=== PATIENT | male | born 1945 | race Caucasian/White ===

== ENCOUNTER 2023-07-04 22:32 | Emergency (ER) | payer MEDICARE, OTHER, SELFPAY ==
[2023-07-04 22:36] VITALS: BP 134/67
--- NOTE | 2023-07-04 23:44 | ED.GENMED ---
History of Present Illness
General
Chief Complaint: Dental Problem
Source: patient
Exam Limitations: none
Time Seen by Provider: 07/04/23 23:15
Nursing documentation reviewed up to this point in time: agreed with
Travel History
Have you had any contact with someone who has COVID-19?: No
Do you have any symptoms of coronavirus? Fever > 100 degrees, chills, cough, shortness of breath, sore throat, loss of taste or smell, muscle aches, or headache?: No
History of Present Illness
History of Present Illness:
Pleasant 78-year-old male presents with bleeding from his left upper rear molar (14). Patient states he had that tooth extracted today. The bleeding persisted so he went back to the dentist who put in more sutures and attempt to stop the bleeding.
Patient went home and bleeding started again. They applied tranexamic acid with minimal relief. They came into the emergency department. Upon arrival, bleeding has seemed to have stopped. Patient is on Eliquis and aspirin. Patient has no other
complaints at this time.
Past History
Past History
ED Past Medical History: CAD, HTN, NIDDM and Hypothyroidism
Social History
Tobacco: Non-smoker
Alcohol: None
Drug: None
Personal:
Living: with family
Review of Systems
Review of Systems
Allergies reviewed?: Yes
Other source history: family
All Other Systems: ROS reviewed and negative except as documented in HPI and ROS
Psychiatric: Reports anxiety
Phy Exam
General Physical Exam
General Presentation: well appearing and mild distress
General age: appears stated age
General Skin: warm and dry
General Habitus: normal and elderly
General Mental: alert
General Hydration: appears well hydrated
Cardiovascular Exam
Cardiovascular Exam: regular rate/rhythm
Pulmonary Exam
Pulmonary Exam: lungs clear and no respiratory distress
Neurological Exam
Neurological Exam: alert and oriented x3
Musculoskeletal Exam
Musculoskeletal Exam: full ROM, no edema and neuro vasc intact
Skin Exam
Skin Exam: normal color and warm/dry
Psychiatric Exam
Psychiatric Exam: normal mood/affect
Course
Vital Signs
Initial and Last Documented VS:
Initial Vital Signs
Temp Pulse Resp BP Pulse Ox
97.7 F 91 20 134/67 93
07/04/23 22:36 07/04/23 22:36 07/04/23 22:36 07/04/23 22:36 07/04/23 22:36
Last Documented Vital Signs
Temp Pulse Resp BP Pulse Ox
97.7 F 91 20 134/67 93
07/04/23 22:36 07/04/23 22:36 07/04/23 22:36 07/04/23 22:36 07/04/23 22:36
*Critical Care Note
Total Time (30-74mins, 75-104mins- exclusive of procedures): Not Applicable
Update Note
Update Note:
Bleeding has stopped. Patient has extra gauze and Hemaconn as well as prescribed tranexamic acid. Discussed return to ER instructions
ED Attending Note
-
Portions of this chart may have been created with voice recognition software.� Occasional wrong word or��sound alike� substitutions may have occurred due to the inherent limitations of voice recognition software.
Discharge Plan
Departure
Patient Disposition: Home (Routine Discharge)
Date of Disposition: 07/05/23
Time of Disposition: 00:35
Patient with high blood pressure during this ER visit?: Yes
Discharge Problem:
Surgical wound hemorrhage after dental procedure
Instructions: Bleeding After Surgery, BLOOD PRESSURE
Prescriptions:
No Action
nateglinide 120 MG tablet
120 mg PO TID
potassium chloride 10 MEQ capsule, extended release
10 meq PO DAILY
carvedilol 12.5 MG tablet
12.5 mg PO BID
bumetanide 2 MG tablet
2 mg PO BID
atorvastatin 10 MG tablet
10 mg PO DAILY
levetiracetam 500 MG tablet
500 mg PO Q12H
aspirin 81 MG tablet,delayed release (DR/EC)
81 mg PO DAILY
levothyroxine 100 MCG tablet
100 mcg PO DAILY AT 0700
azelastine 1 SPRAY aerosol,spray
1 spray intranasal BID
albuterol sulfate 1 PUFF HFA aerosol inhaler
1 puff inhalation R Q4HPRN PRN (Reason: SOB)
cholecalciferol (vitamin D3) 1,000 UNITS tablet
1,000 units PO DAILY
sitagliptin phosphate [Januvia] 100 MG tablet
100 mg PO DAILY
bimatoprost [Lumigan] 1 DROP drops
1 drp BOTH EYES QPM
brinzolamide-brimonidine [Simbrinza] 1 DROP drops,suspension
1 drp BOTH EYES TID
fluticasone furoate-vilanterol [Breo Ellipta] 1 EACH blister with device
1 puff inhalation R DAILY
sacubitril-valsartan [Entresto] 1 EACH tablet
1 ea PO BID
vancomycin [Vancocin] 250 MG capsule
125 mg PO DIRECTED 60 Days Qty: 134 0RF
Rx Instructions:
125 mg 4x/14 days then 125 mg 2x daily/14 then 250 mg daily x 14 then 250 mg other day for 28 days
Referrals:
Diana Tamez MD [Family Provider] -
Activity Restrictions/Additional Instructions:
It was a pleasure meeting you and taking part in your care. We hope for your continued healing and wellness.
Please read discharge instructions in their entirety. However, they are for general education and may not describe your exact diagnosis at discharge. Information on your ER visit and medical conditions were discussed with you along with appropriate
follow up information...
If indicated, please take your medications as instructed and indicated on discharge paperwork.
Please schedule a follow up appointment as directed. Call to schedule an appointment
Please return to the emergency department with ANY change in, persisting, or worsening of symptoms. If any of your symptoms do not improve, or persist, or become more severe within 6-12 hours, please return to the emergency department for further
care.
Please return to the emergency department if you develop a headache, neck pain/stiffness, fever greater than 100.4F, chest pain, shortness of breath, persistent nausea, vomiting, slurred speech, difficulty walking, numbness/tingling, weakness, signs
of infection or any other symptoms that are worrisome to you.
If you have any questions or concerns please do not hesitate to call the Hospital at or E-mail me directly at [email or web address]
Interventions
Interventions:
*Risk Screen - Suicide Last Done: 07/04/23 22:36
*General Assessment Last Done: 07/04/23 22:36
*Neglect/Abuse Screening Last Done: 07/04/23 22:36
*Nursing Disposition Last Done: 07/05/23 00:50
Discharge Date and Time
Discharge Date/Time: 07/05/23 00:53
Print Language: LAO
== END 2023-07-05 00:53 | disposition home or self-care (01) ==
LOC: EMR 22:32
PROVIDERS: EMERGENCY PHYSICIAN Student in an Organized Health Care Education/Training Program; FAMILY PHYSICIAN Internal Medicine Geriatric Medicine
DX: K91.840 Postprocedural hemorrhage of a digestive system organ or structure following a digestive system procedure (principal); I25.10 Atherosclerotic heart disease of native coronary artery without angina pectoris; I10 Essential (primary) hypertension; E11.9 Type 2 diabetes mellitus without complications; E03.9 Hypothyroidism, unspecified; Z79.01 Long term (current) use of anticoagulants
CPT/HCPCS: 99282

== ENCOUNTER 2024-09-03 20:29 | Inpatient (IN) | payer MEDICARE, OTHER, SELFPAY ==
[2024-09-03] VITALS (8 sets, daily range): BP systolic 100–121; BP diastolic 46–63; BMI 29.2
[2024-09-03 17:29] LABS: % Eosinophils 0.1 % (0-6); % Immature Granulocytes 3.3 % (0-0.5); % Lymphocytes 1.2 % (20.5-51.1); % Monocytes 5.3 % (1.7-9.3); % Neutrophils 90.1 % (42.2-75.2); Absolute Immature Granulocytes 1.9 10^3/uL (0-0.05); Absolute Lymphocytes 0.7 10^3/uL (1.2-3.4); Absolute Monocytes 2.9 10^3/uL (0.1-0.6); Absolute Neutrophils 49.9 10^3/uL (1.4-6.5); Hematocrit 40.8 % (39.0-52.0); Hemoglobin 14.4 g/dL (13.0-18.0); Mean Corp Hgb Conc. 35.3 g/dL (33.0-37.0); Mean Corpuscular Volume 87.9 fL (80.0-94.0); Mean Platelet Volume 10.5 fL (7.4-10.4); Nucleated Red Blood Cells % 0 % (-); Platelet Count 427 10^3/uL (130-400); Red Blood Cell Count 4.64 10^6/uL (4.70-6.10); Red Cell Dist. Width 13.9 % (11.5-14.5); White Blood Cell Count 55.4 10^3/uL (4.8-10.8)
[2024-09-03 17:56] LABS: ALT (SGPT) 16 U/L (0-50); AST (SGOT) 22 U/L (17-59); Albumin 3.6 g/dl (3.5-5.0); Alkaline Phosphatase 90 U/L (38-126); Blood Urea Nitrogen 19 mg/dl (9-20); Carbon Dioxide 34 mmol/L (22-30); Chloride 84 mmol/L (98-107); Estimated Creatinine Clearance 59 ml/min; Glucose 191 mg/dl (70-99); Potassium 4.6 mmol/L (3.5-5.1); Sodium 123 mmol/L (135-145); Total Protein 6.6 g/dl (6.3-8.2); eGFR > 60.00
--- NOTE | 2024-09-03 18:04 | ED.GENMED ---
History of Present Illness
General
Chief Complaint: Weakness
Source: patient and spouse
Exam Limitations: none
Time Seen by Provider: 09/03/24 17:05
Nursing documentation reviewed up to this point in time: agreed with
History of Present Illness
History of Present Illness:
79 yo male w h/o colitis, A-fib on Eliquis, MGUS, cardiomyopathy, pacemaker, splenectomy, sleep apnea using CPAP, hypothyroid, HLD, NIDDM, hx infection w brain and liver abscess, skin CA left side face and neck, here for generalized weakness, his
legs gave out this morning and he fell in his bedroom at 10 AM, no injury he states. EMT was called from [facility] to help him up. He states for the past 2 weeks he has been extremely weak and also has developed a cough and shortness of
breath. Denies fever, denies N/V/D/C. He was independently ambulating 1 month ago. states he has been gradually declining.
Past History
Past History
ED Past Medical History: CAD, HTN, NIDDM and Hypothyroidism
Social History
Tobacco: Non-smoker
Alcohol: None
Drug: None
Personal:
Living: with family
Review of Systems
Review of Systems
Allergies reviewed?: Yes
All Other Systems: ROS reviewed and negative except as documented in HPI and ROS
Constitutional: Reports fatigue; Denies fever
Respiratory: Reports cough and trouble breathing
Cardiac: Denies chest pain
ABD/GI: Denies abdominal pain, nausea, vomiting or diarrhea
: Denies dysuria or difficulty voiding
Musculoskeletal: Reports edema
Skin: Reports no symptoms
Neurological: Reports no symptoms
Phy Exam
Physical Exam
Physical Exam:
GENERAL: No acute distress. A&Ox3.
CONSTITUTIONAL: Afebrile.
EYES: clear, conjunctivae normal
ENMT: moist mucus membranes
RESPIRATORY: Regular respirations, mildly labored, coarse junky cough, lungs with diminished breath sounds throughout
CARDIOVASCULAR: Regular rate and rhythm, no murmurs, no rubs.
GI: Soft, nontender, normal BS
MUSCULOSKELETAL: Moves with ease. Well perfused. 2+ pitting edema lower extremities
SKIN: Warm, dry, pink
PSYCH: Normal mood and affect. Well kept, interactive and appropriate
NEUROLOGIC: Awake, alert and oriented. No focal neurological deficits
Scores
Heart Failure Risk
Heart Failure Risk Score: Yes
History of Stroke or TIA: Yes
History of intubation for respiratory distress: No
Heart rate on ED arrival >/= 110: No
SaO2 <90% on arrival on room air: No
HR >/=110 during 3min walk test (or too ill to perform test): Yes
ECG has acute ischemic changes: No
Urea >/=12mmol/L (BUN 33.6mg/dL): No
Serum CO2>/=35mmol/L: No
Troponin I or T elevated to ME Level (0.4mg/dL): No
NT-proBNP >/=5,000ng/L (5,000pg/ml): No
HF Risk Score: 3
Admission Status: HIGH RISK 15.9% Consider SNF treatment or admission to hospital
Course
Orders/Labs/Results
Orders:
Orders
09/03/24 16:46
Electrocardiogram (*1) Urgent
Reason for Study: Fatigue / Weakness
EKG- Treatment ONCE
Portable Chest Xray [CR Chest Portable - 1 View] Urgent
Comment:
Reason For Exam: sob cough
Reason Study Needs to be Portable: Patient Unstable
09/03/24 16:52
Complete Blood Count/With Diff Urgent
09/03/24 17:31
Comprehensive Metabolic Panel Urgent
NT-proBNP Urgent
Serum Osmolality Urgent
Comment: ADD ON
TSH Urgent
Comment: ADD ON
09/03/24 18:04
Furosemide [Lasix] 60 mg IV NOW STA
09/03/24 18:06
Add On- LAB Urgent
Tests Added?: TSH
Add On- LAB Urgent
Tests Added?: serum osmolality
09/03/24 19:15
Admit/Transfer Patient As Directed
Co-Sign Provider:
Level of Care: Inpatient admission
Assign to:: Telemetry
Physician / Group: Mary
Diagnosis: CHF
Reason for Telemetry: Acute Heart Failure
Date to Stop Telemetry: 09/06/24
Time to Stop Telemetry: 11:00
Reason for Hospitalization: IV diuretics
Expected length of stay greater than two midnights?: Yes
ELOS- Estimated Length of Stay in days: 3
I certify the patient meets the requirements for IP care: Yes
09/03/24 19:16
PRN Pain Medication Management As Directed
May give lesser potent ordered pain med per pt: Yes
preference::
Protocol:: Medication orders for pain may be administered in a
manner that supports deferring to patient preference
when the pt is:
- Requesting an ordered lesser potent pain medication.
Least to most potent pain medications are defined
as: acetaminophen < NSAID < tramadol < opioids
(morphine, oxycodone, hydromorphone).
- Requesting a lesser dose of the same medication IF
ORDERED.
- Requesting a less intrusive route of administration
if both routes are prescribed by the provider (PO <
IV).
09/03/24 19:19
Osmolality, Random Urine Urgent
Date Specimen was Collected: 09/03/24
Time Specimen was Collected: 19:13
Urinalysis Reflex To Culture Urgent
Date Specimen was Collected: 09/03/24
Time Specimen was Collected: 19:13
Urine Microscopic Reflex Cult Urgent
Urine Sodium Urgent
Date Specimen was Collected: 09/03/24
Time Specimen was Collected: 19:13
Respiratory Culture/Gram Stain Urgent
RAVI Source: Sputum
Specimen Description:
Date Specimen was Collected: 09/03/24
Time Specimen was Collected: 21:40
Urine Culture Urgent
RAVI Source: U
Specimen Description:
Date Specimen was Collected: 09/03/24
Time Specimen was Collected: 19:13
09/03/24 19:21
Code Status As Directed
Resuscitation Status: Do not resuscitate
Reached after discussion with pt or family/Healthcare POA: Yes
DNR Bracelet Application ONCE
09/03/24 21:44
COVID-19 Antigen Urgent
Source: Nasal Swab
Procalcitonin Urgent
09/03/24 22:06
Apixaban [Eliquis] 5 mg PO BID
09/04/24 18:00
Aspirin Low Dose EC [Aspir Low (Enteric Coated)] 81 mg PO QPM
09/06/24 11:00
DC Protocol for Telemetry ONCE
Abnormal Lab Results
09/03/24 09/03/24 09/03/24
16:52 17:31 19:19
WBC 55.4 H* 10^3/uL
(4.8-10.8)
RBC 4.64 L 10^6/uL
(4.70-6.10)
Plt Count 427 H 10^3/uL
(130-400)
MPV 10.5 H fL
(7.4-10.4)
Abs Immat Gran (auto) 1.9 H 10^3/uL
(0-0.05)
Absolute Neuts (auto) 49.9 H 10^3/uL
(1.4-6.5)
Absolute Lymphs (auto) 0.7 L 10^3/uL
(1.2-3.4)
Absolute Monos (auto) 2.9 H 10^3/uL
(0.1-0.6)
Immature Gran % 3.3 H %
(0-0.5)
Neutrophils % 90.1 H %
(42.2-75.2)
Lymphocytes % 1.2 L %
(20.5-51.1)
Sodium 123 L mmol/L
(135-145)
Chloride 84 L mmol/L
(98-107)
Carbon Dioxide 34 H mmol/L
(22-30)
Glucose 191 H mg/dl
(70-99)
Serum Osmolality 269 L mOsm/kg
(275-300)
Ur Occult Blood Reflex 4+ A
(Negative)
Leukocyte Esterase Rfl 1+ A
(Negative)
Urine RBC 40-50 A /HPF
(0-2)
Urine WBC (Reflex) 30-40 A /HPF
(0-5)
Urine Bacteria (Reflex) Moderate A
(Negative)
Urine Glucose 1+ A
(Negative)
Urine Albumin (Reflex) 1+ A
(Neg - Trace)
09/03/24 16:52
09/03/24 17:31
Vital Signs
Initial and Last Documented VS:
Initial Vital Signs
Pulse Resp BP
76 24 114/54
09/03/24 16:46 09/03/24 16:46 09/03/24 16:46
Last Documented Vital Signs
Temp Pulse Resp BP Pulse Ox
98.9 F 79 24 100/46 94
09/03/24 23:12 09/03/24 23:12 09/03/24 23:12 09/03/24 23:12 09/03/24 23:12
MDM/Problems Addressed
MDM/Problems Addressed:
79 yo male w h/o colitis, A-fib on Eliquis, MGUS, cardiomyopathy, pacemaker, splenectomy, sleep apnea using CPAP, hypothyroid, HLD, NIDDM, hx infection w brain and liver abscess, skin CA left side face and neck, here for generalized weakness, his
legs gave out this morning and he fell in his bedroom at 10 AM, no injury he states. EMT was called from [facility] to help him up. He states for the past 2 weeks he has been extremely weak and also has developed a cough and shortness of
breath. Denies fever, denies N/V/D/C. He was independently ambulating 1 month ago. states he has been gradually declining.
Afebrile,
5:30 p.m.
CBC: WBC 55.0 MGUS most likely cause
CMP: Na 123
BNP: 3990
CXR: IMPRESSION:
Interstitial pulmonary edema with small bilateral pleural effusions. Bibasilar opacities may represent alveolar edema versus pneumonia
Plan: Admit: CHF, Hyponatremia
*Critical Care Note
Total Time (30-74mins, 75-104mins- exclusive of procedures): Not Applicable
ED Attending Note
-
Portions of this chart may have been created with voice recognition software.� Occasional wrong word or��sound alike� substitutions may have occurred due to the inherent limitations of voice recognition software.
Discharge Plan
Departure
Patient Disposition: Admit
Date of Disposition: 09/03/24
Time of Disposition: 17:34
Presentation/result/management discussed w/ accepting MD/DO: Hospitalist
Condition: Serious
Discharge Problem:
CHF (congestive heart failure), MGUS (monoclonal gammopathy of unknown significance), Acute hyponatremia
Interventions
Interventions:
*Risk Screen - Suicide Last Done: 09/03/24 16:48
*General Assessment Last Done: 09/03/24 16:48
*Neglect/Abuse Screening Last Done: 09/03/24 16:48
*ED- Fall Risk Assessment Last Done: 09/03/24 16:48
*ED COVID-19 Vaccine History Last Done: 09/03/24 16:48
ED- Cardiac Assessment Last Done: 09/03/24 19:07
ED- Neurological Assessment Last Done: 09/03/24 19:07
ED- Pulmonary Assessment Last Done: 09/03/24 19:07
[2024-09-03 18:07] LABS: NT-proBNP 3990 pg/ml
[2024-09-03] MEDS: LASIX 60 MG IV (18:14)
[2024-09-03 18:21] LABS: Osmolality Serum 269 mOsm/kg (275-300)
[2024-09-03 18:57] LABS: TSH 1.03 uIU/ml (0.47-4.68)
--- NOTE | 2024-09-03 19:20 | W.PN.UPDATE ---
Update Note
Progress Note Update
This is an addendum to H&P written by Sandra Munoz on 09/03/2024. Patient seen and examined independently with PA.
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
radiation, C. difficile colitis, presenting with generalized weakness and legs giving out today. Also with cough and shortness of breath. Progressive decline over the past month.
Labs show leukocytosis of 55. Sodium of 123. Cardiac BNP of 4000. Chest x-ray shows interstitial pulmonary edema with small bilateral pleural effusions.
Patient with evidence of acute CHF exacerbation with associated hyponatremia/poor solute intake. Check urine sodium, osmolality. Bumex 3 mg twice daily, check echocardiogram, cardiology consulted. Possible pneumonia so check procalcitonin and
start antibiotics if elevated.
Patient with leukocytosis with elevated immature granulocytes concerning for hematologic myeloid process. Hematology consulted.
--- NOTE | 2024-09-03 19:26 | HPS.HSE ---
Addendum entered and electronically signed by Sandra Lao PA-C 09/03/24 23:39:
Procalcitonin Elevated 0.36
-Start empiric ceftriaxone and doxycycline
-Check blood cultures
Original Note:
Family Physician
-
Family Physician: NOT KNOW UNKNOWN - PT DOES
Chief Complaint
-
Weakness
History of Present Illness
Patient is an 79 y/o male past medical history of CAD, CHF, A-Fib, DM, MGUS, and COPD who presents with weakness. Additional history if obtained from patient's at the bedside. Patient has been dealing with worsening cough for the past few
weeks. Initially he was treated with a Medrol dose pack without much improve. He then completed a Z-sandra again without much improvement. notes his physician tried changing him from Breo to Trelegy but again not much improvement so he changed
back to Breo. Patient reports cough is productive, and is associated with some shortness of breath. Patient has gotten progressively weaker prompting his presentation to the emergency department today. Upon arrival to the emergency department
patient was profoundly hypoxic with O2 73% on room air.
Medical History
Past Medical History
Past Medical History: Reports Other
Additional Past Medical History:
Coronary Artery Disease
Chronic Heart Failure, unknown EF
Paroxysmal Atrial Fibrillation
Complete Heart Block s/p Pacemaker
Diabetes Mellitus, Type II
Hypothyroidism
MGUS
Asthma/COPD
Squamous Cell Carcinoma of Left Face s/p Resection and XRT
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
C Diff Colitis
Glaucoma
Past Surgical History: Reports Other
Additional Past Surgical History:
Pacemaker
Splenectomy
Left Facial Surgery
Social History
Tobacco: Non-smoker
Living: Other (Lives with in independent apartment at [facility])
Family History
Family History: Not pertinent
Allergies / Home Medications
Allergies reflects when Allergies were last updated in [employer] computer.
Home Medications with original date entered in [employer] computer
Allergy/Medication List:
Allergies
Allergy/AdvReac Type Severity Reaction Status Date / Time
metformin Allergy Unknown Verified 09/03/24 16:46
Home Medications
albuterol sulfate 90 mcg/actuation aerosol inhaler 1 puff inhalation R Q4HPRN PRN SOB 03/17/21
aspirin 81 mg tablet,delayed release 81 mg PO QPM Blood clot prevention/tx 03/17/21
azelastine 137 mcg (0.1 %) nasal spray 1 spray intranasal BID Congestion 03/17/21
brinzolamide 1 %-brimonidine 0.2 % eye drops,suspension (Simbrinza) 1 drp BOTH EYES TID Fever/pain 03/17/21
bumetanide 2 mg tablet 2 mg PO BID Fluid retention/Swelling 03/17/21
carvedilol 12.5 mg tablet 12.5 mg PO BID Blood pressure 03/17/21
cholecalciferol (vitamin D3) 25 mcg (1,000 unit) tablet 1,000 units PO DAILY Supplement 03/17/21
levothyroxine 100 mcg tablet 100 mcg PO DAILY AT 0700 Thyroid 03/17/21
nateglinide 120 mg tablet 120 mg PO TID Diabetes 03/17/21
sitagliptin phosphate 100 mg tablet (Januvia) 100 mg PO QPM Diabetes 03/17/21
apixaban 5 mg tablet (Eliquis) 5 mg PO BID 09/03/24
azithromycin 250 mg tablet 0 mg PO .COMPLEX 09/03/24
bimatoprost 0.01 % eye drops (Lumigan) 1 drp BOTH EYES HS 09/03/24
docusate sodium 100 mg capsule (Colace) 100 mg PO BID 09/03/24
fluticasone furoate 200 mcg-vilanterol 25 mcg/dose inhalation powder (Breo Ellipta) 1 inh inhalation DAILY 09/03/24
netarsudil 0.02 % eye drops (Rhopressa) 1 drp BOTH EYES HS 09/03/24
sacubitril 24 mg-valsartan 26 mg tablet (Entresto) 1 tab PO BID 09/03/24
Review of Systems
-
A 12 point ROS was completed and negative except as noted: Yes
Constitutional: Denies Fever or Chills
Respiratory: Reports See HPI
Cardiac: Denies Chest Pain or Palpitations
Abdomen/GI: Denies Abdominal Pain, Nausea, Vomiting or Diarrhea
Physical Exam
Vital Signs
Vital Signs
Temp Pulse Resp BP Pulse Ox
98.1 F 70 24 114/55 92
09/03/24 19:07 09/03/24 19:07 09/03/24 19:07 09/03/24 19:07 09/03/24 19:07
Physical Exam
General: Well Developed, Well Nourished, Conversant and Obese
HEENT: NormoCephalic, Moist mucous membranes, Atraumatic and Oxygen (Nasal Cannula)
Respiratory: Wheezes (Posteriorly), Rales (Few at bilateral bases) and Rhonchi (Anteriorly)
Cardiac: S1/S2 and Regular Rhythm; No Tachycardia
GI: Soft, Non Tender and Other (Protuberant)
Rectal: Deferred by Provider
Genito-urinary: Other (Dark ulisses urine in urinal at bedside)
Musculoskeletal: No Clubbing, No Cyanosis and Other (+2 pitting edema bilateral lower extremities)
Skin: Warm and Dry
Neuro: Awake, Alert, Oriented and Nonfocal/grossly intact
Psych: Calm
Laboratory Results
-
09/03/24 16:52
09/03/24 17:31
Laboratory Results
Total Bilirubin 1.0 mg/dl (0.2-1.3) 09/03/24 17:31
AST 22 U/L (17-59) 09/03/24 17:31
ALT 16 U/L (0-50) 09/03/24 17:31
Alkaline Phosphatase 90 U/L (38-126) 09/03/24 17:31
Chest X-Ray:
Interstitial pulmonary edema with small bilateral pleural effusions. Bibasilar opacities may represent alveolar edema versus pneumonia.
Data Reviewed
-
Diagnostic Radiology: Report Reviewed by me
Old Records: Requested and Reviewed
Impression/Plan
-
Acute Hypoxic Respiratory Insufficiency secondary to Heart Failure
-Continue supplemental oxygen
-Attempt to wean prior to discharge
Chronic Heart Failure, unknown EF
-Consult Cardiology
-Check Echocardiogram
-Continue Bumex 3mg IV BID
-Continue Entresto
-Monitor Is&Os and Daily Weights
Hyponatremia, suspect hypervolemic in nature in setting of heart failure
-Check urine electrolytes
-Continue fluid restriction
-Monitor serial sodium levels
Significant Leukocytosis
- reports patient's WBC chronically runs high but she does not know his baseline
-Attempt to obtain prior blood work results from PCP
-Check Procalcitonin - If elevated start empiric antibiotics for pneumonia
-Check COVID and Influenza swab
-Check blood cultures
-Consult Hematology
Asthma / COPD
-Transition to Pulmicort and DuoNeb QID / PRN
Coronary Artery Disease
-Continue aspirin
Paroxysmal Atrial Fibrillation
-Continue Eliquis
-Continue carvedilol for rate control
Diabetes Mellitus, Type II
-Continue Januvia
-Hold Nateglinide
-Monitor sugars and continue coverage insulin
Essential Hypertension
-Continue carvedilol with hold parameters
Hypothyroidism
-Continue levothyroxine
MGUS
-Attempt to obtain records from patients outpatient bulk pigment reducer
Hx Complete Heart Block s/p Pacemaker
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
Hx C Diff Colitis
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
DVT proph: Eliquis
Code Status: DNR
[2024-09-03 19:35] LABS: Urine Albumin 1+ (Neg - Trace); Urine Bilirubin Negative (Negative); Urine Character Clear (Clear); Urine Color Yellow; Urine Glucose 1+ (Negative); Urine Ketone Negative (Negative); Urine Leukocyte 1+ (Negative); Urine Nitrite Negative (Negative); Urine Occult Blood 4+ (Negative); Urine Specific Gravity 1.015 (<1.030); Urine Urobilinogen Negative (Neg - 1+)
[2024-09-03 19:39] LABS: Osmolality Urine 389 mOsm/kg (300-900)
[2024-09-03 19:48] LABS: Urine Bacteria Moderate (Negative); Urine Red Blood Cell 40-50 /HPF (0-2); Urine White Cell 30-40 /HPF (0-5)
[2024-09-03 19:52] LABS: Urine Sodium 33 mmol/L (30-90)
[2024-09-03] MEDS: ASPIR LOW (ENTERIC COATED) 81 MG PO (22:11)
[2024-09-03] MEDS: ELIQUIS 5 MG PO (22:11)
[2024-09-03 22:23] LABS: COVID-19 Antigen Negative (Negative)
[2024-09-03 23:12] LABS: Procalcitonin 0.36 ng/ml (0.0-0.25)
[2024-09-04] VITALS (7 sets, daily range): BP systolic 108–132; BP diastolic 55–80; PULSE 91; O2SAT 91; BMI 28.4
[2024-09-04 00:08] LABS: Glucose - Point of Care 164 mg/dl (70-99)
--- NOTE | 2024-09-04 00:10 | PTCARENOTE ---
Pt arrived to unit from ED, x4 assist to parts puller from stretcher to bed. AAOx3, garbled speech, hx of stroke. Oriented to room, call shannon in reach, VSS on 4L O2. Bed alarm in place, POC reviewed with pt.
[2024-09-04] MEDS: DUONEB 3 ML INH ×5 (00:39→20:13)
[2024-09-04] MEDS: PULMICORT 0.5 MG INH ×3 (00:39→20:13)
[2024-09-04] MEDS: COREG PO ×2 (00:48→08:22)
[2024-09-04] MEDS: MUCINEX 600 MG PO ×3 (01:08→19:48)
[2024-09-04] MEDS: STERILE WATER FOR INJECTION 10 ML IV (01:10)
[2024-09-04] MEDS: COLACE 100 MG PO ×3 (01:10→19:50)
[2024-09-04] MEDS: ENTRESTO 24 MG/26 MG 1 TAB PO ×3 (01:10→19:48)
[2024-09-04] MEDS: ROCEPHIN 1000 MG IV (01:11)
[2024-09-04] MEDS: SYNTHROID 100 MCG PO (06:16)
[2024-09-04 07:11] LABS: Hematocrit 41.1 % (39.0-52.0); Hemoglobin 14.3 g/dL (13.0-18.0); Mean Corp Hgb Conc. 34.8 g/dL (33.0-37.0); Mean Corpuscular Volume 89.2 fL (80.0-94.0); Mean Platelet Volume 10.5 fL (7.4-10.4); Platelet Count 360 10^3/uL (130-400); Red Blood Cell Count 4.61 10^6/uL (4.70-6.10); Red Cell Dist. Width 13.4 % (11.5-14.5); White Blood Cell Count 48.4 10^3/uL (4.8-10.8)
[2024-09-04 07:55] LABS: Glucose - Point of Care 150 mg/dl (70-99)
[2024-09-04] MEDS: BUMEX 3 MG IV ×2 (08:19→15:44)
[2024-09-04] MEDS: VIBRAMYCIN 100 MG PO (08:21)
[2024-09-04] MEDS: ELIQUIS 5 MG PO ×2 (08:22→19:48)
[2024-09-04 08:25] LABS: Blood Urea Nitrogen 20 mg/dl (9-20); Carbon Dioxide 31 mmol/L (22-30); Chloride 85 mmol/L (98-107); Estimated Creatinine Clearance 63 ml/min; Glucose 114 mg/dl (70-99); HDL Cholesterol 27 mg/dl; LDL Cholesterol, Calculated 65 mg/dl; Magnesium 2.1 mg/dl (1.6-2.3); Potassium 4.5 mmol/L (3.5-5.1); Sodium 126 mmol/L (135-145); Total Cholesterol 110 mg/dl (50-199); Triglyceride 94 mg/dl (10-149); Very Low Density Lipoprotein 18 mg/dl (0-30); eGFR > 60.00
--- NOTE | 2024-09-04 08:26 | CON.CAR ---
Addendum entered and electronically signed by Sommer Sykes MD 09/04/24 13:15:
I saw and examined the patient.
The [employer] CONSULTANT's note was reviewed and I agree with the note.
Comment: 79 yo male (known to his medical office receptionist Dr. Oliverio Pierre [place]) with HTN, Afib on Eliquis, CVA on ASA added Eliquis, CHB s/p MDT PPM, CHF unknown EF, COPD and DM, who presents to the ER with c/o cough. He is admitted to the
hospitalist service and we are consulted for acute CHF.He is a poor historian. He tells me he is feeling better since admission.
On exam he has diffuse wheezes posteriorly, rrr no m/r/g, his legs are withoout edema.
CXR shows pleural effusions with pulm edema (on my review). ECG av paced with PVCs.
Impression acute hf unknown ef, paf on eliquis/asa, htn and CHB s/p PPM. Leukocytosis. Plan IV diuresis in intensive monitoring, Eval for SGLT 2 i, cm c/s, Check echo, optimize medications for chornic problems. Consider is COPD is playing a role.
Further eval for leukocytosis.
Will follow
Original Note:
Consultation
Consultation Request
Date/Time Consultation Requested: 09/03/24 11:50p
Date/Time Consultation Performed: 09/04/24 8a
Requesting Provider: Sandra Lao PA-C
Performing Provider: RONAL Pollack for Dr. Sykes
Reason for Consultation: CHF
Medical History
-
Chief Complaint: cough
History of Present Illness:
Mr. Glover is an 79 yo male (known to his medical office receptionist Dr. Oliverio Pierre [place]) with HTN, Afib on Eliquis, CVA on ASA, CHB s/p MDT PPM, CHF unknown EF, COPD and DM, who presents to the ER with c/o cough. He is admitted to the hospitalist
service and we are consulted for acute CHF. He is a poor historian and history was obtained from speaking with his Maria D on the phone. She states he has post nasal drip that causes him to cough that has occurred for 5 years now. Recently
he was placed on Zpack, medrol dose pack and inhalers by PCP without improvement. Currently he states feeling mildly SOB.
Past Medical History
Past Medical History: Other (as above)
Social History
Tobacco: Non-Smoker
Personal:
Living: Assisted Living ([facility])
Employment: Retired
Family History
Family History: Reviewed & Not Pertinent
Allergies / Home Medications
Allergy/AdvReac Type Severity Reaction Status Date / Time
adhesive tape Allergy Mild Itching Verified 09/04/24 01:02
metformin Allergy Unknown Verified 09/03/24 16:46
�Medication �Instructions �Recorded �Confirmed �Type
albuterol sulfate 90 mcg/actuation 1 puff inhalation R Q4HPRN PRN SOB 03/17/21 09/03/24 History
aerosol inhaler
aspirin 81 mg tablet,delayed 81 mg PO QPM Blood clot 03/17/21 09/03/24 History
release prevention/tx
azelastine 137 mcg (0.1 %) nasal 1 spray intranasal BID Congestion 03/17/21 09/03/24 History
spray
brinzolamide 1 %-brimonidine 0.2 % 1 drp BOTH EYES TID Fever/pain 03/17/21 09/03/24 History
eye drops,suspension (Simbrinza)
bumetanide 2 mg tablet 2 mg PO BID Fluid 03/17/21 09/03/24 History
retention/Swelling
carvedilol 12.5 mg tablet 12.5 mg PO BID Blood pressure 03/17/21 09/03/24 History
cholecalciferol (vitamin D3) 25 1,000 units PO DAILY Supplement 03/17/21 09/03/24 History
mcg (1,000 unit) tablet
levothyroxine 100 mcg tablet 100 mcg PO DAILY AT 0700 Thyroid 03/17/21 09/03/24 History
nateglinide 120 mg tablet 120 mg PO TID Diabetes 03/17/21 09/03/24 History
sitagliptin phosphate 100 mg 100 mg PO QPM Diabetes 03/17/21 09/03/24 History
tablet (Januvia)
apixaban 5 mg tablet (Eliquis) 5 mg PO BID 09/03/24 09/03/24 History
azithromycin 250 mg tablet 0 mg PO .COMPLEX 09/03/24 09/03/24 History
bimatoprost 0.01 % eye drops 1 drp BOTH EYES HS 09/03/24 09/03/24 History
(Lumigan)
docusate sodium 100 mg capsule 100 mg PO BID 09/03/24 09/03/24 History
(Colace)
fluticasone furoate 200 1 inh inhalation DAILY 09/03/24 09/03/24 History
mcg-vilanterol 25 mcg/dose
inhalation powder (Breo Ellipta)
netarsudil 0.02 % eye drops 1 drp BOTH EYES HS 09/03/24 09/03/24 History
(Rhopressa)
sacubitril 24 mg-valsartan 26 mg 1 tab PO BID 09/03/24 09/03/24 History
tablet (Entresto)
Review of Systems
-
History Source: Patient and Family ( Maria D)
All other systems: Negative unless noted
Physical Exam
Vital Signs
Temp Pulse Resp BP Pulse Ox
98.2 F 76 20 118/57 95
09/04/24 07:55 09/04/24 07:55 09/04/24 07:55 09/04/24 07:55 09/04/24 07:55
Lab Results
09/04/24 05:56
09/04/24 05:56
Ggi-U-Olrvuacowdm Pept 3990 pg/ml 09/03/24 17:31
Physical Exam
General: Well Developed, No Apparent Distress and Other (sleepy and arouses to name)
HEENT: Normocephalic and Moist Mucous Membranes
Respiratory: Crackles (mild bibasilar) and Non Labored Respirations
Cardiac: S1/S2, Regular Rhythm and Peripheral Edema (mild b/l LE)
Breast: Deferred by me
GI: Soft, Non Tender and Normal Bowel Sounds
Rectal: Deferred by Provider
Genito-urinary: No Costovertebral Tender
Musculoskeletal: No Clubbing and No Cyanosis
Skin: Warm and Dry
Neuro: Awake, Alert and Oriented
Psych: Calm
Impression / Plan
-
CHF - acute on chronic.
- unknown EF, obtain records.
- agree with IV diuresis Bumex 3mg BID.
- monitor daily weights, I&Os.
- check echo.
- continue GDMT Entresto, Coreg, Bumex.
- fitzgerald SGLT2i.
Afib - paroxysmal.
- AV and V paced on tele.
- denies palpitations.
- continue Eliquis.
HTN - stable on meds, continue.
CAD - stable w/o angina.
- continue medical therapy.
- obtain records from cardiology.
CVA - stable.
- no sx.
- on ASA, continue.
CHB s/p PPM - MDT device managed by Dr. Immanuel Mcmahon as outpatient.
Data Reviewed
-
EKG: Tracing Personally Visualized and interpreted (V paced with PVCs 75 bpm)
Radiology: Report Reviewed by me (CXR: Interstitial pulmonary edema with small bilateral pleural effusions. Bibasilar opacities may represent alveolar edema versus pneumonia.)
Labs: Labs Reviewed by me
Old Records: Requested
[2024-09-04 08:44] LABS: Hepatitis C Antibody Negative (Negative)
--- NOTE | 2024-09-04 08:47 | W.PN.HOSP.TC ---
Today's Communication/Plan
-
broaden abx to vanc and zosyn
follow cultures
wean O2 supplementation as tolerated
cont IV diuresis
follow flow cytometry
PT/OT
Assessment / Plan
Assessment / Plan
Physical Exam
General: no acute distress, appears comfortable, obese
HEENT: NormoCephalic, Moist mucous membranes, Atraumatic on nasal cannula oxygen supplementation
Respiratory: basilar crackles b/l
Cardiac: S1/S2 and Regular Rhythm; No Tachycardia
GI: Soft, Non Tender, bowel sounds present
Musculoskeletal: No Clubbing, No Cyanosis, +2 pitting edema bilateral lower extremities
Skin: Warm and Dry
Neuro: Lethargic but arousable, oriented x3, conversant
Psych: Calm
79M CAD CHF afib DM MGUS COPD here for CHF exacerbation, high white count, suspected pneumonia, bacteremia.
Acute Hypoxic Respiratory Insufficiency secondary to Heart Failure
-Continue supplemental oxygen
-Attempt to wean prior to discharge
Acute on Chronic HFrEF
-Consult Cardiology appreciated
-ECHO appreciated 30%
-Continue Bumex 3mg IV BID
-Continue Entresto
-Monitor Is&Os and Daily Weights
Hyponatremia, suspect hypervolemic in nature in setting of heart failure
-Continue fluid restriction
-Monitor serial sodium levels
Significant Leukocytosis
Bacteremia
- reports patient's WBC chronically runs high but she does not know his baseline
-Attempt to obtain prior blood work results from PCP
-Procal elevated
-Check COVID and Influenza swab
-Blood cx prelim positive
-Consult Hematology appreciated
-Empiric abx broaden to vanc and zosyn
Asthma / COPD
-Transition to Pulmicort and DuoNeb QID / PRN
Coronary Artery Disease
-Continue aspirin
Paroxysmal Atrial Fibrillation
-Continue Eliquis
-Continue carvedilol for rate control
Diabetes Mellitus, Type II
-Continue Januvia
-Hold Nateglinide
-Monitor sugars and continue coverage insulin
Essential Hypertension
-Continue carvedilol with hold parameters
Hypothyroidism
-Continue levothyroxine
MGUS
-Attempt to obtain records from patients outpatient load mixer
Hx Complete Heart Block s/p Pacemaker
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
Hx C Diff Colitis
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
DVT proph: Eliquis
Code Status: DNR
discussed with patient and patient's Maria D
I spent a total of 50 minutes with the patient or on the floor. More than 50% of this time involved counseling and coordination of care.
Anticipated Discharge: > 48 hours
Subjective/Interval History
-
Date of Service: September 04, 2024
No acute distress sitting up comfortably in chair. Lethargic but arousable, oriented x3. Maria D present during evaluation.
Objective Data
-
Labs:
Laboratory Results
09/04/24
05:56
WBC 48.4 H*
Hgb 14.3
Hct 41.1
Plt Count 360
Sodium 126 L
Potassium 4.5
Chloride 85 L
Carbon Dioxide 31 H
BUN 20
Creatinine 0.9
Glucose 114 H
Calcium 9.0
Vital Signs:
Vital Signs
Temp Pulse Resp BP Pulse Ox
98.2 F 76 20 118/57 95
09/04/24 07:55 09/04/24 07:55 09/04/24 07:55 09/04/24 07:55 09/04/24 07:55
I&O
09/03/24 09/04/24 09/05/24
06:59 06:59 06:59
Intake Total 240 / 240
Output Total 450 / 450
Balance -210 / -210
[2024-09-04] MEDS: NOVOLOG FLEXPEN-LOW RESISTANCE 1 UNITS SC ×2 (08:57→13:05)
--- NOTE | 2024-09-04 09:52 | CON.ONC ---
Documented by User: Darvin Valdes DO, Resident 09/04/24 11:43
Consultation
-
Date Consultation Performed: 09/04/24
Impression
Impression
79-year-old male past medical history of CAD, CHF, A-fib, DM, MGUS, COPD who presented to [facility] with weakness, being managed for hypoxia and leukocytosis.
Plan
Plan
- flow cytometry pending
- continue abx
- continue O2 support for hyoxia
- continue to monitor CBC
- continue all other medical care per primary team
Patient History
History of Present Illness
79-year-old male past medical history of CAD, CHF, A-fib, DM, MGUS, COPD who presented to [facility] with weakness, which has been progressive over the last month per EMR records. He has history of productive cough and was found to be
hypoxic in ED. Lab work shows significant leukocytosis with white blood cell count of 55.4 at time of admission, now downtrending to 48.4 this morning. He also has elevated immature granulocytes. he was placed on ceftriaxone and doxycycline with
blood cultures pending. Chest x-ray showed interstitial pulmonary edema with small bilateral pleural effusions. He is not a known patient to [place].
In conversation with patient today, he was sleeping, difficult to arouse. He answered questions semi-incoherently but mumbled that he did not not have any issues overnight. He was unsure if he had any nausea or vomiting or abdominal pain. He is
currently on nasal cannula for oxygen support.
Patient Medication
�Medication �Instructions �Recorded �Confirmed �Last Taken �Type
albuterol sulfate 90 mcg/actuation 1 puff inhalation R Q4HPRN PRN SOB 03/17/21 09/03/24 Unknown History
aerosol inhaler
aspirin 81 mg tablet,delayed 81 mg PO QPM Blood clot 03/17/21 09/03/24 09/02/24 History
release prevention/tx
azelastine 137 mcg (0.1 %) nasal 1 spray intranasal BID Congestion 03/17/21 09/03/24 03/17/21 History
spray
brinzolamide 1 %-brimonidine 0.2 % 1 drp BOTH EYES TID Fever/pain 03/17/21 09/03/24 09/03/24 History
eye drops,suspension (Simbrinza)
bumetanide 2 mg tablet 2 mg PO BID Fluid 03/17/21 09/03/24 09/03/24 History
retention/Swelling
carvedilol 12.5 mg tablet 12.5 mg PO BID Blood pressure 03/17/21 09/03/24 09/03/24 History
cholecalciferol (vitamin D3) 25 1,000 units PO DAILY Supplement 03/17/21 09/03/24 09/03/24 History
mcg (1,000 unit) tablet
levothyroxine 100 mcg tablet 100 mcg PO DAILY AT 0700 Thyroid 03/17/21 09/03/24 09/03/24 History
nateglinide 120 mg tablet 120 mg PO TID Diabetes 03/17/21 09/03/24 09/03/24 History
sitagliptin phosphate 100 mg 100 mg PO QPM Diabetes 03/17/21 09/03/24 03/17/21 History
tablet (Januvia)
apixaban 5 mg tablet (Eliquis) 5 mg PO BID 09/03/24 09/03/24 09/03/24 History
azithromycin 250 mg tablet 0 mg PO .COMPLEX 09/03/24 09/03/24 Unknown History
bimatoprost 0.01 % eye drops 1 drp BOTH EYES HS 09/03/24 09/03/24 Unknown History
(Lumigan)
docusate sodium 100 mg capsule 100 mg PO BID 09/03/24 09/03/24 09/03/24 History
(Colace)
fluticasone furoate 200 1 inh inhalation DAILY 09/03/24 09/03/24 Unknown History
mcg-vilanterol 25 mcg/dose
inhalation powder (Breo Ellipta)
netarsudil 0.02 % eye drops 1 drp BOTH EYES HS 09/03/24 09/03/24 Unknown History
(Rhopressa)
sacubitril 24 mg-valsartan 26 mg 1 tab PO BID 09/03/24 09/03/24 09/03/24 History
tablet (Entresto)
Active Medications
Generic Name Dose Route Start Last Admin
Trade Name Freq PRN Reason Stop Dose Admin
Albuterol/Ipratropium 3 ml 09/03/24 23:53
Ipratropium 0.5/Albuterol 3 Mg (3 Ml Ampul) INH
R Q4HPRN PRN
shortness of breath/wheeze
Protocol
Albuterol/Ipratropium 3 ml 09/03/24 23:53 09/04/24 07:33
Ipratropium 0.5/Albuterol 3 Mg (3 Ml Ampul) INH 3 ml
R QID XANDER Administration
Protocol
Apixaban 5 mg 09/03/24 22:06 09/04/24 08:22
Apixaban (Eliquis) 5 Mg Tablet PO 10/01/24 22:05 5 mg
BID XANDER Administration
Aspirin 81 mg 09/04/24 18:00 09/03/24 22:11
Aspirin 81 Mg (Enteric Coated) Tablet PO 10/02/24 17:59 81 mg
QPM XANDER Administration
Budesonide 0.5 mg 09/03/24 23:53 09/04/24 07:33
Budesonide (Pulmicort Respules) 0.5 Mg/2 Ml INH 0.5 mg
R BID XANDER Administration
Protocol
Bumetanide 3 mg 09/04/24 08:00 09/04/24 08:19
Bumetanide (0.25 Mg/1 Ml) 4 Ml Vial IV 10/02/24 07:59 3 mg
BID@0800,1600 XANDER Administration
Carvedilol 12.5 mg 09/03/24 23:53 09/04/24 08:22
Carvedilol 12.5 Mg Tablet PO 10/01/24 23:52 Not Given
BID XANDER
Ceftriaxone Sodium 1,000 mg 09/04/24 00:00 09/04/24 01:11
Ceftriaxone 1000 Mg / 10 Ml Vial IV 1,000 mg
Q24H XANDER Administration
Dextrose 12.5 grams 09/03/24 23:53
Dextrose 50% (0.5 Grams/Ml) 50 Ml Syringe IV 10/01/24 23:52
[id number] PRN
hypoglycemia
Protocol
Docusate Sodium 100 mg 09/03/24 23:53 09/04/24 08:22
Docusate Sodium 100 Mg Capsule PO 10/01/24 23:52 100 mg
BID XANDER Administration
Doxycycline Hyclate 100 mg 09/04/24 08:00 09/04/24 08:21
Doxycycline 100 Mg Capsule PO 100 mg
Q12 XANDER Administration
Glucagon 1 mg 09/03/24 23:53
Glucagon 1 Mg Vial IM 10/01/24 23:52
PRN PRN
hypoglycemia
Protocol
Guaifenesin 600 mg 09/03/24 23:53 09/04/24 08:21
Guaifenesin 600 Mg Extended Release Tablet PO 10/01/24 23:52 600 mg
Q12 XANDER Administration
Insulin Aspart 0 units 09/04/24 07:30 09/04/24 08:57
Insulin Aspart Low Resistance 300 Units/3 Ml Pen.Injctr SC 10/02/24 07:29 1 units
AC XANDER Administration
Protocol
Levothyroxine Sodium 100 mcg 09/04/24 06:00 09/04/24 06:16
Levothyroxine 100 Mcg Tablet PO 10/02/24 05:59 100 mcg
DAILY @ 0600 XANDER Administration
Sacubitril/Valsartan 1 tab 09/03/24 23:53 09/04/24 08:22
Sacubitril 24 Mg/Valsartan 26 Mg (Entresto) Tab PO 10/01/24 23:52 1 tab
BID XANDER Administration
Sitagliptin Phosphate 100 mg 09/04/24 18:00
Sitagliptin (Januvia) 100 Mg Tablet PO 10/02/24 17:59
QPM XANDER
Sodium Chloride 0 flush 09/03/24 22:00
Sodium Chloride 0.9% (Flush) Syringe IV 10/01/24 21:59
PER PROTOCOL XANDER
Sterile Water 10 ml 09/04/24 00:00 09/04/24 01:10
Sterile Water For Injection 10 Ml Vial IV 10/02/24 00:00 10 ml
Q24H XANDER Administration
Review of Systems
-
Unable to obtain full review of systems at this time due to: Other (Significantly somnolent and incoherent)
History Source: Patient
Physical Exam
-
General: Well Developed, Well Nourished and Other
GI: Soft
Musculoskeletal: No Clubbing, No Cyanosis, Edema, Right Lower Extrem and Edema, Left Lower Extrem
Extremities: Pulses Present
Skin: Warm and Dry
Psych: Calm and Other (Somnolent)
Labs
Lab Results
WBC 48.4 10^3/uL (4.8-10.8) H* 09/04/24 05:56
RBC 4.61 10^6/uL (4.70-6.10) L 09/04/24 05:56
Hgb 14.3 g/dL (13.0-18.0) 09/04/24 05:56
Hct 41.1 % (39.0-52.0) 09/04/24 05:56
MCV 89.2 fL (80.0-94.0) 09/04/24 05:56
MCH 31.0 pg (27.0-31.0) 09/04/24 05:56
MCHC 34.8 g/dL (33.0-37.0) 09/04/24 05:56
RDW 13.4 % (11.5-14.5) 09/04/24 05:56
Plt Count 360 10^3/uL (130-400) 09/04/24 05:56
MPV 10.5 fL (7.4-10.4) H 09/04/24 05:56
Abs Immat Gran (auto) 1.9 10^3/uL (0-0.05) H 09/03/24 16:52
Absolute Neuts (auto) 49.9 10^3/uL (1.4-6.5) H 09/03/24 16:52
Absolute Lymphs (auto) 0.7 10^3/uL (1.2-3.4) L 09/03/24 16:52
Absolute Monos (auto) 2.9 10^3/uL (0.1-0.6) H 09/03/24 16:52
Absolute Eos (auto) 0.0 10^3/uL (0-0.7) 09/03/24 16:52
Absolute Basos (auto) 0.0 10^3/uL (0-0.2) 09/03/24 16:52
Immature Gran % 3.3 % (0-0.5) H 09/03/24 16:52
Neutrophils % 90.1 % (42.2-75.2) H 09/03/24 16:52
Lymphocytes % 1.2 % (20.5-51.1) L 09/03/24 16:52
Monocytes % 5.3 % (1.7-9.3) 09/03/24 16:52
Eosinophils % 0.1 % (0-6) 09/03/24 16:52
Basophils % 0.0 % (0-2) 09/03/24 16:52
Creatinine 0.9 mg/dL (0.7-1.3) 09/04/24 05:56
Vital Signs
Vital Signs
Temp Pulse Resp BP Pulse Ox
98.2 F 76 20 118/57 95
09/04/24 07:55 09/04/24 07:55 09/04/24 07:55 09/04/24 07:55 09/04/24 07:55

Documented by User: Alec Marques MD 09/04/24 14:20
Plan
Plan
- flow cytometry pending
- continue abx
- continue O2 support for hyoxia
- continue to monitor CBC
- continue all other medical care per primary team
Hemnatology Addendum:
Patient seen and evaluated and agree w/ medical assistant float note and plan as outlined
-leukocytosis - unclear etiology -a reactive component may be impacting WBC - given predominate neutrophilia
-hemoglobin and platelet count are adequate
-will check peripheral blood flow cytometry to evaluate for clonal WBC process
-antibiotics - tx respiratory illness
-if leukocytosis persists following resolution of acute infectious/ inflammatory issues - could conisder MPN w/u as outpt w/ testing for BCR-ABL/ LENKA-2
-follow CBC
will continue to follow with you
[2024-09-04 10:06] LABS: Glycohemoglobin (HgbA1c) 6.9 % (4.0-5.6)
--- NOTE | 2024-09-04 11:15 | CARDSERVLU ---
Echocardiogram with [facility] completed after protocol screening completed. Allergies verified.
Patent IV site: __L hand___
IV site flushed with 0.9% NaCl pre and post administration.
Diluted bolus method utilized to enhance visualization of ventricular ojeda.
Total volume given: __3.5__ mL
Patient tolerated all procedures well without complications.
[2024-09-04 11:58] LABS: Glucose - Point of Care 167 mg/dl (70-99)
--- NOTE | 2024-09-04 15:19 | CM ---
Addendum entered by Kay Yap 09/04/24 16:00:
Referral sent to [facility] at 's request
Original Note:
CM reviewed chart and met with pt's at bedside, pt sleeping. IMM reviewed and signed, copy given to pt's . They reside in [place] apartment at [facility]. Pt has had [facility] VN in the past and has been to [facility]. PT recommends
SNF, per they do not want him to return to [facility]. Pt has cane and walker, uses walker for ambulation. CM will continue to follow for discharge planning needs.
Plan: Pending ongoing medical evaluation
PCP: Diana Tamez
Pharmacy: [facility]
[2024-09-04] MEDS: ROBITUSSIN 200 MG PO ×2 (15:54→23:18)
[2024-09-04] MEDS: SIMBRINZA 1%-0.2% OPHTH SUSP 1 DROP BOTH EYES ×2 (16:12→22:24)
[2024-09-04 16:41] LABS: Glucose - Point of Care 207 mg/dl (70-99)
[2024-09-04] MEDS: ZOSYN 50 IV ×2 (17:43→23:15)
[2024-09-04] MEDS: JANUVIA 100 MG PO (17:44)
[2024-09-04] MEDS: NOVOLOG FLEXPEN-LOW RESISTANCE 2 UNITS SC (17:45)
--- NOTE | 2024-09-04 18:20 | PHA.VAN.IN ---
Assessment
- Assessment
Renal Function: Appears similar to baseline
Concomitant Antimicrobials: ZOSYN
- Previous Dosing Experience
Previous Regimen: NONE
AUC Dosing Plan
- Dosing Variables
Dosing Weight (kg): 84.6
Dosing CrCl (ml/min): 63
Vd coefficient (L/kg): 0.7
- Empiric Dosing
Initial / Loading Dose: 2GM
Maintenance Regimen: 1750MG IV Q24H
Estimated AUC (mcg*h/mL): 543
Estimated Peak (mcg*h/mL): 39.7
Estimated Trough (mcg/ml): 11.1
Estimated Half Life (H): 12.2
Pharmacokinetics Vancomycin I
- -
Patient Age: 79
Patient Sex: Male
Vancomycin Day #: 1
Indication: Bacteremia
Requesting Provider: RITCHIE
Height / Weight:
Height 5 ft 8 in
Actual Weight 84.64 kg
Pertinent Past Medical History: MGUS; SQUAMOUS CELL CARCINOMA
- Vital Signs / Lab Results
Temp Pulse Resp BP Pulse Ox
98.2 F 79 20 127/55 96
09/04/24 15:50 09/04/24 15:50 09/04/24 15:50 09/04/24 15:50 09/04/24 15:59
Lab Results - Hematology
09/03/24 09/04/24
16:52 05:56
WBC 55.4 H* 48.4 H*
Lab Results - Chemistry
09/03/24 09/03/24 09/04/24
16:52 17:31 05:56
BUN Cancelled 19 20
Creatinine Cancelled 1.0 0.9
Estimated Creat Clear Cancelled 59 63
Albumin Cancelled 3.6
Lab Results - Urine
09/03/24
19:19
Urine Nitrite (Reflex) Negative
Leukocyte Esterase Rfl 1+ A
Urine WBC (Reflex) 30-40 A
Ur Squamous Epith Cells 6-10
Urine Bacteria (Reflex) Moderate A
Microbiology Results
09/04/24 00:59 Blood Culture - Preliminary
Blood/Venous Enterococcus faecalis
Gram Stain - Preliminary
09/04/24 00:59 Blood Culture - Preliminary
Blood/Venous Positive culture in progress
Gram Stain - Preliminary
09/03/24 21:47 Influenza Types A & B (MARINA) - Final
Nasal Swab Negative for Influenza A & B, NAAT
Negative results must be combined with clinical observations
and patient history.
Nucleic Acid Amplification test (NAAT)performed on the
[employer] NOW platform.
[2024-09-04] MEDS: VANCOCIN 540 MG IV (19:47)
[2024-09-04] MEDS: COREG 12.5 MG PO (20:03)
[2024-09-04 21:23] LABS: Glucose - Point of Care 164 mg/dl (70-99)
[2024-09-04] MEDS: XALATAN OPHTHALMIC SOLUTION 1 DROP BOTH EYES (22:24)
[2024-09-04] MEDS: TYLENOL 650 MG PO (23:15)
[2024-09-04] MEDS: OCEAN, SALINE MIST 1 SPRAYS NASAL (23:56)
[2024-09-05] MEDS: DUONEB 3 ML INH ×5 (01:15→20:41)
[2024-09-05 03:36] VITALS: BP 115/47
[2024-09-05] MEDS: ZOSYN 50 IV ×2 (05:13→13:00)
[2024-09-05] MEDS: SYNTHROID 100 MCG PO (05:13)
[2024-09-05 06:00] VITALS: BMI 28.5
[2024-09-05] MEDS: VANCOCIN 535 MG IV (06:23)
--- NOTE | 2024-09-05 07:15 | W.PN.HOSP.TC ---
Today's Communication/Plan
-
wean O2 as tolerated
diuresis as per Cardio
cont abx narrowed to ampicillin and ceftriaxone
ID Pulm eval requested
ST/PT/OT
cont inhaled steroids bronchodilators
Assessment / Plan
Assessment / Plan
Physical Exam
General: no acute distress, appears comfortable, obese
HEENT: NormoCephalic, Moist mucous membranes, Atraumatic on nasal cannula oxygen supplementation
Respiratory: basilar crackles b/l
Cardiac: S1/S2 and Regular Rhythm; No Tachycardia
GI: Soft, Non Tender, bowel sounds present
Musculoskeletal: No Clubbing, No Cyanosis, +2 pitting edema bilateral lower extremities
Skin: Warm and Dry
Neuro: Alert oriented x3, conversant
Psych: Calm
79M CAD CHF afib DM MGUS COPD here for CHF exacerbation, high white count, suspected pneumonia, bacteremia.
Acute Hypoxic Respiratory Insufficiency secondary to Heart Failure
-Continue supplemental oxygen
-Attempt to wean prior to discharge (room air baseline)
Acute on Chronic HFrEF
-Consult Cardiology appreciated
-ECHO appreciated 30%
-Continue Bumex 3mg IV BID
-Continue Entresto
-Monitor Is&Os and Daily Weights
Hyponatremia, suspect hypervolemic in nature in setting of heart failure
-Continue fluid restriction
-Monitor serial sodium levels
Significant Leukocytosis
Bacteremia
- reports patient's WBC chronically runs high but she does not know his baseline
-Attempt to obtain prior blood work results from PCP
-Procal elevated
-Check COVID and Influenza swab
-Blood cx prelim positive
-Consult Hematology appreciated
-Empiric abx broaden to vanc and zosyn later narrowed to ampicillin and ceftriaxone
-ID eval requested
Possible Asthma / COPD exacerbation contributing
-Transitioned to Pulmicort and DuoNeb QID / PRN
- hold off on systemic steroids for now
-Pulm eval requested
Coronary Artery Disease
-Continue aspirin
Paroxysmal Atrial Fibrillation
-Continue Eliquis
-Continue carvedilol for rate control
Diabetes Mellitus, Type II
-Continue Januvia
-Hold Nateglinide
-Monitor sugars and continue coverage insulin
Essential Hypertension
-Continue carvedilol with hold parameters
Hypothyroidism
-Continue levothyroxine
MGUS
Hx Complete Heart Block s/p Pacemaker
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
Hx C Diff Colitis
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
DVT proph: Eliquis
Code Status: DNR
discussed with patient and patient's Maria D
I spent a total of 45 minutes with the patient or on the floor. More than 50% of this time involved counseling and coordination of care.
Anticipated Discharge: > 48 hours
Subjective/Interval History
-
Date of Service: September 05, 2024
No acute distress sitting up comfortably in bed. Maria D at patient's bedside notes significant improvement in appetit.
Objective Data
-
Labs:
Laboratory Results
09/05/24
06:00
WBC Pending
Hgb Pending
Hct Pending
Plt Count Pending
Sodium Pending
Potassium Pending
Chloride Pending
Carbon Dioxide Pending
BUN Pending
Creatinine Pending
Glucose Pending
Calcium Pending
Vital Signs:
Vital Signs
Temp Pulse Resp BP Pulse Ox
98.3 F 68 18 115/47 95
09/05/24 03:36 09/05/24 03:36 09/05/24 03:36 09/05/24 03:36 09/05/24 03:36
I&O
09/04/24 09/05/2425
06:59 06:59 06:59
Intake Total 240 / 240 660 / 660
Output Total 450 / 450 1500 / 1500
Balance -210 / -210 -840 / -840
[2024-09-05 07:42] VITALS: BP 122/56
[2024-09-05] MEDS: PULMICORT 0.5 MG INH ×2 (07:48→20:41)
[2024-09-05 08:08] LABS: Glucose - Point of Care 162 mg/dl (70-99)
[2024-09-05 09:00] LABS: Hemoglobin 13.6 g/dL (13.0-18.0); Mean Corp Hgb Conc. 32.4 g/dL (33.0-37.0); Mean Corpuscular Hgb 30.3 pg (27.0-31.0); Mean Corpuscular Volume 93.5 fL (80.0-94.0); Mean Platelet Volume 10.2 fL (7.4-10.4); Platelet Count 378 10^3/uL (130-400); Red Blood Cell Count 4.49 10^6/uL (4.70-6.10); Red Cell Dist. Width 13.6 % (11.5-14.5); White Blood Cell Count 35.9 10^3/uL (4.8-10.8)
[2024-09-05] MEDS: NOVOLOG FLEXPEN-LOW RESISTANCE 1 UNITS SC ×2 (09:00→17:17)
[2024-09-05] MEDS: SIMBRINZA 1%-0.2% OPHTH SUSP 1 DROP BOTH EYES ×3 (09:32→21:16)
[2024-09-05] MEDS: BUMEX 3 MG IV ×2 (09:34→17:14)
[2024-09-05] MEDS: COLACE 100 MG PO ×2 (09:36→20:15)
[2024-09-05] MEDS: ELIQUIS 5 MG PO ×2 (09:36→20:15)
[2024-09-05] MEDS: ENTRESTO 24 MG/26 MG 1 TAB PO ×2 (09:36→20:15)
[2024-09-05] MEDS: MUCINEX 600 MG PO ×2 (09:36→20:15)
[2024-09-05] MEDS: COREG 12.5 MG PO ×2 (09:36→20:15)
[2024-09-05 10:49] LABS: Blood Urea Nitrogen 24 mg/dl (9-20); Calcium 8.7 mg/dl (8.4-10.2); Carbon Dioxide 38 mmol/L (22-30); Chloride 85 mmol/L (98-107); Estimated Creatinine Clearance 63 ml/min; Glucose 204 mg/dl (70-99); Magnesium 2.2 mg/dl (1.6-2.3); Phosphorus 3.6 mg/dl (2.5-4.5); Potassium 4.6 mmol/L (3.5-5.1); Sodium 127 mmol/L (135-145); eGFR > 60.00
[2024-09-05 11:00] VITALS: BP 112/57
[2024-09-05 12:22] LABS: Glucose - Point of Care 245 mg/dl (70-99)
--- NOTE | 2024-09-05 12:33 | W.PN.CD ---
Today's Communication / Plan
-
continue diuresis
consider if COPD playing into sob
Impression / Plan
-
CHF with reduced EF - acute on chronic.
-ICD lead in place
-EF 30%( thinks this is chronic)
-Continue with IV diuresis Bumex 3mg BID.
-bedscale and I/o inaccuate, will try to assess if he is responding
- monitor daily weights, I&Os.
- continue GDMT Entresto, Coreg, Bumex.
- fitzgerald SGLT2i.
COPD:
-h/o
-very bronchospastic
-?COPD exacerbation
Afib - paroxysmal.
- AV and V paced on tele.
- denies palpitations.
- continue Eliquis.
HTN - stable on meds, continue.
CAD - stable w/o angina.
- continue medical therapy.
- obtain records from cardiology.
CVA - stable.
- no sx.
- on ASA, continue.
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 Immanuel Mcmahon as outpatient.
Subjective:
still feeling sob
TTE 09/05/24 CONCLUSIONS
TDS Definity used.
Dilated LV with moderate to severely reduced systolic function.
LVEF is approximately 30% by visual estimation. Global diffuse hypokinesis.
Normal right ventricular size and function.
Mild tricuspid regurgitation.
Estimated pulmonary artery pressure of 45 mmHg, right heart pressures were
mildly elevated.
No prior study available for comparison.
Physical Exam
Vital Signs/Labs
Vital Signs
Temp Pulse Resp BP Pulse Ox
97.7 F 67 20 112/57 94
09/05/24 11:00 09/05/24 11:00 09/05/24 11:00 09/05/24 11:00 09/05/24 07:53
09/04/24 09/05/24 09/06/24
06:59 06:59 06:59
Actual Weight 186 lb 9.6 oz 187 lb 6 oz
09/05/24 08:12
09/05/24 10:16
Magnesium 2.2 mg/dl (1.6-2.3) 09/05/24 10:16
Triglycerides 94 mg/dl (10-149) 09/04/24 05:56
LDL Cholesterol, Calc 65 mg/dl 09/04/24 05:56
VLDL Cholesterol, Calc 18 mg/dl (0-30) 09/04/24 05:56
HDL Cholesterol 27 mg/dl 09/04/24 05:56
TSH 1.03 uIU/ml (0.47-4.68) 09/03/24 17:31
09/03/24 09/03/24
16:52 17:31
Fdi-E-Biedhfhproo Pept Cancelled 3990
Physical Exam
Constitutional: No acute distress and Comfortable
Cardiovascular: Rhythm & rate is regular and Pedal edema present (1 b.l)
Respiratory: Respiratory effort normal, Crackles Absent and Wheeze Present (diffuse )
Neuro/Psych: AO x 3
Data Reviewed
-
Date of Service: September 05, 2024
Medical Decision Making: Review of Case with other Provider (D/W Dr Hernandez consider COPD playing a role)
Echo: Tracing Personally Visualized and interpreted and Report Reviewed by me (see note)
[2024-09-05] MEDS: NOVOLOG FLEXPEN-LOW RESISTANCE 2 UNITS SC (13:00)
[2024-09-05] MEDS: NON-FORMULARY ITEM BOTH EYES (13:16)
[2024-09-05 15:00] VITALS: BP 124/59
--- NOTE | 2024-09-05 16:02 | CON.ID ---
Consultation
-
Date/Time Consultation Requested: September 05, 2024 1443
Date/Time Consultation Performed: September 05, 2024 1600
Requesting Provider: Dr. Colton Hernandez
Performing Provider: Dr. Lucía Lanier
Reason for Consultation: Enterococcus bacteremia
Chief Complaint / Past History
Chief Complaint
Shortness of breath and weakness
History of Present Illness
History obtained from his at bedside. Patient is a poor historian. He is a 79-year-old male with diabetes mellitus, COPD, history of recurrent C. difficile, heart failure with reduced EF, pacemaker/AICD placement, history of PPM lead
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 Per patient has chronic sinusitis with
drainage resulting in cough. 2 weeks ago cough was worse and his PCP put him on a course of steroid with mild improvement. He then received Z-Ez. However he then developed worsening shortness of breath and progressive weakness to the point he
could not ambulate. He therefore presented to the ER September 03. O2 sats 73%. White count 55.4. Chest x-ray showed interstitial pulmonary edema with small bilateral pleural effusions. TTE EF 30% admission blood cultures positive for Enterococcus
faecalis. Urine analysis 1+ with esterase 30-40 white blood cells, urine culture Enterococcus species. He was on vancomycin and Zosyn changed to ampicillin and ceftriaxone. Per no history of UTIs. No fevers or chills. Patient reports about
1 week history of intermittent dysuria. No flank pain. No nausea or vomiting. No abdominal pain. Per his abdomen is more distended than usual. No diarrhea.
Past History
Additional Past Medical History:
Diabetes mellitus
COPD
Hypertension
Hypothyroidism
Recurrent C. difficile
MGUS
CAD
HFrEF
PPM/AICD
Atrial fibrillation
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 Per bcx's neg.
Splenectomy (2020)
Brain abscess drainage (2020)
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
Allergy History:
adhesive tape Allergy (Mild, Verified 09/04/24 01:02)
Itching
metformin Allergy (Verified 09/03/24 16:46)
Unknown
Medications Reviewed: Yes
Current Antibiotics:
Ampicillin 2 g IV every 4 hours
Ceftriaxone 2 g IV every 12 hours
Status post vancomycin, doxycycline and Zosyn
Social History
Tobacco: Non-Smoker
Alcohol: None
Drug: None
Personal:
Family History
Family History: Not Pertinent
Review of Systems
Review of Systems
General: Change in Appetite; Negative Fever or Chills
HEENT: Sinus Problems; Negative Headache
Cardiovascular: Dyspnea; Negative Chest Pain
Respiratory: Cough; Negative Sputum Production
Gasteroenterology: Negative Nausea, Vomiting or Diarrhea
Genital / Urological: Dysuria; Negative Flank Pain
Endocrine: Weakness
Musculoskeletal: Negative Arthralgias
Skin / Hair / Nails: Negative Rash
Neurological: Negative Dizziness
All systems: All other systems were reviewed and were negative
Vital Signs
Temp Pulse Resp BP Pulse Ox
97.7 F 67 20 112/57 94
09/05/24 11:00 09/05/24 11:00 09/05/24 11:00 09/05/24 11:00 09/05/24 07:53
Physical Exam
Physical Exam
Constitutional: Acutely Ill
Head: Other (No frontal or Batcha sinus tenderness)
Eyes: No Conjunctival Hemorrhage and Sclera Anicteric
Cardiovascular: Regular Rate, S1/S2 and Other (Right chest wall AICD/pacemaker pocket site no without induration or erythema)
Pulmonary: Rales (Basis)
Gastrointestinal: Soft, Non Tender, Distended (Mild) and Normal Bowel Sounds
Genito-Urinary: Negative Suprapubic Tenderness or CVA Tenderness
Extremities: Edema
Musculoskeletal: Negative Spinal Tenderness
Skin: Negative Jaundice
Neurological: Awake
Lab / Diagnostic Study Results
09/05/24 08:12
09/05/24 10:16
Abs Immat Gran (auto) 1.9 10^3/uL (0-0.05) H 09/03/24 16:52
Absolute Neuts (auto) 49.9 10^3/uL (1.4-6.5) H 09/03/24 16:52
Absolute Lymphs (auto) 0.7 10^3/uL (1.2-3.4) L 09/03/24 16:52
Absolute Monos (auto) 2.9 10^3/uL (0.1-0.6) H 09/03/24 16:52
Absolute Basos (auto) 0.0 10^3/uL (0-0.2) 09/03/24 16:52
Immature Gran % 3.3 % (0-0.5) H 09/03/24 16:52
Neutrophils % 90.1 % (42.2-75.2) H 09/03/24 16:52
Lymphocytes % 1.2 % (20.5-51.1) L 09/03/24 16:52
Monocytes % 5.3 % (1.7-9.3) 09/03/24 16:52
Eosinophils % 0.1 % (0-6) 09/03/24 16:52
Basophils % 0.0 % (0-2) 09/03/24 16:52
Procalcitonin 0.36 ng/ml (0.0-0.25) H 09/03/24 21:44
Ur Squamous Epith Cells 6-10 /LPF (Few) 09/03/24 19:19
Microbiology Results
Micro:
09/05/24 15:15 Blood Culture - Pending
Blood/Venous
09/03/24 19:19 Urine Culture - Preliminary
Urine Enterococcus species
09/04/24 00:59 Blood Culture - Preliminary
Blood/Venous Positive culture in progress
Gram Stain - Preliminary
09/04/24 00:59 Blood Culture - Preliminary
Blood/Venous Enterococcus faecalis
Gram Stain - Preliminary
09/03/24 21:47 Influenza Types A & B (MARINA) - Final
Nasal Swab Negative for Influenza A & B, NAAT
Negative results must be combined with clinical observations
and patient history.
Nucleic Acid Amplification test (NAAT)performed on the
[employer] platform.
09/03/24 CXR: Interstitial pulmonary edema with small bilateral pleural effusions. Bibasilar opacities may represent alveolar edema versus pneumonia.
Assessment / Plan
Assessment:
# Enterococcus faecalis bacteremia x 2 sets drawn at the same time
# Suspect UTI source of bacteremia
. Pt with urinary sxs.
. Ucx + Enterococcus.
. hx of E. faecalis bacteruria 02/2024.
# Acute on chronic leukocytosis, trending down
# Acute on chronic CHF
# History of recurrent C. difficile
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
Plan:
-TTE no gross vege
- Follow repeat blood cx's to determine if bacteremia is sustained. If persistently +, pursue PHILLY.
- Consider CT a/p.
-Continue IV ampicillin/ceftriaxone
- Add po Vanco 125mg bid for C. diff prophylaxis.
- Trend wbc.
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
Diabetes mellitus
COPD
Hypertension
Hypothyroidism
Recurrent C. difficile
MGUS
CAD
HFrEF
PPM/AICD
Atrial fibrillation
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 Per bcx's neg.
Splenectomy (2020)
Brain abscess drainage (2020)
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
--- NOTE | 2024-09-05 16:02 | W.PN.ONC ---
Today's Communication / Plan
-
WBC improved
flow cytometry pending
Impression
Impression
CHF
COPD
weakness
enterococcus bacteremia
leukocytosia
Plan
Plan
1. Leukocytosis -
-given predominate neutrophilia - a reactive component may be impacting WBC - ongoing bacteremia / CHF exacerbation/ COPD
-hemoglobin and platelet count are adequate
-peripherall blood flow cytometry pending - to evaluate for clonal WBC process
-antibiotics - tx respiratory illness/bacteremia
-if leukocytosis persists following resolution of acute infectious/ inflammatory issues - could conisder MPN w/u as outpt w/ testing for BCR-ABL/ LENKA-2
-follow CBC
will continue to follow with you
Subjective/Objective
Subjective/Objective
feels slightly better - less SOB at rest
Vital Signs:
Vital Signs
Temp Pulse Resp BP Pulse Ox
97.7 F 67 20 112/57 94
09/05/24 11:00 09/05/24 11:00 09/05/24 11:00 09/05/24 11:00 09/05/24 07:53
Lab Results:
Laboratory Data
WBC 35.9 10^3/uL (4.8-10.8) H 09/05/24 08:12
Hgb 13.6 g/dL (13.0-18.0) 09/05/24 08:12
Plt Count 378 10^3/uL (130-400) 09/05/24 08:12
eGFR > 60.00 09/05/24 10:16
Exam: unchanged
--- NOTE | 2024-09-05 16:40 | CON.PUL ---
Consultation
Consultation Request
Date/Time Consultation Requested: 09/05/2024 - 135
Date/Time Consultation Performed: 09/05/2024 - 163
Requesting Provider: Dr. Hernandez
Performing Provider: Dr. Ramirez
Reason for Consultation: Hypoxia
Medical History
-
Chief Complaint: Increased weakness + cough
History of Present Illness:
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
and XRT, history of pacemaker lead infection with associated BUSINESS SOLUTION ANALYST abscess with liver abscess and splenic infection, and C. diff who presents with weakness. Patient's had a cough for few weeks. Medrol Dosepak given to him without much improvement.
Patient is on inhalers as an outpatient for his asthma/COPD and was changed from Breo to Trelegy without improvement so now he is back to Breo. His cough is productive and he endorsed shortness of breath. Initially in the ER he was afebrile with
pulse rate 76, respiratory rate 24, BP 114/54 and saturating 73% on room air which improved to 91% with 6 L/min. Initial labs showed significant leukocytosis to 55.4, sodium 123, glucose 191, proBNP 3990, TSH 1.03, procalcitonin 0.36, and COVID-19
antigen negative. Urine culture collected and flu swab was negative. CXR showed interstitial pulmonary edema with small bilateral pleural effusions however unable to rule out pneumonia. He was given 60 mg IV Lasix in the ER and admitted to the
hospitalist service. Patient's hypoxia has persisted and he has required between 4-6 L/min since admission. Pulmonary service now consulted for additional management/recommendations.
When asked with the patient he was in bed, being into the urinal, in no acute distress. He is currently on 4 L/min nasal cannula breathing comfortably. He agrees that he is still on Breo. 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 He
is a non-smoker. He currently denies chest pain, CLARK, nausea, fevers or chills.
PMHx: CAD, chronic heart failure, paroxysmal A-fib on Eliquis, history of CHB s/p pacemaker, DM type II, hypothyroidism, MGUS, history of asthma/COPD, squamous of carcinoma of left side of face s/p resection and XRT, history of pacemaker lead
infection with associated BUSINESS SOLUTION ANALYST abscess with liver abscess and splenic infection, history of C. difficile, glaucoma
PSHx: Pacemaker, splenectomy, left facial surgery
Past Medical History
Past Medical History: Other (Above as per HPI)
Past Surgical History: Other (Above as per HPI)
Social History
Tobacco: Non-smoker
Alcohol: None
Drug: None
Living: Shelter
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
Family History
Family History: Reviewed & Not Pertinent
Allergies / Home Medications
Allergies
Allergy/AdvReac Type Severity Reaction Status Date / Time
adhesive tape Allergy Mild Itching Verified 09/04/24 01:02
metformin Allergy Unknown Verified 09/03/24 16:46
Home Medications
�Medication �Instructions �Recorded �Confirmed �Last Taken �Type
albuterol sulfate 90 mcg/actuation 1 puff inhalation R Q4HPRN PRN SOB 03/17/21 09/03/24 Unknown History
aerosol inhaler
aspirin 81 mg tablet,delayed 81 mg PO QPM Blood clot 03/17/21 09/03/24 09/02/24 History
release prevention/tx
azelastine 137 mcg (0.1 %) nasal 1 spray intranasal BID Congestion 03/17/21 09/03/24 03/17/21 History
spray
brinzolamide 1 %-brimonidine 0.2 % 1 drp BOTH EYES TID Fever/pain 03/17/21 09/03/24 09/03/24 History
eye drops,suspension (Simbrinza)
bumetanide 2 mg tablet 2 mg PO BID Fluid 03/17/21 09/03/24 09/03/24 History
retention/Swelling
carvedilol 12.5 mg tablet 12.5 mg PO BID Blood pressure 03/17/21 09/03/24 09/03/24 History
cholecalciferol (vitamin D3) 25 1,000 units PO DAILY Supplement 03/17/21 09/03/24 09/03/24 History
mcg (1,000 unit) tablet
levothyroxine 100 mcg tablet 100 mcg PO DAILY AT 0700 Thyroid 03/17/21 09/03/24 09/03/24 History
nateglinide 120 mg tablet 120 mg PO TID Diabetes 03/17/21 09/03/24 09/03/24 History
sitagliptin phosphate 100 mg 100 mg PO QPM Diabetes 03/17/21 09/03/24 03/17/21 History
tablet (Januvia)
apixaban 5 mg tablet (Eliquis) 5 mg PO BID Blood Clot 09/03/24 09/03/24 09/03/24 History
Prevention/Tx
azithromycin 250 mg tablet 0 mg PO .COMPLEX Infection 09/03/24 09/03/24 Unknown History
bimatoprost 0.01 % eye drops 1 drp BOTH EYES HS Eye Condition 09/03/24 09/03/24 Unknown History
(Lumigan)
docusate sodium 100 mg capsule 100 mg PO BID Constipation 09/03/24 09/03/24 09/03/24 History
(Colace)
fluticasone furoate 200 1 inh inhalation DAILY 09/03/24 09/03/24 Unknown History
mcg-vilanterol 25 mcg/dose Lung/Breathing Issues
inhalation powder (Breo Ellipta)
netarsudil 0.02 % eye drops 1 drp BOTH EYES HS Eye Condition 09/03/24 09/03/24 Unknown History
(Rhopressa)
sacubitril 24 mg-valsartan 26 mg 1 tab PO BID Diabetes 09/03/24 09/03/24 09/03/24 History
tablet (Entresto)
Review of Systems
-
History Source: Patient
All other systems: Negative unless noted
Vitals / Labs / Diagnostic Testing
Vital Signs
Temp Pulse Resp BP Pulse Ox
98.7 F 61 18 113/53 94
09/05/24 22:46 09/05/24 22:46 09/05/24 22:46 09/05/24 22:46 09/05/24 22:46
Microbiology
09/03/24 19:19 Urine Urine Culture - Preliminary
Enterococcus species
09/04/24 00:59 Blood/Venous Blood Culture - Preliminary
Positive culture in progress
09/04/24 00:59 Blood/Venous Gram Stain - Preliminary
09/04/24 00:59 Blood/Venous Blood Culture - Preliminary
Enterococcus faecalis
09/04/24 00:59 Blood/Venous Gram Stain - Preliminary
09/03/24 21:47 Nasal Swab Influenza Types A & B (MARINA) - Final
Negative for Influenza A & B, NAAT
Negative results must be combined with clinical observations
and patient history.
Nucleic Acid Amplification test (NAAT)performed on the
[employer] platform.
Diagnostic Testing:
Physical Exam
-
HEENT: Normocephalic and Anicteric
Cardiovascular: S1/S2 and Peripheral Edema (negative)
Respiratory: Wheeze (negative), Rhonchi (negative), Non-Labored Respirations, Other (Coarse breath sounds heard bilaterally) and Other (Poor inspiratory effort)
GI: Soft, Non Distended, Non Tender and Normal Bowel Sounds
Neurology: Awake, Alert, Tremors (negative) and Other (Flat affect)
Skin: Warm and Dry
General: Respiratory Distress (negative), Comfortable, Fever (negative) and Chills (negative)
Assessment
-
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
s/p resection and XRT, history of pacemaker lead infection with associated BUSINESS SOLUTION ANALYST abscess with liver abscess and splenic infection, and C. diff who presents with weakness. Patient's had a cough for few weeks. Medrol Dosepak given to him without much
improvement. Patient is on inhalers as an outpatient for his asthma/COPD and [facility] improvement so now he is back to [facility]. His cough is productive and he endorsed shortness of breath. Initially in the ER he was
afebrile with pulse rate 76, respiratory rate 24, BP 114/54 and saturating 73% on room air which improved to 91% with 6 L/min. Initial labs showed significant leukocytosis to 55.4, sodium 123, glucose 191, proBNP 3990, TSH 1.03, procalcitonin 0.36,
and COVID-19 antigen negative. Urine culture collected and flu swab was negative. CXR showed interstitial pulmonary edema with small bilateral pleural effusions however unable to rule out pneumonia. He was given 60 mg IV Lasix in the ER and
admitted to the hospitalist service. Patient's hypoxia has persisted and he has required between 4-6 L/min since admission. Pulmonary service now consulted for additional management/recommendations.
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
pacemaker lead infection with associated BUSINESS SOLUTION ANALYST abscess with liver abscess and splenic infection, history of C. difficile, glaucoma
Impression:
#Acute respiratory failure with hypoxia likely due to sepsis with acute organ dysfunction and acute decompensated heart failure in setting of asthma/COPD; unable to r/o component of pneumonia
#Sepsis due to UTI +/- pneumonia
#Enterococcus bacteremia
#Acute HFrEF (LVEF: 30% with global diffuse hypokinesis on TTE from 09/04/2024) with pulmonary vascular congestion and bilateral pleural effusions seen on admission CXR
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
#History of asthma on Breo and prn albuterol
# Paroxysmal A-fib on Eliquis
#Complete heart block s/p pacemaker with history of pacemaker lead infection complicated by BUSINESS SOLUTION ANALYST + liver abscess and splenic infection s/p splenectomy
#History of C. difficile infection
Plan:
- Given the patient's initial presentation with significant leukocytosis with tachypnea and hypoxia, this is likely due to SIRS criteria causing his respiratory insufficiency
- His initial CXR did show evidence of heart failure with pulmonary vascular congestion and bilateral posterior phrenic angle blunting, although there are also bibasilar opacities with a very plump hilum bilaterally - -> unable to fully rule out
component of pneumonia especially given the patient's complaint of a cough for several weeks prior to admission
- Patient is growing Enterococcus species in his blood cultures as well as urine culture; ID is consulted, defer antibiotics to them (currently on Unasyn, ceftriaxone and PO vanc)
- Surveillance blood cultures on 09/05 show NGTD; check sputum culture if patient can produce a decent sample
- He received 60mg IV lasix on 09/03/2024 --> in the setting of sepsis, would be careful diuresing in this period of time as his SVR is likely reduced already, so reducing venous return and MSFP could cause circulatory collapse - cautiously continue
IV bumex (3mg IV BID) while keeping strict I/O and taking daily weights
- I would expect that as his infection becomes better controlled that his oxygen requirements will also improve
- Since admission he has needed between 4-6 L/min nasal cannula
- If oxygen requirements do not improve, it would be helpful to get a CT chest to evaluate the lung parenchyma in greater detail
- Continue to wean down O2 flow rate as tolerated to maintain SaO2 88-94%
- Takes Breo as an outpatient - -> continue budesonide and Duonebs for now with prn DuoNebs for any breakthrough symptoms (not currently bronchospastic)
- Incentive spirometer encouraged q1hr while awake
- Mucolytics
- Patient is not currently wheezing and he appears to be breathing comfortably on exam today, hence do not feel that steroids are indicated currently
- Replete electrolytes with K>4, Mg>2
- Trend H/H and transfuse if needed to keep Hb>7g/dL; keep plt>20k, unless there is concern for bleeding then keep plt>50k
- Maintain euglycemia with goal BG >100 and <180
- DVT ppx: Eliquis
Code status: DNR/DNI
Pulmonary service will continue to follow along.
Data:
TTE 09/04/2024: TDS Definity used.
Dilated LV with moderate to severely reduced systolic function.
LVEF is approximately 30% by visual estimation. Global diffuse hypokinesis.
Normal right ventricular size and function.
Mild tricuspid regurgitation.
Estimated pulmonary artery pressure of 45 mmHg, right heart pressures were
mildly elevated.
No prior study available for comparison.
CXR 09/03/2024: Interstitial pulmonary edema with small bilateral pleural effusions. Bibasilar opacities may represent alveolar edema versus pneumonia.
Total time spent today was 59 minutes for this encounter. Time includes reviewing laboratory test/imaging results, reviewing pertinent medical records, obtaining and reviewing medical history, performing an appropriate exam, ordering medications,
tests and procedures. Time also includes documentation of this encounter, coordinating patient care and communicating with other healthcare professionals. Total time does not include separately billed tests performed on this date of service.
Patient was seen and evaluated on 09/05/2024
[2024-09-05 16:51] LABS: Glucose - Point of Care 188 mg/dl (70-99)
[2024-09-05] MEDS: AMPICILLIN 108 MG IV ×2 (17:13→20:15)
[2024-09-05] MEDS: ASPIR LOW (ENTERIC COATED) 81 MG PO (18:00)
[2024-09-05] MEDS: STERILE WATER FOR INJECTION 20 ML IV (18:00)
[2024-09-05] MEDS: JANUVIA 100 MG PO (18:00)
[2024-09-05] MEDS: ROCEPHIN 2000 MG IV (18:00)
[2024-09-05 19:42] VITALS: BP 124/58
[2024-09-05] MEDS: FIRVANQ 125 MG PO (20:15)
[2024-09-05] MEDS: XALATAN OPHTHALMIC SOLUTION 1 DROP BOTH EYES (21:15)
[2024-09-05] MEDS: NON-FORMULARY ITEM 1 DROP BOTH EYES (21:23)
[2024-09-05 21:26] LABS: Glucose - Point of Care 162 mg/dl (70-99)
[2024-09-05 22:46] VITALS: BP 113/53
[2024-09-06] MEDS: AMPICILLIN 108 MG IV ×6 (00:08→20:24)
[2024-09-06 03:36] VITALS: BP 118/51
[2024-09-06] MEDS: ROCEPHIN 2000 MG IV ×2 (05:24→18:02)
[2024-09-06] MEDS: STERILE WATER FOR INJECTION 20 ML IV ×2 (05:24→18:02)
[2024-09-06] MEDS: SYNTHROID 100 MCG PO (05:28)
[2024-09-06 06:53] LABS: Hematocrit 43.7 % (39.0-52.0); Hemoglobin 14.2 g/dL (13.0-18.0); Mean Corp Hgb Conc. 32.5 g/dL (33.0-37.0); Mean Corpuscular Hgb 30.3 pg (27.0-31.0); Mean Corpuscular Volume 93.2 fL (80.0-94.0); Platelet Count 321 10^3/uL (130-400); Red Blood Cell Count 4.69 10^6/uL (4.70-6.10); Red Cell Dist. Width 13.6 % (11.5-14.5); White Blood Cell Count 26.9 10^3/uL (4.8-10.8)
[2024-09-06 07:00] VITALS: BP 115/53
--- NOTE | 2024-09-06 07:00 | W.PN.HOSP.TC ---
Today's Communication/Plan
-
wean O2 supplementation as tolerated
cont diuresis as per cardio
abx as per ID
CT chest tomorrow as per Pulm
cont bronchodilators ICS
claritin, mucinex, ocean nasal spray
soft bite sized diet, VSE tomorrow
PT/OT
Assessment / Plan
Assessment / Plan
Physical Exam
General: no acute distress, appears comfortable, obese
HEENT: NormoCephalic, Moist mucous membranes, Atraumatic on nasal cannula oxygen supplementation
Respiratory: basilar crackles b/l
Cardiac: S1/S2 and Regular Rhythm; No Tachycardia
GI: Soft, Non Tender, bowel sounds present
Musculoskeletal: No Clubbing, No Cyanosis, +2 pitting edema bilateral lower extremities
Skin: Warm and Dry
Neuro: Alert oriented x3, conversant
Psych: Calm
79M CAD CHF afib DM MGUS COPD here for CHF exacerbation, high white count, suspected pneumonia, bacteremia.
Acute Hypoxic Respiratory Insufficiency multifactorial 2/2 to Heart Failure PNA and possibly COPD
-Continue supplemental oxygen
-wean as tolerated (baseline room air)
Acute on Chronic HFrEF
-Consult Cardiology appreciated
-ECHO appreciated 30%
-Continue Bumex 3mg IV BID
-Continue Entresto
-Monitor Is&Os and Daily Weights
Nasal Congestion
Coughing
Possible Dysphagia
-soft bite-sized diet as per speech, pending VSE Mon
-mucinex, prn robitussin, incentive spirometer, acapella
-claritin, normal saline nasal spray QID
Hyponatremia, suspect hypervolemic in nature in setting of heart failure
-Continue fluid restriction
-Monitor serial sodium levels, improving
Significant Leukocytosis
Bacteremia
- reports patient's WBC chronically runs high but she does not know his baseline
-Attempt to obtain prior blood work results from PCP
-Procal elevated
-COVID and Influenza neg
-Blood cx positive Enterococcus faecalis sensitivities appreciated
-Consult Hematology appreciated
-Empiric abx broaden to vanc and zosyn later narrowed to ampicillin and ceftriaxone
-ID eval appreciated cont abx, po vanc for cdiff ppx, consider PHILLY if bacteremia persists on repeat blood cx's
Possible Asthma / COPD exacerbation contributing
-Transitioned to Pulmicort and DuoNeb QID / PRN
- hold off on systemic steroids for now
-Pulm eval appreciated follow up CT chest Mon
Coronary Artery Disease
-Continue aspirin
Paroxysmal Atrial Fibrillation
-Continue Eliquis
-Continue carvedilol for rate control
Diabetes Mellitus, Type II
-Continue Januvia
-Hold Nateglinide
-Monitor sugars and continue coverage insulin
Essential Hypertension
-Continue carvedilol with hold parameters
-Bumex as above
Hypothyroidism
-Continue levothyroxine
MGUS
Hx Complete Heart Block s/p Pacemaker
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
Hx C Diff Colitis
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
PT/OT appreciated SNF rehab vs Home Services (patient prefers home)
DVT proph: Eliquis
Code Status: DNR
discussed with patient and patient's Maria D
I spent a total of 45 minutes with the patient or on the floor. More than 50% of this time involved counseling and coordination of care.
Anticipated Discharge: > 48 hours
Subjective/Interval History
-
Date of Service: September 06, 2024
No acute distress, sitting up comfortably in chair. Remains oxygen dependent. patient also reports nasal congestion and coughing.
Objective Data
-
Labs:
Laboratory Results
09/06/24
06:20
WBC 26.9 H
Hgb 14.2
Hct 43.7
Plt Count 321
Sodium Pending
Potassium Pending
Chloride Pending
Carbon Dioxide Pending
BUN Pending
Creatinine Pending
Glucose Pending
Calcium Pending
Vital Signs:
Vital Signs
Temp Pulse Resp BP Pulse Ox
98.3 F 61 18 118/51 94
09/06/24 03:36 09/06/24 03:36 09/06/24 03:36 09/06/24 03:36 09/06/24 03:36
I&O
09/05/24 09/06/24 09/07/24
06:59 06:59 06:59
Intake Total 660 / 660 550 / 550
Output Total 1500 / 1500 800 / 800
Balance -840 / -840 -250 / -250
[2024-09-06] MEDS: DUONEB 3 ML INH ×3 (07:53→15:33)
[2024-09-06] MEDS: PULMICORT 0.5 MG INH (07:53)
[2024-09-06 08:06] LABS: Glucose - Point of Care 169 mg/dl (70-99)
[2024-09-06] MEDS: NOVOLOG FLEXPEN-LOW RESISTANCE 1 UNITS SC ×2 (09:04→17:30)
[2024-09-06] MEDS: BUMEX 3 MG IV ×2 (09:05→17:02)
[2024-09-06] MEDS: COREG 12.5 MG PO ×2 (09:06→20:23)
[2024-09-06] MEDS: COLACE 100 MG PO ×2 (09:07→20:23)
[2024-09-06] MEDS: MUCINEX 600 MG PO ×2 (09:07→20:24)
[2024-09-06] MEDS: ELIQUIS 5 MG PO ×2 (09:07→20:23)
[2024-09-06] MEDS: ENTRESTO 24 MG/26 MG 1 TAB PO ×2 (09:07→20:23)
[2024-09-06] MEDS: SIMBRINZA 1%-0.2% OPHTH SUSP 1 DROP BOTH EYES ×3 (09:08→20:54)
[2024-09-06] MEDS: OCEAN, SALINE MIST 2 SPRAYS NASAL ×4 (09:17→20:53)
[2024-09-06 09:26] LABS: Blood Urea Nitrogen 27 mg/dl (9-20); Calcium 8.6 mg/dl (8.4-10.2); Carbon Dioxide 39 mmol/L (22-30); Chloride 88 mmol/L (98-107); Estimated Creatinine Clearance 57 ml/min; Glucose 172 mg/dl (70-99); Magnesium 2.2 mg/dl (1.6-2.3); Phosphorus 2.9 mg/dl (2.5-4.5); Potassium 4.7 mmol/L (3.5-5.1); Sodium 131 mmol/L (135-145); eGFR > 60.00
[2024-09-06] MEDS: FIRVANQ 125 MG PO ×2 (09:32→20:24)
[2024-09-06 11:00] VITALS: BP 135/58
[2024-09-06 11:02] LABS: Number Of Markers 26 markers; Source Blood
[2024-09-06 11:09] LABS: Glucose - Point of Care 276 mg/dl (70-99)
--- NOTE | 2024-09-06 11:41 | W.PN.ID1 ---
Date of Service
Date of Service: September 06, 2024
Today's Communication
Continue abx's.
Assessment / Plan
Assessment:
# Enterococcus faecalis bacteremia x 2 sets drawn at the same time
# Suspect UTI source of bacteremia
. Pt with urinary sxs.
. Ucx + Enterococcus.
. hx of E. faecalis bacteruria 02/2024.
# Acute on chronic leukocytosis, trending down
# Acute on chronic CHF
# History of recurrent C. difficile
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
Plan:
-TTE no gross vege
- Follow repeat blood cx's to determine if bacteremia is sustained. If persistently +, pursue PHILLY.
- Consider CT a/p.
-Continue IV ampicillin/ceftriaxone for now
- Continue po Vanco 125mg bid for C. diff prophylaxis.
- Trend wbc.
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
Diabetes mellitus
COPD
Hypertension
Hypothyroidism
Recurrent C. difficile
MGUS
CAD
HFrEF
PPM/AICD
Atrial fibrillation
History of patient lead infection, emboli to liver, spleen, kidneys, NUTRITION PROFESSOR abscess status post PPM explant then reimplantation (2020). Per bcx's neg.
Splenectomy (2020)
Brain abscess drainage (2020)
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
Chief Complaint
-: Bacteremia
Subjective / Review of Systems
Reports no dysuria.
Vital Signs / Physical Exam
Vital Signs
Vital Signs
Temp Pulse Resp BP Pulse Ox
98.2 F 84 16 115/53 92
09/06/24 07:00 09/06/24 11:27 09/06/24 11:27 09/06/24 07:00 09/06/24 07:58
Physical Exam
Constitutional: No Acute Distress and Chronically Ill
Cardiovascular: Regular Rate and S1/S2
Pulmonary: Rales
Gastrointestinal: Soft, Non Tender, Non Distended and Normal Bowel Sounds
Genito-Urinary: Clear Urine (condom cath)
Extremities: Edema
Neurological: AO x 3
Objective Data
Lab Data
Lab Results
09/06/24 06:20
09/06/24 09:00
Estimated Creat Clear 57 ml/min 09/06/24 09:00
Total Bilirubin 1.0 mg/dl (0.2-1.3) 09/03/24 17:31
AST 22 U/L (17-59) 09/03/24 17:31
ALT 16 U/L (0-50) 09/03/24 17:31
Alkaline Phosphatase 90 U/L (38-126) 09/03/24 17:31
Most recent labs reviewed.
Micro Results:
09/04/24 00:59 Blood Culture - Preliminary
Blood/Venous Positive culture in progress
Gram Stain - Preliminary
09/04/24 00:59 Blood Culture - Preliminary
Blood/Venous Enterococcus faecalis
Gram Stain - Preliminary
09/05/24 16:22 Blood Culture - Pending
Blood/Venous
09/05/24 15:15 Blood Culture - Pending
Blood/Venous
09/03/24 19:19 Urine Culture - Preliminary
Urine Enterococcus species
09/03/24 21:47 Influenza Types A & B (MARINA) - Final
Nasal Swab Negative for Influenza A & B, NAAT
Negative results must be combined with clinical observations
and patient history.
Nucleic Acid Amplification test (NAAT)performed on the
[employer] platform.
09/03/24 CXR: Interstitial pulmonary edema with small bilateral pleural effusions. Bibasilar opacities may represent alveolar edema versus pneumonia.
--- NOTE | 2024-09-06 11:42 | PTOTSP ---
SPEECH THERAPY SWALLOW EVALUATION:
Patient exhibits clinical signs of oropharyngeal dysphagia, likely chronic 2/2 COPD/asthma and history of head/neck cancer with XRT. Patient remains at risk for aspiration and related complications given tenuous respiratory status. Recommend
Videofluoroscopic Swallowing Study to further assess swallow physiology at this time. Recommend IDDSI Level 6 Soft and Bite Size diet, thin liquids until VSE. Meds whole with thin liquid as tolerated. Aspiration precautions: Upright positioning;
Small single sips/bites; slow rate of intake; Alternate textures; Do not eat when short of breath or coughing; monitor for signs of aspiration; D/c oral diet if any decline in mental or respiratory status. Oral care 3x/day and increased mobility as
able/tolerated. ST to follow with additional recommendations following VSE results.
RECOMMEND:
1) Videofluoroscopic Swallowing Study
2) IDDSI Level 6 Soft and Bite Size diet, thin liquids until VSE
3) Meds whole with thin liquid as tolerated
4) Aspiration precautions: Upright positioning; Small single sips/bites; slow rate of intake; Alternate textures; Do not eat when short of breath or coughing; monitor for signs of aspiration; D/c oral diet if any decline in mental or respiratory
status
5) Oral care 3x/day and increased mobility as able/tolerated
6) ST to follow with additional recommendations following VSE results
--- NOTE | 2024-09-06 11:54 | W.PN.PUL3 ---
Today's Communication / Plan
-
Antibiotics per ID
Cautiously diurese given his Enterococcus faecalis bacteremia, with Enterococcus also seen in UCx
CT chest tomorrow
Budesonide + DuoNebs
Cardiology recs appreciated
Encourage incentive spirometer
Mucolytics
DNR/DNI
Pulmonary service will continue to follow along
Assessment
-
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
s/p resection and XRT, history of pacemaker lead infection with associated POST ACUTE CARE NURSE PRACTITIONER abscess with liver abscess and splenic infection, and C. diff who presents with weakness. Patient's had a cough for few weeks. Medrol Dosepak given to him without much
improvement. Patient is on inhalers as an outpatient for his asthma/COPD and was changed from Breo to Trelegy without improvement so now he is back to Bre. His cough is productive and he endorsed shortness of breath. Initially in the ER he was
afebrile with pulse rate 76, respiratory rate 24, BP 114/54 and saturating 73% on room air which improved to 91% with 6 L/min. Initial labs showed significant leukocytosis to 55.4, sodium 123, glucose 191, proBNP 3990, TSH 1.03, procalcitonin 0.36,
and COVID-19 antigen negative. Urine culture collected and flu swab was negative. CXR showed interstitial pulmonary edema with small bilateral pleural effusions however unable to rule out pneumonia. He was given 60 mg IV Lasix in the ER and
admitted to the hospitalist service. Patient's hypoxia has persisted and he has required between 4-6 L/min since admission. Pulmonary service now consulted for additional management/recommendations.
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
pacemaker lead infection with associated POST ACUTE CARE NURSE PRACTITIONER abscess with liver abscess and splenic infection, history of C. difficile, glaucoma
Impression:
#Acute respiratory failure with hypoxia likely due to sepsis with acute organ dysfunction and acute decompensated heart failure in setting of asthma/COPD; unable to r/o component of pneumonia
#Sepsis due to UTI +/- pneumonia
#Enterococcus bacteremia
#Acute HFrEF (LVEF: 30% with global diffuse hypokinesis on TTE from 09/04/2024) with pulmonary vascular congestion and bilateral pleural effusions seen on admission CXR
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
#History of asthma on Breo and prn albuterol
# Paroxysmal A-fib on Eliquis
#Complete heart block s/p pacemaker with history of pacemaker lead infection complicated by POST ACUTE CARE NURSE PRACTITIONER + liver abscess and splenic infection s/p splenectomy
#History of C. difficile infection
Plan:
- Given the patient's initial presentation with significant leukocytosis with tachypnea and hypoxia, this is likely due to SIRS criteria causing his respiratory insufficiency
- His initial CXR did show evidence of heart failure with pulmonary vascular congestion and bilateral posterior phrenic angle blunting, although there are also bibasilar opacities with a very plump hilum bilaterally - -> unable to fully rule out
component of pneumonia especially given the patient's complaint of a cough for several weeks prior to admission
- Patient is growing Enterococcus faecalis in his blood and urine cultures; ID is consulted, defer antibiotics to them (currently on Unasyn, ceftriaxone and PO vanc)
- Surveillance blood cultures on 09/05 show NGTD; check sputum culture if patient can produce a decent sample
- He received 60mg IV lasix on 09/03/2024 --> in the setting of sepsis, would be careful diuresing in this period of time as his SVR is likely reduced already, so reducing venous return and MSFP could cause circulatory collapse - cautiously diurese
with IV bumex (3mg IV BID) while keeping strict I/O and taking daily weights
- I would expect that as his infection becomes better controlled that his oxygen requirements will also improve
- Since admission he has needed between 4-6 L/min nasal cannula
- If oxygen requirements do not improve, it would be helpful to get a CT chest to evaluate the lung parenchyma in greater detail --> CT Chest ordered for tomorrow
- Continue to wean down O2 flow rate as tolerated to maintain SaO2 88-94%
- Takes Jose as an outpatient - -> continue budesonide and Duonebs for now with prn DuoNebs for any breakthrough symptoms (not currently bronchospastic)
- Incentive spirometer encouraged q1hr while awake
- Mucolytics
- Patient is not currently wheezing and he appears to be breathing comfortably on exam today, hence do not feel that steroids are indicated currently
- Replete electrolytes with K>4, Mg>2
- Trend H/H and transfuse if needed to keep Hb>7g/dL; keep plt>20k, unless there is concern for bleeding then keep plt>50k
- Maintain euglycemia with goal BG >100 and <180
- DVT ppx: Eliquis
Code status: DNR/DNI
Pulmonary service will continue to follow along.
Data:
TTE 09/04/2024: TDS Definity used.
Dilated LV with moderate to severely reduced systolic function.
LVEF is approximately 30% by visual estimation. Global diffuse hypokinesis.
Normal right ventricular size and function.
Mild tricuspid regurgitation.
Estimated pulmonary artery pressure of 45 mmHg, right heart pressures were
mildly elevated.
No prior study available for comparison.
CXR 09/03/2024: Interstitial pulmonary edema with small bilateral pleural effusions. Bibasilar opacities may represent alveolar edema versus pneumonia.
Total time spent today was 38 minutes for this encounter. Time includes reviewing laboratory test/imaging results, reviewing pertinent medical records, obtaining and reviewing medical history, performing an appropriate exam, ordering medications,
tests and procedures. Time also includes documentation of this encounter, coordinating patient care and communicating with other healthcare professionals. Total time does not include separately billed tests performed on this date of service.
Subjective Data
-
Date of Service:
Date of Service: September 06, 2024
Chief Complaint: Pulmonary Follow Up
Subjective:
Patient seen today at bedside. He is in no acute distress. Breathing comfortably on 4 L/min saturating 95%. Afebrile overnight.
Review of Systems
General: Other (Negative unless mentioned above)
Objective Data
Data Reviewed
Vital Signs / I&O / Oxygen:
Vital Signs
Temp Pulse Resp BP Pulse Ox
98.2 F 80 16 115/53 92
09/06/24 07:00 09/06/24 07:58 09/06/24 07:58 09/06/24 07:00 09/06/24 07:58
Intake and Output
09/05/24 09/06/24 09/07/24
06:59 06:59 06:59
Intake Total 660 / 660 550 / 550
Output Total 1500 / 1500 800 / 800
Balance -840 / -840 -250 / -250
SaO2 92
Nasal Cannula flow liters per 4
minute
Physical Exam
General: Respiratory Distress (negative), Comfortable, Chills (negative) and Sweats (negative)
HEENT: Normocephalic and Anicteric
Cardiovascular: S1-S2 and Peripheral Edema (negative)
Respiratory: Crackles (Bilateral), Accessory Resp Muscle Use (negative), Stridor (negative) and Other (Poor inspiratory effort)
GI: Soft, Non Distended, Non Tender and Normal Bowel Sounds
Neurology: Tremors (negative), Other (Flat affect, monotone voice) and Other (Drowsy)
Skin: Warm, Dry and Jaundice (negative)
Labs/Micro/Reports
Lab Data
09/06/24 06:20
09/06/24 09:00
Microbiology
09/04/24 00:59 Blood/Venous Blood Culture - Preliminary
Positive culture in progress
09/04/24 00:59 Blood/Venous Gram Stain - Preliminary
09/04/24 00:59 Blood/Venous Blood Culture - Preliminary
Enterococcus faecalis
09/04/24 00:59 Blood/Venous Gram Stain - Preliminary
09/03/24 19:19 Urine Urine Culture - Preliminary
Enterococcus species
09/03/24 21:47 Nasal Swab Influenza Types A & B (MARINA) - Final
Negative for Influenza A & B, NAAT
Negative results must be combined with clinical observations
and patient history.
Nucleic Acid Amplification test (NAAT)performed on the
[employer] platform.
[2024-09-06 12:11] VITALS: BMI 29.4
[2024-09-06] MEDS: NOVOLOG FLEXPEN-LOW RESISTANCE 3 UNITS SC (12:30)
[2024-09-06] MEDS: CLARITIN 10 MG PO (13:04)
[2024-09-06] MEDS: ROBITUSSIN 200 MG PO ×2 (13:07→18:01)
--- NOTE | 2024-09-06 14:15 | W.PN.CD ---
Today's Communication / Plan
-
continue IV diuresis with intensive monitoring of tele and labs
Impression / Plan
-
CHF with reduced EF - acute on chronic.
-ICD lead in place
-EF 30%( thinks this is chronic)
-bedscale and I/o inaccuate, but with condom cath put out 800cc to am dose of bumex
-Continue with IV diuresis Bumex 3mg BID.
-volume exam improving
- monitor daily weights, I&Os.
- continue GDMT Entresto, Coreg, Bumex.
- fitzgerald SGLT2i.
Acute hypoxic respiratory failure:
-Pulm thinks likely PNA present in addition to CHF
-care per puml
Afib - paroxysmal.
- AV and V paced on tele.
- denies palpitations.
- continue Eliquis.
HTN - stable on meds, continue.
CAD - stable w/o angina.
- continue medical therapy.
- obtain records from cardiology.
CVA - stable.
- no sx.
- on ASA in addition to DOAC, continue.
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 Immanuel Mcmahon as outpatient.
COPD: chronic
Subjective:
still feeling lousy and congested
TTE 09/05/24 CONCLUSIONS
TDS Definity used.
Dilated LV with moderate to severely reduced systolic function.
LVEF is approximately 30% by visual estimation. Global diffuse hypokinesis.
Normal right ventricular size and function.
Mild tricuspid regurgitation.
Estimated pulmonary artery pressure of 45 mmHg, right heart pressures were
mildly elevated.
No prior study available for comparison.
Physical Exam
Vital Signs/Labs
Vital Signs
Temp Pulse Resp BP Pulse Ox
97.8 F 84 16 135/58 92
09/06/24 11:00 09/06/24 11:27 09/06/24 11:27 09/06/24 11:00 09/06/24 11:00
09/05/24 09/06/24 09/07/24
06:59 06:59 06:59
Actual Weight 187 lb 6 oz 193 lb 9.6 oz
09/06/24 06:20
09/06/24 09:00
Magnesium 2.2 mg/dl (1.6-2.3) 09/06/24 09:00
Triglycerides 94 mg/dl (10-149) 09/04/24 05:56
LDL Cholesterol, Calc 65 mg/dl 09/04/24 05:56
VLDL Cholesterol, Calc 18 mg/dl (0-30) 09/04/24 05:56
HDL Cholesterol 27 mg/dl 09/04/24 05:56
TSH 1.03 uIU/ml (0.47-4.68) 09/03/24 17:31
09/03/24 09/03/24
16:52 17:31
Vzy-V-Swgrujxdqmp Pept Cancelled 3990
Physical Exam
Constitutional: No acute distress
Cardiovascular: Rhythm & rate is regular and Pedal edema is absent
Respiratory: Respiratory effort normal and Wheeze Present (bilaterally)
Neuro/Psych: Alert
Data Reviewed
-
Date of Service: September 06, 2024
Medical Decision Making: Review of Case with other Provider (nursing finally think can tell he responded to bumex Dr Hernandez continue diuresis)
EKG: Other (telepacing and fib)
[2024-09-06 15:00] VITALS: BP 144/59
[2024-09-06 16:49] LABS: Glucose - Point of Care 172 mg/dl (70-99)
[2024-09-06] MEDS: ASPIR LOW (ENTERIC COATED) 81 MG PO (18:01)
[2024-09-06] MEDS: JANUVIA 100 MG PO (18:01)
[2024-09-06 19:50] VITALS: BP 130/65
[2024-09-06] MEDS: PULMICORT INH ×2 (20:08→20:14)
[2024-09-06] MEDS: DUONEB INH ×2 (20:09→20:15)
[2024-09-06] MEDS: XALATAN OPHTHALMIC SOLUTION 1 DROP BOTH EYES (20:54)
[2024-09-06] MEDS: NON-FORMULARY ITEM 1 DROP BOTH EYES (20:55)
[2024-09-06 21:40] LABS: Glucose - Point of Care 195 mg/dl (70-99)
[2024-09-06 23:57] VITALS: BP 135/65
[2024-09-07] VITALS (7 sets, daily range): BP systolic 107–145; BP diastolic 62–74; PULSE 61; O2SAT 91; BMI 30.6
[2024-09-07] MEDS: AMPICILLIN 108 MG IV ×6 (00:08→23:37)
[2024-09-07] MEDS: ROCEPHIN 2000 MG IV (05:00)
[2024-09-07] MEDS: STERILE WATER FOR INJECTION 20 ML IV (05:00)
[2024-09-07] MEDS: SYNTHROID 100 MCG PO (05:02)
[2024-09-07] MEDS: PULMICORT 0.5 MG INH ×2 (07:17→19:17)
[2024-09-07] MEDS: DUONEB 3 ML INH ×4 (07:17→19:17)
[2024-09-07 07:40] LABS: Hematocrit 46.1 % (39.0-52.0); Mean Corp Hgb Conc. 32.5 g/dL (33.0-37.0); Mean Corpuscular Hgb 30.5 pg (27.0-31.0); Mean Corpuscular Volume 93.7 fL (80.0-94.0); Mean Platelet Volume 9.9 fL (7.4-10.4); Platelet Count 338 10^3/uL (130-400); Red Blood Cell Count 4.92 10^6/uL (4.70-6.10); Red Cell Dist. Width 13.5 % (11.5-14.5); White Blood Cell Count 26.1 10^3/uL (4.8-10.8)
--- NOTE | 2024-09-07 07:50 | W.PN.CD ---
Today's Communication / Plan
-
- Patient now appears to be developing contraction alkalosis with aggressive IV diuresis; will transition back to home dose of Bumex 2 mg IV BID.
- Cardiology will remain available on an as-needed basis; can follow-up with primary Tube Buffer as an outpatient.
Impression / Plan
-
CHF with reduced EF (LVEF 30%) - acute on chronic.
-ICD lead in place
-Patient now appears to be developing contraction alkalosis with aggressive IV diuresis; will transition back to home dose of Bumex 2 mg IV BID.
-Patient is compensated on examination.
-Continue Entresto, Coreg, Bumex.
-Can consider adding SGLT2 inhibitor as outpatient, given current UTI.
Acute hypoxic respiratory failure/PNA:
- Continue antibiotics and management as per Pulmonary.
Enterococcus UTI:
- Antibiotics as per ID.
PAF:
- AV and V paced on tele.
- Continue carvedilol and Eliquis.
HTN - controlled.
CAD - stable w/o angina.
- Continue aspirin and carvedilol.
- Uncertain a why patient is not on a statin (possible intolerance); will defer to primary Tube Buffer as outpatient.
CVA - stable.
- Continue Eliquis.
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 Immanuel Mcmahon as outpatient.
COPD - chronic
- Management as per Pulmonary.
Subjective:
No major events overnight.
TTE 09/05/24 CONCLUSIONS
TDS Definity used.
Dilated LV with moderate to severely reduced systolic function.
LVEF is approximately 30% by visual estimation. Global diffuse hypokinesis.
Normal right ventricular size and function.
Mild tricuspid regurgitation.
Estimated pulmonary artery pressure of 45 mmHg, right heart pressures were
mildly elevated.
No prior study available for comparison.
Physical Exam
Vital Signs/Labs
Vital Signs
Temp Pulse Resp BP Pulse Ox
97.9 F 58 20 141/74 97
09/07/24 07:39 09/07/24 07:39 09/07/24 07:39 09/07/24 07:39 09/07/24 07:39
09/06/24 09/07/24 09/08/24
06:59 06:59 06:59
Actual Weight 91.314 kg
09/07/24 07:15
Magnesium 2.2 mg/dl (1.6-2.3) 09/06/24 09:00
Triglycerides 94 mg/dl (10-149) 09/04/24 05:56
LDL Cholesterol, Calc 65 mg/dl 09/04/24 05:56
VLDL Cholesterol, Calc 18 mg/dl (0-30) 09/04/24 05:56
HDL Cholesterol 27 mg/dl 09/04/24 05:56
TSH 1.03 uIU/ml (0.47-4.68) 09/03/24 17:31
09/03/24 09/03/24
16:52 17:31
Ghv-[id number]-Ysxzwtqjqzp Pept Cancelled 3990
Physical Exam
Constitutional: No acute distress and Comfortable
EENT: Anicteric
Cardiovascular: Rhythm & rate is regular, Pedal edema is absent, Systolic murmur absent and S1S2 is normal
Respiratory: Respiratory effort normal, Crackles Absent and Wheeze Present
GI: Soft
Neuro/Psych: Alert
Other: Skin (warm, dry)
Data Reviewed
-
Date of Service: September 07, 2024
EKG: Tracing Personally Visualized and interpreted (Telemetry: Atrial fibrillation, paced)
Echo: Report Reviewed by me (EF 30%)
Labs: Labs Reviewed by me
[2024-09-07 08:26] LABS: Glucose - Point of Care 179 mg/dl (70-99)
[2024-09-07 08:37] LABS: Blood Urea Nitrogen 27 mg/dl (9-20); Calcium 8.5 mg/dl (8.4-10.2); Carbon Dioxide 35 mmol/L (22-30); Chloride 89 mmol/L (98-107); Estimated Creatinine Clearance 72 ml/min; Glucose 164 mg/dl (70-99); Magnesium 2.1 mg/dl (1.6-2.3); Phosphorus 2.8 mg/dl (2.5-4.5); Potassium 4.6 mmol/L (3.5-5.1); Sodium 131 mmol/L (135-145); eGFR > 60.00
[2024-09-07] MEDS: ENTRESTO 24 MG/26 MG 1 TAB PO ×2 (08:52→20:50)
[2024-09-07] MEDS: MUCINEX 600 MG PO ×2 (08:53→20:54)
[2024-09-07] MEDS: COREG 12.5 MG PO ×2 (08:53→20:50)
[2024-09-07] MEDS: CLARITIN 10 MG PO (08:53)
[2024-09-07] MEDS: FIRVANQ 125 MG PO ×2 (08:54→20:50)
[2024-09-07] MEDS: ELIQUIS 5 MG PO ×2 (08:54→20:50)
[2024-09-07] MEDS: COLACE 100 MG PO ×2 (08:54→20:50)
[2024-09-07] MEDS: NOVOLOG FLEXPEN-LOW RESISTANCE 1 UNITS SC ×2 (08:55→16:58)
[2024-09-07] MEDS: SIMBRINZA 1%-0.2% OPHTH SUSP 1 DROP BOTH EYES ×3 (08:56→20:52)
[2024-09-07] MEDS: OCEAN, SALINE MIST 2 SPRAYS NASAL ×3 (08:56→17:00)
[2024-09-07] MEDS: BUMEX 2 MG PO ×2 (09:03→17:04)
[2024-09-07 12:37] LABS: Glucose - Point of Care 210 mg/dl (70-99)
--- NOTE | 2024-09-07 12:44 | PTOTSP ---
Video Swallow Examination
Patient presents with a grossly functional oral/pharyngeal swallow without instance of aspiration across trials/consistencies. Trace upper laryngeal penetration noted when drinking thin liquid by consecutive straw sips. No more than trace to minimal
pharyngeal stasis that cleared with dry swallow. Lateral sweep of esophagus with small amount of contrast.
Recommend
1. Advance to Regular solids/Easy to Chew Solids and thin liquids. Single sips of liquid by cup or straw.
2. Meds as best tolerated.
3. Aspiration precautions (upright with all oral intake)
4. Alternate sip of liquid after every 2-3 bites of solids.
5. Remain upright for 30 minutes after meals.
[2024-09-07] MEDS: NOVOLOG FLEXPEN-LOW RESISTANCE 2 UNITS SC (12:48)
[2024-09-07] MEDS: FLUSH (NSS) 1 FLUSH IV ×2 (12:51→16:59)
--- NOTE | 2024-09-07 13:38 | W.PN.ID1 ---
Date of Service
Date of Service: September 07, 2024
Today's Communication
DC ceftriaxone.
Continue IV ampicillin.
Assessment / Plan
Assessment:
# Enterococcus faecalis bacteremia x 2 sets drawn at the same time
# Symptomatic UTI source of bacteremia
. Ucx + Enterococcus.
. hx of E. faecalis bacteruria 02/2024.
# Acute on chronic leukocytosis, trending down
# Acute on chronic CHF
# History of recurrent C. difficile
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
Plan:
-TTE no gross vege
- 09/05 blood cx's neg to date. Bacteremia is not sustained.
-Continue IV ampicillin at lower dose 2g IV q6h (d
- DC ceftriaxone
- Continue po Vanco 125mg bid for C. diff prophylaxis.
- Trend wbc.
# Conditions MID WIFE
Diabetes mellitus
COPD
Hypertension
Hypothyroidism
Recurrent C. difficile
MGUS
CAD
HFrEF
PPM/AICD
Atrial fibrillation
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 Per bcx's neg.
Splenectomy (2020)
Brain abscess drainage (2020)
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
Chief Complaint
-: Bacteremia
Subjective / Review of Systems
at bedside. Still SOB.
Vital Signs / Physical Exam
Vital Signs
Vital Signs
Temp Pulse Resp BP Pulse Ox
97.9 F 60 20 141/74 87
09/07/24 07:39 09/07/24 08:53 09/07/24 11:21 09/07/24 07:39 09/07/24 11:21
Physical Exam
Constitutional: Chronically Ill
Eyes: Sclera Anicteric
Cardiovascular: Regular Rate and S1/S2
Pulmonary: Rales and Other (Decreased BS bilaterally)
Gastrointestinal: Soft, Non Tender and Non Distended
Extremities: Edema
Neurological: Awake and Alert
Objective Data
Lab Data
Lab Results
09/07/24 07:15
09/07/24 07:15
Estimated Creat Clear 72 ml/min 09/07/24 07:15
Total Bilirubin 1.0 mg/dl (0.2-1.3) 09/03/24 17:31
AST 22 U/L (17-59) 09/03/24 17:31
ALT 16 U/L (0-50) 09/03/24 17:31
Alkaline Phosphatase 90 U/L (38-126) 09/03/24 17:31
Most recent labs reviewed.
Micro Results:
09/05/24 16:22 Blood Culture - Preliminary
Blood/Venous No Growth in 24 hours- Final report to follow
09/05/24 15:15 Blood Culture - Preliminary
Blood/Venous No Growth in 24 hours- Final report to follow
09/03/24 19:19 Urine Culture - Final
Urine Enterococcus faecalis
09/04/24 00:59 Blood Culture - Final
Blood/Venous Enterococcus faecalis
Gram Stain - Final
09/04/24 00:59 Blood Culture - Preliminary
Blood/Venous Enterococcus faecalis
Gram Stain - Preliminary
09/03/24 21:47 Influenza Types A & B (MARINA) - Final
Nasal Swab Negative for Influenza A & B, NAAT
Negative results must be combined with clinical observations
and patient history.
Nucleic Acid Amplification test (NAAT)performed on the
[employer] platform.
09/07/[address]: Moderate-sized RIGHT pleural effusion with adjacent right lower lobe atelectasis. Small left-sided pleural effusion with complete atelectasis of the left lower lobe. Proximal occlusion of the bronchus supplying the superior segment
of the left lower lobe.
09/03/24 CXR: Interstitial pulmonary edema with small bilateral pleural effusions. Bibasilar opacities may represent alveolar edema versus pneumonia.
--- NOTE | 2024-09-07 14:18 | W.PN.ONC2 ---
Today's Communication / Plan
-
Flow cytometry negative, no further workup needed as inpt due to chronicity of problem and likelihood of post-splenectomy state as cause of leukocytosis.
CT sinuses ordered.
Quantitative immunoglobulins, SPEP and free light chains now.
Impression
Impression
MGUS
s/p splenectomy
Leukocytosis, chronic, likely due in part to post-splenectomy state
CHF
COPD
weakness
enterococcus bacteremia
Plan
Plan
With history of MGUS and frequent infections, suspect possible component of hypogammaglobulinemia contributing to frequent illness.
Check QIG's now with consideration of outpt IVIg.
Leukocytosis is chronic and is likely due to post-splenectomy state.
Pt is followed for both conditions at [facility] but may interested in transitioning care if IVIg indicated. Pt and used to live in [place] but now live at [facility].
Would in general consider lower threshold for antibiotics given post-splenectomy state. He has followed previously with Dr. Newell.
Consider ENT consult for sinuses.
Subjective/Objective
Chief Complaint
Heme/Onc follow up of leukocytosis
Subjective
No new complaint. present today and able to provide additional history: pt has by followed for years by [facility] at [facility], previously Dr. Espinosa, now establishing care with Dr. Estevan Robles.
He is followed there for MGUS and leukocytosis. He gives a history of splenectomy, also frequent infections. He has a near-constant sinus infection, has seen ENT previously but did not feel they were helpful.
Four years ago he had a very severe infection which somehow precipitated need for splenectomy.
Vital Signs:
Vital Signs
Temp Pulse Resp BP Pulse Ox
97.9 F 60 20 141/74 87
09/07/24 07:39 09/07/24 08:53 09/07/24 11:21 09/07/24 07:39 09/07/24 11:21
Lab Results:
Laboratory Data
WBC 26.1 10^3/uL (4.8-10.8) H 09/07/24 07:15
Hgb 15.0 g/dL (13.0-18.0) 09/07/24 07:15
Plt Count 338 10^3/uL (130-400) 09/07/24 07:15
eGFR > 60.00 09/07/24 07:15
Physical Exam
HEENT: Moist Mucous Membranes; No Jaundice
Cardiology: Normal Sinus Rhythm, S1 and S2
Pulmonary: Other (decreased)
GI: Soft and Normal Bowel Sounds
Extremities: No C/C/E
Neuro: Non Focal
Review of Systems
Review of Systems
Constitutional: Reports Fatigue; Denies Fever
Head: Denies Sore Throat or Hearing Loss
Respiratory: Reports Cough; Denies Dyspnea
Cardiovascular: Denies Chest Pain or Palpitations
Gastrointestinal: Denies Nausea/Vomiting or Diarrhea
Skin: Denies Rash or Pruritis
Neurological: Denies Headache or Numbness
Psychiatric: Denies Depression or Insomnia
Hem/Lymphatic: Reports Easy Bruising; Denies Night Sweats
--- NOTE | 2024-09-07 15:15 | W.PN.HOSP.TC ---
Today's Communication/Plan
-
Assessment / Plan
Assessment / Plan
Physical Exam
General: no acute distress, appears comfortable, obese
HEENT: NormoCephalic, Moist mucous membranes, Atraumatic on nasal cannula oxygen supplementation
Respiratory: Coarse breath sounds b/l
Cardiac: S1/S2 and Regular Rhythm; No Tachycardia
GI: Soft, Non Tender, bowel sounds present
Musculoskeletal: No Clubbing, No Cyanosis, +2 pitting edema bilateral lower extremities
Skin: Warm and Dry
Neuro: Alert oriented x3, conversant
Psych: Calm and cooperative
79M CAD CHF afib DM MGUS COPD here for CHF exacerbation, high white count, suspected pneumonia, bacteremia.
Acute Hypoxic Respiratory Insufficiency multifactorial 2/2 to Heart Failure PNA and possibly COPD
-Continue supplemental oxygen, currently saturating appropriately on 4 L via nasal cannula
-wean as tolerated (baseline room air)
- CT chest shows moderate right sized pleural effusion with adjacent right lower lobe atelectasis, small left-sided pleural effusion with complete atelectasis of left lower lobe, proximal occlusion of bronchus supplying the superior segment of the
left lower lobe
- Pulmonology following, recommendations appreciated
Acute on Chronic HFrEF
-Consult Cardiology appreciated
-ECHO appreciated 30%
- Has now been transitioned to home dose of Bumex 2 mg p.o. twice daily
-Continue Entresto
-Monitor Is&Os and Daily Weights
Nasal Congestion
-Continues to have intermittent coughing
-CUFF MATCHER with video swallow today /, recommend regular solids and thin liquids
-mucinex, prn robitussin, incentive spirometer, acapella
-claritin, normal saline nasal spray QID
Hyponatremia, suspect hypervolemic in nature in setting of heart failure
-Continue fluid restriction
-Monitor serial sodium levels, improving
Significant Leukocytosis
-Acute on chronic in the setting of bacteremia secondary to urinary tract infection, repeat cultures negative
- reports patient's WBC chronically runs high but she does not know his baseline
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
- Heme-onc following, flow cytometry negative, SPEP and free light chains pending
- Continue antibiotics with ampicillin
-COVID and Influenza neg
-ID eval appreciated cont abx, po vanc for cdiff ppx, consider PHILLY if bacteremia persists on repeat blood cx's
Possible Asthma / COPD exacerbation contributing
-Transitioned to Pulmicort and DuoNeb QID / PRN
- hold off on systemic steroids for now
-Pulm eval appreciated
Coronary Artery Disease
-Continue aspirin
Paroxysmal Atrial Fibrillation
-Continue Eliquis
-Continue carvedilol for rate control
Diabetes Mellitus, Type II
-Continue Januvia
-Hold Nateglinide
-Monitor sugars and continue coverage insulin
Essential Hypertension
-Continue carvedilol with hold parameters
-Bumex as above
Hypothyroidism
-Continue levothyroxine
MGUS
Hx Complete Heart Block s/p Pacemaker
Hx Pacer Lead Infection with Associated ORCHARD MANAGER Abscess / Liver Abscess and Spleen Infection
Hx C Diff Colitis
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
PT/OT appreciated SNF rehab vs Home Services (patient prefers home)
DVT proph: Eliquis
Code Status: DNR
discussed with patient and patient's Maria D
I spent a total of 45 minutes with the patient or on the floor. More than 50% of this time involved counseling and coordination of care.
Anticipated Discharge: > 48 hours
Subjective/Interval History
-
Date of Service: September 07, 2024
Patient was seen and examined at bedside this morning. No abdominal pain but continues to have cough. Has been transitioned back to home dose of oral Bumex.
Objective Data
-
Labs:
Laboratory Results
09/07/24
07:15
WBC 26.1 H
Hgb 15.0
Hct 46.1
Plt Count 338
Sodium 131 L
Potassium 4.6
Chloride 89 L
Carbon Dioxide 35 H
BUN 27 H
Creatinine 0.9
Glucose 164 H
Calcium 8.5
Vital Signs:
Vital Signs
Temp Pulse Resp BP Pulse Ox
97.9 F 60 20 141/74 87
09/07/24 07:39 09/07/24 08:53 09/07/24 11:21 09/07/24 07:39 09/07/24 11:21
I&O
09/06/24 09/07/24 09/08/24
06:59 06:59 06:59
Intake Total 550 / 550 1240 / 1240 108 / 108
Output Total 800 / 800 2400 / 2400
Balance -250 / -250 -1160 / -1160 108 / 108
Review of Systems
-
History Source: Patient
All other systems: Reviewed and negative
Respiratory: Reports Cough
Physical Exam
-
General: No Apparent Distress
--- NOTE | 2024-09-07 16:21 | W.PN.PUL3 ---
Today's Communication / Plan
-
Continue secretion clearance interventions
Nebulizers
Acapella device
Incentive spirometry
Continue current antibiotics
Diuretics have been discontinued. Now on oral diuretics
May need to consider right thoracentesis if there is no ongoing improvement.
Continue to wean down FiO2 currenlty 3 L NC, improved
Assessment
-
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
s/p resection and XRT, history of pacemaker lead infection with associated HYDROBLASTER abscess with liver abscess and splenic infection, and C. diff who presents with weakness. Patient's had a cough for few weeks. Medrol Dosepak given to him without much
improvement. Patient is on inhalers as an outpatient for his asthma/COPD and was changed from Breo to Trelegy without improvement so now he is back to [facility]. His cough is productive and he endorsed shortness of breath. Initially in the ER he was
afebrile with pulse rate 76, respiratory rate 24, BP 114/54 and saturating 73% on room air which improved to 91% with 6 L/min. Initial labs showed significant leukocytosis to 55.4, sodium 123, glucose 191, proBNP 3990, TSH 1.03, procalcitonin 0.36,
and COVID-19 antigen negative. Urine culture collected and flu swab was negative. CXR showed interstitial pulmonary edema with small bilateral pleural effusions however unable to rule out pneumonia. He was given 60 mg IV Lasix in the ER and
admitted to the hospitalist service. Patient's hypoxia has persisted and he has required between 4-6 L/min since admission. Pulmonary service now consulted for additional management/recommendations.
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
pacemaker lead infection with associated HYDROBLASTER abscess with liver abscess and splenic infection, history of C. difficile, glaucoma
Impression:
#Acute respiratory failure with hypoxia likely due to sepsis with acute organ dysfunction and acute decompensated heart failure in setting of asthma/COPD; unable to r/o component of pneumonia
#Sepsis due to UTI +/- pneumonia
#Enterococcus bacteremia
#Acute HFrEF (LVEF: 30% with global diffuse hypokinesis on TTE from 09/04/2024) with pulmonary vascular congestion and bilateral pleural effusions seen on admission CXR
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
#History of asthma on Breo and prn albuterol
# Paroxysmal A-fib on Eliquis
#Complete heart block s/p pacemaker with history of pacemaker lead infection complicated by HYDROBLASTER + liver abscess and splenic infection s/p splenectomy
#History of C. difficile infection
Plan:
- Given the patient's initial presentation with significant leukocytosis with tachypnea and hypoxia, this is likely due to SIRS criteria causing his respiratory insufficiency
.
- His initial CXR did show evidence of heart failure with pulmonary vascular congestion and bilateral posterior phrenic angle blunting, although there are also bibasilar opacities with a very plump hilum bilaterally - -> unable to fully rule out
component of pneumonia especially given the patient's complaint of a cough for several weeks prior to admission.
Persistent leukocytosis may be postsplenectomy. Leukocytosis steadily have been improving.
- Patient is growing Enterococcus faecalis in his blood and urine cultures; ID is consulted, currently on ampicillin.
- Based on CAT scan patient also has likely pneumonia as well .
- Surveillance blood cultures on 09/05 show NGTD;
- check sputum culture if patient can produce a decent sample-has not been able to produce
- Status post diuresis. LVEF is 30%. Cardiology has signed off. Back in usual diuretic dose.
- I would expect that as his infection becomes better controlled that his oxygen requirements will also improve-currently on 4 L.
- Since admission he has needed between 4-6 L/min nasal cannula- currently on 4L.
- CT chest 09/07/2024: Reviewed moderate right-sided pleural effusion with adjacent right lower lobe atelectasis. Small left pleural effusion with complete atelectasis of the left lower lobe. Proximal occlusion of the bronchus supplying the
superior segment of the left lower lobe. Right apex scarring. Multiple calcified mediastinal and hilar lymph nodes suggestive of pyogranulomatous disease.
- Continue to wean down O2 flow rate as tolerated to maintain SaO2 88-94%
May need to consider right-sided thoracentesis if there is no ongoing improvement post diuresis and antibiotics.
Will continue to follow closely.
Patient currently afebrile does not appear toxic.
Continue aspiration precautions
Barium swallow without overt aspiration. Reviewed.
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
Continue nebulizers,
- Acapella device to aid with secretion clearance-
- Takes Breo as an outpatient - -> continue budesonide and Duonebs for now with prn DuoNebs for any breakthrough symptoms (not currently bronchospastic)
- Incentive spirometer encouraged q1hr while awake
- Mucolytics
- No indication for systemic corticosteroids.
- Replete electrolytes with K>4, Mg>2
- Trend H/H and transfuse if needed to keep Hb>7g/dL; keep plt>20k, unless there is concern for bleeding then keep plt>50k
- Maintain euglycemia with goal BG >100 and <180
- DVT ppx: Eliquis
Code status: DNR/DNI
Pulmonary service will continue to follow along.

Data:
TTE 09/04/2024: TDS Definity used.
Dilated LV with moderate to severely reduced systolic function.
LVEF is approximately 30% by visual estimation. Global diffuse hypokinesis.
Normal right ventricular size and function.
Mild tricuspid regurgitation.
Estimated pulmonary artery pressure of 45 mmHg, right heart pressures were
mildly elevated.
No prior study available for comparison.
CXR 09/03/2024: Interstitial pulmonary edema with small bilateral pleural effusions. Bibasilar opacities may represent alveolar edema versus pneumonia.
Total time spent today was 37 minutes for this encounter. Time includes reviewing laboratory test/imaging results, reviewing pertinent medical records, obtaining and reviewing medical history, performing an appropriate exam, ordering medications,
tests and procedures. Time also includes documentation of this encounter, coordinating patient care and communicating with other healthcare professionals. Total time does not include separately billed tests performed on this date of service.
Subjective Data
-
Date of Service:
Date of Service: September 07, 2024
Chief Complaint: Pulmonary Follow Up
Objective Data
Data Reviewed
Vital Signs / I&O / Oxygen:
Vital Signs
Temp Pulse Resp BP Pulse Ox
97.6 F 66 24 127/62 91
09/07/24 16:06 09/07/24 16:06 09/07/24 16:06 09/07/24 16:06 09/07/24 16:06
Intake and Output
09/06/24 09/07/24 09/08/24
06:59 06:59 06:59
Intake Total 550 / 550 1240 / 1240 108 / 108
Output Total 800 / 800 2400 / 2400
Balance -250 / -250 -1160 / -1160 108 / 108
SaO2 91
Nasal Cannula flow liters per 4
minute
Physical Exam
General: Respiratory Distress (negative), Comfortable, Chills (negative) and Sweats (negative)
HEENT: Normocephalic and Anicteric
Cardiovascular: S1-S2 and Peripheral Edema (negative)
Respiratory: Crackles (Bilateral), Accessory Resp Muscle Use (negative), Stridor (negative) and Other (Poor inspiratory effort)
GI: Soft, Non Distended, Non Tender and Normal Bowel Sounds
Neurology: Tremors (negative), Other (Flat affect, monotone voice) and Other (Drowsy)
Skin: Warm, Dry and Jaundice (negative)
Labs/Micro/Reports
Lab Data
09/07/24 07:15
09/07/24 07:15
Microbiology
09/05/24 15:15 Blood/Venous Blood Culture - Preliminary
No Growth in 48 hours- Final report to follow
09/05/24 16:22 Blood/Venous Blood Culture - Preliminary
No Growth in 24 hours- Final report to follow
09/03/24 19:19 Urine Urine Culture - Final
Enterococcus faecalis
09/04/24 00:59 Blood/Venous Blood Culture - Final
Enterococcus faecalis
09/04/24 00:59 Blood/Venous Gram Stain - Final
09/04/24 00:59 Blood/Venous Blood Culture - Preliminary
Enterococcus faecalis
09/04/24 00:59 Blood/Venous Gram Stain - Preliminary
[2024-09-07 16:57] LABS: Glucose - Point of Care 181 mg/dl (70-99)
--- NOTE | 2024-09-07 16:59 | CM ---
Chart reviewed and plan for patient is skilled placement at [facility] when stable.
Plan Will follow up with admissions at [facility] when stable.
[2024-09-07] MEDS: ASPIR LOW (ENTERIC COATED) 81 MG PO (17:04)
[2024-09-07] MEDS: JANUVIA 100 MG PO (17:04)
[2024-09-07] MEDS: NON-FORMULARY ITEM 1 DROP BOTH EYES (20:51)
[2024-09-07] MEDS: XALATAN OPHTHALMIC SOLUTION 1 DROP BOTH EYES (20:52)
[2024-09-07] MEDS: OCEAN, SALINE MIST 1 SPRAYS NASAL (20:52)
[2024-09-07 21:37] LABS: Glucose - Point of Care 211 mg/dl (70-99)
[2024-09-08 03:36] VITALS: BP 154/69
[2024-09-08 05:28] LABS: Hematocrit 41.8 % (39.0-52.0); Hemoglobin 13.7 g/dL (13.0-18.0); Mean Corp Hgb Conc. 32.8 g/dL (33.0-37.0); Mean Corpuscular Hgb 31.1 pg (27.0-31.0); Mean Platelet Volume 10.3 fL (7.4-10.4); Platelet Count 374 10^3/uL (130-400); Red Cell Dist. Width 13.5 % (11.5-14.5); White Blood Cell Count 20.3 10^3/uL (4.8-10.8)
[2024-09-08 05:51] VITALS: BMI 30.7
[2024-09-08 06:01] LABS: Blood Urea Nitrogen 33 mg/dl (9-20); Chloride 86 mmol/L (98-107); Estimated Creatinine Clearance 50 ml/min; Glucose 160 mg/dl (70-99); Magnesium 2.2 mg/dl (1.6-2.3); Phosphorus 3.2 mg/dl (2.5-4.5); Potassium 4.4 mmol/L (3.5-5.1); Sodium 131 mmol/L (135-145); eGFR 55.53
[2024-09-08] MEDS: AMPICILLIN IV (06:07)
[2024-09-08] MEDS: SYNTHROID 100 MCG PO (06:07)
[2024-09-08 07:00] VITALS: BP 147/74
[2024-09-08 07:07] LABS: Carbon Dioxide 40 mmol/L (22-30)
[2024-09-08] MEDS: AMPICILLIN 108 MG IV ×3 (07:34→17:20)
[2024-09-08] MEDS: FLUSH (NSS) 1 FLUSH IV ×3 (07:37→17:21)
[2024-09-08 08:00] LABS: Glucose - Point of Care 173 mg/dl (70-99)
[2024-09-08] MEDS: DUONEB 3 ML INH ×4 (08:39→19:16)
[2024-09-08] MEDS: PULMICORT 0.5 MG INH ×2 (08:39→19:16)
[2024-09-08] MEDS: NOVOLOG FLEXPEN-LOW RESISTANCE 1 UNITS SC (08:52)
[2024-09-08] MEDS: MUCINEX 600 MG PO ×2 (08:53→20:13)
[2024-09-08] MEDS: BUMEX 2 MG PO ×2 (08:53→17:19)
[2024-09-08] MEDS: CLARITIN 10 MG PO (08:54)
[2024-09-08] MEDS: COLACE 100 MG PO ×2 (08:54→20:13)
[2024-09-08] MEDS: ENTRESTO 24 MG/26 MG 1 TAB PO ×2 (08:54→20:14)
[2024-09-08] MEDS: FIRVANQ 125 MG PO ×2 (08:54→20:16)
[2024-09-08] MEDS: OCEAN, SALINE MIST 2 SPRAYS NASAL ×3 (08:55→17:23)
[2024-09-08] MEDS: SIMBRINZA 1%-0.2% OPHTH SUSP 1 DROP BOTH EYES ×3 (08:55→21:41)
[2024-09-08] MEDS: ELIQUIS 5 MG PO (08:58)
[2024-09-08] MEDS: COREG 12.5 MG PO ×2 (08:58→20:14)
--- NOTE | 2024-09-08 10:23 | W.PN.ID1 ---
Date of Service
Date of Service: September 08, 2024
Today's Communication
Continue IV ampicillin.
Assessment / Plan
# Enterococcus faecalis bacteremia x 2 sets drawn at the same time
# Symptomatic UTI source of bacteremia
. Ucx + Enterococcus.
. hx of E. faecalis bacteruria 02/2024.
# Acute on chronic leukocytosis, trending down
# Acute on chronic CHF
# History of recurrent C. difficile
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
Plan:
-TTE no gross vege
- 09/05 blood cx's neg to date. Bacteremia is not sustained.
-Continue IV ampicillin at lower dose 2g IV q6h (d4)
- Continue po Vanco 125mg bid for C. diff prophylaxis while on systemic abx.
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
Diabetes mellitus
COPD
Hypertension
Hypothyroidism
Recurrent C. difficile
MGUS
CAD
HFrEF
PPM/AICD
Atrial fibrillation
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 Per bcx's neg.
Splenectomy (2020)
Brain abscess drainage (2020)
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
Chief Complaint
-: Bacteremia
Subjective / Review of Systems
c/o midline site bleeding. VAT team aware.
Vital Signs / Physical Exam
Vital Signs
Vital Signs
Temp Pulse Resp BP Pulse Ox
97.4 F 64 16 147/74 95
09/08/24 07:00 09/08/24 07:00 09/08/24 08:47 09/08/24 07:00 09/08/24 08:47
Physical Exam
Constitutional: Chronically Ill
Eyes: Sclera Anicteric
Cardiovascular: Regular Rate and S1/S2
Pulmonary: Rales and Other (Decreased BS bilaterally)
Gastrointestinal: Soft, Non Tender and Non Distended
Extremities: Edema
Neurological: Awake and Alert
Lines: Other (RUE midline bloody)
Objective Data
Lab Data
Lab Results
09/08/24 04:52
09/08/24 04:52
Estimated Creat Clear 50 ml/min 09/08/24 04:52
Total Bilirubin 1.0 mg/dl (0.2-1.3) 09/03/24 17:31
AST 22 U/L (17-59) 09/03/24 17:31
ALT 16 U/L (0-50) 09/03/24 17:31
Alkaline Phosphatase 90 U/L (38-126) 09/03/24 17:31
Most recent labs reviewed.
Micro Results:
09/05/24 16:22 Blood Culture - Preliminary
Blood/Venous No Growth in 48 hours- Final report to follow
09/05/24 15:15 Blood Culture - Preliminary
Blood/Venous No Growth in 48 hours- Final report to follow
09/03/24 19:19 Urine Culture - Final
Urine Enterococcus faecalis
09/04/24 00:59 Blood Culture - Final
Blood/Venous Enterococcus faecalis
Gram Stain - Final
09/04/24 00:59 Blood Culture - Preliminary
Blood/Venous Enterococcus faecalis
Gram Stain - Preliminary
09/03/24 21:47 Influenza Types A & B (MARINA) - Final
Nasal Swab Negative for Influenza A & B, NAAT
Negative results must be combined with clinical observations
and patient history.
Nucleic Acid Amplification test (NAAT)performed on the
[employer] platform.
09/07/[address]: Moderate-sized RIGHT pleural effusion with adjacent right lower lobe atelectasis. Small left-sided pleural effusion with complete atelectasis of the left lower lobe. Proximal occlusion of the bronchus supplying the superior segment
of the left lower lobe.
09/03/24 CXR: Interstitial pulmonary edema with small bilateral pleural effusions. Bibasilar opacities may represent alveolar edema versus pneumonia.
--- NOTE | 2024-09-08 10:36 | VATNOTE ---
6/3 RT midline slowly continuously bleeding. It was redressed 3 times with shift superintendent. two quick clot applied with gauze packing dressing and a ly wrap applied as compression. will re-assess in two hours.
--- NOTE | 2024-09-08 10:51 | W.PN.ONC2 ---
Today's Communication / Plan
-
trend cbc
follow SPEP, FLC, QIG
Impression
Impression
MGUS
s/p splenectomy
Leukocytosis, chronic, likely due in part to post-splenectomy state
CHF
COPD
weakness
enterococcus bacteremia
Plan
Plan
With history of MGUS and frequent infections, suspect possible component of hypogammaglobulinemia contributing to frequent illness.
f/u QIG's now with consideration of outpt IVIg.
Leukocytosis is chronic and is likely due to post-splenectomy state.
Pt is followed for both conditions at [facility] but may interested in transitioning care if IVIg indicated. Pt and used to live in [place] but now live at [facility].
Would in general consider lower threshold for antibiotics given post-splenectomy state. He has followed previously with Dr. Newell.
Subjective/Objective
Subjective
improving wbc
sitting in chair
Vital Signs:
Vital Signs
Temp Pulse Resp BP Pulse Ox
97.4 F 64 16 147/74 95
09/08/24 07:00 09/08/24 07:00 09/08/24 08:47 09/08/24 07:00 09/08/24 08:47
Lab Results:
Laboratory Data
WBC 20.3 10^3/uL (4.8-10.8) H 09/08/24 04:52
Hgb 13.7 g/dL (13.0-18.0) 09/08/24 04:52
Plt Count 374 10^3/uL (130-400) 09/08/24 04:52
eGFR 55.53 09/08/24 04:52
Physical Exam
HEENT: Moist Mucous Membranes; No Jaundice
Pulmonary: unlabored
Extremities: No C/C/E
Neuro: Non Focal
[2024-09-08 11:48] LABS: Glucose - Point of Care 277 mg/dl (70-99)
[2024-09-08] MEDS: NOVOLOG FLEXPEN-LOW RESISTANCE 3 UNITS SC ×2 (11:55→17:17)
[2024-09-08 12:35] LABS: Hematocrit 40.9 % (39.0-52.0); Hemoglobin 13.2 g/dL (13.0-18.0)
--- NOTE | 2024-09-08 14:42 | W.PN.HOSP.TC ---
Today's Communication/Plan
-
Assessment / Plan
Assessment / Plan
Physical Exam
General: no acute distress, appears comfortable, obese
HEENT: NormoCephalic, Moist mucous membranes, Atraumatic on nasal cannula oxygen supplementation
Respiratory: Coarse breath sounds b/l
Cardiac: S1/S2 and Regular Rhythm; No Tachycardia
GI: Soft, Non Tender, bowel sounds present
Musculoskeletal: No Clubbing, No Cyanosis, +2 pitting edema bilateral lower extremities
Skin: Warm and Dry, sanguinous oozing from right AC midline site
Neuro: Alert oriented x3, conversant
Psych: Calm and cooperative
79M CAD CHF afib DM MGUS COPD here for CHF exacerbation, high white count, suspected pneumonia, bacteremia.
Acute Hypoxic Respiratory Insufficiency multifactorial 2/2 to Heart Failure PNA and possibly COPD
-Continue supplemental oxygen, currently saturating appropriately on 3 L via nasal cannula
-wean as tolerated (baseline room air)
- CT chest shows moderate right sized pleural effusion with adjacent right lower lobe atelectasis, small left-sided pleural effusion with complete atelectasis of left lower lobe, proximal occlusion of bronchus supplying the superior segment of the
left lower lobe
- Pulmonology following, recommendations appreciated
Acute on Chronic HFrEF
-Consult Cardiology appreciated
-ECHO appreciated 30%
- Has now been transitioned to home dose of Bumex 2 mg p.o. twice daily
-Continue Entresto
-Monitor Is&Os and Daily Weights
Nasal Congestion
-Continues to have intermittent coughing
-RESIDENTIAL FRAMING CARPENTER with video swallow /, recommend regular solids and thin liquids
-mucinex, prn robitussin, incentive spirometer, acapella
-claritin, normal saline nasal spray QID
Hyponatremia, suspect hypervolemic in nature in setting of heart failure
-Continue fluid restriction
-Monitor serial sodium levels, stable around 130
Significant Leukocytosis
- Improving
- Acute on chronic in the setting of Enterococcus faecalis bacteremia secondary to urinary tract infection, repeat cultures negative
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
- Heme-onc following, flow cytometry negative, SPEP and free light chains pending
- Continue antibiotics with ampicillin
- ID eval appreciated cont abx, po vanc for cdiff ppx, consider PHILLY if bacteremia persists on repeat blood cx's
Possible Asthma / COPD exacerbation contributing
-Transitioned to Pulmicort and DuoNeb QID / PRN
- hold off on systemic steroids for now
-Pulm eval appreciated
Coronary Artery Disease
-Continue aspirin
Paroxysmal Atrial Fibrillation
-Continue Eliquis
-Continue carvedilol for rate control
Diabetes Mellitus, Type II
-Continue Januvia
-Hold Nateglinide
-Monitor sugars and continue coverage insulin
Essential Hypertension
-Continue carvedilol with hold parameters
-Bumex as above
Hypothyroidism
-Continue levothyroxine
MGUS
Hx Complete Heart Block s/p Pacemaker
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
Hx C Diff Colitis
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
PT/OT appreciated SNF rehab vs Home Services (patient prefers home)
DVT proph: Eliquis
Code Status: DNR
discussed with patient and patient's Maria D
I spent a total of 40 minutes with the patient or on the floor. More than 50% of this time involved counseling and coordination of care.
Anticipated Discharge: 24 - 48 hours
Subjective/Interval History
-
Date of Service: September 08, 2024
Patient was seen and examined at bedside this morning. Reports breathing better today. Ongoing sanguinous oozing from his midline site in right AC.
Objective Data
-
Labs:
Laboratory Results
09/08/24 09/08/24
04:52 12:27
WBC 20.3 H
Hgb 13.7 13.2
Hct 41.8 40.9
Plt Count 374
Sodium 131 L
Potassium 4.4
Chloride 86 L
Carbon Dioxide 40 H
BUN 33 H
Creatinine 1.3
Glucose 160 H
Calcium 9.0
Vital Signs:
Vital Signs
Temp Pulse Resp BP Pulse Ox
97.4 F 64 16 147/74 91
09/08/24 07:00 09/08/24 11:42 09/08/24 11:42 09/08/24 07:00 09/08/24 11:42
I&O
09/07/24 09/08/24 09/09/24
06:59 06:59 06:59
Intake Total 1240 / 1240 1308 / 1308
Output Total 2400 / 2400 650 / 650
Balance -1160 / -1160 658 / 658
Review of Systems
-
History Source: Patient
All other systems: Reviewed and negative
Respiratory: Reports Cough
Hematologic / Lymphatic: Reports Bleeding (Bleeding from right AC midline site)
Physical Exam
-
General: No Apparent Distress
--- NOTE | 2024-09-08 15:13 | W.PN.PUL3 ---
Today's Communication / Plan
-
Repeat chest x-ray tomorrow
Continue antibiotics
Continue nebulizer therapy
Mucolytics
Secretion clearance interventions incentive spirometry/Acapella device
Assessment
-
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 diff who presents with weakness. Patient's had a cough for few weeks. Medrol Dosepak given to him without much
improvement. Patient is on inhalers as an outpatient for his asthma/COPD and was changed from [facility] to [facility] without improvement so now he is back to [facility]. His cough is productive and he endorsed shortness of breath. Initially in the ER he was
afebrile with pulse rate 76, respiratory rate 24, BP 114/54 and saturating 73% on room air which improved to 91% with 6 L/min. Initial labs showed significant leukocytosis to 55.4, sodium 123, glucose 191, proBNP 3990, TSH 1.03, procalcitonin 0.36,
and COVID-19 antigen negative. Urine culture collected and flu swab was negative. CXR showed interstitial pulmonary edema with small bilateral pleural effusions however unable to rule out pneumonia. He was given 60 mg IV Lasix in the ER and
admitted to the hospitalist service. Patient's hypoxia has persisted and he has required between 4-6 L/min since admission. Pulmonary service now consulted for additional management/recommendations.
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 difficile, glaucoma
Impression:
#Acute respiratory failure with hypoxia likely due to sepsis with acute organ dysfunction and acute decompensated heart failure in setting of asthma/COPD; unable to r/o component of pneumonia
#Sepsis due to UTI +/- pneumonia
#Enterococcus bacteremia
#Acute HFrEF (LVEF: 30% with global diffuse hypokinesis on TTE from 09/04/2024) with pulmonary vascular congestion and bilateral pleural effusions seen on admission CXR
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
#History of asthma on Breo and prn albuterol
# Paroxysmal A-fib on Eliquis
#Complete heart block s/p pacemaker with history of pacemaker lead infection complicated by JOURNALISM PROFESSOR + liver abscess and splenic infection s/p splenectomy
#History of C. difficile infection
Plan:
-
Overall clinically improved since admission.
On low rate supplemental oxygen
Afebrile
Leukocytosis improving
.
His initial CXR did show evidence of heart failure with pulmonary vascular congestion and bilateral posterior phrenic angle blunting, although there are also bibasilar opacities with a very plump hilum bilaterally - -> unable to fully rule out
component of pneumonia especially given the patient's complaint of a cough for several weeks prior to admission.
Persistent leukocytosis may be postsplenectomy. Leukocytosis steadily have been improving.
- Patient is growing Enterococcus faecalis in his blood and urine cultures; ID is consulted, currently on ampicillin.
- Based on CAT scan patient also has likely pneumonia as well .
- Surveillance blood cultures on 09/05 show NGTD;
- check sputum culture if patient can produce a decent sample-has not been able to produce
- Status post diuresis. LVEF is 30%. Cardiology has signed off. Back in usual diuretic dose.
- I would expect that as his infection becomes better controlled that his oxygen requirements will also improve-currently on 3 L.
- CT chest 09/07/2024: moderate right-sided pleural effusion with adjacent right lower lobe atelectasis. Small left pleural effusion with complete atelectasis of the left lower lobe. Proximal occlusion of the bronchus supplying the superior
segment of the left lower lobe. Right apex scarring. Multiple calcified mediastinal and hilar lymph nodes suggestive of pyogranulomatous disease.
- Continue to wean down O2 flow rate as tolerated to maintain SaO2 88-94%
May need to consider right-sided thoracentesis if there is no ongoing improvement post diuresis and antibiotics.
Clinically appears to be improving-improving leukocytosis, hypoxemia not worsening.
Repeat chest x-ray tomorrow 09/09/2024-depending on size of right pleural effusion and clinical situation may consider thoracentesis.
Continue aspiration precautions
Barium swallow without overt aspiration.
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
Continue nebulizers,
- Acapella device to aid with secretion clearance-
- Takes Breo as an outpatient - -> continue budesonide and Duonebs for now with prn DuoNebs for any breakthrough symptoms (not currently bronchospastic)
- Incentive spirometer encouraged q1hr while awake
- Mucolytics
- No indication for systemic corticosteroids.
- DVT ppx: Eliquis
Code status: DNR/DNI
Pulmonary service will continue to follow along.

Data:
TTE 09/04/2024: TDS Definity used.
Dilated LV with moderate to severely reduced systolic function.
LVEF is approximately 30% by visual estimation. Global diffuse hypokinesis.
Normal right ventricular size and function.
Mild tricuspid regurgitation.
Estimated pulmonary artery pressure of 45 mmHg, right heart pressures were
mildly elevated.
No prior study available for comparison.
CXR 09/03/2024: Interstitial pulmonary edema with small bilateral pleural effusions. Bibasilar opacities may represent alveolar edema versus pneumonia.
Total time spent today was 38 minutes for this encounter. Time includes reviewing laboratory test/imaging results, reviewing pertinent medical records, obtaining and reviewing medical history, performing an appropriate exam, ordering medications,
tests and procedures. Time also includes documentation of this encounter, coordinating patient care and communicating with other healthcare professionals. Total time does not include separately billed tests performed on this date of service.
Subjective Data
-
Date of Service:
Date of Service: September 08, 2024
Chief Complaint: Pulmonary Follow Up
Subjective:
No new pulmonary complaints
Remains on low rate supplemental oxygen
Afebrile
Denies increased phlegm production or hemoptysis
Review of Systems
Cardiopulmonary: Dyspnea and Dyspnea on Exertion (Improved)
GI: Abdominal Pain (n) and Nausea (n)
Objective Data
Data Reviewed
Vital Signs / I&O / Oxygen:
Vital Signs
Temp Pulse Resp BP Pulse Ox
97.4 F 64 16 147/74 91
09/08/24 07:00 09/08/24 11:42 09/08/24 11:42 09/08/24 07:00 09/08/24 11:42
Intake and Output
09/07/24 09/08/24 09/09/24
06:59 06:59 06:59
Intake Total 1240 / 1240 1308 / 1308
Output Total 2400 / 2400 650 / 650
Balance -1160 / -1160 658 / 658
SaO2 91
Nasal Cannula flow liters per 3
minute
Physical Exam
General: Respiratory Distress (negative), Comfortable, Chills (negative) and Sweats (negative)
HEENT: Normocephalic and Anicteric
Cardiovascular: S1-S2 and Peripheral Edema (negative)
Respiratory: Crackles (Bilateral), Accessory Resp Muscle Use (negative), Stridor (negative) and Other (Poor inspiratory effort)
GI: Soft, Non Distended, Non Tender and Normal Bowel Sounds
Neurology: Tremors (negative), Other (Flat affect, monotone voice) and Other (Drowsy)
Skin: Warm, Dry and Jaundice (negative)
Labs/Micro/Reports
Lab Data
09/08/24 12:27
09/08/24 04:52
Microbiology
09/05/24 16:22 Blood/Venous Blood Culture - Preliminary
No Growth in 48 hours- Final report to follow
09/05/24 15:15 Blood/Venous Blood Culture - Preliminary
No Growth in 48 hours- Final report to follow
09/03/24 19:19 Urine Urine Culture - Final
Enterococcus faecalis
09/04/24 00:59 Blood/Venous Blood Culture - Final
Enterococcus faecalis
09/04/24 00:59 Blood/Venous Gram Stain - Final
09/04/24 00:59 Blood/Venous Blood Culture - Preliminary
Enterococcus faecalis
09/04/24 00:59 Blood/Venous Gram Stain - Preliminary
[2024-09-08 15:29] VITALS: BP 148/70
[2024-09-08 15:31] LABS: PT 14.5 Sec (11.4-14.6)
[2024-09-08 15:32] LABS: APTT 32.4 Sec (23.4-35.0)
--- NOTE | 2024-09-08 16:36 | CM ---
Physical therapy are still recommending skilled placement, referral sent to [facility] and they have accepted patient will need to confirm a bed when patient is cleared for discharge, patient will need COVID testing at discharge.
Plan; Skilled placement when stable, hopefully at [facility].
--- NOTE | 2024-09-08 16:54 | VATNOTE ---
/ After reassessing right arm midline with ly wrap x2, was notified of the excessive bleeding at insertion site. H&H and coagulation labs were drawn- within normal limits. Right midline was removed and steristrip was applied to the incision
site with quickclot hemostat and pressure dressing. A new midline was placed in the left arm- brachial vein under maximum bedside sterility. Minimal incision made to insert introducer. Patient tolerated procedure. TCL 15cm ECL0 UAC 30. Gauze
pressure dressing was applied at the new left arm site of insertion, and a prophylactic ly wrap was applied with slight pressure to prevent future bleeding. Primary RN and patient made aware to assess site for visible bleeding on the old site and
new site. Left arm midline to be redress tomorrow.
[2024-09-08 17:06] LABS: Glucose - Point of Care 252 mg/dl (70-99)
[2024-09-08] MEDS: JANUVIA 100 MG PO (17:19)
[2024-09-08 20:14] VITALS: BP 122/53
[2024-09-08] MEDS: NON-FORMULARY ITEM 1 DROP BOTH EYES (21:40)
[2024-09-08] MEDS: XALATAN OPHTHALMIC SOLUTION 1 DROP BOTH EYES (21:41)
[2024-09-08] MEDS: OCEAN, SALINE MIST 1 SPRAYS NASAL (21:42)
[2024-09-08 22:31] LABS: Glucose - Point of Care 191 mg/dl (70-99)
--- NOTE | 2024-09-08 22:58 | VATNOTE ---
MARY GRACE WRAP COMPLETELY REMOVED FROM LUE TO ASSESS DRESSING ON L MIDLINE. A SMALL AMT OF DRIED BLOOD NOTED ON GAUZE, UNCHANGED FROM WHAT WAS REPORTED TO ME AT 1845. MARY GRACE WRAP RE-APPLIED BUT LESS TIGHTLY. PCN AWARE OF MY FINDINGS AND INTERVENTION. VAT TO
CONTINUE TO MONITOR.
[2024-09-08 23:44] VITALS: BP 138/81
[2024-09-09] VITALS (7 sets, daily range): BP systolic 117–149; BP diastolic 49–84; PULSE 64; O2SAT 93; BMI 31.1
[2024-09-09] MEDS: AMPICILLIN 108 MG IV ×4 (00:15→17:38)
[2024-09-09 04:33] LABS: Hematocrit 39.9 % (39.0-52.0); Hemoglobin 13.2 g/dL (13.0-18.0); Mean Corp Hgb Conc. 33.1 g/dL (33.0-37.0); Mean Corpuscular Hgb 30.8 pg (27.0-31.0); Mean Corpuscular Volume 93.2 fL (80.0-94.0); Mean Platelet Volume 9.9 fL (7.4-10.4); Platelet Count 331 10^3/uL (130-400); Red Blood Cell Count 4.28 10^6/uL (4.70-6.10); Red Cell Dist. Width 13.3 % (11.5-14.5); White Blood Cell Count 20.2 10^3/uL (4.8-10.8)
--- NOTE | 2024-09-09 04:38 | VATNOTE ---
LUE MIDLINE DRSG AGAIN ASSESSED FOR BLEEDING. DRSG REMAINS DOCUMENTED EARLIER. NO FURTHER BLEEDING NOTED. PCN AWARE. VAT TO MONITOR
[2024-09-09] MEDS: SYNTHROID 100 MCG PO (04:50)
[2024-09-09 05:03] LABS: Blood Urea Nitrogen 38 mg/dl (9-20); Chloride 86 mmol/L (98-107); Estimated Creatinine Clearance 40 ml/min; Glucose 172 mg/dl (70-99); Magnesium 2.3 mg/dl (1.6-2.3); Sodium 131 mmol/L (135-145); eGFR 43.29
[2024-09-09] MEDS: TUMS CHEWABLE TABLET 200 MG PO (05:22)
[2024-09-09 06:40] LABS: Carbon Dioxide 38 mmol/L (22-30)
[2024-09-09 07:44] LABS: Glucose - Point of Care 179 mg/dl (70-99)
[2024-09-09] MEDS: DUONEB 3 ML INH ×4 (07:47→20:08)
[2024-09-09] MEDS: PULMICORT 0.5 MG INH ×2 (07:48→20:08)
[2024-09-09] MEDS: BUMEX 2 MG PO (09:01)
[2024-09-09] MEDS: NOVOLOG FLEXPEN-LOW RESISTANCE 1 UNITS SC ×2 (09:01→17:40)
[2024-09-09] MEDS: SIMBRINZA 1%-0.2% OPHTH SUSP 1 DROP BOTH EYES ×3 (09:02→21:32)
[2024-09-09] MEDS: OCEAN, SALINE MIST 2 SPRAYS NASAL ×3 (09:02→17:39)
[2024-09-09] MEDS: ENTRESTO 24 MG/26 MG 1 TAB PO ×2 (09:04→20:05)
[2024-09-09] MEDS: ELIQUIS 5 MG PO (09:04)
[2024-09-09] MEDS: FIRVANQ 125 MG PO ×2 (09:04→20:05)
[2024-09-09] MEDS: CLARITIN 10 MG PO (09:05)
[2024-09-09] MEDS: COLACE PO ×3 (09:05→20:04)
[2024-09-09] MEDS: MUCINEX 600 MG PO ×2 (09:09→20:05)
[2024-09-09] MEDS: COREG 12.5 MG PO ×2 (09:09→20:04)
[2024-09-09 11:41] LABS: Glucose - Point of Care 249 mg/dl (70-99)
--- NOTE | 2024-09-09 11:54 | W.PN.ID1 ---
Date of Service
Date of Service: September 09, 2024
Today's Communication
-Continue IV ampicillin 2g IV q6h (d5)
- At time of discharge, transition to amoxicillin 1000mg po q8h through 09/18
- Continue po Vanco 125mg bid for C. diff prophylaxis while on systemic abx through 09/23
Assessment / Plan
# Enterococcus faecalis bacteremia x 2 sets drawn at the same time
# Symptomatic UTI source of bacteremia
. Ucx + Enterococcus.
. hx of E. faecalis bacteruria 02/2024.
# Acute on chronic leukocytosis, trending down
# Acute on chronic CHF
# History of recurrent C. difficile
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
Plan:
-TTE no gross vege
- 09/05 blood cx's neg to date. Bacteremia is not sustained.
-Continue IV ampicillin 2g IV q6h (d5)
- At time of discharge, transition to amoxicillin 1000mg po q8h through 09/18
- Continue po Vanco 125mg bid for C. diff prophylaxis while on systemic abx through 09/23
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
Diabetes mellitus
COPD
Hypertension
Hypothyroidism
Recurrent C. difficile
MGUS
CAD
HFrEF
PPM/AICD
Atrial fibrillation
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 Per bcx's neg.
Splenectomy (2020)
Brain abscess drainage (2020)
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
Chief Complaint
-: Bacteremia
Vital Signs / Physical Exam
Vital Signs
Vital Signs
Temp Pulse Resp BP Pulse Ox
97.6 F 64 22 122/49 95
09/09/24 07:55 09/09/24 07:55 09/09/24 07:55 09/09/24 07:55 09/09/24 07:55
Physical Exam
Constitutional: Chronically Ill
Eyes: Sclera Anicteric
Cardiovascular: Regular Rate and S1/S2
Pulmonary: Rales and Other (Decreased BS bilaterally)
Gastrointestinal: Soft, Non Tender and Non Distended
Extremities: Edema
Neurological: Awake and Alert
Objective Data
Lab Data
Lab Results
09/09/24 04:26
09/09/24 04:26
PT 14.5 Sec (11.4-14.6) 09/08/24 15:08
INR 1.10 09/08/24 15:08
APTT 32.4 Sec (23.4-35.0) 09/08/24 15:08
Estimated Creat Clear 40 ml/min 09/09/24 04:26
Total Bilirubin 1.0 mg/dl (0.2-1.3) 09/03/24 17:31
AST 22 U/L (17-59) 09/03/24 17:31
ALT 16 U/L (0-50) 09/03/24 17:31
Alkaline Phosphatase 90 U/L (38-126) 09/03/24 17:31
Most recent labs reviewed.
Micro Results:
09/05/24 16:22 Blood Culture - Preliminary
Blood/Venous No Growth in 72 hours- Final report to follow
09/05/24 15:15 Blood Culture - Preliminary
Blood/Venous No Growth in 72 hours- Final report to follow
09/03/24 19:19 Urine Culture - Final
Urine Enterococcus faecalis
09/04/24 00:59 Blood Culture - Final
Blood/Venous Enterococcus faecalis
Gram Stain - Final
09/04/24 00:59 Blood Culture - Preliminary
Blood/Venous Enterococcus faecalis
Gram Stain - Preliminary
09/03/24 21:47 Influenza Types A & B (MARINA) - Final
Nasal Swab Negative for Influenza A & B, NAAT
Negative results must be combined with clinical observations
and patient history.
Nucleic Acid Amplification test (NAAT)performed on the
[employer] platform.
09/07/[address]: Moderate-sized RIGHT pleural effusion with adjacent right lower lobe atelectasis. Small left-sided pleural effusion with complete atelectasis of the left lower lobe. Proximal occlusion of the bronchus supplying the superior segment
of the left lower lobe.
09/03/24 CXR: Interstitial pulmonary edema with small bilateral pleural effusions. Bibasilar opacities may represent alveolar edema versus pneumonia.
[2024-09-09] MEDS: BUMEX 2 MG IV ×2 (12:11→20:06)
[2024-09-09] MEDS: NOVOLOG FLEXPEN-LOW RESISTANCE 2 UNITS SC (12:13)
--- NOTE | 2024-09-09 13:13 | W.PN.PUL3 ---
Today's Communication / Plan
-
Continue antibiotics
Wean down FiO2 as able
Incentive spirometry
Continue inhalers
Increase activity as able
Hold on thoracentesis for now. Clinically improving.
Assessment
-
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 diff who presents with weakness. Patient's had a cough for few weeks. Medrol Dosepak given to him without much
improvement. Patient is on inhalers as an outpatient for his asthma/COPD and was changed from [facility] to [facility] without improvement so now he is back to [facility]. His cough is productive and he endorsed shortness of breath. Initially in the ER he was
afebrile with pulse rate 76, respiratory rate 24, BP 114/54 and saturating 73% on room air which improved to 91% with 6 L/min. Initial labs showed significant leukocytosis to 55.4, sodium 123, glucose 191, proBNP 3990, TSH 1.03, procalcitonin 0.36,
and COVID-19 antigen negative. Urine culture collected and flu swab was negative. CXR showed interstitial pulmonary edema with small bilateral pleural effusions however unable to rule out pneumonia. He was given 60 mg IV Lasix in the ER and
admitted to the hospitalist service. Patient's hypoxia has persisted and he has required between 4-6 L/min since admission. Pulmonary service now consulted for additional management/recommendations.
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 difficile, glaucoma
Impression:
#Acute respiratory failure with hypoxia likely due to sepsis with acute organ dysfunction and acute decompensated heart failure in setting of asthma/COPD; unable to r/o component of pneumonia
#Sepsis due to UTI +/- pneumonia
#Enterococcus bacteremia
#Acute HFrEF (LVEF: 30% with global diffuse hypokinesis on TTE from 09/04/2024) with pulmonary vascular congestion and bilateral pleural effusions seen on admission CXR
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
#History of asthma on Breo and prn albuterol
# Paroxysmal A-fib on Eliquis
#Complete heart block s/p pacemaker with history of pacemaker lead infection complicated by PLATFORM MAN + liver abscess and splenic infection s/p splenectomy
#History of C. difficile infection
Plan:
-
Overall clinically improved since admission.
On low rate supplemental oxygen
Remains afebrile.
Leukocytosis improving-persistent leukocytosis may be postsplenectomy.
.
His initial CXR did show evidence of heart failure with pulmonary vascular congestion and bilateral posterior phrenic angle blunting, although there are also bibasilar opacities with a very plump hilum bilaterally - -> unable to fully rule out
component of pneumonia especially given the patient's complaint of a cough for several weeks prior to admission.
-
- Patie bacteremia: Enterococcus faecalis in his blood and urine cultures; ID is consulted, currently on ampicillin.
- Based on CAT scan patient also has likely pneumonia as well .
- Surveillance blood cultures on 09/05 show NGTD;
- check sputum culture if patient can produce a decent sample-has not been able to produce
- Status post diuresis. LVEF is 30%. Cardiology has signed off. Back in usual diuretic dose.
- I would expect that as his infection becomes better controlled that his oxygen requirements will also improve-currently on 3 L.
- CT chest 09/07/2024: moderate right-sided pleural effusion with adjacent right lower lobe atelectasis. Small left pleural effusion with complete atelectasis of the left lower lobe. Proximal occlusion of the bronchus supplying the superior
segment of the left lower lobe. Right apex scarring. Multiple calcified mediastinal and hilar lymph nodes suggestive of pyogranulomatous disease.
- Oxygenation is stable at 3 L.
Chest x-ray: 09/09/2024, low lung volumes.? Worsening left lower lobe abnormality suspect due to low lung volumes. Pleural effusions remain stable.
Patient clinically improving.
Hold on thoracentesis for now.
Will continue to follow.
Continue aspiration precautions
Barium swallow without overt aspiration.
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
Continue nebulizers,
- Acapella device to aid with secretion clearance-
- Takes Breo as an outpatient - -> continue budesonide and Duonebs for now with prn DuoNebs for any breakthrough symptoms (not currently bronchospastic)
- Incentive spirometer encouraged q1hr while awake
- Mucolytics
- No indication for systemic corticosteroids.
- DVT ppx: Eliquis
Code status: DNR/DNI
Pulmonary service will continue to follow along.

Data:
TTE 09/04/2024: TDS Definity used.
Dilated LV with moderate to severely reduced systolic function.
LVEF is approximately 30% by visual estimation. Global diffuse hypokinesis.
Normal right ventricular size and function.
Mild tricuspid regurgitation.
Estimated pulmonary artery pressure of 45 mmHg, right heart pressures were
mildly elevated.
No prior study available for comparison.
CXR 09/03/2024: Interstitial pulmonary edema with small bilateral pleural effusions. Bibasilar opacities may represent alveolar edema versus pneumonia.
Subjective Data
-
Date of Service:
Date of Service: September 09, 2024
Chief Complaint: Pulmonary Follow Up
Review of Systems
Cardiopulmonary: Dyspnea, Dyspnea on Exertion and Cough
Objective Data
Data Reviewed
Vital Signs / I&O / Oxygen:
Vital Signs
Temp Pulse Resp BP Pulse Ox
97.0 F 67 22 118/59 92
09/09/24 11:50 09/09/24 11:50 09/09/24 11:50 09/09/24 11:50 09/09/24 11:50
Intake and Output
09/08/24 09/09/24 09/10/24
06:59 06:59 06:59
Intake Total 1308 / 1308 1656 / 1656
Output Total 650 / 650 1300 / 1300
Balance 658 / 658 356 / 356
SaO2 92
Nasal Cannula flow liters per 3
minute
Physical Exam
General: Respiratory Distress (negative), Comfortable, Chills (negative) and Sweats (negative)
HEENT: Normocephalic and Anicteric
Cardiovascular: S1-S2 and Peripheral Edema (negative)
Respiratory: Crackles (Bilateral), Accessory Resp Muscle Use (negative), Stridor (negative) and Other (Poor inspiratory effort)
GI: Soft, Non Distended, Non Tender and Normal Bowel Sounds
Neurology: Tremors (negative), Other (Flat affect, monotone voice) and Other (Drowsy)
Skin: Warm, Dry and Jaundice (negative)
Labs/Micro/Reports
Lab Data
09/09/24 04:26
09/09/24 04:26
Laboratory Results
09/08/24
15:08
PT 14.5
INR 1.10
APTT 32.4
Microbiology
09/05/24 16:22 Blood/Venous Blood Culture - Preliminary
No Growth in 72 hours- Final report to follow
09/05/24 15:15 Blood/Venous Blood Culture - Preliminary
No Growth in 72 hours- Final report to follow
09/03/24 19:19 Urine Urine Culture - Final
Enterococcus faecalis
09/04/24 00:59 Blood/Venous Blood Culture - Final
Enterococcus faecalis
09/04/24 00:59 Blood/Venous Gram Stain - Final
09/04/24 00:59 Blood/Venous Blood Culture - Preliminary
Enterococcus faecalis
09/04/24 00:59 Blood/Venous Gram Stain - Preliminary
--- NOTE | 2024-09-09 13:34 | W.PN.HOSP.TC ---
Today's Communication/Plan
-
Assessment / Plan
Assessment / Plan
Physical Exam
General: no acute distress, appears comfortable, obese
HEENT: NormoCephalic, Moist mucous membranes, Atraumatic on nasal cannula oxygen supplementation
Respiratory: Coarse breath sounds b/l
Cardiac: S1/S2 and Regular Rhythm; No Tachycardia
GI: Soft, Non Tender, bowel sounds present
Musculoskeletal: No Clubbing, No Cyanosis, +2 pitting edema bilateral lower extremities
Skin: Warm and Dry, midline left AC with no bleeding, right AC midline removed with no further bleeding
Neuro: Alert oriented x3, conversant
Psych: Calm and cooperative
79M CAD CHF afib DM MGUS COPD here for CHF exacerbation, high white count, suspected pneumonia, bacteremia.
Acute Hypoxic Respiratory Insufficiency multifactorial 2/2 to Heart Failure PNA and possibly COPD
- Continue supplemental oxygen, currently saturating appropriately on 3 L via nasal cannula
- wean as tolerated (baseline room air)
- CT chest shows moderate right sized pleural effusion with adjacent right lower lobe atelectasis, small left-sided pleural effusion with complete atelectasis of left lower lobe, proximal occlusion of bronchus supplying the superior segment of the
left lower lobe
- Patient reports worsening dyspnea past 24 hours, has switched back to diuresis with IV Bumex
- Pulmonology following, recommendations appreciated
Acute on Chronic HFrEF
- ECHO appreciated 30%
- Has now been transitioned back to diuresis with IV Bumex twice daily due to worsening dyspnea last 24 hours
- Continue Entresto
- Monitor Is&Os and Daily Weights
Nasal Congestion
- Continues to have intermittent coughing
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
- mucinex, prn robitussin, incentive spirometer, acapella
- claritin, normal saline nasal spray QID
Hyponatremia, suspect hypervolemic in nature in setting of heart failure
-Continue fluid restriction
-Monitor serial sodium levels, stable around 130
Enterococcus bacteremia:
- Secondary to urinary tract infection
- Repeat cultures negative
- Continue treatment with ampicillin
- P.o. vancomycin for C. difficile prophylaxis while treating for bacteremia
- ID following and recommend transitioning to amoxicillin 1 g p.o. every 8 hours through 09/18 at time of discharge
Significant Leukocytosis
- Improving, likely at baseline
- Acute on chronic in the setting of Enterococcus faecalis bacteremia
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
- Heme-onc following, flow cytometry negative, SPEP and free light chains pending
Possible Asthma / COPD exacerbation contributing
-Transitioned to Pulmicort and DuoNeb QID / PRN
- hold off on systemic steroids for now
-Pulm eval appreciated
Coronary Artery Disease
-Continue aspirin
Paroxysmal Atrial Fibrillation
-Continue Eliquis
-Continue carvedilol for rate control
Diabetes Mellitus, Type II
-Continue Januvia
-Hold Nateglinide
-Monitor sugars and continue coverage insulin
Essential Hypertension
-Continue carvedilol with hold parameters
-Bumex as above
Hypothyroidism
-Continue levothyroxine
MGUS
Hx Complete Heart Block s/p Pacemaker
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
Hx C Diff Colitis
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
PT/OT appreciated SNF rehab vs Home Services (patient prefers home)
DVT proph: Eliquis
Code Status: DNR
I spent a total of 40 minutes with the patient or on the floor. More than 50% of this time involved counseling and coordination of care.
Anticipated Discharge: 24 - 48 hours
Subjective/Interval History
-
Date of Service: September 09, 2024
Patient was seen and examined at bedside this morning. He reports worsening of his respiratory status over the past 24 hours. Right upper extremity midline was removed due to bleeding. A new midline was placed in his left upper extremity without
bleeding and appears to be functioning appropriately.
Objective Data
-
Labs:
Laboratory Results
09/09/24
04:26
WBC 20.2 H
Hgb 13.2
Hct 39.9
Plt Count 331
Sodium 131 L
Potassium 5.0
Chloride 86 L
Carbon Dioxide 38 H
BUN 38 H
Creatinine 1.6 H
Glucose 172 H
Calcium 9.0
Vital Signs:
Vital Signs
Temp Pulse Resp BP Pulse Ox
97.0 F 67 22 118/59 92
09/09/24 11:50 09/09/24 11:50 09/09/24 11:50 09/09/24 11:50 09/09/24 11:50
I&O
09/08/24 09/09/24 09/10/24
06:59 06:59 06:59
Intake Total 1308 / 1308 1656 / 1656
Output Total 650 / 650 1300 / 1300
Balance 658 / 658 356 / 356
Review of Systems
-
History Source: Patient
Respiratory: Reports Cough and Trouble Breathing
Physical Exam
-
General: No Apparent Distress
--- NOTE | 2024-09-09 15:58 | CM ---
CM reviewed chart, patient has been accepted at [facility], pending bed availability, updated referral placed in [facility]. CM will continue to follow for all discharge planning needs.
Plan; [facility] pending bed availability, no auth required.
[2024-09-09 16:45] LABS: Glucose - Point of Care 183 mg/dl (70-99)
[2024-09-09] MEDS: JANUVIA 100 MG PO (17:38)
[2024-09-09] MEDS: ROBITUSSIN 200 MG PO (18:23)
[2024-09-09] MEDS: ELIQUIS 2.5 MG PO (20:04)
[2024-09-09 21:31] LABS: Glucose - Point of Care 177 mg/dl (70-99)
[2024-09-09] MEDS: NON-FORMULARY ITEM 1 DROP BOTH EYES (21:31)
[2024-09-09] MEDS: XALATAN OPHTHALMIC SOLUTION 1 DROP BOTH EYES (21:32)
[2024-09-09] MEDS: OCEAN, SALINE MIST 1 SPRAYS NASAL (21:32)
[2024-09-10] VITALS (15 sets, daily range): BP systolic 66–160; BP diastolic 57–93; PULSE 60–61; O2SAT 93; BMI 30.5
[2024-09-10] MEDS: AMPICILLIN 108 MG IV ×2 (00:17→05:10)
[2024-09-10] MEDS: ROBITUSSIN 200 MG PO ×2 (00:22→09:23)
[2024-09-10] MEDS: SYNTHROID 100 MCG PO (05:10)
[2024-09-10] MEDS: DUONEB 3 ML INH ×4 (05:20→19:20)
[2024-09-10 06:01] LABS: Hematocrit 37.5 % (39.0-52.0); Hemoglobin 12.5 g/dL (13.0-18.0); Mean Corp Hgb Conc. 33.3 g/dL (33.0-37.0); Mean Corpuscular Hgb 30.7 pg (27.0-31.0); Mean Corpuscular Volume 92.1 fL (80.0-94.0); Mean Platelet Volume 10.4 fL (7.4-10.4); Platelet Count 357 10^3/uL (130-400); Red Blood Cell Count 4.07 10^6/uL (4.70-6.10); Red Cell Dist. Width 13.2 % (11.5-14.5); White Blood Cell Count 20.2 10^3/uL (4.8-10.8)
--- NOTE | 2024-09-10 06:22 | VATNOTE ---
MARKED AREA OF PREVIOUS BLEEDING FROM ML IN LUE IS UNCHANGED. DRSG INTACT. LABS OBTAINED ORDERED. ML WITH A GOOD BR AND FLUSHES EASILY.
[2024-09-10 06:30] LABS: Blood Urea Nitrogen 40 mg/dl (9-20); Calcium 9.4 mg/dl (8.4-10.2); Chloride 84 mmol/L (98-107); Estimated Creatinine Clearance 38 ml/min; Glucose 167 mg/dl (70-99); Magnesium 2.2 mg/dl (1.6-2.3); Phosphorus 4.1 mg/dl (2.5-4.5); Potassium 4.8 mmol/L (3.5-5.1); Sodium 131 mmol/L (135-145); eGFR 40.25
[2024-09-10 06:43] LABS: Carbon Dioxide 39 mmol/L (22-30)
[2024-09-10 07:31] LABS: Glucose - Point of Care 168 mg/dl (70-99)
[2024-09-10] MEDS: PULMICORT 0.5 MG INH ×2 (08:06→19:20)
[2024-09-10] MEDS: NOVOLOG FLEXPEN-LOW RESISTANCE 1 UNITS SC ×3 (08:55→17:22)
[2024-09-10] MEDS: COLACE PO (08:56)
[2024-09-10] MEDS: SIMBRINZA 1%-0.2% OPHTH SUSP 1 DROP BOTH EYES ×3 (09:15→21:02)
[2024-09-10] MEDS: BUMEX 2 MG IV ×2 (09:15→21:54)
[2024-09-10] MEDS: OCEAN, SALINE MIST 2 SPRAYS NASAL ×3 (09:16→21:02)
[2024-09-10] MEDS: MUCINEX 600 MG PO ×2 (09:18→20:59)
[2024-09-10] MEDS: FIRVANQ 125 MG PO ×2 (09:18→21:01)
[2024-09-10] MEDS: ENTRESTO 24 MG/26 MG 1 TAB PO ×2 (09:18→21:00)
[2024-09-10] MEDS: COREG 12.5 MG PO ×2 (09:19→20:59)
[2024-09-10] MEDS: ELIQUIS 2.5 MG PO ×2 (09:19→21:01)
[2024-09-10] MEDS: CLARITIN 10 MG PO (09:19)
--- NOTE | 2024-09-10 09:56 | W.PN.ID1 ---
Date of Service
Date of Service: September 10, 2024
Today's Communication
Abx's adjusted to Augmentin, doxycycline, and po Vanco.
See below.
Assessment / Plan
# Enterococcus faecalis bacteremia x 2 sets drawn at the same time
# Symptomatic UTI, source of bacteremia
. Ucx + Enterococcus.
. hx of E. faecalis bacteruria 02/2024.
# Acute on chronic leukocytosis, back to baseline
-TTE no gross vege
- 09/05 blood cx's neg to date. Bacteremia is not sustained.
-Transition IV ampicillin (d6) to Augmentin 875mg po bid through 09/18/24.
# Possible PNA
# Acute on chronic CHF
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
- 09/09 Repeat CXR Patchy parenchymal opacity within the left mid to lower lung is also increased, suggesting increasing pneumonia.
- No role in checking Procalcitonin due to SIMEON
-s/p course of ceftriaxone
- Augmentin as above
- Add doxycycline 100 mg po bid x 7d through 09/16/24.
# History of recurrent C. difficile
- Continue po Vanco 125mg bid for C. diff prophylaxis while on systemic abx through 09/23
# Conditions MAT LINKER
Diabetes mellitus
COPD
Hypertension
Hypothyroidism
Recurrent C. difficile
MGUS
CAD
HFrEF
PPM/AICD
Atrial fibrillation
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 Per bcx's neg.
Splenectomy (2020)
Brain abscess drainage (2020)
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
Chief Complaint
-: Pneumonia, UTI and Bacteremia
Subjective / Review of Systems
c/o unable to sleep last night due to nose congested, unable to breathe.
Vital Signs / Physical Exam
Vital Signs
Vital Signs
Temp Pulse Resp BP Pulse Ox
97.2 F 60 20 158/81 93
09/10/24 08:00 09/10/24 08:00 09/10/24 08:11 09/10/24 08:00 09/10/24 08:11
Physical Exam
Constitutional: Chronically Ill
Eyes: Sclera Anicteric
Cardiovascular: Regular Rate, S1/S2 and Other (RCW AICD/PPM no erythema)
Pulmonary: Rales and Other (Decreased BS bilaterally)
Gastrointestinal: Soft, Non Tender and Non Distended
Genito-Urinary: Clear Urine (condom cath); Negative CVA Tenderness
Extremities: Edema (1+)
Neurological: Awake, Alert and AO x 3
Objective Data
Lab Data
Lab Results
09/10/24 05:33
09/10/24 05:33
PT 14.5 Sec (11.4-14.6) 09/08/24 15:08
INR 1.10 09/08/24 15:08
APTT 32.4 Sec (23.4-35.0) 09/08/24 15:08
Estimated Creat Clear 38 ml/min 09/10/24 05:33
Total Bilirubin 1.0 mg/dl (0.2-1.3) 09/03/24 17:31
AST 22 U/L (17-59) 09/03/24 17:31
ALT 16 U/L (0-50) 09/03/24 17:31
Alkaline Phosphatase 90 U/L (38-126) 09/03/24 17:31
Most recent labs reviewed.
Micro Results:
09/05/24 16:22 Blood Culture - Preliminary
Blood/Venous No Growth in 4 days- Final report to follow
09/05/24 15:15 Blood Culture - Preliminary
Blood/Venous No Growth in 4 days- Final report to follow
09/03/24 19:19 Urine Culture - Final
Urine Enterococcus faecalis
09/04/24 00:59 Blood Culture - Final
Blood/Venous Enterococcus faecalis
Gram Stain - Final
09/04/24 00:59 Blood Culture - Preliminary
Blood/Venous Enterococcus faecalis
Gram Stain - Preliminary
09/03/24 21:47 Influenza Types A & B (MARINA) - Final
Nasal Swab Negative for Influenza A & B, NAAT
Negative results must be combined with clinical observations
and patient history.
Nucleic Acid Amplification test (NAAT)performed on the
[employer] platform.
09/09/24 CXR: Confluent parenchymal opacity in the left lower lung has slightly increased from most recent radiograph, suggesting increase in atelectasis and/or pneumonia. Patchy parenchymal opacity within the left mid to lower lung is also increased,
suggesting increasing pneumonia. Small right pleural effusion. Stable mild parenchymal opacity within the right lower lung.
09/07/[address]: Moderate-sized RIGHT pleural effusion with adjacent right lower lobe atelectasis. Small left-sided pleural effusion with complete atelectasis of the left lower lobe. Proximal occlusion of the bronchus supplying the superior segment
of the left lower lobe.
09/03/24 CXR: Interstitial pulmonary edema with small bilateral pleural effusions. Bibasilar opacities may represent alveolar edema versus pneumonia.
--- NOTE | 2024-09-10 11:08 | W.PN.ONC2 ---
Today's Communication / Plan
-
f/u IgG
Impression
Impression
MGUS
s/p splenectomy
Leukocytosis, chronic, likely due in part to post-splenectomy state
CHF
COPD
weakness
enterococcus bacteremia
Plan
Plan
With history of MGUS and frequent infections, suspect possible component of hypogammaglobulinemia contributing to frequent illness.
f/u QIG's now with consideration of outpt IVIg.
Leukocytosis is chronic and is likely due to post-splenectomy state.
Pt is followed for both conditions at [facility] but may interested in transitioning care if IVIg indicated.
Subjective/Objective
Subjective
no new complaints
comfortable in chair
4L NC
Vital Signs:
Vital Signs
Temp Pulse Resp BP Pulse Ox
97.2 F 60 20 158/81 93
09/10/24 08:00 09/10/24 08:00 09/10/24 08:11 09/10/24 08:00 09/10/24 08:11
Lab Results:
Laboratory Data
WBC 20.2 10^3/uL (4.8-10.8) H 09/10/24 05:33
Hgb 12.5 g/dL (13.0-18.0) L 09/10/24 05:33
Plt Count 357 10^3/uL (130-400) 09/10/24 05:33
PT 14.5 Sec (11.4-14.6) 09/08/24 15:08
INR 1.10 09/08/24 15:08
APTT 32.4 Sec (23.4-35.0) 09/08/24 15:08
eGFR 40.25 09/10/24 05:33
Physical Exam
HEENT: Moist Mucous Membranes; No Jaundice
Cardiology: S1 and S2
Pulmonary: Rhonchi (scattered course rhonchi)
GI: Soft
Extremities: Pulses Present
[2024-09-10 11:25] LABS: Glucose - Point of Care 170 mg/dl (70-99)
[2024-09-10] MEDS: VIBRAMYCIN PO (11:30)
[2024-09-10] MEDS: AUGMENTIN 875 MG/125 MG PO (11:30)
[2024-09-10] MEDS: AUGMENTIN 875 MG/125 MG 1 TABLET PO ×2 (12:33→21:00)
[2024-09-10] MEDS: VIBRAMYCIN 100 MG PO ×2 (12:33→20:59)
--- NOTE | 2024-09-10 13:03 | W.PN.PUL3 ---
Today's Communication / Plan
-
Thoracentesis today or tomorrow
Start IV corticosteroids
Hold diuretics
Continue antibiotics per infectious disease
Continue secretion clearance interventions
Continue ox supplementation
Patient transferred to IMU due to worsening oxygenation.
Assessment
-
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 diff who presents with weakness. Patient's had a cough for few weeks. Medrol Dosepak given to him without much
improvement. Patient is on inhalers as an outpatient for his asthma/COPD and was changed from [facility] to [facility] without improvement so now he is back to [facility]. His cough is productive and he endorsed shortness of breath. Initially in the ER he was
afebrile with pulse rate 76, respiratory rate 24, BP 114/54 and saturating 73% on room air which improved to 91% with 6 L/min. Initial labs showed significant leukocytosis to 55.4, sodium 123, glucose 191, proBNP 3990, TSH 1.03, procalcitonin 0.36,
and COVID-19 antigen negative. Urine culture collected and flu swab was negative. CXR showed interstitial pulmonary edema with small bilateral pleural effusions however unable to rule out pneumonia. He was given 60 mg IV Lasix in the ER and
admitted to the hospitalist service. Patient's hypoxia has persisted and he has required between 4-6 L/min since admission. Pulmonary service now consulted for additional management/recommendations.
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 difficile, glaucoma
Impression:
#Acute respiratory failure with hypoxia likely due to sepsis with acute organ dysfunction and acute decompensated heart failure in setting of asthma/COPD; unable to r/o component of pneumonia
#Sepsis due to UTI +/- pneumonia
#Enterococcus bacteremia
#Acute HFrEF (LVEF: 30% with global diffuse hypokinesis on TTE from 09/04/2024) with pulmonary vascular congestion and bilateral pleural effusions seen on admission CXR
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
#History of asthma on Breo and prn albuterol
# Paroxysmal A-fib on Eliquis
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
#History of C. difficile infection
Plan:
-
Today clinically worse in regards to oxygenation.
From 3 L up to 10 L supplemental oxygen.
Currently sitting out of bed-not in distress.
Lung exam with decreased breath sounds on the left base and expiratory wheezing.
He is being moved to the IMU.
.
His initial CXR did show evidence of heart failure with pulmonary vascular congestion and bilateral posterior phrenic angle blunting, although there are also bibasilar opacities with a very plump hilum bilaterally - -> unable to fully rule out
component of pneumonia especially given the patient's complaint of a cough for several weeks prior to admission.
CT chest 09/07/2024: moderate right-sided pleural effusion with adjacent right lower lobe atelectasis. Small left pleural effusion with complete atelectasis of the left lower lobe. Proximal occlusion of the bronchus supplying the superior segment
of the left lower lobe. Right apex scarring. Multiple calcified mediastinal and hilar lymph nodes suggestive of pyogranulomatous disease.
Chest x-ray: 09/09/2024, low lung volumes.? Worsening left lower lobe abnormality suspect due to low lung volumes. Pleural effusions remain stable.
Chest x-ray 09/10/2024: Reviewed, findings consistent with persistent, though slightly improved congestive heart failure. Localized asymmetric pulmonary edema versus atelectasis or pneumonia in the right infrahilar region.
-
Given clinical worsening recommend thoracentesis on the left or right. Order will be placed today..
May help to expedite improvement on oxygen supplementation
Continue secretion clearance interventions
Now with some bronchospasm we will start IV corticosteroids. 09/10/2024.
-
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
Continue nebulizers,
- Acapella device to aid with secretion clearance
- Vest therapy.
- Takes Breo as an outpatient - -> continue budesonide and Duonebs for now with prn DuoNebs for any breakthrough symptoms (not currently bronchospastic)
- Incentive spirometer encouraged q1hr while awake
- Mucolytics
-
Patient has been on IV diuretics-BID
Federal Aid Coordinator increased, hold diuresis today 09/10/2024
Check proBNP
-
-Bacteremia: Enterococcus faecalis in his blood and urine cultures; ID adjusting antibiotics. Transition to orals.
-Persistent leukocytosis postsplenectomy. Afebrile.
- Based on CAT scan patient also has likely pneumonia as well .
- Surveillance blood cultures on 09/05 show NGTD;
- check sputum culture if patient can produce a decent sample-has not been able to produce
- Status post diuresis. LVEF is 30%. Cardiology has signed off. Back in usual diuretic dose.
- I would expect that as his infection becomes better controlled that his oxygen requirements will also improve.
-
Continue aspiration precautions
Barium swallow without overt aspiration.
-
DVT ppx: Eliquis
Code status: DNR/DNI
Pulmonary service will continue to follow along.

Data:
TTE 09/04/2024: TDS Definity used.
Dilated LV with moderate to severely reduced systolic function.
LVEF is approximately 30% by visual estimation. Global diffuse hypokinesis.
Normal right ventricular size and function.
Mild tricuspid regurgitation.
Estimated pulmonary artery pressure of 45 mmHg, right heart pressures were
mildly elevated.
No prior study available for comparison.
CXR 09/03/2024: Interstitial pulmonary edema with small bilateral pleural effusions. Bibasilar opacities may represent alveolar edema versus pneumonia.
Subjective Data
-
Date of Service:
Date of Service: September 10, 2024
Chief Complaint: Pulmonary Follow Up
Subjective:
Feels more short of breath
More congested
Oxygen supplementation has increased up to 10 L.
Currently sitting out of bed comfortable.
Review of Systems
HEENT: Other (Nasal congestion)
Cardiopulmonary: Dyspnea, Dyspnea on Exertion and Cough
Objective Data
Data Reviewed
Vital Signs / I&O / Oxygen:
Vital Signs
Temp Pulse Resp BP Pulse Ox
98.0 F 63 24 117/74 73
09/10/24 11:39 09/10/24 11:39 09/10/24 11:39 09/10/24 11:39 09/10/24 11:39
Intake and Output
09/09/24 09/10/24 09/11/24
06:59 06:59 06:59
Intake Total 1656 / 1656 1632 / 1632
Output Total 1300 / 1300 1300 / 1300
Balance 356 / 356 332 / 332
SaO2 73
Nasal Cannula flow liters per 4
minute
Physical Exam
General: Respiratory Distress (negative), Comfortable, Chills (negative) and Sweats (negative)
HEENT: Normocephalic and Anicteric
Cardiovascular: S1-S2 and Peripheral Edema (Bilateral 2+)
Respiratory: Wheeze (Mild expiratory.), Crackles (Bilateral), Accessory Resp Muscle Use (negative) and Stridor (negative)
GI: Soft, Non Distended, Non Tender and Normal Bowel Sounds
Neurology: Awake, Alert, Tremors (negative) and Other (Drowsy)
Skin: Warm, Dry and Jaundice (negative)
Labs/Micro/Reports
Lab Data
09/10/24 05:33
09/10/24 05:33
Microbiology
09/05/24 16:22 Blood/Venous Blood Culture - Preliminary
No Growth in 4 days- Final report to follow
09/05/24 15:15 Blood/Venous Blood Culture - Preliminary
No Growth in 4 days- Final report to follow
--- NOTE | 2024-09-10 13:27 | W.PN.HOSP.TC ---
Today's Communication/Plan
-
Assessment / Plan
Assessment / Plan
Physical Exam
General: no acute distress, appears uncomfortable with ongoing cough and shortness of breath
HEENT: NormoCephalic, Moist mucous membranes, Atraumatic on nasal cannula oxygen supplementation
Respiratory: Coarse breath sounds b/l
Cardiac: S1/S2 and Regular Rhythm; No Tachycardia
GI: Soft, Non Tender, bowel sounds present
Musculoskeletal: No Clubbing, No Cyanosis, +2 pitting edema bilateral lower extremities
Skin: Warm and Dry, midline left AC with no bleeding
Neuro: Alert oriented x3, conversant
Psych: Calm and cooperative
79M CAD CHF afib DM MGUS COPD here for CHF exacerbation, high white count, suspected pneumonia, bacteremia.
Acute Hypoxic Respiratory Insufficiency multifactorial 2/2 to Heart Failure PNA and possibly COPD
- Worsening shortness of breath over the past 24 hours, oxygen requirements increased to 10 L (baseline is room air), will move him to IMU
- Repeat chest x-ray showed persistent right infrahilar atelectasis versus pneumonia with slightly improved pulmonary edema
- Appreciate pulmonology evaluation and guidance
- Continue diuresis with IV Bumex
Acute on Chronic HFrEF
- ECHO appreciated 30%
- Has now been transitioned back to diuresis with IV Bumex twice daily due to worsening dyspnea
- Continue Entresto
- Monitor Is&Os and Daily Weights
SIMEON:
- Suspect due to congestion in the setting of heart failure exacerbation
- Appears to be worsening over the past 48 hours, have transitioned back to more aggressive diuresis with IV Lasix
- If no renal improvement or if it continues to worsen we will ask for nephrology evaluation and guidance
Nasal Congestion
- Continues to have intermittent coughing
- SUPERVISOR POLISHING with video swallow /, recommend regular solids and thin liquids
- mucinex, prn robitussin, incentive spirometer, acapella
- claritin, normal saline nasal spray QID
Hyponatremia, suspect hypervolemic in nature in setting of heart failure
-Continue fluid restriction
-Monitor serial sodium levels, stable around 130
Enterococcus bacteremia:
- Secondary to urinary tract infection
- Repeat cultures negative
- Continue treatment with ampicillin
- P.o. vancomycin for C. difficile prophylaxis while treating for bacteremia
- ID following and recommend transitioning to amoxicillin 1 g p.o. every 8 hours through 09/18 at time of discharge
Significant Leukocytosis
- Improving, likely at baseline
- Acute on chronic in the setting of Enterococcus faecalis bacteremia
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
- Heme-onc following, flow cytometry negative, SPEP and free light chains pending
Possible Asthma / COPD exacerbation contributing
-Transitioned to Pulmicort and DuoNeb QID / PRN
- hold off on systemic steroids for now
-Pulm eval appreciated
Coronary Artery Disease
-Continue aspirin
Paroxysmal Atrial Fibrillation
-Continue Eliquis
-Continue carvedilol for rate control
Diabetes Mellitus, Type II
-Continue Januvia
-Hold Nateglinide
-Monitor sugars and continue coverage insulin
Essential Hypertension
-Continue carvedilol with hold parameters
-Bumex as above
Hypothyroidism
-Continue levothyroxine
MGUS
Hx Complete Heart Block s/p Pacemaker
Hx Pacer Lead Infection with Associated REGROOVER Abscess / Liver Abscess and Spleen Infection
Hx C Diff Colitis
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
PT/OT appreciated SNF rehab vs Home Services (patient prefers home)
DVT proph: Eliquis
Code Status: DNR
I spent a total of 40 minutes with the patient or on the floor. More than 50% of this time involved counseling and coordination of care.
Anticipated Discharge: > 48 hours
Subjective/Interval History
-
Date of Service: September 10, 2024
Patient was seen and examined at bedside this morning. He says he feels his breathing has been worse in the past 2 days. He was becoming hypoxic on 4 L nasal cannula and so was bumped up to 10 L.
Objective Data
-
Labs:
Laboratory Results
09/10/24
05:33
WBC 20.2 H
Hgb 12.5 L
Hct 37.5 L
Plt Count 357
Sodium 131 L
Potassium 4.8
Chloride 84 L
Carbon Dioxide 39 H
BUN 40 H
Creatinine 1.7 H
Glucose 167 H
Calcium 9.4
Vital Signs:
Vital Signs
Temp Pulse Resp BP Pulse Ox
98.0 F 63 24 117/74 73
09/10/24 11:39 09/10/24 11:39 09/10/24 11:39 09/10/24 11:39 09/10/24 11:39
I&O
09/09/24 09/10/24 09/11/24
06:59 06:59 06:59
Intake Total 1656 / 1656 1632 / 1632
Output Total 1300 / 1300 1300 / 1300
Balance 356 / 356 332 / 332
Review of Systems
-
History Source: Patient
All other systems: Reviewed and negative
Respiratory: Reports Cough and Trouble Breathing
Physical Exam
-
General: No Apparent Distress
[2024-09-10 13:38] LABS: IgA 168 mg/dl (70-400); IgG 1350 mg/dl (700-1600); IgM 227 mg/dl (40-230)
--- NOTE | 2024-09-10 13:47 | CM ---
sales support manager reviewed patient's chart and met with patient and patient is for skilled placement at [facility] when stable.
Plan; Skilled placement at [facility] when stable.
[2024-09-10] MEDS: DECADRON 4 MG IV ×2 (14:16→17:23)
[2024-09-10] MEDS: DECADRON IV (14:16)
--- NOTE | 2024-09-10 14:30 | PTCARENOTE ---
11:30 Pt c/o feeling SOB, noted pulse ox was 73% on O2 4L via n/c. Increase O2 to 6 L via N/C. Encourage pt to take deep breaths. Pulse ox 85%. Respiratory therapist notified. BP 117/74 pulse 63 resp 24. Noted on heart monitor pt continue V-paced
(HR 60's). Pt receive breathing treatment and place on midflow cannula 10 L (pulse ox 95%)12:00 DR. Zambrano notified came up to see pt and place order to transfer pt to IMU (awaiting room)
1300 DR. Hendricks (pulmonary) notified and here to see pt.
1430 IRAD called for pt. I accompanied pt and transported pt via bed to IR.
Notified Pt's , pt tommy be transferred from IRAD to IMU room 4756. Report given to IMU nurse.
[2024-09-10] MEDS: DUONEB INH (15:19)
[2024-09-10 15:34] LABS: Body Fluid pH 7.46
[2024-09-10 15:42] LABS: Body Fluid Mononuclear 89.3 %; Body Fluid Polymorphonuclear 10.7 %; Body Fluid WBC 600 /CUMM
[2024-09-10 15:46] LABS: Body Fluid Amylase 33 U/L; Body Fluid Glucose 188 mg/dl; Body Fluid LDH 87 U/L; Body Fluid Protein 4.2 g/dl; Body Fluid Second Tech EYM
[2024-09-10 15:53] LABS: Body Fluid Triglycerides < 30 mg/dl
[2024-09-10] MEDS: ASPIR LOW (ENTERIC COATED) 81 MG PO (17:23)
[2024-09-10] MEDS: OCEAN, SALINE MIST 1 SPRAYS NASAL (17:24)
[2024-09-10 17:32] LABS: Glucose - Point of Care 187 mg/dl (70-99)
--- NOTE | 2024-09-10 17:45 | PTCARENOTE ---
Received patient on transfer from 4th floor after IRAD for thoracentesis. Per bedside IRAD RN report they took off 1200ml. at bedside. Patient on 8L midflow. Denies SOB. at bedside.
[2024-09-10] MEDS: JANUVIA 100 MG PO (18:04)
--- NOTE | 2024-09-10 19:55 | PTCARENOTE ---
Pt having SOB sat decreased to low 80's, increased to 15L from 8L midflow. cont satting 80%. NRB placed on Pt for recovery, RT at bedside. Pt recovered to 92%. NRB removed once Pt recovered and denied SOB. Pt remains on 15L midflow.
[2024-09-10] MEDS: COLACE 100 MG PO (21:00)
[2024-09-10] MEDS: XALATAN OPHTHALMIC SOLUTION 1 DROP BOTH EYES (21:02)
[2024-09-10] MEDS: NON-FORMULARY ITEM 1 DROP BOTH EYES (21:15)
[2024-09-10 23:11] LABS: Glucose - Point of Care 263 mg/dl (70-99)
[2024-09-11] VITALS (13 sets, daily range): BP systolic 91–158; BP diastolic 47–69
[2024-09-11] MEDS: ROBITUSSIN 200 MG PO (00:11)
[2024-09-11] MEDS: DECADRON 4 MG IV ×3 (02:34→17:23)
[2024-09-11] MEDS: SYNTHROID 100 MCG PO (06:08)
[2024-09-11 06:48] LABS: Hematocrit 36.1 % (39.0-52.0); Hemoglobin 12.3 g/dL (13.0-18.0); Mean Corp Hgb Conc. 34.1 g/dL (33.0-37.0); Mean Corpuscular Hgb 31.1 pg (27.0-31.0); Mean Corpuscular Volume 91.4 fL (80.0-94.0); Mean Platelet Volume 10.4 fL (7.4-10.4); Platelet Count 399 10^3/uL (130-400); Red Blood Cell Count 3.95 10^6/uL (4.70-6.10); Red Cell Dist. Width 13.5 % (11.5-14.5); White Blood Cell Count 14.9 10^3/uL (4.8-10.8)
[2024-09-11] MEDS: DUONEB 3 ML INH ×4 (07:12→20:03)
[2024-09-11] MEDS: PULMICORT 0.5 MG INH ×2 (07:12→20:03)
[2024-09-11 07:15] LABS: Blood Urea Nitrogen 40 mg/dl (9-20); Calcium 9.2 mg/dl (8.4-10.2); Chloride 84 mmol/L (98-107); Estimated Creatinine Clearance 36 ml/min; Glucose 216 mg/dl (70-99); Magnesium 2.2 mg/dl (1.6-2.3); Phosphorus 4.5 mg/dl (2.5-4.5); Potassium 5.2 mmol/L (3.5-5.1); Sodium 131 mmol/L (135-145); eGFR 37.58
[2024-09-11 07:36] LABS: Carbon Dioxide 41 mmol/L (22-30)
[2024-09-11 07:52] LABS: Glucose - Point of Care 192 mg/dl (70-99)
[2024-09-11] MEDS: NOVOLOG FLEXPEN-LOW RESISTANCE 1 UNITS SC (08:15)
[2024-09-11] MEDS: FIRVANQ 125 MG PO ×2 (08:15→20:56)
[2024-09-11] MEDS: AUGMENTIN 875 MG/125 MG 1 TABLET PO ×2 (08:16→20:59)
[2024-09-11] MEDS: ELIQUIS 2.5 MG PO ×2 (08:16→20:57)
[2024-09-11] MEDS: COREG 12.5 MG PO (08:16)
[2024-09-11] MEDS: MUCINEX 600 MG PO ×2 (08:16→20:58)
[2024-09-11] MEDS: COLACE PO ×2 (08:16→08:39)
[2024-09-11] MEDS: VIBRAMYCIN 100 MG PO ×2 (08:16→20:57)
[2024-09-11] MEDS: ENTRESTO 24 MG/26 MG 1 TAB PO ×2 (08:16→20:57)
[2024-09-11] MEDS: CLARITIN 10 MG PO (08:16)
[2024-09-11] MEDS: BUMEX 2 MG IV (08:16)
--- NOTE | 2024-09-11 08:18 | VATNOTE ---
During routine rounds, BL arms assessed. L forearm +1-2 pitting edema noted and tender which is greater than the R forearm. MD contacted and peripheral vascular ultrasound recommended at this time.
[2024-09-11] MEDS: OCEAN, SALINE MIST 2 SPRAYS NASAL ×4 (08:34→21:05)
[2024-09-11] MEDS: SIMBRINZA 1%-0.2% OPHTH SUSP 1 DROP BOTH EYES ×3 (08:35→21:07)
--- NOTE | 2024-09-11 09:55 | PTCARENOTE ---
Assumed care of patient at beginning of this shift from previous RN with O2 15L midflow in use; POx fluctuating between 84-89%. Patient needed to be placed on 15L midflow on previous shift. Lungs very diminished this morning with wheezing despite
respiratory treatment given this morning. TT sent to Dr Wilburn, Dr Mata and speech therapist. Breakfast tray removed until patient seen by speech. Dr Wilburn and Dr aMta both up to see patient. Reviewed with Dr Wilburn to have
speech see patient before eating and respiratory therapist change to face mask. RT therapist notified via TT. Currently patient is 90% on 15L midflow.
--- NOTE | 2024-09-11 10:53 | W.PN.PUL3 ---
Today's Communication / Plan
-
Face mask oxygen to maintain pulse ox above 90%
Follow-up pleural fluid cytology
IV corticosteroids same dose today taper tomorrow
Continue nebulizer
Continue secretion clearance intervention
Physical therapy/Occupational Therapy
Diuretics as creatinine improves
Continue antibiotics per infectious disease
Nasal saline spray
Antihistamines
Will continue to follow.
Assessment
-
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 diff who presents with weakness. Patient's had a cough for few weeks. Medrol Dosepak given to him without much
improvement. Patient is on inhalers as an outpatient for his asthma/COPD and was changed from Breo to Trelegy without improvement so now he is back to Bre. His cough is productive and he endorsed shortness of breath. Initially in the ER he was
afebrile with pulse rate 76, respiratory rate 24, BP 114/54 and saturating 73% on room air which improved to 91% with 6 L/min. Initial labs showed significant leukocytosis to 55.4, sodium 123, glucose 191, proBNP 3990, TSH 1.03, procalcitonin 0.36,
and COVID-19 antigen negative. Urine culture collected and flu swab was negative. CXR showed interstitial pulmonary edema with small bilateral pleural effusions however unable to rule out pneumonia. He was given 60 mg IV Lasix in the ER and
admitted to the hospitalist service. Patient's hypoxia has persisted and he has required between 4-6 L/min since admission. Pulmonary service now consulted for additional management/recommendations.
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 difficile, glaucoma
Impression:
#Acute respiratory failure with hypoxia likely due to sepsis with acute organ dysfunction and acute decompensated heart failure in setting of asthma/COPD; unable to r/o component of pneumonia
#Sepsis due to UTI +/- pneumonia
#Enterococcus bacteremia
#Acute HFrEF (LVEF: 30% with global diffuse hypokinesis on TTE from 09/04/2024) with pulmonary vascular congestion and bilateral pleural effusions seen on admission CXR
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
#History of asthma on Breo and prn albuterol
# Paroxysmal A-fib on Eliquis
#Complete heart block s/p pacemaker with history of pacemaker lead infection complicated by DISABILITY ADVOCATE + liver abscess and splenic infection s/p splenectomy
#History of C. difficile infection
Plan:
-
Transferred to IMU 09/10/2024 for worsening hypoxemia. He was for the last several days and 3 to 4 L.
Worsening oxygenation: Discussed with patient and patient has significant nasal passage blockage.
They state that he has been seen by ENT multiple ENTs, following with Dr. Violeta villafuerte and also now with Dr. Azul at [facility].
Currently he feels very congested through his nasal passages.
Possibly oxygen via nasal cannula was not being delivered.
-
Now transition to facemask and pulse ox is 97%. 09/11/2024.
He feels tired and debilitated
Bronchospasm today has resolved
I am wondering whether this patient is also having some degree of microaspiration. Will need to follow closely.
.
His initial CXR did show evidence of heart failure with pulmonary vascular congestion and bilateral posterior phrenic angle blunting, although there are also bibasilar opacities with a very plump hilum bilaterally - -> unable to fully rule out
component of pneumonia especially given the patient's complaint of a cough for several weeks prior to admission.
CT chest 09/07/2024: moderate right-sided pleural effusion with adjacent right lower lobe atelectasis. Small left pleural effusion with complete atelectasis of the left lower lobe. Proximal occlusion of the bronchus supplying the superior segment
of the left lower lobe. Right apex scarring. Multiple calcified mediastinal and hilar lymph nodes suggestive of pyogranulomatous disease.
Chest x-ray: 09/09/2024, low lung volumes.? Worsening left lower lobe abnormality suspect due to low lung volumes. Pleural effusions remain stable.
Chest x-ray 09/10/2024: findings consistent with persistent, though slightly improved congestive heart failure. Localized asymmetric pulmonary edema versus atelectasis or pneumonia in the right infrahilar region.
-
Bilateral pleural effusion:
Status post right thoracentesis: 09/10/20245781-1019 cc of yellow pleural fluid.
pH 7.46/white blood cell 600/89% mononuclears suggest chronicity/glucose 188/total protein 4.2/LDH 87/fluid amylase 33/triglycerides normal.
Suspect pseudo exudate as the patient has been on diuretics.
Follow cultures and cytology
Chest x-ray post09/10/2024: Show improvement on right sided parenchymal abnormality. Some degree of heart failure pattern. No pneumothorax. Persistent left lower lobe opacity pneumonia/pleural effusion.
-
Continue secretion clearance interventions
Out of bed as able-PT/OT.
-
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
Continue nebulizers,
- Acapella device to aid with secretion clearance
- Vest therapy.
- Takes Breo as an outpatient - -> continue budesonide and Duonebs for now with prn DuoNebs for any breakthrough symptoms (not currently bronchospastic)
- Incentive spirometer encouraged q1hr while awake
- Mucolytics
-IV steroids since 09/10/2024 for bronchospasm-now resolved. Taper down starting tomorrow 09/12/2024.
-
Patient also has significant sinus problems- states that the only thing that helps his Maxine-Deidra.
Has been seen by multiple ENTs.
Follows with Dr. Mcdaniel and also Dr. Azul utility driver at [facility]. Workup is ongoing to help him with his nasal passage blockage.
Saline nasal spray
Continue antihistamines
Steroids may help as above. Patient not sure whether he has nasal polyps.
-
-Bacteremia: Enterococcus faecalis in his blood and urine cultures; ID adjusting antibiotics. Transition to orals.
-Persistent leukocytosis postsplenectomy. Afebrile.
- Based on CAT scan patient also has likely pneumonia as well .
- Surveillance blood cultures on 09/05 show NGTD;
- check sputum culture if patient can produce a decent sample-has not been able to produce
Heart failure with reduced ejection fraction:
- LVEF is 30%. Cardiology has signed off.
- Patient has been on IV diuretics-BID
Recreation Programmer increased, diuretics on hold. Weight is trending lower
Check proBNP
Start diuretics as creatinine improves.
-
Continue aspiration precautions
Barium swallow without overt aspiration-but suspect intermittent microaspiration.
-
Patient has been on anticoagulation-doubt thromboembolic event.
-
DVT ppx: Eliquis
Code status: DNR/DNI
Pulmonary service will continue to follow along.
Upon discharge he will follow-up with Dr. Mcdaniel and Dr. Azul primary utility driver.

Data:
TTE 09/04/2024: TDS Definity used.
Dilated LV with moderate to severely reduced systolic function.
LVEF is approximately 30% by visual estimation. Global diffuse hypokinesis.
Normal right ventricular size and function.
Mild tricuspid regurgitation.
Estimated pulmonary artery pressure of 45 mmHg, right heart pressures were
mildly elevated.
No prior study available for comparison.
CXR 09/03/2024: Interstitial pulmonary edema with small bilateral pleural effusions. Bibasilar opacities may represent alveolar edema versus pneumonia.
Subjective Data
-
Date of Service:
Date of Service: September 11, 2024
Chief Complaint: Pulmonary Follow Up
Subjective:
Complaining of nasal congestion
Feeling tired/deconditioned.
Review of Systems
Cardiopulmonary: Dyspnea, Dyspnea on Exertion and Cough
Objective Data
Data Reviewed
Vital Signs / I&O / Oxygen:
Vital Signs
Temp Pulse Resp BP Pulse Ox
97.4 F 68 20 115/69 92
09/11/24 07:20 09/11/24 10:01 09/11/24 10:01 09/11/24 10:01 09/11/24 10:01
Intake and Output
09/10/24 09/11/24 09/12/24
06:59 06:59 06:59
Intake Total 1632 / 1632 960 / 960
Output Total 1300 / 1300 1350 / 1350
Balance 332 / 332 -390 / -390
SaO2 92
Nasal Cannula flow liters per 8
minute
Physical Exam
General: Respiratory Distress (negative), Comfortable, Chills (negative) and Sweats (negative)
HEENT: Normocephalic and Anicteric
Cardiovascular: S1-S2 and Peripheral Edema (Bilateral 2+)
Respiratory: Wheeze (Resolved), Crackles (Bilateral), Accessory Resp Muscle Use (negative) and Stridor (negative)
GI: Soft, Non Distended, Non Tender and Normal Bowel Sounds
Neurology: Awake, Alert, Tremors (negative) and Other (Drowsy)
Skin: Warm, Dry and Jaundice (negative)
Labs/Micro/Reports
Lab Data
09/11/24 06:03
09/11/24 06:03
Microbiology
09/10/24 15:18 Pleural Fluid Fungal Culture - Preliminary
Culture in progress.
Positive cultures are reported as soon as detected.
Final report to follow in four to five weeks.
09/05/24 16:22 Blood/Venous Blood Culture - Final
No Growth - Final Report
09/05/24 15:15 Blood/Venous Blood Culture - Final
No Growth - Final Report
--- NOTE | 2024-09-11 11:26 | W.PN.ONC2 ---
Today's Communication / Plan
-
OP follow up with primary project consultant upon discharge
No further inpatient hematolgy recommendations. We will sign off, please reach out for any further quesitons or concerns
Impression
Impression
MGUS
s/p splenectomy
Leukocytosis, chronic, likely due in part to post-splenectomy state
CHF
COPD
weakness
enterococcus bacteremia
Plan
Plan
With history of MGUS and frequent infections, no hypogammaglobulinemia on IgG so no role for IVIG
Leukocytosis is chronic and is likely due to post-splenectomy state.
Pt is followed for both conditions at [facility]
Subjective/Objective
Subjective
SOB, non-rebreather
events overnight noted
Vital Signs:
Vital Signs
Temp Pulse Resp BP Pulse Ox
98.1 F 64 16 115/69 94
09/11/24 11:02 09/11/24 10:54 09/11/24 10:54 09/11/24 10:01 09/11/24 11:05
Lab Results:
Laboratory Data
WBC 14.9 10^3/uL (4.8-10.8) H 09/11/24 06:03
Hgb 12.3 g/dL (13.0-18.0) L 09/11/24 06:03
Plt Count 399 10^3/uL (130-400) 09/11/24 06:03
PT 14.5 Sec (11.4-14.6) 09/08/24 15:08
INR 1.10 09/08/24 15:08
APTT 32.4 Sec (23.4-35.0) 09/08/24 15:08
eGFR 37.58 09/11/24 06:03
[2024-09-11] MEDS: NOVOLOG FLEXPEN-LOW RESISTANCE 2 UNITS SC (11:57)
[2024-09-11 12:06] LABS: Glucose - Point of Care 220 mg/dl (70-99)
[2024-09-11] MEDS: PRED FORTE 1% EYE DROPS 1 DROP OPHTH ×2 (14:01→21:07)
--- NOTE | 2024-09-11 14:02 | W.PN.ID1 ---
Date of Service
Date of Service: September 11, 2024
Today's Communication
Continue antibiotics. See below�
Assessment / Plan
# Enterococcus faecalis bacteremia x 2 sets drawn at the same time
# Symptomatic UTI, source of bacteremia
. Ucx (+) Enterococcus.
- hx of E. faecalis bacteruria 02/2024.
# Acute on chronic leukocytosis, back to baseline
-TTE no gross vege
- 09/05 blood cx's neg to date. Bacteremia is not sustained.
- Continue Augmentin 875mg po bid through 09/18/24.
# Possible PNA
# Acute on chronic CHF
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
- 09/09 Repeat CXR Patchy parenchymal opacity within the left mid to lower lung is also increased, suggesting increasing pneumonia.
- No role in checking Procalcitonin due to SIMEON
- s/p course of ceftriaxone
- Augmentin as above
- Continue doxycycline 100 mg po bid x 7d through 09/16/24.
# History of recurrent C. difficile
- Continue po Vanco 125mg BID for C. diff prophylaxis while on systemic abx. Continue through 09/23
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
Diabetes mellitus
COPD
Hypertension
Hypothyroidism
Recurrent C. difficile
MGUS
CAD
HFrEF
PPM/AICD
Atrial fibrillation
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 Per bcx's neg.
Splenectomy (2020)
Brain abscess drainage (2020)
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
Chief Complaint
-: Pneumonia, UTI and Bacteremia
Subjective / Review of Systems
Patient seen and examined. Reports nasal congestion.
Review of Systems: No Fever and No Chills
Vital Signs / Physical Exam
Vital Signs
Vital Signs
Temp Pulse Resp BP Pulse Ox
98.1 F 64 16 115/69 94
09/11/24 11:02 09/11/24 10:54 09/11/24 10:54 09/11/24 10:01 09/11/24 11:05
Physical Exam
Constitutional: Chronically Ill
Eyes: Sclera Anicteric
Cardiovascular: Regular Rate, S1/S2 and Other (RCW AICD/PPM no erythema)
Pulmonary: Rales and Other (Decreased BS bilaterally)
Gastrointestinal: Soft, Non Tender and Non Distended
Genito-Urinary: Clear Urine (condom cath); Negative CVA Tenderness
Extremities: Edema (1+)
Neurological: Awake, Alert and AO x 3
Objective Data
Lab Data
Lab Results
09/11/24 06:03
09/11/24 06:03
PT 14.5 Sec (11.4-14.6) 09/08/24 15:08
INR 1.10 09/08/24 15:08
APTT 32.4 Sec (23.4-35.0) 09/08/24 15:08
Estimated Creat Clear 36 ml/min 09/11/24 06:03
Total Bilirubin 1.0 mg/dl (0.2-1.3) 09/03/24 17:31
AST 22 U/L (17-59) 09/03/24 17:31
ALT 16 U/L (0-50) 09/03/24 17:31
Alkaline Phosphatase 90 U/L (38-126) 09/03/24 17:31
Most recent labs reviewed.
Micro Results:
09/04/24 00:59 Blood Culture - Final
Blood/Venous Enterococcus faecalis
Gram Stain - Final
09/10/24 15:18 Body Fluid Culture - Preliminary
Pleural Fluid No Growth After 18-24 Hours
Gram Stain - Pending
09/10/24 15:18 Fungal Smear - Pending
Pleural Fluid Fungal Culture - Preliminary
Culture in progress.
Positive cultures are reported as soon as detected.
Final report to follow in four to five weeks.
09/05/24 16:22 Blood Culture - Final
Blood/Venous No Growth - Final Report
09/05/24 15:15 Blood Culture - Final
Blood/Venous No Growth - Final Report
09/03/24 19:19 Urine Culture - Final
Urine Enterococcus faecalis
09/04/24 00:59 Blood Culture - Final
Blood/Venous Enterococcus faecalis
Gram Stain - Final
09/03/24 21:47 Influenza Types A & B (MARINA) - Final
Nasal Swab Negative for Influenza A & B, NAAT
Negative results must be combined with clinical observations
and patient history.
Nucleic Acid Amplification test (NAAT)performed on the
Inh[employer] Digital platform.
09/09/24 CXR: Confluent parenchymal opacity in the left lower lung has slightly increased from most recent radiograph, suggesting increase in atelectasis and/or pneumonia. Patchy parenchymal opacity within the left mid to lower lung is also increased,
suggesting increasing pneumonia. Small right pleural effusion. Stable mild parenchymal opacity within the right lower lung.
09/07/[address]: Moderate-sized RIGHT pleural effusion with adjacent right lower lobe atelectasis. Small left-sided pleural effusion with complete atelectasis of the left lower lobe. Proximal occlusion of the bronchus supplying the superior segment
of the left lower lobe.
09/03/24 CXR: Interstitial pulmonary edema with small bilateral pleural effusions. Bibasilar opacities may represent alveolar edema versus pneumonia.
--- NOTE | 2024-09-11 15:09 | PTCARENOTE ---
Patient's informed this nurse that patient has had issues with his sinuses for 10yrs and has been seen by several specialists for this, including ENT and pulmonary, and has tried several meds as well. Stated chano Gay has worked for him. This
nurse made Dr Akins and Dr Mata aware when on unit to see patient. Instructed to have patient try mask instead of midflow nasal cannula. Rest therapist Piero made aware. He first placed patient on NRB with POx 95-97%. He then changed to VM with
settings 60%/10L. Patient has several episodes of desat this afternoon but did recover. When changing his sheets d/t incontinence, patient did desat to the high 70s and needed to be placed on NRB. He recovered and was put back on VM 60L/10% by RT.
He also had resp treatment and vest therapy by RT. Patient's showed this nurse a tissue with small amount of red blood. Patient stated he was coughing and blood came out of his nose. There was no blood noted on patient when this nurse assessed
patient. TT sent to both Dr Mata and Dr Wilburn to update. Instructed by Dr Mata that if blood mild, is ok. Patient ok eliquis. Also to make sure he uses nasal saline. See MAR for documentation of nasal saline.
--- NOTE | 2024-09-11 15:47 | W.PN.HOSP.TC ---
Today's Communication/Plan
-
Assessment / Plan
Assessment / Plan
Physical Exam
General: no acute distress, appears uncomfortable with ongoing cough and shortness of breath
HEENT: NormoCephalic, Moist mucous membranes, on nasal cannula oxygen supplementation
Respiratory: Coarse breath sounds b/l
Cardiac: S1/S2 and Regular Rhythm; No Tachycardia
GI: Soft, Non Tender, bowel sounds present
Musculoskeletal: No Clubbing, No Cyanosis, edema bilateral upper and lower extremities
Skin: Warm and Dry, midline left AC with no bleeding
Neuro: Alert oriented x3, conversant
Psych: Calm and cooperative
79M CAD CHF afib DM MGUS COPD here for CHF exacerbation, high white count, suspected pneumonia, bacteremia.
Acute Hypoxic Respiratory Insufficiency multifactorial /2 to Heart Failure PNA and possibly COPD
- Worsening shortness of breath over the past 2 to 3 days, upgraded him to IMU patient increasing oxygen requirements
- Status post right thoracentesis yesterday 09/10 with 1.2 L out
- Repeat chest x-ray 09/09 showed worsening left mid to lower lung field pneumonia, persistent but improved pulmonary edema
- Unclear if this is due to some degree of aspiration, evaluated by ADOBE DEVELOPER with no overt findings of aspiration, will monitor
- Added IV steroids
- Transitioned antibiotic coverage to Augmentin and doxycycline
- Appreciate pulmonology and ID guidance
- Holding Bumex
Acute on Chronic HFrEF
- ECHO appreciated 30%
- Continue Entresto
- Holding Lasix due to SIMEON
SIMEON:
- Suspect due to congestion in the setting of heart failure exacerbation
- Appears to be worsening over the past 48 hours, have transitioned back to more aggressive diuresis with IV Lasix
- If no renal improvement or if it continues to worsen we will ask for nephrology evaluation and guidance
Nasal Congestion
- Continues to have intermittent coughing
- ADOBE DEVELOPER with video swallow 09/07, recommend regular solids and thin liquids
- mucinex, prn robitussin, incentive spirometer, acapella
- claritin, normal saline nasal spray QID
- Added IV steroids
Hyponatremia, suspect hypervolemic in nature in setting of heart failure
-Continue fluid restriction
-Monitor serial sodium levels, stable around 130
Enterococcus bacteremia:
- Secondary to urinary tract infection
- Repeat cultures negative
- Continue treatment with Augmentin and doxycycline
- P.o. vancomycin for C. difficile prophylaxis while treating for bacteremia
- ID following and recommend Augmentin through 09/18 and doxycycline through 09/16
Significant Leukocytosis
- Improving, likely at baseline
- Acute on chronic in the setting of Enterococcus faecalis bacteremia
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
- Heme-onc following, flow cytometry negative, recommend outpatient follow-up
Possible Asthma / COPD exacerbation contributing
-Transitioned to Pulmicort and DuoNeb QID / PRN
- Added IV steroids
-Pulm eval appreciated
Coronary Artery Disease
-Continue aspirin
Paroxysmal Atrial Fibrillation
-Continue Eliquis
-Continue carvedilol for rate control
Diabetes Mellitus, Type II
-Continue Januvia
-Hold Nateglinide
-Monitor sugars and continue coverage insulin
Essential Hypertension
-Continue carvedilol with hold parameters
-Bumex as above
Hypothyroidism
-Continue levothyroxine
MGUS
Hx Complete Heart Block s/p Pacemaker
Hx Pacer Lead Infection with Associated WEIGHT SHIFTER Abscess / Liver Abscess and Spleen Infection
Hx C Diff Colitis
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
PT/OT appreciated SNF rehab vs Home Services (patient prefers home)
DVT proph: Eliquis
Code Status: DNR
I spent a total of 40 minutes with the patient or on the floor. More than 50% of this time involved counseling and coordination of care.
Anticipated Discharge: > 48 hours
Subjective/Interval History
-
Date of Service: September 11, 2024
Patient was seen and examined at bedside this morning. He was transferred to the IMU yesterday due to increasing oxygen requirements. He still continues to complain of dyspnea and nasal congestion. He intermittently desaturates.
Objective Data
-
Labs:
Laboratory Results
09/11/24
06:03
WBC 14.9 H
Hgb 12.3 L
Hct 36.1 L
Plt Count 399
Sodium 131 L
Potassium 5.2 H
Chloride 84 L
Carbon Dioxide 41 H
BUN 40 H
Creatinine 1.8 H
Glucose 216 H
Calcium 9.2
Vital Signs:
Vital Signs
Temp Pulse Resp BP Pulse Ox
98.1 F 118 20 115/69 96
09/11/24 11:02 09/11/24 14:34 09/11/24 14:34 09/11/24 10:01 09/11/24 14:34
I&O
09/10/24 09/11/24 09/12/24
06:59 06:59 06:59
Intake Total 1632 / 1632 960 / 960
Output Total 1300 / 1300 1350 / 1350
Balance 332 / 332 -390 / -390
Review of Systems
-
History Source: Patient
All other systems: Reviewed and negative
EENT: Reports Other (Nasal congestion)
Respiratory: Reports Trouble Breathing
Physical Exam
-
General: No Apparent Distress
[2024-09-11] MEDS: NOVOLOG FLEXPEN-LOW RESISTANCE 5 UNITS SC (16:48)
[2024-09-11 16:50] LABS: Glucose - Point of Care 373 mg/dl (70-99)
[2024-09-11] MEDS: JANUVIA 100 MG PO (17:23)
[2024-09-11] MEDS: ASPIR LOW (ENTERIC COATED) 81 MG PO (17:23)
[2024-09-11] MEDS: COREG PO (20:58)
[2024-09-11] MEDS: COLACE 100 MG PO (20:59)
[2024-09-11] MEDS: XALATAN OPHTHALMIC SOLUTION 1 DROP BOTH EYES (21:06)
[2024-09-11] MEDS: NON-FORMULARY ITEM 1 DROP BOTH EYES (21:08)
[2024-09-11 21:31] LABS: Glucose - Point of Care 278 mg/dl (70-99)
--- NOTE | 2024-09-11 22:00 | PTCARENOTE ---
assumed care of pt from previous RN. pt aa0x3. Pt on 15L midflow 02. satting 90-92%. denies SOB at this time. remains having nasal congestion, pt given nasal saline per order. Pt took HS pills one at a time with water. assisted with oral care. 2qt
maintained. call light in reach.
[2024-09-12] VITALS (15 sets, daily range): BP systolic 93–161; BP diastolic 41–86; O2SAT 88; BMI 30.3
[2024-09-12 01:43] LABS: Albumin 3.07 g/dL (3.75-5.01); Alpha 1 Globulin 0.37 g/dL (0.19-0.46); Free Kappa Light Chains,Quant 152.43 mg/L (3.30-19.40); Free Lambda Light Chains,Quant 34.63 mg/L (5.71-26.30); IgA 176 mg/dL (68-408); IgG 1460 mg/dL (768-1632); IgM 241 mg/dL (35-263); Immunofixation Electrophoresis IFE Done; Monoclonal Protein 0.84 g/dL (<=0.00); Total Protein-Electrophoresis 6.3 g/dL (6.3-8.2)
[2024-09-12] MEDS: DECADRON 4 MG IV ×3 (02:49→18:25)
[2024-09-12 05:10] LABS: Hematocrit 35.3 % (39.0-52.0); Hemoglobin 11.7 g/dL (13.0-18.0); Mean Corp Hgb Conc. 33.1 g/dL (33.0-37.0); Mean Corpuscular Hgb 30.2 pg (27.0-31.0); Mean Corpuscular Volume 91.2 fL (80.0-94.0); Mean Platelet Volume 10.5 fL (7.4-10.4); Platelet Count 422 10^3/uL (130-400); Red Blood Cell Count 3.87 10^6/uL (4.70-6.10); Red Cell Dist. Width 13.6 % (11.5-14.5)
[2024-09-12] MEDS: SYNTHROID 100 MCG PO (05:18)
[2024-09-12 05:34] LABS: Blood Urea Nitrogen 42 mg/dl (9-20); Chloride 86 mmol/L (98-107); Estimated Creatinine Clearance 36 ml/min; Glucose 209 mg/dl (70-99); Magnesium 2.3 mg/dl (1.6-2.3); Phosphorus 3.7 mg/dl (2.5-4.5); Potassium 4.5 mmol/L (3.5-5.1); Sodium 130 mmol/L (135-145); eGFR 37.58
[2024-09-12 05:53] LABS: Carbon Dioxide 42 mmol/L (22-30)
[2024-09-12 07:34] LABS: Glucose - Point of Care 220 mg/dl (70-99)
[2024-09-12] MEDS: DUONEB 3 ML INH ×4 (07:48→19:25)
[2024-09-12] MEDS: PULMICORT 0.5 MG INH ×2 (07:48→19:25)
[2024-09-12] MEDS: AUGMENTIN 875 MG/125 MG 1 TABLET PO ×2 (09:05→20:40)
[2024-09-12] MEDS: COLACE 100 MG PO ×2 (09:05→20:40)
[2024-09-12] MEDS: COREG 12.5 MG PO ×2 (09:05→20:40)
[2024-09-12] MEDS: MUCINEX 600 MG PO ×2 (09:06→20:39)
[2024-09-12] MEDS: VIBRAMYCIN 100 MG PO ×2 (09:06→20:40)
[2024-09-12] MEDS: ENTRESTO 24 MG/26 MG 1 TAB PO ×2 (09:06→20:39)
[2024-09-12] MEDS: CLARITIN 10 MG PO (09:06)
[2024-09-12] MEDS: ELIQUIS 2.5 MG PO ×2 (09:06→20:40)
[2024-09-12] MEDS: FIRVANQ 125 MG PO ×2 (09:07→20:39)
[2024-09-12] MEDS: NOVOLOG FLEXPEN-LOW RESISTANCE 2 UNITS SC ×2 (09:07→16:14)
[2024-09-12] MEDS: OCEAN, SALINE MIST 2 SPRAYS NASAL ×3 (09:08→20:42)
[2024-09-12] MEDS: SIMBRINZA 1%-0.2% OPHTH SUSP 1 DROP BOTH EYES ×3 (09:09→20:42)
[2024-09-12] MEDS: PRED FORTE 1% EYE DROPS 1 DROP OPHTH ×2 (09:09→20:40)
--- NOTE | 2024-09-12 10:41 | W.PN.ID1 ---
Date of Service
Date of Service: September 12, 2024
Today's Communication
Continue antibiotics as below�
Assessment / Plan
# Enterococcus faecalis bacteremia x 2 sets drawn at the same time
# Symptomatic UTI, source of bacteremia
. Ucx (+) Enterococcus.
- hx of E. faecalis bacteruria 02/2024.
# Acute on chronic leukocytosis, back to baseline
-TTE no gross vege
- 09/05 blood cx's neg to date. Bacteremia is not sustained.
--> Continue Augmentin 875mg po bid through 09/18/24.
# Possible PNA
# Acute on chronic CHF
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
- 09/09 Repeat CXR Patchy parenchymal opacity within the left mid to lower lung is also increased, suggesting increasing pneumonia.
- No role in checking Procalcitonin due to SIMEON
- s/p course of ceftriaxone
- Augmentin as above
--> Continue doxycycline 100 mg po bid x 7d through 09/16/24.
# History of recurrent C. difficile
--> Continue po Vanco 125mg BID for C. diff prophylaxis while on systemic abx. Continue through 09/23
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
Diabetes mellitus
COPD
Hypertension
Hypothyroidism
Recurrent C. difficile
MGUS
CAD
HFrEF
PPM/AICD
Atrial fibrillation
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 Per bcx's neg.
Splenectomy (2020)
Brain abscess drainage (2020)
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
Chief Complaint
-: Pneumonia, UTI and Bacteremia
Subjective / Review of Systems
Reports ongoing nasal congestion, although right nostril noted to be improved. Still feels chest congestion. Reports mild shortness of breath.
Review of Systems: No Diarrhea
Vital Signs / Physical Exam
Vital Signs
Vital Signs
Temp Pulse Resp BP Pulse Ox
98 F 66 21 161/74 91
09/12/24 08:33 09/12/24 09:05 09/12/24 07:55 09/12/24 09:05 09/12/24 08:33
Physical Exam
Constitutional: Chronically Ill
Eyes: Sclera Anicteric
Cardiovascular: Regular Rate, S1/S2 and Other (RCW AICD/PPM no erythema)
Pulmonary: Rales and Other (Decreased BS bilaterally)
Gastrointestinal: Soft, Non Tender and Non Distended
Genito-Urinary: Clear Urine (condom cath); Negative CVA Tenderness
Extremities: Edema (1+)
Neurological: Awake, Alert and AO x 3
Objective Data
Lab Data
Lab Results
09/12/24 04:44
09/12/24 04:44
PT 14.5 Sec (11.4-14.6) 09/08/24 15:08
INR 1.10 09/08/24 15:08
APTT 32.4 Sec (23.4-35.0) 09/08/24 15:08
Estimated Creat Clear 36 ml/min 09/12/24 04:44
Total Bilirubin 1.0 mg/dl (0.2-1.3) 09/03/24 17:31
AST 22 U/L (17-59) 09/03/24 17:31
ALT 16 U/L (0-50) 09/03/24 17:31
Alkaline Phosphatase 90 U/L (38-126) 09/03/24 17:31
Most recent labs reviewed.
Micro Results:
09/04/24 00:59 Blood Culture - Final
Blood/Venous Enterococcus faecalis
Gram Stain - Final
09/10/24 15:18 Body Fluid Culture - Preliminary
Pleural Fluid No Growth After 18-24 Hours
Gram Stain - Pending
09/10/24 15:18 Fungal Smear - Pending
Pleural Fluid Fungal Culture - Preliminary
Culture in progress.
Positive cultures are reported as soon as detected.
Final report to follow in four to five weeks.
09/05/24 16:22 Blood Culture - Final
Blood/Venous No Growth - Final Report
09/05/24 15:15 Blood Culture - Final
Blood/Venous No Growth - Final Report
09/03/24 19:19 Urine Culture - Final
Urine Enterococcus faecalis
09/04/24 00:59 Blood Culture - Final
Blood/Venous Enterococcus faecalis
Gram Stain - Final
09/03/24 21:47 Influenza Types A & B (MARINA) - Final
Nasal Swab Negative for Influenza A & B, NAAT
Negative results must be combined with clinical observations
and patient history.
Nucleic Acid Amplification test (NAAT)performed on the
[employer] platform.
09/09/24 CXR: Confluent parenchymal opacity in the left lower lung has slightly increased from most recent radiograph, suggesting increase in atelectasis and/or pneumonia. Patchy parenchymal opacity within the left mid to lower lung is also increased,
suggesting increasing pneumonia. Small right pleural effusion. Stable mild parenchymal opacity within the right lower lung.
09/07/[address]: Moderate-sized RIGHT pleural effusion with adjacent right lower lobe atelectasis. Small left-sided pleural effusion with complete atelectasis of the left lower lobe. Proximal occlusion of the bronchus supplying the superior segment
of the left lower lobe.
09/03/24 CXR: Interstitial pulmonary edema with small bilateral pleural effusions. Bibasilar opacities may represent alveolar edema versus pneumonia.
[2024-09-12 11:35] LABS: Glucose - Point of Care 313 mg/dl (70-99)
[2024-09-12] MEDS: NOVOLOG FLEXPEN-LOW RESISTANCE 4 UNITS SC (11:51)
--- NOTE | 2024-09-12 12:48 | W.PN.HOSP.TC ---
Today's Communication/Plan
-
Assessment / Plan
Assessment / Plan
Physical Exam
General: no acute distress, productive cough
HEENT: NormoCephalic, Moist mucous membranes, on nasal cannula oxygen supplementation
Respiratory: Coarse breath sounds b/l
Cardiac: S1/S2 and Regular Rhythm; No Tachycardia
GI: Soft, Non Tender, bowel sounds present
Musculoskeletal: No Clubbing, No Cyanosis, edema bilateral upper extremities
Skin: Warm and Dry, midline left AC with no bleeding
Neuro: Alert oriented x3, conversant
Psych: Calm and cooperative
79M CAD CHF afib DM MGUS COPD here for CHF exacerbation, high white count, suspected pneumonia, bacteremia.
Acute Hypoxic Respiratory Insufficiency multifactorial 2/2 to Heart Failure PNA and possibly COPD
- Respiratory status slightly improved today after being started on steroids yesterday 09/11
- Continue management in IMU, currently on mid flow humidified oxygen via nasal cannula
- Status post right thoracentesis 09/10 with 1.2 L out
- Repeat chest x-ray 09/09 showed worsening left mid to lower lung field pneumonia, persistent but improved pulmonary edema
- Unclear if this is due to some degree of aspiration, evaluated by FLIGHT RADIO OFFICER with no overt findings of aspiration, will monitor
- Continue antibiotic coverage with Augmentin and doxycycline
- Appreciate pulmonology and ID guidance
- Holding Bumex
Acute on Chronic HFrEF
- ECHO appreciated 30%
- Continue Entresto
- Holding Lasix due to SIMEON
SIMEON:
- Worsened after discontinuing IV Bumex however this may have been coincidental with an acute pulmonary process because renal function did not resolve after restarting IV Bumex
- Currently holding diuresis, renal function stable past several days with a creatinine around 1.8 (baseline appears to be around 1.0)
- Will monitor next 24 hours and if no improvement will ask for nephrology evaluation and guidance
Nasal Congestion
- Continues to have intermittent coughing, some improvement in congestion
- FLIGHT RADIO OFFICER with video swallow 6/2, recommend regular solids and thin liquids
- mucinex, prn robitussin, incentive spirometer, acapella
- claritin, normal saline nasal spray QID
- Added IV steroids
Hyponatremia, suspect hypervolemic in nature in setting of heart failure
-Continue fluid restriction
-Monitor serial sodium levels, stable around 130
Enterococcus bacteremia:
- Secondary to urinary tract infection
- Repeat cultures negative
- Continue treatment with Augmentin and doxycycline
- P.o. vancomycin for C. difficile prophylaxis while treating for bacteremia
- ID following and recommend Augmentin through 09/18 and doxycycline through 09/16
Significant Leukocytosis
- Stable, likely back at baseline, may increase now that he has been started on steroids
- Acute on chronic in the setting of Enterococcus faecalis bacteremia
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
- Heme-onc following, flow cytometry negative, recommend outpatient follow-up
Possible Asthma / COPD exacerbation contributing
-Transitioned to Pulmicort and DuoNeb QID / PRN
- Added IV steroids
-Pulm eval appreciated
Coronary Artery Disease
-Continue aspirin
Paroxysmal Atrial Fibrillation
-Continue Eliquis
-Continue carvedilol for rate control
Diabetes Mellitus, Type II
-Continue Januvia
-Hold Nateglinide
-Monitor sugars and continue coverage insulin
Essential Hypertension
-Continue carvedilol with hold parameters
-Bumex as above
Hypothyroidism
-Continue levothyroxine
MGUS
Hx Complete Heart Block s/p Pacemaker
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
Hx C Diff Colitis
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
PT/OT appreciated SNF rehab vs Home Services (patient prefers home)
DVT proph: Eliquis
Code Status: DNR
I spent a total of 40 minutes with the patient or on the floor. More than 50% of this time involved counseling and coordination of care.
Anticipated Discharge: > 48 hours
Subjective/Interval History
-
Date of Service: September 12, 2024
Patient was seen and examined at bedside this morning. Clinically improves somewhat improved from yesterday after being started on steroids. On mid flow oxygen via nasal cannula.
Objective Data
-
Labs:
Laboratory Results
09/12/24
04:44
WBC 20.0 H
Hgb 11.7 L
Hct 35.3 L
Plt Count 422 H
Sodium 130 L
Potassium 4.5
Chloride 86 L
Carbon Dioxide 42 H
BUN 42 H
Creatinine 1.8 H
Glucose 209 H
Calcium 9.0
Vital Signs:
Vital Signs
Temp Pulse Resp BP Pulse Ox
98 F 69 22 161/74 99
09/12/24 08:33 09/12/24 11:36 09/12/24 11:36 09/12/24 09:05 09/12/24 11:36
I&O
09/11/24 09/12/24 09/13/24
06:59 06:59 06:59
Intake Total 960 / 960 360 / 360
Output Total 1350 / 1350 900 / 900
Balance -390 / -390 -540 / -540
Review of Systems
-
EENT: Reports Other (Congested sinuses)
Respiratory: Reports Cough and Trouble Breathing
Physical Exam
-
General: No Apparent Distress
[2024-09-12] MEDS: OCEAN, SALINE MIST NASAL (12:58)
[2024-09-12 16:26] LABS: Glucose - Point of Care 249 mg/dl (70-99)
[2024-09-12] MEDS: JANUVIA 100 MG PO (18:25)
[2024-09-12] MEDS: ASPIR LOW (ENTERIC COATED) 81 MG PO (18:25)
[2024-09-12] MEDS: NON-FORMULARY ITEM 1 DROP BOTH EYES (20:42)
[2024-09-12] MEDS: XALATAN OPHTHALMIC SOLUTION 1 DROP BOTH EYES (20:42)
[2024-09-12 21:21] LABS: Glucose - Point of Care 257 mg/dl (70-99)
[2024-09-12 23:12] LABS: Free Kappa Light Chains,Quant 152.19 mg/L (3.30-19.40); Free Lambda Light Chains,Quant 36.79 mg/L (5.71-26.30); Kappa/Lambda Fr Light Ratio 4.14 (0.26-1.65)
[2024-09-13] VITALS (13 sets, daily range): BP systolic 106–160; BP diastolic 43–93; BMI 29.5
[2024-09-13] MEDS: DECADRON 4 MG IV ×3 (03:32→16:52)
[2024-09-13] MEDS: SYNTHROID 100 MCG PO (05:13)
--- NOTE | 2024-09-13 05:26 | PTCARENOTE ---
pt saO2 85-87% on 15LMF, NRB mask applied, pt SaO2 bumped up to 93%. Respiratory therapist notified.
[2024-09-13 05:31] LABS: Hematocrit 34.6 % (39.0-52.0); Hemoglobin 11.9 g/dL (13.0-18.0); Mean Corp Hgb Conc. 34.4 g/dL (33.0-37.0); Mean Corpuscular Hgb 31.1 pg (27.0-31.0); Mean Corpuscular Volume 90.3 fL (80.0-94.0); Mean Platelet Volume 10.5 fL (7.4-10.4); Platelet Count 427 10^3/uL (130-400); Red Blood Cell Count 3.83 10^6/uL (4.70-6.10); Red Cell Dist. Width 13.6 % (11.5-14.5); White Blood Cell Count 22.1 10^3/uL (4.8-10.8)
[2024-09-13 05:53] LABS: Blood Urea Nitrogen 45 mg/dl (9-20); Calcium 9.2 mg/dl (8.4-10.2); Chloride 85 mmol/L (98-107); Estimated Creatinine Clearance 40 ml/min; Glucose 220 mg/dl (70-99); Magnesium 2.3 mg/dl (1.6-2.3); Phosphorus 3.8 mg/dl (2.5-4.5); Potassium 4.8 mmol/L (3.5-5.1); Sodium 130 mmol/L (135-145); eGFR 43.29
[2024-09-13 06:05] LABS: Carbon Dioxide 41 mmol/L (22-30)
[2024-09-13] MEDS: PULMICORT 0.5 MG INH ×2 (07:42→20:01)
[2024-09-13] MEDS: DUONEB 3 ML INH ×4 (07:42→20:01)
[2024-09-13 08:09] LABS: Glucose - Point of Care 206 mg/dl (70-99)
[2024-09-13] MEDS: NOVOLOG FLEXPEN-LOW RESISTANCE 2 UNITS SC (08:10)
[2024-09-13] MEDS: COREG 12.5 MG PO ×2 (08:12→20:34)
[2024-09-13] MEDS: FIRVANQ 125 MG PO ×2 (08:12→20:32)
[2024-09-13] MEDS: ELIQUIS 2.5 MG PO ×2 (08:12→20:34)
[2024-09-13] MEDS: AUGMENTIN 875 MG/125 MG 1 TABLET PO ×2 (08:13→20:35)
[2024-09-13] MEDS: VIBRAMYCIN 100 MG PO ×2 (08:13→20:32)
[2024-09-13] MEDS: ENTRESTO 24 MG/26 MG 1 TAB PO ×2 (08:13→20:32)
[2024-09-13] MEDS: CLARITIN 10 MG PO (08:13)
[2024-09-13] MEDS: MUCINEX 600 MG PO ×2 (08:13→20:32)
[2024-09-13] MEDS: COLACE 100 MG PO ×2 (08:13→20:34)
[2024-09-13] MEDS: PRED FORTE 1% EYE DROPS 1 DROP OPHTH ×2 (08:14→20:40)
[2024-09-13] MEDS: SIMBRINZA 1%-0.2% OPHTH SUSP 1 DROP BOTH EYES ×3 (08:14→20:56)
[2024-09-13] MEDS: OCEAN, SALINE MIST 50 SPRAYS NASAL ×2 (08:15→16:52)
--- NOTE | 2024-09-13 08:52 | W.PN.ID1 ---
Date of Service
Date of Service: September 13, 2024
Today's Communication
Continue antibiotics.
Assessment / Plan
# Enterococcus faecalis bacteremia x 2 sets drawn at the same time
# Symptomatic UTI, source of bacteremia
. Ucx (+) Enterococcus.
- hx of E. faecalis bacteruria 02/2024.
# Acute on chronic leukocytosis, back to baseline
-TTE no gross vege
- 09/05 blood cx's neg to date. Bacteremia is not sustained.
--> Continue Augmentin 875mg po bid through 09/18/24.
# Possible PNA
- Recheck CXR
# Acute on chronic CHF
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
- 09/09 Repeat CXR Patchy parenchymal opacity within the left mid to lower lung is also increased, suggesting increasing pneumonia.
- No role in checking Procalcitonin due to SIMEON
- s/p course of ceftriaxone
- Augmentin as above
--> Continue doxycycline 100 mg po bid x 7d (through 09/16/24)
#Leukocytosis
- Suspect secondary to steroids, which began on 09/10
# History of recurrent C. difficile
--> Continue po Vanco 125mg BID for C. diff prophylaxis while on systemic abx. Continue through 09/23
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
Diabetes mellitus
COPD
Hypertension
Hypothyroidism
Recurrent C. difficile
MGUS
CAD
HFrEF
PPM/AICD
Atrial fibrillation
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 Per bcx's neg.
Splenectomy (2020)
Brain abscess drainage (2020)
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
Chief Complaint
-: Pneumonia, UTI and Bacteremia
Subjective / Review of Systems
Patient seen and examined. O2 requirements increasing. Notes ongoing nasal congestion.
Review of Systems: No Fever
Vital Signs / Physical Exam
Vital Signs
Vital Signs
Temp Pulse Resp BP Pulse Ox
97.7 F 67 19 134/67 85
09/13/24 08:06 09/13/24 08:13 09/13/24 08:00 09/13/24 08:13 09/13/24 08:00
Physical Exam
Constitutional: No Acute Distress, Comfortable, Chronically Ill and Non-toxic
Eyes: Sclera Anicteric
Cardiovascular: Regular Rate, S1/S2 and Other (RCW AICD/PPM no erythema); Negative S3/S4
Pulmonary: Rales, Rhonchi (Scattered), Coarse (Throughout) and Other (Decreased BS bilaterally)
Gastrointestinal: Soft, Non Tender and Non Distended
Genito-Urinary: Clear Urine (condom cath); Negative CVA Tenderness
Extremities: Edema (1+)
Neurological: Awake, Alert and AO x 3
Objective Data
Lab Data
Lab Results
09/13/24 05:19
09/13/24 05:19
PT 14.5 Sec (11.4-14.6) 09/08/24 15:08
INR 1.10 09/08/24 15:08
APTT 32.4 Sec (23.4-35.0) 09/08/24 15:08
Estimated Creat Clear 40 ml/min 09/13/24 05:19
Total Bilirubin 1.0 mg/dl (0.2-1.3) 09/03/24 17:31
AST 22 U/L (17-59) 09/03/24 17:31
ALT 16 U/L (0-50) 09/03/24 17:31
Alkaline Phosphatase 90 U/L (38-126) 09/03/24 17:31
Most recent labs reviewed.
Micro Results:
09/10/24 15:18 Body Fluid Culture - Preliminary
Pleural Fluid No Growth After 48 Hours
Gram Stain - Preliminary
09/04/24 00:59 Blood Culture - Final
Blood/Venous Enterococcus faecalis
Gram Stain - Final
09/10/24 15:18 Fungal Smear - Pending
Pleural Fluid Fungal Culture - Preliminary
Culture in progress.
Positive cultures are reported as soon as detected.
Final report to follow in four to five weeks.
09/05/24 16:22 Blood Culture - Final
Blood/Venous No Growth - Final Report
09/05/24 15:15 Blood Culture - Final
Blood/Venous No Growth - Final Report
09/03/24 19:19 Urine Culture - Final
Urine Enterococcus faecalis
09/04/24 00:59 Blood Culture - Final
Blood/Venous Enterococcus faecalis
Gram Stain - Final
09/03/24 21:47 Influenza Types A & B (MARINA) - Final
Nasal Swab Negative for Influenza A & B, NAAT
Negative results must be combined with clinical observations
and patient history.
Nucleic Acid Amplification test (NAAT)performed on the
[employer] platform.
Imaging:
09/09/24 CXR: Confluent parenchymal opacity in the left lower lung has slightly increased from most recent radiograph, suggesting increase in atelectasis and/or pneumonia. Patchy parenchymal opacity within the left mid to lower lung is also increased,
suggesting increasing pneumonia. Small right pleural effusion. Stable mild parenchymal opacity within the right lower lung.
09/07/[address]: Moderate-sized RIGHT pleural effusion with adjacent right lower lobe atelectasis. Small left-sided pleural effusion with complete atelectasis of the left lower lobe. Proximal occlusion of the bronchus supplying the superior segment
of the left lower lobe.
09/03/24 CXR: Interstitial pulmonary edema with small bilateral pleural effusions. Bibasilar opacities may represent alveolar edema versus pneumonia.
--- NOTE | 2024-09-13 11:38 | W.PN.PUL3 ---
Today's Communication / Plan
-
- Stat chest x-ray
- Bumex 2 mg IV push stat, followed by 2 mg twice daily
- IR service consulted for left-sided thoracentesis for 09/14
- Ordered pleural fluid studies for protein, LDH and cultures
Assessment
-
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 diff who presents with weakness. Patient's had a cough for few weeks. Medrol Dosepak given to him without much
improvement. Patient is on inhalers as an outpatient for his asthma/COPD and was changed from [facility] to [facility] without improvement so now he is back to [facility]. His cough is productive and he endorsed shortness of breath. Initially in the ER he was
afebrile with pulse rate 76, respiratory rate 24, BP 114/54 and saturating 73% on room air which improved to 91% with 6 L/min. Initial labs showed significant leukocytosis to 55.4, sodium 123, glucose 191, proBNP 3990, TSH 1.03, procalcitonin 0.36,
and COVID-19 antigen negative. Urine culture collected and flu swab was negative. CXR showed interstitial pulmonary edema with small bilateral pleural effusions however unable to rule out pneumonia. He was given 60 mg IV Lasix in the ER and
admitted to the hospitalist service. Patient's hypoxia has persisted and he has required between 4-6 L/min since admission. Pulmonary service now consulted for additional management/recommendations.
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
pacemaker lead infection with associated MASONRY CONTRACTOR abscess with liver abscess and splenic infection, history of C. difficile, glaucoma
Impression:
#Acute respiratory failure with hypoxia likely due to sepsis with acute organ dysfunction and acute decompensated heart failure in setting of asthma/COPD; unable to r/o component of pneumonia
#Sepsis due to UTI +/- pneumonia
#Enterococcus bacteremia
#Acute HFrEF (LVEF: 30% with global diffuse hypokinesis on TTE from 09/04/2024) with pulmonary vascular congestion and bilateral pleural effusions seen on admission CXR
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
#History of asthma on Breo and prn albuterol
# Paroxysmal A-fib on Eliquis
#Complete heart block s/p pacemaker with history of pacemaker lead infection complicated by MASONRY CONTRACTOR + liver abscess and splenic infection s/p splenectomy
#History of C. difficile infection
Plan:
09/13, #. Worsening acute hypoxic respiratory failure, now on high flow nasal cannula at 100% FiO2
-Stat chest x-ray ordered, reviewed consistent with pulmonary edema and enlarging left-sided pleural effusion
-Bumex 2 mg stat, followed by IV twice daily
-Interventional radiology service consulted for left-sided thoracentesis for 09/14
-Discussed with patient's at bedside. Reviewed advanced directives. DNR/DNI CODE STATUS confirmed
-Continue scheduled DuoNeb, IV Decadron and budesonide twice daily
-Send pleural fluid for culture, cytology, protein and LDH
Updated patient's at bedside
-
Transferred to IMU 09/10/2024 for worsening hypoxemia. He was for the last several days and 3 to 4 L.
Worsening oxygenation: Discussed with patient and patient has significant nasal passage blockage.
They state that he has been seen by ENT multiple ENTs, following with Dr. Violeta villafuerte and also now with Dr. Azul at [facility].
Currently he feels very congested through his nasal passages.
Possibly oxygen via nasal cannula was not being delivered.
.
His initial CXR did show evidence of heart failure with pulmonary vascular congestion and bilateral posterior phrenic angle blunting, although there are also bibasilar opacities with a very plump hilum bilaterally - -> unable to fully rule out
component of pneumonia especially given the patient's complaint of a cough for several weeks prior to admission.
CT chest 09/07/2024: moderate right-sided pleural effusion with adjacent right lower lobe atelectasis. Small left pleural effusion with complete atelectasis of the left lower lobe. Proximal occlusion of the bronchus supplying the superior segment
of the left lower lobe. Right apex scarring. Multiple calcified mediastinal and hilar lymph nodes suggestive of pyogranulomatous disease.
Chest x-ray: 09/09/2024, low lung volumes.? Worsening left lower lobe abnormality suspect due to low lung volumes. Pleural effusions remain stable.
Chest x-ray 09/10/2024: findings consistent with persistent, though slightly improved congestive heart failure. Localized asymmetric pulmonary edema versus atelectasis or pneumonia in the right infrahilar region.
-
Bilateral pleural effusion:
Status post right thoracentesis: 09/10/20244427-6258 cc of yellow pleural fluid.
pH 7.46/white blood cell 600/89% mononuclears suggest chronicity/glucose 188/total protein 4.2/LDH 87/fluid amylase 33/triglycerides normal.
Suspect pseudo exudate as the patient has been on diuretics.
Follow cultures and cytology
Chest x-ray post09/10/2024: Show improvement on right sided parenchymal abnormality. Some degree of heart failure pattern. No pneumothorax. Persistent left lower lobe opacity pneumonia/pleural effusion.
-
Continue secretion clearance interventions
Out of bed as able-PT/OT.
-
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
Continue nebulizers,
- Acapella device to aid with secretion clearance
- Vest therapy.
- Takes Breo as an outpatient - -> continue budesonide and Duonebs for now with prn DuoNebs for any breakthrough symptoms (not currently bronchospastic)
- Incentive spirometer encouraged q1hr while awake
- Mucolytics
-IV steroids since 09/10/2024 for bronchospasm-now resolved. Taper down starting tomorrow 09/12/2024.
-
Patient also has significant sinus problems- states that the only thing that helps his Maxine-D.
Has been seen by multiple ENTs.
Follows with Dr. Mcdaniel and also Dr. Azul field logistics coordinator at [facility]. Workup is ongoing to help him with his nasal passage blockage.
Saline nasal spray
Continue antihistamines
Steroids may help as above. Patient not sure whether he has nasal polyps.
-
-Bacteremia: Enterococcus faecalis in his blood and urine cultures; ID adjusting antibiotics. Transition to orals.
-Persistent leukocytosis postsplenectomy. Afebrile.
- Based on CAT scan patient also has likely pneumonia as well .
- Surveillance blood cultures on 09/05 show NGTD;
- check sputum culture if patient can produce a decent sample-has not been able to produce
Heart failure with reduced ejection fraction:
- LVEF is 30%. Cardiology has signed off.
- Patient has been on IV diuretics-BID
Surg Rn increased, diuretics on hold. Weight is trending lower
Check proBNP
Start diuretics as creatinine improves.
-
Continue aspiration precautions
Barium swallow without overt aspiration-but suspect intermittent microaspiration.
-
Patient has been on anticoagulation-doubt thromboembolic event.
-
DVT ppx: Eliquis
Code status: DNR/DNI
Pulmonary service will continue to follow along.
Upon discharge he will follow-up with Dr. Mcdaniel and Dr. Azul primary field logistics coordinator.

Data:
TTE 09/04/2024: TDS Definity used.
Dilated LV with moderate to severely reduced systolic function.
LVEF is approximately 30% by visual estimation. Global diffuse hypokinesis.
Normal right ventricular size and function.
Mild tricuspid regurgitation.
Estimated pulmonary artery pressure of 45 mmHg, right heart pressures were
mildly elevated.
No prior study available for comparison.
CXR 09/03/2024: Interstitial pulmonary edema with small bilateral pleural effusions. Bibasilar opacities may represent alveolar edema versus pneumonia.
Subjective Data
-
Date of Service:
Date of Service: September 13, 2024
Chief Complaint: Pulmonary Follow Up
Subjective:
Patient short of breath, noted to be on high flow nasal cannula at 100% FiO2
Review of Systems
Genitourinary: Other (Increasing shortness of breath, denies any significant cough)
Objective Data
Data Reviewed
Vital Signs / I&O / Oxygen:
Vital Signs
Temp Pulse Resp BP Pulse Ox
97.7 F 70 20 117/49 89
09/13/24 08:06 09/13/24 11:35 09/13/24 11:35 09/13/24 10:01 09/13/24 11:36
Intake and Output
09/12/24 09/13/24 09/14/24
06:59 06:59 06:59
Intake Total 360 / 360 240 / 240 320 / 320
Output Total 900 / 900 1125 / 1125
Balance -540 / -540 -885 / -885 320 / 320
SaO2 89
Nasal Cannula flow liters per 55
minute
Physical Exam
General: Respiratory Distress (negative), Comfortable, Chills (negative) and Sweats (negative)
HEENT: Normocephalic and Anicteric
Cardiovascular: S1-S2 and Peripheral Edema (Bilateral 2+)
Respiratory: Wheeze (Resolved), Crackles (Bilateral), Accessory Resp Muscle Use (negative), Stridor (negative) and Tactile Fremitus (Decreased air entry on the left side)
GI: Soft, Non Distended, Non Tender and Normal Bowel Sounds
Neurology: Awake, Alert, Tremors (negative) and Other (Drowsy)
Skin: Warm, Dry and Jaundice (negative)
Labs/Micro/Reports
Lab Data
09/13/24 05:19
09/13/24 05:19
Microbiology
09/10/24 15:18 Pleural Fluid Body Fluid Culture - Preliminary
No Growth After 48 Hours
09/10/24 15:18 Pleural Fluid Gram Stain - Preliminary
09/04/24 00:59 Blood/Venous Blood Culture - Final
Enterococcus faecalis
09/04/24 00:59 Blood/Venous Gram Stain - Final
09/10/24 15:18 Pleural Fluid Fungal Culture - Preliminary
Culture in progress.
Positive cultures are reported as soon as detected.
Final report to follow in four to five weeks.
09/05/24 16:22 Blood/Venous Blood Culture - Final
No Growth - Final Report
09/05/24 15:15 Blood/Venous Blood Culture - Final
No Growth - Final Report
[2024-09-13] MEDS: NOVOLOG FLEXPEN-MODERATE RESISTANCE 5 UNITS SC (11:46)
[2024-09-13] MEDS: OCEAN, SALINE MIST NASAL (11:46)
[2024-09-13 11:52] LABS: Glucose - Point of Care 277 mg/dl (70-99)
--- NOTE | 2024-09-13 11:54 | PTCARENOTE ---
At the start of the shift patients pulse ox 88% on 15 liters mid flow, orthopedically impaired teacher added nonrebreather as needed. Discussed with respiratory and hospitalist. Patient is now on high flow 55 liters , 100%. Patient has nonproductive cough, notified
Speech therapy of coughing with oral intake, they will evaluate shortly.
--- NOTE | 2024-09-13 12:04 | W.PN.HOSP.TC ---
Today's Communication/Plan
-
Assessment / Plan
Assessment / Plan
Physical Exam
General: no acute distress, productive cough
HEENT: NormoCephalic, Moist mucous membranes, on high flow nasal cannula
Respiratory: Coarse breath sounds b/l
Cardiac: S1/S2 and Regular Rhythm; No Tachycardia
GI: Soft, Non Tender, bowel sounds present
Musculoskeletal: No Clubbing, No Cyanosis, edema bilateral upper extremities
Skin: Warm and Dry, midline left AC with no bleeding
Neuro: Alert oriented x3, conversant
Psych: Calm and cooperative
79M CAD CHF afib DM MGUS COPD here for CHF exacerbation, high white count, suspected pneumonia, bacteremia.
Acute Hypoxic Respiratory Insufficiency multifactorial 2/2 to Heart Failure PNA and possibly COPD
- Respiratory status seems to be improving although oxygen delivery via nasal cannula seems to be minimally effective due to significant nasal congestion, slightly improved today after being started on steroids 09/11
- Continue management in IMU, currently on high flow humidified oxygen via nasal cannula while attempting to eat otherwise using facemask for supplemental oxygen
- Chest x-ray 09/09 showed worsening left mid to lower lung field pneumonia, persistent but improved pulmonary edema
- Status post right thoracentesis 09/10 with 1.2 L out
- Unclear if this is due to some degree of aspiration, evaluated by [employer] BLE[employer]ING RANGE BACK TENDER with no overt findings of aspiration, will monitor
- Continue antibiotic coverage with Augmentin and doxycycline
- Appreciate pulmonology and ID guidance
- Holding Bumex
Acute on Chronic HFrEF
- ECHO appreciated 30%
- Continue Entresto
- Holding Lasix due to SIMEON
SIMEON:
- Worsened after discontinuing IV Bumex however this may have been coincidental with an acute pulmonary process because renal function did not improve after restarting IV Bumex
- Currently holding diuresis
- Renal function slightly improved today with creatinine 1.6 (baseline appears to be around 1.0)
Enterococcus bacteremia:
- Secondary to urinary tract infection
- Repeat cultures negative
- Continue treatment with Augmentin and doxycycline
- P.o. vancomycin for C. difficile prophylaxis while treating for bacteremia
- ID following and recommend Augmentin through 09/18 and doxycycline through 09/16
- Will monitor
Nasal Congestion
- Continues to have intermittent coughing, some improvement in congestion
- mucinex, prn robitussin, incentive spirometer, acapella
- claritin, normal saline nasal spray QID
- Added IV steroids
Hyponatremia, suspect hypervolemic in nature in setting of heart failure
-Continue fluid restriction
-Monitor serial sodium levels, stable around 130
Significant Leukocytosis
- Stable, likely back at baseline, may increase now that he has been started on steroids
- Acute on chronic in the setting of Enterococcus faecalis bacteremia
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
- Heme-onc following, flow cytometry negative, recommend outpatient follow-up
Possible Asthma / COPD exacerbation contributing
-Transitioned to Pulmicort and DuoNeb QID / PRN
- Added IV steroids
-Pulm eval appreciated
Coronary Artery Disease
-Continue aspirin
Paroxysmal Atrial Fibrillation
-Continue Eliquis
-Continue carvedilol for rate control
Diabetes Mellitus, Type II
-Continue Januvia
-Hold Nateglinide
-Monitor sugars, increased to moderate resistance sliding scale now that he is on steroids
Essential Hypertension
-Continue carvedilol with hold parameters
-Bumex as above
Hypothyroidism
-Continue levothyroxine
MGUS
Hx Complete Heart Block s/p Pacemaker
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
Hx C Diff Colitis
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
PT/OT appreciated SNF rehab vs Home Services (patient prefers home)
DVT proph: Eliquis
Code Status: DNR
I spent a total of 40 minutes with the patient or on the floor. More than 50% of this time involved counseling and coordination of care.
Anticipated Discharge: > 48 hours
Subjective/Interval History
-
Date of Service: September 13, 2024
Patient was seen and examined at bedside this morning. Trialing high flow nasal cannula in order to be able to take nonrebreather off to eat. Reports still feeling significant nasal congestion.
Objective Data
-
Labs:
Laboratory Results
09/13/24
05:19
WBC 22.1 H
Hgb 11.9 L
Hct 34.6 L
Plt Count 427 H
Sodium 130 L
Potassium 4.8
Chloride 85 L
Carbon Dioxide 41 H
BUN 45 H
Creatinine 1.6 H
Glucose 220 H
Calcium 9.2
Vital Signs:
Vital Signs
Temp Pulse Resp BP Pulse Ox
97.7 F 70 20 117/49 89
09/13/24 08:06 09/13/24 11:35 09/13/24 11:35 09/13/24 10:01 09/13/24 11:36
I&O
09/12/24 09/13/24 09/14/24
06:59 06:59 06:59
Intake Total 360 / 360 240 / 240 320 / 320
Output Total 900 / 900 1125 / 1125
Balance -540 / -540 -885 / -885 320 / 320
Review of Systems
-
History Source: Patient
All other systems: Reviewed and negative
EENT: Reports Other (Nasal/sinus congestion)
Respiratory: Reports Trouble Breathing
Physical Exam
-
General: No Apparent Distress
--- NOTE | 2024-09-13 13:40 | PTOTSP ---
Speech Pathology
Dysphagia Re-Evaluation
Pt seen for dysphagia tx this date. Follow up requested by MING Luo re: increased O2 needs with concern for aspiration.
Impression: 79M with admission for acute hypoxic respiratory failure p/w s/s concerning for aspiration 2/2 tenuous respiratory status (currently on 55LPM via HFNC). Increasing WBC and CXR today w/ mod left and small right pleural effusions. VSE 6/2
with a grossly functional oral/pharyngeal swallow and trace upper laryngeal penetration with thin liquid via consecutive straw sips. Of note, SaO2 dropped to 86-88% a few minutes after PO trials had been completed this date with increased RR, ?
delayed aspiration.
Recommend:
1. Downgrade to soft and bite sized (IDDSI 6), Single sips of liquid by cup or straw; IF OVERT s/s aspiration arise make NPO and await speech re-evaluation
2. Meds crushed in puree
3. Aspiration precautions: upright with all oral intake, Alternate sip of liquid after every 2-3 bites of solids, small single sips
4. Remain upright for 30 minutes after meals.
5. DIRECTOR OF KIDS service to follow up re: to assess diet level tolerance given change in respiratory status
[2024-09-13] MEDS: BUMEX 2 MG IV ×2 (14:26→20:36)
--- NOTE | 2024-09-13 15:53 | PTCARENOTE ---
XRAY completed, results discussed with pulmonary. IV Bumex administered, 1150 diuresed. Patient has condom catheter on for output monitoring.
[2024-09-13] MEDS: NOVOLOG FLEXPEN-MODERATE RESISTANCE 7 UNITS SC (16:47)
[2024-09-13] MEDS: ASPIR LOW (ENTERIC COATED) 81 MG PO (16:51)
[2024-09-13] MEDS: JANUVIA 100 MG PO (16:51)
[2024-09-13 16:58] LABS: Glucose - Point of Care 317 mg/dl (70-99)
[2024-09-13] MEDS: OCEAN, SALINE MIST 1 SPRAYS NASAL (20:40)
[2024-09-13 21:15] LABS: Glucose - Point of Care 291 mg/dl (70-99)
[2024-09-13] MEDS: XALATAN OPHTHALMIC SOLUTION 1 DROP BOTH EYES (21:52)
[2024-09-13] MEDS: NON-FORMULARY ITEM 1 DROP BOTH EYES (21:52)
--- NOTE | 2024-09-13 22:40 | PTCARENOTE ---
Care assumed of PT from elias RN. Pt is aaox3. daughter visited at bedside at start of shift. Pt on high flow 02 set to 55/100, satting 90%. RR 20. denies sob. took hs pills whole one at a time in apple sauce. LUE limb restriction for left
midline, left midline dressing clean dry and intact, midline flushing without difficulty. assessment as documented. call light in reach.
[2024-09-14] VITALS (36 sets, daily range): BP systolic 90–168; BP diastolic 33–105; BMI 29.2
[2024-09-14] MEDS: DECADRON 4 MG IV ×3 (03:21→20:40)
[2024-09-14] MEDS: SYNTHROID 100 MCG PO (05:18)
--- NOTE | 2024-09-14 05:58 | W.PN.HOSP.TC ---
Today's Communication/Plan
-
wean O2 supplementation as tolerated
cont diuresis as per cardio nephro
steroids taper as per Pulm
Glycemic Control, Novolog and Lantus added d/t steroid induced hyperglycemia
cont abx as per ID
Assessment / Plan
Assessment / Plan
Physical Exam
General: no acute distress, appears comfortable
HEENT: NormoCephalic, Moist mucous membranes, on high flow nasal cannula
Respiratory: Coarse breath sounds b/l
Cardiac: S1/S2 and Regular Rhythm; No Tachycardia
GI: Soft, Non Tender, bowel sounds present
Musculoskeletal: No Clubbing, No Cyanosis, edema bilateral upper extremities
Neuro: AOx3 conversant coherent
Psych: Calm and cooperative
79M CAD CHF afib DM MGUS COPD here for CHF exacerbation, high white count, suspected pneumonia, bacteremia d/t UTI.
Acute Hypoxic Respiratory Insufficiency multifactorial 2/2 to Heart Failure PNA and possibly COPD
- IV Decadron taper as per Pulm
- On High Flow, wean as tolerated
- Chest x-ray 09/09 showed worsening left mid to lower lung field pneumonia, persistent but improved pulmonary edema
- Status post right thoracentesis 09/10 with 1.2 L out
- Unclear if this is due to some degree of aspiration, evaluated by [facility] [employer] with no overt findings of aspiration, will monitor
- ID eval appreciated cont Augmentin thru 09/18/24 Doxycycline thru 09/16/24 PO Vanco 125m mg BID Cdiff ppx thru 09/23/24
- Pulm eval appreciated
Acute on Chronic HFrEF
- ECHO appreciated 30%
- Continue Entresto
- cont IV Bumex diuresis
- Cardio eval appreciated RHC performed 09/14/24 noted severe hypoxia out of proportion to filling pressures, respiratory failure suspected primarily respiratory driven
-maintain fluid and salt restriction
SIMEON:
- Baseline 0.9 since increased to peak 1.8
- appears stable at 1.6 so far while on diuresis IV Bumex
- Nephro eval appreciated appreciated
Enterococcus bacteremia:
- Secondary to urinary tract infection
- Repeat cultures negative
- Continue treatment with Augmentin and doxycycline
- P.o. vancomycin for C. difficile prophylaxis while treating for bacteremia
- ID eval appreciated cont Augmentin thru 09/18/24 Doxycycline thru 09/16/24 PO Vanco 125m mg BID Cdiff ppx thru 09/23/24
Nasal Congestion
- Continues to have intermittent coughing, some improvement in congestion
- mucinex, prn robitussin, incentive spirometer, acapella
- claritin, normal saline nasal spray QID
- IV steroids as above
Hyponatremia, suspect hypervolemic in nature in setting of heart failure
-Continue fluid restriction
-Monitor serial sodium levels
Significant Leukocytosis
- steroids likely contributing at this time
- Acute on chronic in the setting of Enterococcus faecalis bacteremia
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
- Heme-onc eval appreciated, flow cytometry negative, recommend outpatient follow-up
Possible Asthma / COPD exacerbation contributing
-Transitioned to Pulmicort and DuoNeb QID / PRN
-cont steroids as per Pulm
-Pulm eval appreciated
Coronary Artery Disease
-Continue aspirin
Paroxysmal Atrial Fibrillation
-Continue Eliquis
-Continue carvedilol for rate control
Diabetes Mellitus, Type II
-Continue Januvia
-Hold Nateglinide
-Monitor sugars, increased to moderate resistance sliding scale now that he is on steroids
- Novolog 3U AC Lantus 10U HS added d/t steroid induced hyperglycemia
Essential Hypertension
-Continue carvedilol with hold parameters
-Bumex as above
Hypothyroidism
-Continue levothyroxine
MGUS
Hx Complete Heart Block s/p Pacemaker
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
Hx C Diff Colitis
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
PT/OT appreciated SNF rehab
DVT proph: Eliquis
Code Status: DNR
Discussed with Patient and Patient's Maria D
I spent a total of 50 minutes with the patient or on the floor. More than 50% of this time involved counseling and coordination of care.
Anticipated Discharge: > 48 hours
Subjective/Interval History
-
Date of Service: September 14, 2024
requiring high flow to maintain saturation. Otherwise appears relatively stable. AOx3 conversant coherent.
Objective Data
-
Vital Signs:
Vital Signs
Temp Pulse Resp BP Pulse Ox
97.6 F 66 20 136/42 90
09/14/24 03:03 09/14/24 04:00 09/14/24 04:00 09/14/24 04:00 09/14/24 04:07
I&O
09/12/24 09/13/24 09/14/24
06:59 06:59 06:59
Intake Total 360 / 360 240 / 240 320 / 320
Output Total 900 / 900 1125 / 1125 2550 / 2550
Balance -540 / -540 -885 / -885 -2230 / -2230
[2024-09-14] MEDS: PULMICORT 0.5 MG INH ×2 (07:20→19:20)
[2024-09-14] MEDS: DUONEB 3 ML INH ×4 (07:21→19:20)
[2024-09-14 08:03] LABS: Glucose - Point of Care 258 mg/dl (70-99)
[2024-09-14] MEDS: NOVOLOG FLEXPEN-MODERATE RESISTANCE 5 UNITS SC ×3 (09:10→17:22)
[2024-09-14] MEDS: ELIQUIS 2.5 MG PO ×2 (09:11→20:39)
[2024-09-14] MEDS: CLARITIN 10 MG PO (09:11)
[2024-09-14] MEDS: MUCINEX 600 MG PO ×2 (09:11→20:39)
[2024-09-14] MEDS: VIBRAMYCIN 100 MG PO ×2 (09:11→20:39)
[2024-09-14] MEDS: COREG 12.5 MG PO ×2 (09:11→20:40)
[2024-09-14] MEDS: COLACE 100 MG PO ×2 (09:11→20:39)
[2024-09-14] MEDS: ENTRESTO 24 MG/26 MG 1 TAB PO ×2 (09:11→20:40)
[2024-09-14] MEDS: AUGMENTIN 875 MG/125 MG 1 TABLET PO ×2 (09:11→20:39)
[2024-09-14] MEDS: BUMEX 2 MG IV ×2 (09:12→20:40)
[2024-09-14] MEDS: FIRVANQ 125 MG PO ×2 (09:12→20:40)
[2024-09-14] MEDS: PRED FORTE 1% EYE DROPS 1 DROP OPHTH ×2 (09:13→20:41)
[2024-09-14] MEDS: OCEAN, SALINE MIST 2 SPRAYS NASAL ×3 (09:13→20:42)
[2024-09-14] MEDS: SIMBRINZA 1%-0.2% OPHTH SUSP 1 DROP BOTH EYES ×3 (09:16→20:41)
--- NOTE | 2024-09-14 09:58 | W.PN.ID1 ---
Date of Service
Date of Service: September 14, 2024
Today's Communication
--> Continue Augmentin 875mg po bid through 09/18/24.
--> Continue doxycycline 100 mg po bid x 7d (through 09/16/24)
--> Continue po Vanco 125mg BID for C. diff prophylaxis while on systemic abx. Continue through 09/23
Assessment / Plan
# Enterococcus faecalis bacteremia x 2 sets drawn at the same time
# Symptomatic UTI, source of bacteremia
. Ucx (+) Enterococcus.
- hx of E. faecalis bacteruria 02/2024.
-TTE no gross vege
- 09/05 blood cx's neg to date. Bacteremia is not sustained.
--> Continue Augmentin 875mg po bid through 09/18/24.
# Acute on chronic CHF
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
- 09/09 Repeat CXR Patchy parenchymal opacity within the left mid to lower lung is also increased, suggesting increasing pneumonia.
- 09/14 Repeat CXR: intersitial edema, L>R pleural effsuion
- s/p course of ceftriaxone
--> Continue doxycycline 100 mg po bid x 7d (through 09/16/24)
#Leukocytosis trended up
- Suspect secondary to steroids, which began on 09/10
# History of recurrent C. difficile
--> Continue po Vanco 125mg BID for C. diff prophylaxis while on systemic abx. Continue through 09/23
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
Diabetes mellitus
COPD
Hypertension
Hypothyroidism
Recurrent C. difficile
MGUS
CAD
HFrEF
PPM/AICD
Atrial fibrillation
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 Per bcx's neg.
Splenectomy (2020)
Brain abscess drainage (2020)
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
Chief Complaint
-: Pneumonia, UTI and Bacteremia
Subjective / Review of Systems
c/o wet cough.
No diarrhea.
Vital Signs / Physical Exam
Vital Signs
Vital Signs
Temp Pulse Resp BP Pulse Ox
97.6 F 69 20 136/42 88
09/14/24 03:03 09/14/24 07:24 09/14/24 07:24 09/14/24 04:00 09/14/24 07:24
Physical Exam
Constitutional: No Acute Distress and Chronically Ill
Cardiovascular: Regular Rate, S1/S2 and Other (RCW AICD/PPM no erythema); Negative S3/S4
Pulmonary: Coarse (Throughout) and Other (Decreased BS bilaterally)
Gastrointestinal: Soft, Non Tender and Non Distended
Genito-Urinary: Clear Urine (condom cath); Negative CVA Tenderness
Extremities: Negative Edema (1+)
Neurological: AO x 3
Objective Data
Lab Data
Lab Results
09/13/24 05:19
09/13/24 05:19
PT 14.5 Sec (11.4-14.6) 09/08/24 15:08
INR 1.10 09/08/24 15:08
APTT 32.4 Sec (23.4-35.0) 09/08/24 15:08
Estimated Creat Clear 40 ml/min 09/13/24 05:19
Total Bilirubin 1.0 mg/dl (0.2-1.3) 09/03/24 17:31
AST 22 U/L (17-59) 09/03/24 17:31
ALT 16 U/L (0-50) 09/03/24 17:31
Alkaline Phosphatase 90 U/L (38-126) 09/03/24 17:31
Most recent labs reviewed.
Micro Results:
09/10/24 15:18 Body Fluid Culture - Final
Pleural Fluid No Growth After 72 Hours
Gram Stain - Final
09/04/24 00:59 Blood Culture - Final
Blood/Venous Enterococcus faecalis
Gram Stain - Final
09/10/24 15:18 Fungal Smear - Pending
Pleural Fluid Fungal Culture - Preliminary
Culture in progress.
Positive cultures are reported as soon as detected.
Final report to follow in four to five weeks.
09/05/24 16:22 Blood Culture - Final
Blood/Venous No Growth - Final Report
09/05/24 15:15 Blood Culture - Final
Blood/Venous No Growth - Final Report
09/03/24 19:19 Urine Culture - Final
Urine Enterococcus faecalis
09/04/24 00:59 Blood Culture - Final
Blood/Venous Enterococcus faecalis
Gram Stain - Final
09/03/24 21:47 Influenza Types A & B (MARINA) - Final
Nasal Swab Negative for Influenza A & B, NAAT
Negative results must be combined with clinical observations
and patient history.
Nucleic Acid Amplification test (NAAT)performed on the
[employer] platform.
Imaging:
09/13/24 CXR: Interstitial pulmonary edema. Moderate left and small right pleural effusions.
09/09/24 CXR: Confluent parenchymal opacity in the left lower lung has slightly increased from most recent radiograph, suggesting increase in atelectasis and/or pneumonia. Patchy parenchymal opacity within the left mid to lower lung is also increased,
suggesting increasing pneumonia. Small right pleural effusion. Stable mild parenchymal opacity within the right lower lung.
09/07/[address]: Moderate-sized RIGHT pleural effusion with adjacent right lower lobe atelectasis. Small left-sided pleural effusion with complete atelectasis of the left lower lobe. Proximal occlusion of the bronchus supplying the superior segment
of the left lower lobe.
5/29/25 CXR: Interstitial pulmonary edema with small bilateral pleural effusions. Bibasilar opacities may represent alveolar edema versus pneumonia.
--- NOTE | 2024-09-14 10:08 | W.CON.NEPH ---
Consultation
-
Date/Time Consultation Requested: 09/14/2024 10:00 AM
Date/Time Consultation Performed: 09/14/2024 10:00 AM
Requesting Provider: Dr. Hernandez
Performing Provider: Dr. Flores
Reason for Consultation: Acute kidney injury
Medical History
-
Chief Complaint: Acute kidney injury
History of Present Illness:
The patient is an 79-year-old male with a past medical history of MGUS,, diabetes maintained on Niclocide Januvia, congestive heart failure maintained on Bumex and Entresto, chronically anticoagulated with Eliquis for atrial fibrillation, COPD, who
was admitted to the hospital on September 03, 2024 with weakness. He had been having upper respiratory symptoms with worsening cough and eventual progressive shortness of breath. He was treated for congestive heart failure with IV Bumex and now has
acute renal failure with his creatinine rising up from 1-1.6 and nephrology was consulted.
Past Medical History
Coronary Artery Disease
Chronic Heart Failure, unknown EF
Paroxysmal Atrial Fibrillation
Complete Heart Block s/p Pacemaker
Diabetes Mellitus, Type II
Hypothyroidism
MGUS
Asthma/COPD
Squamous Cell Carcinoma of Left Face s/p Resection and XRT
Pacer Lead Infection with Associated REHABILITATION MANAGER Abscess / Liver Abscess and Spleen Infection
C Diff Colitis
Pacemaker
Splenectomy
Left Facial Surgery
Glaucoma
Social History
Tobacco: Non-Smoker
Alcohol: None
Personal:
Family History
Family History: Not Pertinent
Allergies / Home Medications
Allergy/AdvReac Type Severity Reaction Status Date / Time
adhesive tape Allergy Mild Itching Verified 09/04/24 01:02
metformin Allergy Unknown Verified 09/03/24 16:46
�Medication �Instructions �Recorded �Confirmed �Type
albuterol sulfate 90 mcg/actuation 1 puff inhalation R Q4HPRN PRN SOB 03/17/21 09/03/24 History
aerosol inhaler
aspirin 81 mg tablet,delayed 81 mg PO QPM Blood clot 03/17/21 09/03/24 History
release prevention/tx
azelastine 137 mcg (0.1 %) nasal 1 spray intranasal BID Congestion 03/17/21 09/03/24 History
spray
brinzolamide 1 %-brimonidine 0.2 % 1 drp BOTH EYES TID Fever/pain 03/17/21 09/03/24 History
eye drops,suspension (Simbrinza)
bumetanide 2 mg tablet 2 mg PO BID Fluid 03/17/21 09/03/24 History
retention/Swelling
carvedilol 12.5 mg tablet 12.5 mg PO BID Blood pressure 03/17/21 09/03/24 History
cholecalciferol (vitamin D3) 25 1,000 units PO DAILY Supplement 03/17/21 09/03/24 History
mcg (1,000 unit) tablet
levothyroxine 100 mcg tablet 100 mcg PO DAILY AT 0700 Thyroid 03/17/21 09/03/24 History
nateglinide 120 mg tablet 120 mg PO TID Diabetes 03/17/21 09/03/24 History
sitagliptin phosphate 100 mg 100 mg PO QPM Diabetes 03/17/21 09/03/24 History
tablet (Januvia)
apixaban 5 mg tablet (Eliquis) 5 mg PO BID Blood Clot 09/03/24 09/03/24 History
Prevention/Tx
azithromycin 250 mg tablet 0 mg PO .COMPLEX Infection 09/03/24 09/03/24 History
bimatoprost 0.01 % eye drops 1 drp BOTH EYES HS Eye Condition 09/03/24 09/03/24 History
(Lumigan)
docusate sodium 100 mg capsule 100 mg PO BID Constipation 09/03/24 09/03/24 History
(Colace)
fluticasone furoate 200 1 inh inhalation DAILY 09/03/24 09/03/24 History
mcg-vilanterol 25 mcg/dose Lung/Breathing Issues
inhalation powder (Breo Ellipta)
netarsudil 0.02 % eye drops 1 drp BOTH EYES HS Eye Condition 09/03/24 09/03/24 History
(Rhopressa)
sacubitril 24 mg-valsartan 26 mg 1 tab PO BID Diabetes 09/03/24 09/03/24 History
tablet (Entresto)
prednisolone acetate (PF) 1 % eye 1 drp ophthalmic (eye) BID 09/11/24 09/11/24 History
drops,suspension
Review of Systems
-
History Source: Patient
All other systems: Negative unless noted
Respiratory: Trouble Breathing
Physical Exam
Vital Signs
Vital Signs
Temp Pulse Resp BP Pulse Ox
97.6 F 69 20 136/42 97
09/14/24 03:03 09/14/24 07:24 09/14/24 07:24 09/14/24 04:00 09/14/24 08:28
Lab Results
09/13/24 05:19
WBC 22.1 10^3/uL (4.8-10.8) H 09/13/24 05:19
RBC 3.83 10^6/uL (4.70-6.10) L 09/13/24 05:19
Hgb 11.9 g/dL (13.0-18.0) L 09/13/24 05:19
Hct 34.6 % (39.0-52.0) L 09/13/24 05:19
Plt Count 427 10^3/uL (130-400) H 09/13/24 05:19
eGFR 43.29 09/13/24 05:19
Phosphorus 3.8 mg/dl (2.5-4.5) 09/13/24 05:19
Albumin 3.6 g/dl (3.5-5.0) 09/03/24 17:31
Physical Exam
General: AOx3, appears chronically ill, moderate shortness of breath
HEENT: PERRL, EOMI, Anicteric, Conjunctivae Clear, Ear/Nose Intact, Hearing Normal, Oropharynx Clear/Moist, Dentition Intact, Facial Symmetry, Neck Supple, Neck: Trachea Midline, and No Thyromegaly, no Bruits
Respiratory: Coarse to auscultation bilaterally with labored lung excursion decreased breath sounds to bases (on highflow O2)
Cardiac: S1/S2 and Regular Rate/Rhythm , pacemaker
Breast: Deferred by me
Abdomen: Soft, Nontender, Nondistended, Normal Bowel Sounds and No Hepatosplenomegaly
Rectal: Deferred by Provider
Genito-urinary: No Costovertebral Tenderness
Extremities: No Clubbing, No Cyanosis and No Edema of lower extremities, but edema of upper extremities
Skin: No Rash or open lesions
Neuro: Nonfocal/Grossly Intact, CN II-XII (Intact) and Strength (Musculoskeletal exam 5 out of 5 both upper and lower extremities)
Hematologic/Lymphatic: No Cervical Lymphadenopathy, No Submandibular Lymphadenopathy and No Supraclavicular Lymphadenopathy
Psych: Mood/afflect flat, Insight/judgement appears intact
Vascular: plus 1 pedal and radial pulses
Data Reviewed
-
Radiology: Image Personally Visualized and interpreted (Chest x-ray from September 13, 2024 personally reviewed notes pulmonary edema bilaterally with opacification of left lower base)
Labs: Labs Reviewed by me ([facility] CBC urinalysis reviewed)
Old Records: Reviewed (Reviewed old creatinine numbers in electronic medical record from date: 03/20/21: 0.8)
Assessment/Plan
-
Impression:
SIMEON
Hyponatremia
CHF exacerbation with hypoxic respiratory failure
AR MANAGER EF 30%
Enterococcus faecalis bacteremia secondary to UTI
COPD
AFIB
DM
Hypothyroidism
History of MGUS
Splenectomy
History of C. difficile
CAD
PACER
Plan:
SIMEON:
- Likely secondary to congestive heart failure decompensation
-Patient clinically volume overloaded so maintain IV diuresis
-Check postvoid bladder scan to evaluate for obstructive process
-If creatinine continues to worsen we can withhold Entresto
-Will add fluid restriction for hyponatremia which is likely due to decompensated congestive heart failure
- Cardiology should be reconsulted because patient is in intractable congestive heart failure with a EF of 30%, does he require inotropic support?
- Will assess patient for need of escalating diuretic regimen
[2024-09-14 11:07] LABS: Blood Urea Nitrogen 51 mg/dl (9-20); Calcium 8.8 mg/dl (8.4-10.2); Carbon Dioxide 39 mmol/L (22-30); Chloride 84 mmol/L (98-107); Estimated Creatinine Clearance 36 ml/min; Glucose 305 mg/dl (70-99); Potassium 4.9 mmol/L (3.5-5.1); Sodium 128 mmol/L (135-145); eGFR 43.29
--- NOTE | 2024-09-14 11:10 | W.HF.CON ---
Heart Failure
- LV Function
Left ventricular function study result: LV Ejection fraction </= 35%
Ejection Fraction Percentage: 30
- ARNI
Patient already on ARNI: Yes
- ACEI/ARB
Patient already on ACEI/ARB: No
Heart Failure ACEI/ARB Not Indicated: Patient ordered/on ARNI
- Beta Justin
Patient already on Evidence Based Beta Justin: Yes
- Mineralocorticord Receptor Antagonist
Patient already on MRA: No
Heart Failure MRA Contraindication: Acute Renal Insufficiency
- SGLT-2 Inhibitor
Patient already on SGLT-2 Inhibitor: No
Heart Failure SGLT-2 Inhibitor Contraindication: Patient Refusal (UTI)
- Afib Anticoagulation
Patient already on Anticoagulation for Afib: Yes
- NYHA CHF Classification
NYHA CHF Classification Level: Class III - Symptoms w/ min exertion, interferes w/ nml daily activity
[2024-09-14 11:17] LABS: NT-proBNP 6470 pg/ml
--- NOTE | 2024-09-14 11:29 | W.PN.CD ---
Addendum entered and electronically signed by Capo Espinal MD 09/14/24 15:02:
I saw and examined the patient.
The NURSE INFORMATICIST's note was reviewed and I agree with the note.
Comment:
79-year-old man with acute on chronic HFrEF, paroxysmal atrial fibrillation, CAD, CVA, complete heart block status post PPM's maker, COPD, and diabetes who initially presented with cough and was found to be in CHF exacerbation. He has undergone
right-sided thoracentesis and IV diuresis (weight 197 on admission --> 192 lb but all are bed weights). Creatinine remains elevated and he is still requiring HFNC.
On exam he has minimal lower extremity edema but upper extremities are edematous, lungs are fairly clear, and he has a regular rate and rhythm with no murmurs.
TTE 09/05/2024: LVEF 30%, normal RV, mild TR, PASP 45 mmHg
We will plan for RHC today for definitive evaluation of his volume status and cardiac output given ongoing renal dysfunction and hypoxia despite diuresis.
Add back GDMT as able once SIMEON resolves.
Original Note:
Today's Communication / Plan
-
Continue diuresis
Right heart cath
Impression / Plan
-
I/P: 79M with chronic heart failure (type unknown), paroxysmal atrial fibrillation (on apixaban), CAD, CVA while on apixaban (now also on ASA), complete heart block s/p [employer]tr[employer] PPM, COPD, and type 2 diabetes mellitus who presented to the ER
09/03/2024 with a chief complaint of a cough.
Primary property analyst: Dr. Oliverio Pierre ([facility])
Acute hypoxic respiratory failure
-Requiring HFNC (55L/90% FiO2), unable to wean
HFrEF (LVEF 30%) - acute on chronic
- Continue diuresis with Bumex 2 mg IV twice daily
- Consider left-sided thoracentesis
- GDMT as tolerated:
-MARY GRACE/ARB/ARNI: Entresto 24-26 mg twice daily
-SGLT2 inhibitor: Hold with UTI this admission
-Aldosterone agonist: None with SIMEON
-Beta chante: Carvedilol 12.5 mg twice daily
-Isosorbide/Hydralazine:�
-ICD: Implanted (Medtronic)
- RHC, either today or tomorrow
Right sided pleural effusion s/p thoracentesis 09/14/2024 for 1200 mL of yellow pleural fluid, cultures and cytology pending
SIMEON with hyponatremia, nephrology following
Paroxysmal atrial fibrillation
- AV and V paced, continue carvedilol
- Oral Anticoagulation: Eliquis 2.5mg BID (age 79, creatinine > 1.5)
- [id number]: score at least 8 (Heart failure, HTN, age 75 or more, Diabetes Mellitus, prior Stroke/TIA, Vascular disease)
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
-Prior pacemaker lead infection with associated GRANT SPECIALIST abscess with liver abscess and splenic infection
-Followed by Dr. Immanuel Mcmahon
Enterococcus bacteremia, ID following
Leukocytosis, possibly related to steroids
CAD, stable without angina, unclear why he is not on a statin, will defer to primary [place] as outpatient
CVA, he was on apixaban without missed doses when this occurred, ASA added by PCP
COPD, chronic, pulmonary following
SUBJECTIVE:
Admits to shortness of breath and moist nonproductive cough
DATA:
TTE, 09/05/24
TDS Definity used.
Dilated LV with moderate to severely reduced systolic function.
LVEF is approximately 30% by visual estimation. Global diffuse hypokinesis.
Normal right ventricular size and function.
Mild tricuspid regurgitation.
Estimated pulmonary artery pressure of 45 mmHg, right heart pressures were
mildly elevated.
No prior study available for comparison.
Physical Exam
Vital Signs/Labs
Vital Signs
Temp Pulse Resp BP Pulse Ox
97.6 F 81 20 136/42 96
09/14/24 03:03 09/14/24 11:13 09/14/24 11:13 09/14/24 04:00 09/14/24 11:13
09/13/24 09/14/24 09/15/24
06:59 06:59 06:59
Actual Weight 88 kg 87.2 kg
09/13/24 05:19
09/14/24 10:30
PT 14.5 Sec (11.4-14.6) 09/08/24 15:08
INR 1.10 09/08/24 15:08
APTT 32.4 Sec (23.4-35.0) 09/08/24 15:08
Magnesium 2.3 mg/dl (1.6-2.3) 09/13/24 05:19
Triglycerides 94 mg/dl (10-149) 09/04/24 05:56
LDL Cholesterol, Calc 65 mg/dl 09/04/24 05:56
VLDL Cholesterol, Calc 18 mg/dl (0-30) 09/04/24 05:56
HDL Cholesterol 27 mg/dl 09/04/24 05:56
TSH 1.03 uIU/ml (0.47-4.68) 09/03/24 17:31
09/03/24 09/03/24 09/14/24
16:52 17:31 10:30
[id number] Pept Cancelled [id number]
Physical Exam
Constitutional: No acute distress and Comfortable
EENT: Anicteric and Moist mucous membranes
Cardiovascular: Rhythm & rate is regular and S1S2 is normal
Respiratory: Labored respirations and Rhonchi Present
GI: Soft, Distention absent, Flat, Non tender and Normal bowel sounds
Neuro/Psych: AO x 3
Other: Skin (Warm and dry)
Data Reviewed
-
Date of Service: September 14, 2024
[2024-09-14 12:03] LABS: Glucose - Point of Care 273 mg/dl (70-99)
--- NOTE | 2024-09-14 12:44 | W.PN.PUL3 ---
Today's Communication / Plan
-
Remains on HFNC and not improving after 11 days, still examines volume overloaded, proBNP rising
Creat rising, not responding to IV diuresis
EF 30%, cards no longer following--is there consideration for dobutamine gtt?
Defer to renal and cards in management of CHF exacerbation
Abx course to be completed for PNA
Wean IV steroids today
GOC may be needed if this is end stage CM
Assessment
-
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
and XRT, history of pacemaker lead infection with associated TELEPHOTO ENGINEER abscess with liver abscess and splenic infection, and C. diff who presents with weakness. Patient's had a cough for few weeks. Medrol Dosepak given to him without much improvement.
Patient is on inhalers as an outpatient for his asthma/COPD and was changed from [facility] to [facility] without improvement so now he is back to [facility]. His cough is productive and he endorsed shortness of breath. Initially in the ER he was afebrile with
pulse rate 76, respiratory rate 24, BP 114/54 and saturating 73% on room air which improved to 91% with 6 L/min. Initial labs showed significant leukocytosis to 55.4, sodium 123, glucose 191, proBNP 3990, TSH 1.03, procalcitonin 0.36, and COVID-19
antigen negative. Urine culture collected and flu swab was negative. CXR showed interstitial pulmonary edema with small bilateral pleural effusions however unable to rule out pneumonia. He was given 60 mg IV Lasix in the ER and admitted to the
hospitalist service. Patient's hypoxia has persisted and he has required between 4-6 L/min since admission. Pulmonary service now consulted for additional management/recommendations.
Impression:
#Acute respiratory failure with hypoxia likely due to sepsis with acute organ dysfunction and acute decompensated heart failure in setting of asthma/COPD; unable to r/o component of pneumonia
#Sepsis due to UTI +/- pneumonia
#Enterococcus bacteremia
#Acute on chronic HFrEF exacerbation
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
CAD
Chronic heart failure (LVEF: 30% with global diffuse hypokinesis on TTE from 09/04/2024)
DM type II
Hypothyroidism
MGUS
History of asthma/COPD
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
History of asthma on Breo and prn albuterol
Paroxysmal A-fib on Eliquis
Complete heart block s/p pacemaker with history of pacemaker lead infection complicated by TELEPHOTO ENGINEER + liver abscess and splenic infection s/p splenectomy
History of C. difficile infection
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
History of pacemaker lead infection with associated TELEPHOTO ENGINEER abscess with liver abscess and splenic infection
Glaucoma
Plan:
Acute hypoxic respiratory failure, remains on high flow nasal cannula at 100% FiO2--not significantly improving
Stat chest x-ray ordered, reviewed consistent with pulmonary edema and enlarging left-sided pleural effusion
Bumex 2 mg IV twice daily--not responding
Appearance on representation most consistent wtih CHF exacerbation
Cards eval reviewed/signed off
Has history of EF 30%--is this end stage CM?
Has been on IV diuresis without significant response in volume status or proBNP 3990 -> 6470
Weight has been rising/falling as well
Creat rising, cardiorenal syndrome? Consult renal
Consideration for dobutamine gtt?
Interventional radiology service consulted for left-sided thoracentesis for 09/14
Bilateral pleural effusion s/p right thoracentesis: 09/10/[id number] cc of yellow pleural fluid.
Chest x-ray post 09/10/2024: Show improvement on right sided parenchymal abnormality. Some degree of heart failure pattern. No pneumothorax. Persistent left lower lobe opacity pneumonia/pleural effusion.
Send pleural fluid for culture, cytology, protein and LDH
pH 7.46 - wbc 600 - glu 188 - tp 4.2 - LDH 87 - amylase 33--no serum studies for comparison
Suspect pseudo exudate as the patient has been on diuretics
Culture negative, cyto remains pending
Possible COPD exacerbation but less likely the predominant issue
Continue scheduled DuoNeb, IV Decadron and budesonide twice daily
Patient has been on anticoagulation-doubt thromboembolic event.
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
Continue nebulizers
Acapella device to aid with secretion clearance
Vest therapy
Takes Breo as an outpatient - -> continue budesonide and Duonebs for now with prn DuoNebs for any breakthrough symptoms (not currently bronchospastic)
Incentive spirometer encouraged q1hr while awake
Mucolytics
IV steroids since 09/10/2024 for bronchospasm-now resolved. Taper down today
Bacteremia: Enterococcus faecalis in his blood and urine cultures; ID adjusting antibiotics. Transition to orals.
Persistent leukocytosis postsplenectomy. Afebrile.
Based on CAT scan patient also has likely pneumonia as well
Surveillance blood cultures on 09/05 show NGTD
Check sputum culture if patient can produce a decent sample-has not been able to produce
ID following
Continue aspiration precautions
Barium swallow without overt aspiration-but suspect intermittent microaspiration.
DVT ppx: Eliquis
Discussed with patient's at bedside. Reviewed advanced directives. DNR/DNI CODE STATUS confirmed
Updated care team/plan of care
Pulmonary service will continue to follow along.
Updated patient's at bedside
Upon discharge he will follow-up with Dr. Mcdaniel and Dr. Azul primary sole molder.
Data:
TTE 09/04/2024: TDS Definity used. Dilated LV with moderate to severely reduced systolic function. LVEF is approximately 30% by visual estimation. Global diffuse hypokinesis. Normal right ventricular size and function.
Mild tricuspid regurgitation. Estimated pulmonary artery pressure of 45 mmHg, right heart pressures were mildly elevated. No prior study available for comparison.
CXR 09/03/2024: Interstitial pulmonary edema with small bilateral pleural effusions. Bibasilar opacities may represent alveolar edema versus pneumonia.
CT Chest 09/07/24- Moderate right-sided pleural effusion with atelectasis within the right lower lobe. There is a small left-sided pleural effusion with complete atelectasis of the left lower lobe. There is a proximal occlusion of the bronchus
supplying the superior segment of the left lower lobe. There is a band of airspace consolidation/scarring within the right apex extending to the hilum. There also appears to be some scarring within the left apex. No nodules or masses appreciated.
There are several calcified densities within the atelectatic lower lobes.
Duplex 09/11/24- No sonographic evidence for LEFT upper extremity venous thrombosis.
Total time spent today was 53 minutes for this encounter. Time includes reviewing laboratory test/imaging results, reviewing pertinent medical records, obtaining and reviewing medical history, performing an appropriate exam, ordering medications,
tests and procedures. Time also includes documentation of this encounter, coordinating patient care and communicating with other healthcare professionals. Total time does not include separately billed tests performed on this date of service.
Subjective Data
-
Date of Service:
Date of Service: September 14, 2024
Chief Complaint: Pulmonary Follow Up
Subjective:
Remains on HFNC, is angry that he is still in hospital
Feels SOB is no better
Remains on IV diuresis
s/p tap
Objective Data
Data Reviewed
Vital Signs / I&O / Oxygen:
Vital Signs
Temp Pulse Resp BP Pulse Ox
97.6 F 81 20 136/42 96
09/14/24 03:03 09/14/24 11:13 09/14/24 11:13 09/14/24 04:00 09/14/24 11:13
Intake and Output
09/13/24 09/14/24 09/15/24
06:59 06:59 06:59
Intake Total 240 / 240 320 / 320
Output Total 1125 / 1125 2800 / 2800
Balance -885 / -885 -2480 / -2480
SaO2 96
Nasal Cannula flow liters per 55
minute
Physical Exam
General: Respiratory Distress (negative), Comfortable, Chills (negative), Sweats (negative) and Poor Appetite
HEENT: Normocephalic, Anicteric and Moist Mucous Membranes
Cardiovascular: S1-S2, Regular Rhythm and Peripheral Edema (Bilateral 2+ UEs)
Respiratory: Wheeze (Resolved), Crackles (Bilateral), Accessory Resp Muscle Use (negative), Stridor (negative) and Tactile Fremitus (Decreased air entry on the left side)
GI: Soft, Non Distended, Non Tender and Normal Bowel Sounds
Neurology: Awake, Alert, Oriented, No Motor Deficits, Tremors (negative) and Other (Drowsy)
Skin: Warm, Dry and Jaundice (negative)
Labs/Micro/Reports
Lab Data
09/13/24 05:19
09/14/24 10:30
Microbiology
09/10/24 15:18 Pleural Fluid Fungal Smear - Final
No yeast or fungal elements seen.
09/10/24 15:18 Pleural Fluid Fungal Culture - Preliminary
Culture in progress.
Positive cultures are reported as soon as detected.
Final report to follow in four to five weeks.
09/10/24 15:18 Pleural Fluid Body Fluid Culture - Final
No Growth After 72 Hours
09/10/24 15:18 Pleural Fluid Gram Stain - Final
09/04/24 00:59 Blood/Venous Blood Culture - Final
Enterococcus faecalis
09/04/24 00:59 Blood/Venous Gram Stain - Final
--- NOTE | 2024-09-14 13:00 | PTCARENOTE ---
IRAD at bedside for thoracentesis.
--- NOTE | 2024-09-14 13:09 | PTCARENOTE ---
IRAD note: Bedside left Thoracentesis done. pt tolerated well. removed 600ml cloudy ulisses fluid. bedside CXR pending.
[2024-09-14 13:32] LABS: Body Fluid pH 7.48
[2024-09-14 13:47] LABS: Body Fluid Glucose 266 mg/dl; Body Fluid LDH 152 U/L; Body Fluid Protein 2.7 g/dl
[2024-09-14 13:50] LABS: Body Fluid Triglycerides < 30 mg/dl
[2024-09-14 14:07] LABS: Body Fluid Mononuclear 98.2 %; Body Fluid Polymorphonuclear 1.8 %; Body Fluid WBC 1948 /CUMM
[2024-09-14 14:13] LABS: Body Fluid Second Tech CMB
[2024-09-14 15:05] LABS: LDH 274 U/L (120-246); Total Protein 5.9 g/dl (6.3-8.2)
--- NOTE | 2024-09-14 16:22 | PTCARENOTE ---
Pt to laboratory technologist with laboratory technologist RNs and RT.
[2024-09-14] MEDS: NOVOLOG FLEXPEN 3 UNITS SC (17:21)
[2024-09-14] MEDS: ASPIR LOW (ENTERIC COATED) 81 MG PO (17:22)
[2024-09-14] MEDS: JANUVIA 100 MG PO (17:22)
[2024-09-14] MEDS: OCEAN, SALINE MIST NASAL (17:23)
[2024-09-14 17:30] LABS: Glucose - Point of Care 285 mg/dl (70-99)
--- NOTE | 2024-09-14 17:40 | PTCARENOTE ---
Pt returned from dye lab technician. Site C/D/I. Site checks per protocol, see intervention.
--- NOTE | 2024-09-14 17:41 | ITS.CL.CATH ---
Hairspring Setter - Catheterization
Cardiac Catheterization
Procedure Report:
RIGHT HEART CATHETERIZATION
Date of Procedure: 09/14/2024
Referring: Immanuel Urbano M.D.
INDICATION: Hypoxic respiratory failure, clarification of volume status.
ACCESS:
5 [place]ian right antecubital vein using a modified Seldinger technique under ultrasound guidance.
CATHETERS:
5 [place] balloon with.
PROCEDURE:
The patient was prepped and draped in standard sterile fashion. The area for antecubital access was anesthetized with 1% lidocaine. Under ultrasound guidance, the basilic vein was identified and punctured using a standard access needle. The wire
was advanced into the basilic vein and A 5 [place]ian sheath was inserted into the basilic vein. A 5 [place] balloon was catheter was advanced through the sheath into the superior vena cava using a coronary wire to assist with traversing the right sided
pacemaker device. An SVC oxygen saturation was drawn. The balloon wedge catheter was advanced into the pulmonary artery and a pulmonary artery oxygen saturation was drawn. Arterial oxygen saturation was assumed from pulse oximetry. Cardiac output
was calculated using the Omid equation. The PA, wedge, RV and RA pressures were measured on pullback. The balloon wedge catheter was removed. The 5 [place]ian sheath was removed and manual pressure was held for hemostasis.
Weight (kg): 87.2
PA (s/d/x mmHg): 45/18/27
PCWP (a/v/x mmHg): 21/
RV (s/x mmHg): 45/8
RA (a/v/x mmHg): 02/18/
SVC SvO2 (%): 70.2
IVC SvO2 (%): Not obtained.
RA SvO2 (%): Not obtained.
RV SvO2 (%): Not obtained.
PA SvO2 (%): 71.0
SaO2 (%): 99.0 (assumed)
Hbg (g/dL): 13.7
Omid
CO (liters/minute): 4.30
CI (liters/minute/m2): 2.14
Thermodilution
CO (liters/minute): Not obtained.
CI (liters/minute/m2): Not obtained.
TPG (mmHg): 9
PVR (Bhagat Units): 2.09
AVO2 Difference (Volume %): 5.22
Radiation (mGy): 87.06
DAP (cm2.Gy): 7.9903
Fluoroscopy time (minutes): 3.3
CONCLUSION:
1. Mildly elevated filling pressures (LVEDP = 18 mmHg at 87.2 kg).
2. Mildly elevated postcapillary pulmonary hypertension (mean PA = 27 mmHg, PCWP = 18 mmHg, cardiac output 4.30 L/min, PVR = 2.09 Bhagat units).
3. Severe hypoxia out of proportion to filling pressures.
RECOMMENDATIONS:
1. Expectant management after right heart catheterization via right antecubital approach.
2. Maintain current volume status.
3. Hypoxia is primarily pulmonary driven.
Copy to: Immanuel Urbano M.D., Lavelle Nuñez D.O.
Alec Welch D.O., [facility], FACP
[2024-09-14] MEDS: XALATAN OPHTHALMIC SOLUTION 1 DROP BOTH EYES (20:41)
[2024-09-14] MEDS: NON-FORMULARY ITEM 1 DROP BOTH EYES (20:41)
[2024-09-14] MEDS: LANTUS 0.1 UNITS SC (22:20)
[2024-09-14] MEDS: ROBITUSSIN 200 MG PO (22:24)
[2024-09-14 22:27] LABS: Glucose - Point of Care 258 mg/dl (70-99)
[2024-09-15] VITALS (26 sets, daily range): BP systolic 93–152; BP diastolic 38–120; PULSE 2–88; O2SAT 96; BMI 29.0
[2024-09-15 05:05] LABS: Hematocrit 37.5 % (39.0-52.0); Hemoglobin 12.7 g/dL (13.0-18.0); Mean Corp Hgb Conc. 33.9 g/dL (33.0-37.0); Mean Corpuscular Hgb 30.8 pg (27.0-31.0); Mean Platelet Volume 10.6 fL (7.4-10.4); Platelet Count 424 10^3/uL (130-400); Red Blood Cell Count 4.12 10^6/uL (4.70-6.10); Red Cell Dist. Width 13.5 % (11.5-14.5); White Blood Cell Count 25.3 10^3/uL (4.8-10.8)
[2024-09-15 05:18] LABS: Blood Urea Nitrogen 55 mg/dl (9-20); Calcium 8.9 mg/dl (8.4-10.2); Chloride 86 mmol/L (98-107); Estimated Creatinine Clearance 36 ml/min; Glucose 200 mg/dl (70-99); Magnesium 2.2 mg/dl (1.6-2.3); Phosphorus 4.2 mg/dl (2.5-4.5); Potassium 5.4 mmol/L (3.5-5.1); Sodium 132 mmol/L (135-145); eGFR 43.29
[2024-09-15] MEDS: SYNTHROID 100 MCG PO (05:21)
[2024-09-15 05:30] LABS: Carbon Dioxide 40 mmol/L (22-30)
--- NOTE | 2024-09-15 05:31 | PTCARENOTE ---
Pt desatted to 79%, NRB mask applied. Pt instructed to close mouth and only breath through nose. SaO2 recovered to 98% after 5 minutes. Respiratory therapist notified via tiger text and came up to see pt. Remains on HFNC 55L 70%. VSS. Resting
comfortably in bed at this time. Care ongoing.
--- NOTE | 2024-09-15 06:33 | W.PN.HOSP.TC ---
Addendum entered and electronically signed by Sravani Hernandez MD 09/16/24 06:02:
Hyperkalemia
potassium restrict diet
Original Note:
Today's Communication/Plan
-
see a/p
Assessment / Plan
Assessment / Plan
Physical Exam
General: no acute distress, appears comfortable
HEENT: NormoCephalic, Moist mucous membranes, on high flow nasal cannula
Respiratory: Coarse breath sounds b/l
Cardiac: S1/S2 and Regular Rhythm; No Tachycardia
GI: Soft, Non Tender, bowel sounds present
Musculoskeletal: No Clubbing, No Cyanosis, edema bilateral upper extremities Left > Right
Neuro: AOx3 conversant coherent
Psych: Calm and cooperative
79M CAD CHF afib DM MGUS COPD here for CHF exacerbation, high white count, suspected pneumonia, bacteremia d/t UTI.
Acute Hypoxic Respiratory Insufficiency multifactorial 2/2 to Heart Failure PNA and possibly COPD
Obstructive Sleep Apnea
Hypercapnia
- IV Decadron tapered to Prednisone as per Pulm
- On High Flow, wean as tolerated
- Chest x-ray 09/09 showed worsening left mid to lower lung field pneumonia, persistent but improved pulmonary edema
- Status post right thoracentesis 09/10 with 1.2 L out
- Unclear if this is due to some degree of aspiration, evaluated by DRAWING KILN OPERATOR with no overt findings of aspiration, diet advanced per pt request, will cont to monitor
- ID eval appreciated cont Augmentin thru 09/18/24 Doxycycline thru 09/16/24 PO Vanco 125m mg BID Cdiff ppx thru 09/23/24
- Pulm eval appreciated ABG notes chronic CO2 obstruction PAP therapy recommended HS/PRN
Upper Ext Edema L>R
-elevate and ice LUE
-repeat Venous US and check arterial upper ext's
Acute on Chronic HFrEF
- ECHO appreciated 30%
- Continue Entresto
- cont PO bumex as per nephro Cardio
- Cardio eval appreciated RHC performed 09/14/24 noted severe hypoxia out of proportion to filling pressures, respiratory failure suspected primarily respiratory driven
-maintain fluid and salt restriction
SIMEON
Metabolic Alkalosis
- Baseline 0.9 since increased to peak 1.8
- appears stable at 1.6 so far
- Nephro eval appreciated cont bumex diuresis, started on Diamox
Enterococcus bacteremia:
- Secondary to urinary tract infection
- Repeat cultures negative
- Continue treatment with Augmentin and doxycycline
- P.o. vancomycin for C. difficile prophylaxis while treating for bacteremia
- ID eval appreciated cont Augmentin thru 09/18/24 Doxycycline thru 09/16/24 PO Vanco 125m mg BID Cdiff ppx thru 09/23/24
Nasal Congestion
- Continues to have intermittent coughing, some improvement in congestion
- mucinex, prn robitussin, incentive spirometer, acapella
- claritin, normal saline nasal spray QID
- IV steroids as above
Hyponatremia, suspect hypervolemic in nature in setting of heart failure
-Continue fluid restriction
-Monitor serial sodium levels
Significant Leukocytosis
- steroids likely contributing at this time
- Acute on chronic in the setting of Enterococcus faecalis bacteremia
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
- Heme-onc eval appreciated, flow cytometry negative, recommend outpatient follow-up
Possible Asthma / COPD exacerbation contributing
-Transitioned to Pulmicort and DuoNeb QID / PRN
-cont steroids as per Pulm
-Pulm eval appreciated
Coronary Artery Disease
-Continue aspirin
Paroxysmal Atrial Fibrillation
-Continue Eliquis
-Continue carvedilol for rate control
Diabetes Mellitus, Type II
-Continue Januvia
-Hold Nateglinide
-Monitor sugars, increased to moderate resistance sliding scale now that he is on steroids
- Novolog 3U AC Lantus 10U HS added d/t steroid induced hyperglycemia titrated up to 5U and 15U respectively
Essential Hypertension
-Continue carvedilol with hold parameters
-Bumex as above
Hypothyroidism
-Continue levothyroxine
MGUS
Hx Complete Heart Block s/p Pacemaker
Hx Pacer Lead Infection with Associated METAL MOLD DRESSER Abscess / Liver Abscess and Spleen Infection
Hx C Diff Colitis
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
PT/OT appreciated SNF rehab
DVT proph: Eliquis
Code Status: DNR
Discussed with Patient and Patient's Maria D
I spent a total of 45 minutes with the patient or on the floor. More than 50% of this time involved counseling and coordination of care.
Anticipated Discharge: 24 - 48 hours
Subjective/Interval History
-
Date of Service: September 15, 2024
No acute distress sitting up comfortably in bed. Weaning down on oxygn supplementation though remains on high flow at time of evaluation. Upper ext' swelling noted b/l with associate pitting edema, Left worse than right.
Objective Data
-
Labs:
Laboratory Results
09/15/24
04:48
WBC 25.3 H
Hgb 12.7 L
Hct 37.5 L
Plt Count 424 H
Sodium 132 L
Potassium 5.4 H
Chloride 86 L
Carbon Dioxide 40 H
BUN 55 H
Creatinine 1.6 H
Glucose 200 H
Calcium 8.9
Vital Signs:
Vital Signs
Temp Pulse Resp BP Pulse Ox
97.5 F 67 15 126/74 90
09/15/24 03:28 09/15/24 05:30 09/15/24 05:30 09/15/24 05:30 09/15/24 05:30
I&O
09/13/24 09/14/24 09/15/24
06:59 06:59 06:59
Intake Total 240 / 240 320 / 320
Output Total 1125 / 1125 2800 / 2800 2150 / 2150
Balance -885 / -885 -2480 / -2480 -2150 / -2150
[2024-09-15] MEDS: PULMICORT 0.5 MG INH ×2 (07:22→20:34)
[2024-09-15] MEDS: DUONEB 3 ML INH ×4 (07:23→20:34)
[2024-09-15 08:14] LABS: Glucose - Point of Care 177 mg/dl (70-99)
--- NOTE | 2024-09-15 08:40 | W.PN.CD ---
Today's Communication / Plan
-
Transition to p.o. Bumex 2 mg p.o. twice daily.
Would aim to keep even
Right heart cath findings suggest noncardiac etiology for hypoxia
Will sign off, please call back with questions.
Impression / Plan
-
I/P: 79M with chronic heart failure (type unknown), paroxysmal atrial fibrillation (on apixaban), CAD, CVA while on apixaban (now also on ASA), complete heart block s/p Medtronic PPM, COPD, and type 2 diabetes mellitus who presented to the ER
09/03/2024 with a chief complaint of a cough.
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 Oliverio Pierre ([facility])
Acute hypoxic respiratory failure
-Requiring HFNC (55L/90% FiO2), unable to wean
-Hypoxia oop to filling pressures suggestive of a noncardiac etiology.
HFrEF (LVEF 30%) - acute on chronic
- Filling pressures below. Will call this euvolemic.
-Will change to p.o. Bumex and aim to keep even.
- GDMT as tolerated:
-MARY GRACE/ARB/ARNI: Entresto 24-26 mg twice daily
-SGLT2 inhibitor: Hold with UTI this admission
-Aldosterone agonist: None with SIMEON
-Beta chante: Carvedilol 12.5 mg twice daily
-Isosorbide/Hydralazine:�
-ICD: Implanted (Medtronic)
Right sided pleural effusion s/p thoracentesis 09/14/2024 for 1200 mL of yellow pleural fluid, cultures and cytology pending
SIMEON with hyponatremia, nephrology following
Paroxysmal atrial fibrillation
- AV and V paced, continue carvedilol
- Oral Anticoagulation: Eliquis 2.5mg BID (age 79, creatinine > 1.5)
- [id number]: score at least 8 (Heart failure, HTN, age 75 or more, Diabetes Mellitus, prior Stroke/TIA, Vascular disease)
Medtronic STAMP COLLECTOR-D
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
-Followed by Dr. Immanuel Mcmahon
Enterococcus bacteremia, ID following
Leukocytosis, possibly related to steroids
CAD, stable without angina, unclear why he is not on a statin, will defer to primary Assistant To The Dean as outpatient
CVA, he was on apixaban without missed doses when this occurred, ASA added by PCP
COPD, chronic, pulmonary following
SUBJECTIVE:
Still with a 'junky cough', no chest pain.
DATA:
RHC 09/15/24:
Weight (kg):87.2
PA (s/d/x mmHg):
PCWP (a/v/x mmHg):
RV (s/x mmHg): 45
RA (a/v/x mmHg):
SVC SvO2 (%):70.2
IVC SvO2 (%):Not obtained.
RA SvO2 (%):Not obtained.
RV SvO2 (%):Not obtained.
PA SvO2 (%):71.0
SaO2 (%):99.0 (assumed)
Hbg (g/dL):13.7
Omid
CO (liters/minute):4.30
CI (liters/minute/m2):2.14
Thermodilution
CO (liters/minute):Not obtained.
CI (liters/minute/m2):Not obtained.
TPG (mmHg):9
PVR (Bhagat Units):2.09
AVO2 Difference (Volume %): 5.22
Radiation (mGy): 87.06
DAP (cm2.Gy): 7.9903
Fluoroscopy time (minutes):3.3
CONCLUSION:
1. Mildly elevated filling pressures (LVEDP = 18 mmHg at 87.2 kg).
2. Mildly elevated postcapillary pulmonary hypertension (mean PA = 27 mmHg, PCWP = 18 mmHg, cardiac output 4.30 L/min, PVR = 2.09 Bhagat units).
3. Severe hypoxia out of proportion to filling pressures.
RECOMMENDATIONS:
1. Expectant management after right heart catheterization via right antecubital approach.
2. Maintain current volume status.
3. Hypoxia is primarily pulmonary driven.
TTE, 09/05/24
TDS Definity used.
Dilated LV with moderate to severely reduced systolic function.
LVEF is approximately 30% by visual estimation. Global diffuse hypokinesis.
Normal right ventricular size and function.
Mild tricuspid regurgitation.
Estimated pulmonary artery pressure of 45 mmHg, right heart pressures were
mildly elevated.
No prior study available for comparison.
Physical Exam
Vital Signs/Labs
Vital Signs
Temp Pulse Resp BP Pulse Ox
97.5 F 72 23 152/64 97
09/15/24 03:28 09/15/24 08:00 09/15/24 08:00 09/15/24 08:00 09/15/24 08:00
09/14/24 09/15/24 09/16/24
06:59 06:59 06:59
Actual Weight 192 lb 3.889 oz 190 lb 11.198 oz
09/15/24 04:48
09/15/24 04:48
PT 14.5 Sec (11.4-14.6) 09/08/24 15:08
INR 1.10 09/08/24 15:08
APTT 32.4 Sec (23.4-35.0) 09/08/24 15:08
Magnesium 2.2 mg/dl (1.6-2.3) 09/15/24 04:48
Triglycerides 94 mg/dl (10-149) 09/04/24 05:56
LDL Cholesterol, Calc 65 mg/dl 09/04/24 05:56
VLDL Cholesterol, Calc 18 mg/dl (0-30) 09/04/24 05:56
HDL Cholesterol 27 mg/dl 09/04/24 05:56
TSH 1.03 uIU/ml (0.47-4.68) 09/03/24 17:31
09/03/24 09/03/24 09/14/24
16:52 17:31 10:30
Pyl-U-Nzthpdmxomd Pept Cancelled [id number]
Physical Exam
Constitutional: No acute distress
Cardiovascular: Rhythm & rate is regular, Pedal edema is absent, Systolic murmur absent and Diastolic murmur absent
Respiratory: Respiratory effort normal and Rhonchi Present (Diffuse)
Neuro/Psych: AO x 3
Data Reviewed
-
Date of Service: September 15, 2024
Medical Decision Making: Review of Case with other Provider (Dr. Hernandez, aim to keep even, we will sign off.)
[2024-09-15] MEDS: NOVOLOG FLEXPEN SC (08:43)
[2024-09-15] MEDS: FIRVANQ 125 MG PO ×2 (08:56→21:07)
[2024-09-15] MEDS: VIBRAMYCIN 100 MG PO ×2 (08:56→21:07)
[2024-09-15] MEDS: COREG 12.5 MG PO (08:57)
[2024-09-15] MEDS: DECADRON 4 MG IV (08:57)
[2024-09-15] MEDS: CLARITIN 10 MG PO (08:57)
[2024-09-15] MEDS: ELIQUIS 2.5 MG PO ×2 (08:57→21:05)
[2024-09-15] MEDS: ENTRESTO 24 MG/26 MG 1 TAB PO ×2 (08:57→21:28)
[2024-09-15] MEDS: BUMEX 2 MG IV (08:57)
[2024-09-15] MEDS: MUCINEX 600 MG PO ×2 (08:57→21:05)
[2024-09-15] MEDS: COLACE 100 MG PO ×2 (08:57→21:05)
[2024-09-15] MEDS: AUGMENTIN 875 MG/125 MG 1 TABLET PO ×2 (08:57→21:06)
[2024-09-15] MEDS: OCEAN, SALINE MIST 2 SPRAYS NASAL ×2 (08:58→18:30)
[2024-09-15] MEDS: PRED FORTE 1% EYE DROPS 1 DROP OPHTH ×2 (08:59→21:08)
[2024-09-15] MEDS: SIMBRINZA 1%-0.2% OPHTH SUSP 1 DROP BOTH EYES ×3 (08:59→21:10)
[2024-09-15] MEDS: NOVOLOG FLEXPEN-MODERATE RESISTANCE 1 UNITS SC (09:04)
--- NOTE | 2024-09-15 09:17 | W.PN.PUL3 ---
Today's Communication / Plan
-
s/p L thora, s/p RHC with results reviewed
I reviewed this with patient as well
Hypoxia may be due to profound deconditioning, atelectasis, untreated apnea
ABG showing chronic Co2 retention, will resume PAP therapy at night/PRN
Transition to midflow from HFNC as tolerated, reviewed with RT
Transition to PO steroids taper quickly
Encouraged OOB, aggressive PT at this point
Assessment
-
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
and XRT, history of pacemaker lead infection with associated BUSINESS SYSTEMS CONSULTANT abscess with liver abscess and splenic infection, and C. diff who presents with weakness. Patient's had a cough for few weeks. Medrol Dosepak given to him without much improvement.
Patient is on inhalers as an outpatient for his asthma/COPD and was changed from [facility] to [facility] without improvement so now he is back to [facility]. His cough is productive and he endorsed shortness of breath. Initially in the ER he was afebrile with
pulse rate 76, respiratory rate 24, BP 114/54 and saturating 73% on room air which improved to 91% with 6 L/min. Initial labs showed significant leukocytosis to 55.4, sodium 123, glucose 191, proBNP 3990, TSH 1.03, procalcitonin 0.36, and COVID-19
antigen negative. Urine culture collected and flu swab was negative. CXR showed interstitial pulmonary edema with small bilateral pleural effusions however unable to rule out pneumonia. He was given 60 mg IV Lasix in the ER and admitted to the
hospitalist service. Patient's hypoxia has persisted and he has required between 4-6 L/min since admission. Pulmonary service now consulted for additional management/recommendations.
Impression:
#Acute respiratory failure with hypoxia likely due to sepsis with acute organ dysfunction and acute decompensated heart failure in setting of asthma/COPD; unable to r/o component of pneumonia
#Sepsis due to UTI +/- pneumonia
#Enterococcus bacteremia
#Acute on chronic HFrEF exacerbation
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
CAD
Chronic heart failure (LVEF: 30% with global diffuse hypokinesis on TTE from 09/04/2024)
DM type II
Hypothyroidism
MGUS
History of asthma/COPD
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
History of asthma on Breo and prn albuterol
Paroxysmal A-fib on Eliquis
Complete heart block s/p pacemaker with history of pacemaker lead infection complicated by BUSINESS SYSTEMS CONSULTANT + liver abscess and splenic infection s/p splenectomy
History of C. difficile infection
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
History of pacemaker lead infection with associated BUSINESS SYSTEMS CONSULTANT abscess with liver abscess and splenic infection
Glaucoma
Plan:
Acute hypoxic respiratory failure, remains on high flow nasal cannula at 100% FiO2--weaning down
Transition to midflow per RT, reviewed plan of care
Hypoxia may be due to atelectasis, deconditioning
Will encouraged IS, OOB, aggressive PT
Appearance on representation most consistent wtih CHF exacerbation
s/p thora on L, 600mL removed
Cards re-eval requested, s/p RHC with wedge 18, PA mean 27--likely improved post thora/diuresis
Has history of EF 30%
proBNP 3990 -> 6470
Weight has been rising/falling as well, continue daily checks
Diuresis per team
Interventional radiology service consulted for left-sided thoracentesis for 09/14
Bilateral pleural effusion s/p right thoracentesis: 09/10/20248867-9891 cc of yellow pleural fluid.
Chest x-ray post 09/10/2024: Show improvement on right sided parenchymal abnormality. Some degree of heart failure pattern. No pneumothorax. Persistent left lower lobe opacity pneumonia/pleural effusion.
Send pleural fluid for culture, cytology, protein and LDH
pH 7.46 - wbc 600 - glu 188 - tp 4.2 - LDH 87 - amylase 33--no serum studies for comparison
Suspect pseudo exudate as the patient has been on diuretics
Culture negative, cyto remains pending
s/p L thora 09/14 for 600mL
Possible COPD exacerbation but less likely the predominant issue
Continue scheduled DuoNeb, IV Decadron and budesonide twice daily
Patient has been on anticoagulation-doubt thromboembolic event.
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
Continue nebulizers
Acapella device to aid with secretion clearance
Vest therapy
Takes Breo as an outpatient - -> continue budesonide and Duonebs for now with prn DuoNebs for any breakthrough symptoms (not currently bronchospastic)
Incentive spirometer encouraged q1hr while awake
Mucolytics
IV steroids since 09/10/2024 for bronchospasm-now resolved. Taper down today
Will transition to PO prednisone today
ABG obtained with chronic Co2 retention, met alk--7.//41
Has a history of LON but had not been using PAP
Will add nightly BIPAP as well
Bacteremia: Enterococcus faecalis in his blood and urine cultures; ID adjusting antibiotics. Transition to orals.
Persistent leukocytosis postsplenectomy. Afebrile.
Based on CAT scan patient also has likely pneumonia as well
Surveillance blood cultures on 09/05 show NGTD
Check sputum culture if patient can produce a decent sample-has not been able to produce
ID following
Continue aspiration precautions
Barium swallow without overt aspiration-but suspect intermittent microaspiration.
DVT ppx: Eliquis
Discussed with patient's at bedside. Reviewed advanced directives. DNR/DNI CODE STATUS confirmed
Updated care team/plan of care
Pulmonary service will continue to follow along.
Updated patient's at bedside
Upon discharge he will follow-up with Dr. Mcdaniel and Dr. Azul primary city clerk.
Data:
TTE 09/04/2024: TDS Definity used. Dilated LV with moderate to severely reduced systolic function. LVEF is approximately 30% by visual estimation. Global diffuse hypokinesis. Normal right ventricular size and function.
Mild tricuspid regurgitation. Estimated pulmonary artery pressure of 45 mmHg, right heart pressures were mildly elevated. No prior study available for comparison.
CXR 09/03/2024: Interstitial pulmonary edema with small bilateral pleural effusions. Bibasilar opacities may represent alveolar edema versus pneumonia.
CT Chest 09/07/24- Moderate right-sided pleural effusion with atelectasis within the right lower lobe. There is a small left-sided pleural effusion with complete atelectasis of the left lower lobe. There is a proximal occlusion of the bronchus
supplying the superior segment of the left lower lobe. There is a band of airspace consolidation/scarring within the right apex extending to the hilum. There also appears to be some scarring within the left apex. No nodules or masses appreciated.
There are several calcified densities within the atelectatic lower lobes.
Duplex 09/11/24- No sonographic evidence for LEFT upper extremity venous thrombosis.
Total time spent today was 51 minutes for this encounter. Time includes reviewing laboratory test/imaging results, reviewing pertinent medical records, obtaining and reviewing medical history, performing an appropriate exam, ordering medications,
tests and procedures. Time also includes documentation of this encounter, coordinating patient care and communicating with other healthcare professionals. Total time does not include separately billed tests performed on this date of service.
Subjective Data
-
Date of Service:
Date of Service: September 15, 2024
Chief Complaint: Pulmonary Follow Up
Subjective:
Remains on HFNC, weaning FiO2 today
No new complaints
Objective Data
Data Reviewed
Vital Signs / I&O / Oxygen:
Vital Signs
Temp Pulse Resp BP Pulse Ox
97.5 F 72 23 152/64 97
09/15/24 03:28 09/15/24 08:00 09/15/24 08:00 09/15/24 08:00 09/15/24 08:00
Intake and Output
09/14/24 09/15/24 09/16/24
06:59 06:59 06:59
Intake Total 320 / 320
Output Total 2800 / 2800 2150 / 2150
Balance -2480 / -2480 -2150 / -2150
SaO2 97
Nasal Cannula flow liters per 50
minute
Physical Exam
General: Respiratory Distress (negative), Comfortable, Chills (negative), Sweats (negative) and Poor Appetite
HEENT: Normocephalic, Anicteric and Moist Mucous Membranes
Cardiovascular: S1-S2, Regular Rhythm and Peripheral Edema (Bilateral 2+ UEs)
Respiratory: Wheeze (Resolved), Crackles (Bilateral), Accessory Resp Muscle Use (negative), Stridor (negative) and Tactile Fremitus (Decreased air entry on the left side)
GI: Soft, Non Distended, Non Tender and Normal Bowel Sounds
Neurology: Awake, Alert, Oriented, No Motor Deficits, Tremors (negative) and Other (Drowsy)
Skin: Warm, Dry and Jaundice (negative)
Labs/Micro/Reports
Lab Data
09/15/24 04:48
09/15/24 04:48
Microbiology
09/14/24 13:13 Pleural Fluid Body Fluid Culture - Preliminary
No Growth After 18-24 Hours
09/14/24 13:13 Pleural Fluid Gram Stain - Preliminary
09/10/24 15:18 Pleural Fluid Fungal Smear - Final
No yeast or fungal elements seen.
09/10/24 15:18 Pleural Fluid Fungal Culture - Preliminary
Culture in progress.
Positive cultures are reported as soon as detected.
Final report to follow in four to five weeks.
09/10/24 15:18 Pleural Fluid Body Fluid Culture - Final
No Growth After 72 Hours
09/10/24 15:18 Pleural Fluid Gram Stain - Final
--- NOTE | 2024-09-15 09:19 | W.PN.ID1 ---
Date of Service
Date of Service: September 15, 2024
Today's Communication
Continue current abx's.
Assessment / Plan
# Enterococcus faecalis bacteremia x 2 sets drawn at the same time
# Symptomatic UTI, source of bacteremia
. Ucx (+) Enterococcus.
- hx of E. faecalis bacteruria 02/2024.
-TTE no gross vege
- 09/05 blood cx's neg. Bacteremia is not sustained.
--> Continue Augmentin 875mg po bid through 09/18/24.
# Acute hypoxemic resp failure
# Pleural effusions/interstitial edema, not cardiac source by RHC
- 09/09 Repeat CXR Patchy parenchymal opacity within the left mid to lower lung is also increased, suggesting increasing pneumonia.
- 09/13 Repeat CXR: interstitial edema, L>R pleural effsuion
- 09/14 RHC: not cardiac source of hypoxic respiratory failure
- 09/14 Left thoracentesis 600cc sero-sanguineous fluid
Left pleural fluid: transudative
- Check sputum cx
- s/p course of ceftriaxone
--> Continue empiric doxycycline 100 mg po bid x 7d (through 09/16/24)
#Leukocytosis trended up
- Suspect secondary to steroids, which began on 09/10
# History of recurrent C. difficile
--> Continue po Vanco 125mg BID for C. diff prophylaxis while on systemic abx. Continue through 09/23
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
Diabetes mellitus
COPD
Hypertension
Hypothyroidism
Recurrent C. difficile
MGUS
CAD
HFrEF
PPM/AICD
Atrial fibrillation
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 Per bcx's neg.
Splenectomy (2020)
Brain abscess drainage (2020)
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
Chief Complaint
-: Pneumonia, UTI and Bacteremia
Subjective / Review of Systems
Still coughing, bringing up brown sputum.
Vital Signs / Physical Exam
Vital Signs
Vital Signs
Temp Pulse Resp BP Pulse Ox
97.5 F 72 23 152/64 97
09/15/24 03:28 09/15/24 08:00 09/15/24 08:00 09/15/24 08:00 09/15/24 08:00
Physical Exam
Constitutional: No Acute Distress and Chronically Ill
Cardiovascular: Regular Rate, S1/S2 and Other (RCW AICD/PPM no erythema); Negative S3/S4
Pulmonary: Other (Decreased BS bilaterally)
Gastrointestinal: Soft, Non Tender and Non Distended
Genito-Urinary: Clear Urine (condom cath); Negative CVA Tenderness
Extremities: Negative Edema (1+)
Neurological: AO x 3
Objective Data
Lab Data
Lab Results
09/15/24 04:48
09/15/24 04:48
PT 14.5 Sec (11.4-14.6) 09/08/24 15:08
INR 1.10 09/08/24 15:08
APTT 32.4 Sec (23.4-35.0) 09/08/24 15:08
Estimated Creat Clear 36 ml/min 09/15/24 04:48
Total Bilirubin 1.0 mg/dl (0.2-1.3) 09/03/24 17:31
AST 22 U/L (17-59) 09/03/24 17:31
ALT 16 U/L (0-50) 09/03/24 17:31
Alkaline Phosphatase 90 U/L (38-126) 09/03/24 17:31
Most recent labs reviewed.
Micro Results:
09/14/24 13:13 Body Fluid Culture - Preliminary
Pleural Fluid No Growth After 18-24 Hours
Gram Stain - Preliminary
09/10/24 15:18 Fungal Smear - Final
Pleural Fluid No yeast or fungal elements seen.
Fungal Culture - Preliminary
Culture in progress.
Positive cultures are reported as soon as detected.
Final report to follow in four to five weeks.
09/10/24 15:18 Body Fluid Culture - Final
Pleural Fluid No Growth After 72 Hours
Gram Stain - Final
09/04/24 00:59 Blood Culture - Final
Blood/Venous Enterococcus faecalis
Gram Stain - Final
09/05/24 16:22 Blood Culture - Final
Blood/Venous No Growth - Final Report
09/05/24 15:15 Blood Culture - Final
Blood/Venous No Growth - Final Report
09/03/24 19:19 Urine Culture - Final
Urine Enterococcus faecalis
09/04/24 00:59 Blood Culture - Final
Blood/Venous Enterococcus faecalis
Gram Stain - Final
09/03/24 21:47 Influenza Types A & B (MARINA) - Final
Nasal Swab Negative for Influenza A & B, NAAT
Negative results must be combined with clinical observations
and patient history.
Nucleic Acid Amplification test (NAAT)performed on the
[employer] platform.
Imaging:
09/13/24 CXR: Interstitial pulmonary edema. Moderate left and small right pleural effusions.
09/09/24 CXR: Confluent parenchymal opacity in the left lower lung has slightly increased from most recent radiograph, suggesting increase in atelectasis and/or pneumonia. Patchy parenchymal opacity within the left mid to lower lung is also increased,
suggesting increasing pneumonia. Small right pleural effusion. Stable mild parenchymal opacity within the right lower lung.
09/07/[address]: Moderate-sized RIGHT pleural effusion with adjacent right lower lobe atelectasis. Small left-sided pleural effusion with complete atelectasis of the left lower lobe. Proximal occlusion of the bronchus supplying the superior segment
of the left lower lobe.
09/03/24 CXR: Interstitial pulmonary edema with small bilateral pleural effusions. Bibasilar opacities may represent alveolar edema versus pneumonia.
[2024-09-15 09:49] LABS: B.E. 15.6 mmol/L; O2 Saturation % 97.1 % (94-98); PCO2 53 mmHg (35-48); PO2 76 mmHg (83-108)
[2024-09-15 09:54] LABS: HCO3 41.3 mmol/L (21-28)
--- NOTE | 2024-09-15 10:25 | CM ---
Patient from [facility] with Dx CHF s/p RHC 09/14, PNA & Pl Eff s/p thoracentesis 09/10, UTI & bacteremia. HFNC. Receiving PO Abx, Decadron. Per nurse; forgetful. Last able to be seen by PT 09/12; rec skilled rehab, OT rec skilled
rehab. ST - Dysphagia diet. Per nurse; forgetful.
Per prior CM patient was accepted by [facility] for rehab.
CM continuing to follow.
Plan follow patient's respiratory needs, clinical status & participation with PT/OT.
Plan possible [facility] SNF for rehab.
--- NOTE | 2024-09-15 10:39 | VATNOTE ---
L arm swelling increased from yesterday. Lower arm measuring 34 cm around. LUE measured 30 cm on 09/08 at time of midline insertion, now is at 33cm. U/S on 09/11/ was negative for DVT in L arm. TT sent to hospitalist and new U/S ordered for L arm. Will
continue to monitor.
[2024-09-15] MEDS: NOVOLOG FLEXPEN 5 UNITS SC ×2 (12:15→16:29)
[2024-09-15] MEDS: NOVOLOG FLEXPEN-MODERATE RESISTANCE 7 UNITS SC ×2 (12:15→16:29)
[2024-09-15 12:20] LABS: Glucose - Point of Care 305 mg/dl (70-99)
--- NOTE | 2024-09-15 12:26 | W.PN.NEPH.PH ---
Today's Communication / Plan
-
Diamox provided for contraction alkalosis with subsequent alkalemia
Oral Bumex provide with dose adjustment by cardiology
Follow-up BMP
Assessment/Plan
-
Impression:
SIMEON
Hyponatremia
CHF exacerbation with hypoxic respiratory failure
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
Enterococcus faecalis bacteremia secondary to UTI
COPD
AFIB
DM
Hypothyroidism
History of MGUS
Splenectomy
History of C. difficile
CAD
PACER
Plan:
SIMEON:
-Creatinine unchanged at 1.6 grossly nonoliguric around 2 L, weight is down
-Bumex at 2 mg p.o. twice daily right heart cath reviewed LVEDP ~18, cardiac index 2.1
-Likely secondary to congestive heart failure decompensation
-Patient clinically volume overloaded so maintain IV diuresis
-Check postvoid bladder scan to evaluate for obstructive process
-If creatinine continues to worsen we can withhold Entresto, currently hemodynamically stablwe
- fluid restriction for hyponatremia which is likely due to decompensated congestive heart failure and or SIADH due to underlying pulmonary process
- Contraction alkalosis likely with noted significant alkalemia by ABG this am
-will provide course of diamox
-follow bmp
-
-
Date of Service: September 15, 2024
CC / HPI / ROS
-
Chief Complaint:
SIMEON
History of Present Illness:
Creatinine unchanged at 1.6
Hemodynamically stable
Alkalemia noted by ABG
Review of Systems:
Remains on high flow O2
Nonoliguric
Upper extremity edema bilaterally
Labs
-
Labs:
WBC 25.3 10^3/uL (4.8-10.8) H 09/15/24 04:48
RBC 4.12 10^6/uL (4.70-6.10) L 09/15/24 04:48
Hgb 12.7 g/dL (13.0-18.0) L 09/15/24 04:48
Hct 37.5 % (39.0-52.0) L 09/15/24 04:48
Plt Count 424 10^3/uL (130-400) H 09/15/24 04:48
Sodium 132 mmol/L (135-145) L 09/15/24 04:48
Potassium 5.4 mmol/L (3.5-5.1) H 09/15/24 04:48
Chloride 86 mmol/L (98-107) L 09/15/24 04:48
Carbon Dioxide 40 mmol/L (22-30) H 09/15/24 04:48
BUN 55 mg/dl (9-20) H 09/15/24 04:48
Creatinine 1.6 mg/dL (0.7-1.3) H 09/15/24 04:48
eGFR 43.29 09/15/24 04:48
Glucose 200 mg/dl (70-99) H 09/15/24 04:48
Calcium 8.9 mg/dl (8.4-10.2) 09/15/24 04:48
Phosphorus 4.2 mg/dl (2.5-4.5) 09/15/24 04:48
Gxt-Y-Awmpcsyicha Pept 6470 pg/ml 09/14/24 10:30
Albumin 3.6 g/dl (3.5-5.0) 09/03/24 17:31
Physical Exam
-
Vital Signs:
Vital Signs
Temp Pulse Resp BP Pulse Ox
97.9 F 70 18 137/51 95
09/15/24 07:20 09/15/24 11:15 09/15/24 11:15 09/15/24 10:00 09/15/24 11:15
Cardiovascular:: Regular rate and rhythm
Respiratory:: Bilateral: Coarse
Lung Excursion:: Normal
Abdomen:: Nontender and Soft
Bowel Sounds:: Normal
Extremity Edema:: None: Bilateral:
Ty Catheter: No
[2024-09-15] MEDS: OCEAN, SALINE MIST NASAL (13:33)
--- NOTE | 2024-09-15 15:05 | PTCARENOTE ---
Pt's assessment as documented. Aox3. AV paced on tele monitor. O2 weaned as tolerated by RT. OOB to chair with PT. at bedside, updated on plan of care. Safe environment maintained.
[2024-09-15 16:19] LABS: Glucose - Point of Care 318 mg/dl (70-99)
--- NOTE | 2024-09-15 16:19 | PTCARENOTE ---
Pt for US of UE. Pt on HFNC, weaning as tolerated to MFNC. D/W Dr Hernandez; okay to hold on study until tomorrow morning.
[2024-09-15] MEDS: BUMEX 2 MG PO (16:30)
[2024-09-15] MEDS: DIAMOX 250 MG PO (16:30)
[2024-09-15] MEDS: ASPIR LOW (ENTERIC COATED) 81 MG PO (18:30)
[2024-09-15] MEDS: JANUVIA 100 MG PO (18:30)
[2024-09-15] MEDS: COREG PO (21:06)
[2024-09-15] MEDS: OCEAN, SALINE MIST 50 SPRAYS NASAL (21:09)
[2024-09-15] MEDS: XALATAN OPHTHALMIC SOLUTION 1 DROP BOTH EYES (21:09)
[2024-09-15] MEDS: NON-FORMULARY ITEM 1 DROP BOTH EYES (21:10)
[2024-09-15] MEDS: LANTUS 0.15 UNITS SC (21:28)
[2024-09-15 21:41] LABS: Glucose - Point of Care 192 mg/dl (70-99)
[2024-09-16] VITALS (20 sets, daily range): BP systolic 91–134; BP diastolic 26–98; PULSE 2–80; O2SAT 97; BMI 29.9
--- NOTE | 2024-09-16 01:19 | PTCARENOTE ---
Pt refusing to wear bipap. Switched back to MFNC.
[2024-09-16] MEDS: SYNTHROID 100 MCG PO (04:56)
[2024-09-16 05:34] LABS: Hematocrit 38.4 % (39.0-52.0); Hemoglobin 12.8 g/dL (13.0-18.0); Mean Corp Hgb Conc. 33.3 g/dL (33.0-37.0); Mean Corpuscular Hgb 30.2 pg (27.0-31.0); Mean Corpuscular Volume 90.6 fL (80.0-94.0); Mean Platelet Volume 10.8 fL (7.4-10.4); Platelet Count 450 10^3/uL (130-400); Red Blood Cell Count 4.24 10^6/uL (4.70-6.10); Red Cell Dist. Width 13.8 % (11.5-14.5); White Blood Cell Count 27.8 10^3/uL (4.8-10.8)
[2024-09-16 05:58] LABS: Blood Urea Nitrogen 53 mg/dl (9-20); Calcium 8.7 mg/dl (8.4-10.2); Chloride 89 mmol/L (98-107); Estimated Creatinine Clearance 36 ml/min; Glucose 123 mg/dl (70-99); Magnesium 2.3 mg/dl (1.6-2.3); Phosphorus 3.8 mg/dl (2.5-4.5); Potassium 4.2 mmol/L (3.5-5.1); Sodium 131 mmol/L (135-145); eGFR 37.58
[2024-09-16 06:18] LABS: Carbon Dioxide 37 mmol/L (22-30)
[2024-09-16] MEDS: PULMICORT 0.5 MG INH ×2 (07:26→21:17)
[2024-09-16] MEDS: DUONEB 3 ML INH ×4 (07:26→21:17)
[2024-09-16 08:22] LABS: Glucose - Point of Care 104 mg/dl (70-99)
[2024-09-16] MEDS: AUGMENTIN 875 MG/125 MG 1 TABLET PO ×2 (09:06→20:50)
[2024-09-16] MEDS: BUMEX 2 MG PO ×2 (09:07→15:34)
[2024-09-16] MEDS: DIAMOX 250 MG PO ×2 (09:07→21:00)
[2024-09-16] MEDS: ELIQUIS 2.5 MG PO ×2 (09:07→20:49)
[2024-09-16] MEDS: DELTASONE 40 MG PO (09:07)
[2024-09-16] MEDS: CLARITIN 10 MG PO (09:07)
[2024-09-16] MEDS: VIBRAMYCIN 100 MG PO ×2 (09:08→22:03)
[2024-09-16] MEDS: NOVOLOG FLEXPEN-MODERATE RESISTANCE SC (09:08)
[2024-09-16] MEDS: MUCINEX 600 MG PO ×2 (09:08→20:50)
[2024-09-16] MEDS: COREG PO ×2 (09:08→20:59)
[2024-09-16] MEDS: COLACE 100 MG PO ×2 (09:08→20:50)
[2024-09-16] MEDS: FIRVANQ 125 MG PO ×2 (09:08→20:49)
[2024-09-16] MEDS: NOVOLOG FLEXPEN 5 UNITS SC (09:09)
[2024-09-16] MEDS: OCEAN, SALINE MIST 2 SPRAYS NASAL ×3 (09:09→17:15)
[2024-09-16] MEDS: SIMBRINZA 1%-0.2% OPHTH SUSP 1 DROP BOTH EYES ×3 (09:10→20:47)
[2024-09-16] MEDS: PRED FORTE 1% EYE DROPS 1 DROP OPHTH ×2 (09:10→20:47)
[2024-09-16] MEDS: ENTRESTO 24 MG/26 MG 1 TAB PO ×2 (09:27→20:51)
--- NOTE | 2024-09-16 09:39 | W.PN.HOSP.TC ---
Today's Communication/Plan
-
see a/p
Assessment / Plan
Assessment / Plan
Physical Exam
General: no acute distress, appears comfortable
HEENT: NormoCephalic, Moist mucous membranes, on high flow nasal cannula
Respiratory: Coarse breath sounds b/l
Cardiac: S1/S2 and Regular Rhythm; No Tachycardia
GI: Soft, Non Tender, bowel sounds present
Musculoskeletal: No Clubbing, No Cyanosis, edema bilateral upper extremities Left > Right
Neuro: AOx3 conversant coherent
Psych: Calm and cooperative
79M CAD CHF afib DM MGUS COPD here for CHF exacerbation, high white count, suspected pneumonia, bacteremia d/t UTI.
Acute Hypoxic Respiratory Insufficiency multifactorial 2/2 to Heart Failure PNA and possibly COPD
Obstructive Sleep Apnea
Hypercapnia
- IV Decadron tapered to Prednisone as per Pulm
- Weaned off High Flow
- Chest x-ray 09/09 showed worsening left mid to lower lung field pneumonia, persistent but improved pulmonary edema
- Status post right thoracentesis 09/10 with 1.2 L out
- Unclear if this is due to some degree of aspiration, evaluated by YARN EXAMINER with no overt findings of aspiration, diet advanced per pt request, will cont to monitor
- ID eval appreciated cont Augmentin thru 09/18/24 Doxycycline thru 09/16/24 PO Vanco 125m mg BID Cdiff ppx thru 09/23/24
- Pulm eval appreciated ABG notes chronic CO2 obstruction PAP therapy recommended HS/PRN
Upper Ext Edema L>R
-elevate and ice LUE
-repeat Venous US and check arterial upper ext's appreciated no clots or significant stenosis
-MARY GRACE wrap compression therapy
Acute on Chronic HFrEF
- ECHO appreciated 30%
- Continue Entresto
- cont PO bumex as per nephro Cardio
- Cardio eval appreciated RHC performed 09/14/24 noted severe hypoxia out of proportion to filling pressures, respiratory failure suspected primarily respiratory driven
-maintain fluid and salt restriction
SIMEON
Metabolic Alkalosis
- Baseline 0.9 since increased to peak 1.8
- appears stable at 1.6 so far
- Nephro eval appreciated cont bumex diuresis, started on Diamox
Enterococcus bacteremia:
- Secondary to urinary tract infection
- Repeat cultures negative
- Continue treatment with Augmentin and doxycycline
- P.o. vancomycin for C. difficile prophylaxis while treating for bacteremia
- ID eval appreciated cont Augmentin thru 09/18/24 Doxycycline thru 09/16/24 PO Vanco 125m mg BID Cdiff ppx thru 09/23/24
Nasal Congestion
Persistent Coughing
- Continues to have intermittent coughing, some improvement in congestion
- mucinex, prn robitussin, incentive spirometer, acapella
- claritin, normal saline nasal spray QID
- steroids as above
- Protonix
Hyponatremia, suspect hypervolemic in nature in setting of heart failure
-Continue fluid restriction
-Monitor serial sodium levels
Significant Leukocytosis
- steroids likely contributing at this time
- Acute on chronic in the setting of Enterococcus faecalis bacteremia
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
- Heme-onc eval appreciated, flow cytometry negative, recommend outpatient follow-up
Possible Asthma / COPD exacerbation contributing
-Transitioned to Pulmicort and DuoNeb QID / PRN
-cont steroids as per Pulm
-Pulm eval appreciated
Coronary Artery Disease
-Continue aspirin
Paroxysmal Atrial Fibrillation
-Continue Eliquis
-Continue carvedilol for rate control
Diabetes Mellitus, Type II
-Continue Januvia
-Hold Nateglinide
-Monitor sugars, increased to moderate resistance sliding scale now that he is on steroids
- Novolog 3U AC Lantus 10U HS added d/t steroid induced hyperglycemia titrated up to 5U and 15U respectively
Essential Hypertension
-Continue carvedilol with hold parameters
-Bumex as above
Hypothyroidism
-Continue levothyroxine
MGUS
Hx Complete Heart Block s/p Pacemaker
Hx Pacer Lead Infection with Associated TESTER PRINTED CIRCUIT BOARDS Abscess / Liver Abscess and Spleen Infection
Hx C Diff Colitis
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
PT/OT appreciated SNF rehab
DVT proph: Eliquis
Code Status: DNR
Discussed with Patient and Patient's Maria D
I spent a total of 45 minutes with the patient or on the floor. More than 50% of this time involved counseling and coordination of care.
Anticipated Discharge: 24 - 48 hours
Subjective/Interval History
-
Date of Service: September 16, 2024
Seen and examined at bedside in no acute distress sitting up comfortably in bed. Oxygen supplemenation requirement continues to improve. No longer on high flow. Cough persists. Upper ext swelling b/l improving
Objective Data
-
Labs:
Laboratory Results
09/16/24
05:02
WBC 27.8 H
Hgb 12.8 L
Hct 38.4 L
Plt Count 450 H
Sodium 131 L
Potassium 4.2
Chloride 89 L
Carbon Dioxide 37 H
BUN 53 H
Creatinine 1.8 H
Glucose 123 H
Calcium 8.7
Vital Signs:
Vital Signs
Temp Pulse Resp BP Pulse Ox
98.6 F 73 16 105/38 97
09/16/24 03:20 09/16/24 09:27 09/16/24 07:28 09/16/24 09:27 09/16/24 07:28
I&O
09/15/24 09/16/24 09/17/24
06:59 06:59 06:59
Intake Total 480 / 480
Output Total 2150 / 2150 1450 / 1450
Balance -2149 / -2149 -970 / -970
--- NOTE | 2024-09-16 10:51 | W.PN.NEPH.PH ---
Today's Communication / Plan
-
diurese
Assessment/Plan
-
Impression:
SIMEON
Hyponatremia
CHF exacerbation with hypoxic respiratory failure
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
Enterococcus faecalis bacteremia secondary to UTI
COPD
AFIB
DM
Hypothyroidism
History of MGUS
Splenectomy
History of C. difficile
CAD
PACER
Plan:
follow BMP
continue IV bumex today
If Cr rises will need to hold diuresis and possibly hold entresto
-
-
Date of Service: September 16, 2024
CC / HPI / ROS
-
Chief Complaint:
SIMEON
History of Present Illness:
SIMEON/Cr up to 1.8
Hemodynamically stable
alkalosis lower 37 with diamox
diuresing with IV Bumex. net negative I/O though weights not reflective
BP remains low stable
Review of Systems:
Remains on high O2 requirements
Nonoliguric
no CP
Labs
-
Labs:
WBC 27.8 10^3/uL (4.8-10.8) H 09/16/24 05:02
RBC 4.24 10^6/uL (4.70-6.10) L 09/16/24 05:02
Hgb 12.8 g/dL (13.0-18.0) L 09/16/24 05:02
Hct 38.4 % (39.0-52.0) L 09/16/24 05:02
Plt Count 450 10^3/uL (130-400) H 09/16/24 05:02
Sodium 131 mmol/L (135-145) L 09/16/24 05:02
Potassium 4.2 mmol/L (3.5-5.1) 09/16/24 05:02
Chloride 89 mmol/L (98-107) L 09/16/24 05:02
Carbon Dioxide 37 mmol/L (22-30) H 09/16/24 05:02
BUN 53 mg/dl (9-20) H 09/16/24 05:02
Creatinine 1.8 mg/dL (0.7-1.3) H 09/16/24 05:02
eGFR 37.58 09/16/24 05:02
Glucose 123 mg/dl (70-99) H 09/16/24 05:02
Calcium 8.7 mg/dl (8.4-10.2) 09/16/24 05:02
Phosphorus 3.8 mg/dl (2.5-4.5) 09/16/24 05:02
Fgx-N-Socupjueftx Pept 6470 pg/ml 09/14/24 10:30
Albumin 3.6 g/dl (3.5-5.0) 09/03/24 17:31
Physical Exam
-
Vital Signs:
Vital Signs
Temp Pulse Resp BP Pulse Ox
97.6 F 73 16 105/38 97
09/16/24 07:25 09/16/24 09:27 09/16/24 07:28 09/16/24 09:27 09/16/24 07:28
Cardiovascular:: Regular rate and rhythm
Respiratory:: Bilateral: Coarse
Lung Excursion:: Normal
Abdomen:: Nontender and Soft
Bowel Sounds:: Normal
Extremity Edema:: +1: Bilateral:
--- NOTE | 2024-09-16 11:16 | W.PN.PUL3 ---
Today's Communication / Plan
-
Doing well, transitioned to 4L NC, this should improve as he rehabs, does not use O2 at home
Transitioned to PO prednisone and bumex
Continue nightly BIPAP
PT/OT evals, likely to need SNF
Discharge planning otherwise per team
Can follow up w/ OP pulmonary after rehab--follows Dr Mcdaniel/Jorge Alberto
Assessment
-
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
and XRT, history of pacemaker lead infection with associated HEALTH INFORMATION CLERK abscess with liver abscess and splenic infection, and C. diff who presents with weakness. Patient's had a cough for few weeks. Medrol Dosepak given to him without much improvement.
Patient is on inhalers as an outpatient for his asthma/COPD and was changed from Breo to Trelegy without improvement so now he is back to Breo. His cough is productive and he endorsed shortness of breath. Initially in the ER he was afebrile with
pulse rate 76, respiratory rate 24, BP 114/54 and saturating 73% on room air which improved to 91% with 6 L/min. Initial labs showed significant leukocytosis to 55.4, sodium 123, glucose 191, proBNP 3990, TSH 1.03, procalcitonin 0.36, and COVID-19
antigen negative. Urine culture collected and flu swab was negative. CXR showed interstitial pulmonary edema with small bilateral pleural effusions however unable to rule out pneumonia. He was given 60 mg IV Lasix in the ER and admitted to the
hospitalist service. Patient's hypoxia has persisted and he has required between 4-6 L/min since admission. Pulmonary service now consulted for additional management/recommendations.
Impression:
#Acute respiratory failure with hypoxia likely due to sepsis with acute organ dysfunction and acute decompensated heart failure in setting of asthma/COPD; unable to r/o component of pneumonia
#Sepsis due to UTI +/- pneumonia
#Enterococcus bacteremia
#Acute on chronic HFrEF exacerbation
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
CAD
Chronic heart failure (LVEF: 30% with global diffuse hypokinesis on TTE from 09/04/2024)
DM type II
Hypothyroidism
MGUS
History of asthma/COPD
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
History of asthma on Breo and prn albuterol
Paroxysmal A-fib on Eliquis
Complete heart block s/p pacemaker with history of pacemaker lead infection complicated by HEALTH INFORMATION CLERK + liver abscess and splenic infection s/p splenectomy
History of C. difficile infection
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
History of pacemaker lead infection with associated HEALTH INFORMATION CLERK abscess with liver abscess and splenic infection
Glaucoma
Plan:
Acute hypoxic respiratory failure, transitioned to midflow 4L NC
He does not use O2 at home but could be needing it
Hypoxia may be due to atelectasis, deconditioning
Will encouraged IS, OOB, aggressive PT
Eventual home O2 eval
Appearance on representation most consistent [facility] CHF exacerbation
s/p thora on L, 600mL removed
Cards re-eval requested, s/p RHC with wedge 18, PA mean 27--likely improved post thora/diuresis
Has history of EF 30%
proBNP 3990 -> 6470
Weight has been rising/falling as well, continue daily checks
Diuresis per team
Interventional radiology service consulted for left-sided thoracentesis for 09/14
Bilateral pleural effusion s/p right thoracentesis: 09/10/20246001-3487 cc of yellow pleural fluid.
Chest x-ray post 09/10/2024: Show improvement on right sided parenchymal abnormality. Some degree of heart failure pattern. No pneumothorax. Persistent left lower lobe opacity pneumonia/pleural effusion.
Send pleural fluid for culture, cytology, protein and LDH
pH 7.46 - wbc 600 - glu 188 - tp 4.2 - LDH 87 - amylase 33--no serum studies for comparison
Suspect pseudo exudate as the patient has been on diuretics
Culture negative, cyto remains pending
s/p L thora 09/14 for 600mL
Possible COPD exacerbation but less likely the predominant issue
Continue scheduled DuoNeb, IV Decadron and budesonide twice daily
Patient has been on anticoagulation-doubt thromboembolic event.
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
Continue nebulizers
Acapella device to aid with secretion clearance
Vest therapy
Takes Breo as an outpatient - -> continue budesonide and Duonebs for now with prn DuoNebs for any breakthrough symptoms (not currently bronchospastic)
Incentive spirometer encouraged q1hr while awake
Mucolytics
IV steroids since 09/10/2024 for bronchospasm-now resolved. Taper down today
Transitioned to PO prednisone today
ABG obtained with chronic Co2 retention, met alk--7.5/53/76/41
Has a history of LON but had not been using PAP
Continue nightly BIPAP as well
Bacteremia: Enterococcus faecalis in his blood and urine cultures; ID adjusting antibiotics. Transition to orals.
Persistent leukocytosis postsplenectomy. Afebrile.
Based on CAT scan patient also has likely pneumonia as well
Surveillance blood cultures on 09/05 show NGTD
Check sputum culture if patient can produce a decent sample-has not been able to produce
ID following
Continue aspiration precautions
Barium swallow without overt aspiration-but suspect intermittent microaspiration.
DVT ppx: Eliquis
Discussed with patient's at bedside. Reviewed advanced directives. DNR/DNI CODE STATUS confirmed
Updated care team/plan of care
Pulmonary service will continue to follow along.
Updated patient's at bedside
Upon discharge he will follow-up with Dr. Mcdaniel and Dr. 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
Data:
TTE 09/04/2024: TDS Definity used. Dilated LV with moderate to severely reduced systolic function. LVEF is approximately 30% by visual estimation. Global diffuse hypokinesis. Normal right ventricular size and function.
Mild tricuspid regurgitation. Estimated pulmonary artery pressure of 45 mmHg, right heart pressures were mildly elevated. No prior study available for comparison.
CXR 09/03/2024: Interstitial pulmonary edema with small bilateral pleural effusions. Bibasilar opacities may represent alveolar edema versus pneumonia.
CT Chest 09/07/24- Moderate right-sided pleural effusion with atelectasis within the right lower lobe. There is a small left-sided pleural effusion with complete atelectasis of the left lower lobe. There is a proximal occlusion of the bronchus
supplying the superior segment of the left lower lobe. There is a band of airspace consolidation/scarring within the right apex extending to the hilum. There also appears to be some scarring within the left apex. No nodules or masses appreciated.
There are several calcified densities within the atelectatic lower lobes.
Duplex 09/11/24- No sonographic evidence for LEFT upper extremity venous thrombosis.
Total time spent today was 51 minutes for this encounter. Time includes reviewing laboratory test/imaging results, reviewing pertinent medical records, obtaining and reviewing medical history, performing an appropriate exam, ordering medications,
tests and procedures. Time also includes documentation of this encounter, coordinating patient care and communicating with other healthcare professionals. Total time does not include separately billed tests performed on this date of service.
Subjective Data
-
Date of Service:
Date of Service: September 16, 2024
Chief Complaint: Pulmonary Follow Up
Subjective:
Improving, now on 4L NC, no new complaints
at bedside
Objective Data
Data Reviewed
Vital Signs / I&O / Oxygen:
Vital Signs
Temp Pulse Resp BP Pulse Ox
97.6 F 73 16 105/38 97
09/16/24 07:25 09/16/24 09:27 09/16/24 07:28 09/16/24 09:27 09/16/24 07:28
Intake and Output
09/15/24 09/16/24 09/17/24
06:59 06:59 06:59
Intake Total 480 / 480 360 / 360
Output Total 2150 / 2150 1450 / 1450
Balance -2150 / -2150 -970 / -970 360 / 360
SaO2 97
Nasal Cannula flow liters per 8
minute
Physical Exam
General: Respiratory Distress (negative), Comfortable, Chills (negative), Sweats (negative) and Poor Appetite
HEENT: Normocephalic, Anicteric and Moist Mucous Membranes
Cardiovascular: S1-S2, Regular Rhythm and Peripheral Edema (Bilateral 2+ UEs)
Respiratory: Crackles (Bilateral), Non-Labored Respirations, Accessory Resp Muscle Use (negative) and Stridor (negative)
GI: Soft, Non Distended, Non Tender and Normal Bowel Sounds
Neurology: Awake, Alert, Oriented, No Motor Deficits, Tremors (negative) and Other (Drowsy)
Skin: Warm, Dry and Jaundice (negative)
Labs/Micro/Reports
Lab Data
09/16/24 05:02
09/16/24 05:02
Microbiology
09/14/24 13:13 Pleural Fluid Body Fluid Culture - Preliminary
No Growth After 48 Hours
09/14/24 13:13 Pleural Fluid Gram Stain - Preliminary
09/10/24 15:18 Pleural Fluid Fungal Smear - Final
No yeast or fungal elements seen.
09/10/24 15:18 Pleural Fluid Fungal Culture - Preliminary
Culture in progress.
Positive cultures are reported as soon as detected.
Final report to follow in four to five weeks.
09/10/24 15:18 Pleural Fluid Body Fluid Culture - Final
No Growth After 72 Hours
09/10/24 15:18 Pleural Fluid Gram Stain - Final
--- NOTE | 2024-09-16 11:42 | CM ---
Patient from [facility] with Dx CHF s/p RHC 09/14, PNA & Pl Eff s/p thoracentesis 09/10, UTI & bacteremia. O2 8L. BiPAP. Receiving PO Abx. PT/OT rec skilled rehab. Per nurse; forgetful.
Met with patient and ; both are in agreement with patient going to [facility] at discharge and are aware that disposition is dependent on bed availability at time of d/c.
Spoke with Adm Marces [facility]; provided clinical update. They can accept patient when medically ready if rehab bed is available. SNF referral updated and resp/BiPAP notes included.
Plan follow patient's O2 and BiPAP needs.
Plan probable [facility] for rehab if bed available at time of d/c.
[2024-09-16] MEDS: NOVOLOG FLEXPEN-MODERATE RESISTANCE 1 UNITS SC (13:04)
[2024-09-16] MEDS: NOVOLOG FLEXPEN 3 UNITS SC ×2 (13:05→15:37)
[2024-09-16] MEDS: PROTONIX 40 MG PO ×2 (13:05→20:50)
[2024-09-16 13:15] LABS: Glucose - Point of Care 196 mg/dl (70-99)
--- NOTE | 2024-09-16 13:43 | W.PN.ID1 ---
Date of Service
Date of Service: September 16, 2024
Today's Communication
Continue Augmentin till 09/18 and po vanco till 09/23.
Assessment / Plan
# Enterococcus faecalis bacteremia x 2 sets drawn at the same time
# Symptomatic UTI, source of bacteremia
. Ucx (+) Enterococcus.
- hx of E. faecalis bacteruria 02/2024.
-TTE no gross vege
- 09/05 blood cx's neg. Bacteremia is not sustained.
--> Continue Augmentin 875mg po bid through 09/18/24.
# Acute hypoxemic resp failure
# Pleural effusions/interstitial edema, not cardiac source by RHC
- 09/09 Repeat CXR Patchy parenchymal opacity within the left mid to lower lung is also increased, suggesting increasing pneumonia.
- 09/13 Repeat CXR: interstitial edema, L>R pleural effsuion
- 09/14 RHC: not cardiac source of hypoxic respiratory failure
- 09/14 Left thoracentesis 600cc sero-sanguineous fluid
Left pleural fluid: transudative, cx neg x 48h
- Decreasing oxygen requirement; Pulm managing.
- Last day empiric doxycycline 100 mg po bid x 7d (through 09/16/24)
#Leukocytosis trended up
- Suspect secondary to steroids, which began on 09/10
# History of recurrent C. difficile
--> Continue po Vanco 125mg BID for C. diff prophylaxis while on systemic abx. Continue through 09/23
# Conditions DIRECTOR DESIGN
Diabetes mellitus
COPD
Hypertension
Hypothyroidism
Recurrent C. difficile
MGUS
CAD
HFrEF
PPM/AICD
Atrial fibrillation
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 Per bcx's neg.
Splenectomy (2020)
Brain abscess drainage (2020)
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
Chief Complaint
-: UTI and Bacteremia
Subjective / Review of Systems
Feeling somewhat better.
Vital Signs / Physical Exam
Vital Signs
Vital Signs
Temp Pulse Resp BP Pulse Ox
97.6 F 74 17 99/58 95
09/16/24 07:25 09/16/24 12:00 09/16/24 12:00 09/16/24 12:00 09/16/24 12:00
Physical Exam
Constitutional: No Acute Distress and Chronically Ill
Eyes: Sclera Anicteric
Pulmonary: Other (Left base decreased BS)
Gastrointestinal: Soft, Non Tender, Non Distended and Normal Bowel Sounds
Genito-Urinary: Negative CVA Tenderness
Extremities: Negative Edema
Neurological: AO x 3
Objective Data
Lab Data
Lab Results
09/16/24 05:02
09/16/24 05:02
PT 14.5 Sec (11.4-14.6) 09/08/24 15:08
INR 1.10 09/08/24 15:08
APTT 32.4 Sec (23.4-35.0) 09/08/24 15:08
Estimated Creat Clear 36 ml/min 09/16/24 05:02
Total Bilirubin 1.0 mg/dl (0.2-1.3) 09/03/24 17:31
AST 22 U/L (17-59) 09/03/24 17:31
ALT 16 U/L (0-50) 09/03/24 17:31
Alkaline Phosphatase 90 U/L (38-126) 09/03/24 17:31
Most recent labs reviewed.
Micro Results:
09/14/24 13:13 Body Fluid Culture - Preliminary
Pleural Fluid No Growth After 48 Hours
Gram Stain - Preliminary
09/10/24 15:18 Fungal Smear - Final
Pleural Fluid No yeast or fungal elements seen.
Fungal Culture - Preliminary
Culture in progress.
Positive cultures are reported as soon as detected.
Final report to follow in four to five weeks.
09/10/24 15:18 Body Fluid Culture - Final
Pleural Fluid No Growth After 72 Hours
Gram Stain - Final
09/04/24 00:59 Blood Culture - Final
Blood/Venous Enterococcus faecalis
Gram Stain - Final
09/05/24 16:22 Blood Culture - Final
Blood/Venous No Growth - Final Report
09/05/24 15:15 Blood Culture - Final
Blood/Venous No Growth - Final Report
09/03/24 19:19 Urine Culture - Final
Urine Enterococcus faecalis
09/04/24 00:59 Blood Culture - Final
Blood/Venous Enterococcus faecalis
Gram Stain - Final
09/03/24 21:47 Influenza Types A & B (MARINA) - Final
Nasal Swab Negative for Influenza A & B, NAAT
Negative results must be combined with clinical observations
and patient history.
Nucleic Acid Amplification test (NAAT)performed on the
[employer] platform.
Imaging:
09/13/24 CXR: Interstitial pulmonary edema. Moderate left and small right pleural effusions.
09/09/24 CXR: Confluent parenchymal opacity in the left lower lung has slightly increased from most recent radiograph, suggesting increase in atelectasis and/or pneumonia. Patchy parenchymal opacity within the left mid to lower lung is also increased,
suggesting increasing pneumonia. Small right pleural effusion. Stable mild parenchymal opacity within the right lower lung.
09/07/[address]: Moderate-sized RIGHT pleural effusion with adjacent right lower lobe atelectasis. Small left-sided pleural effusion with complete atelectasis of the left lower lobe. Proximal occlusion of the bronchus supplying the superior segment
of the left lower lobe.
09/03/24 CXR: Interstitial pulmonary edema with small bilateral pleural effusions. Bibasilar opacities may represent alveolar edema versus pneumonia.
[2024-09-16] MEDS: NOVOLOG FLEXPEN-MODERATE RESISTANCE 5 UNITS SC (15:36)
[2024-09-16 15:47] LABS: Glucose - Point of Care 287 mg/dl (70-99)
[2024-09-16] MEDS: JANUVIA 100 MG PO (17:15)
[2024-09-16] MEDS: ASPIR LOW (ENTERIC COATED) 81 MG PO (17:16)
--- NOTE | 2024-09-16 17:31 | PTCARENOTE ---
Patient able to sit in chair for almost 3 hours. Patient repositioned a few times as he became uncomfortable. Pt ate lunch in chair. at bedside most of late morning into evening and updated. Pt's b/l UE's still swollen. Results back and TT to
and advised he will put orders in for compression wraps. Assessment, care and VS as charted.
[2024-09-16] MEDS: XALATAN OPHTHALMIC SOLUTION 1 DROP BOTH EYES (20:47)
[2024-09-16] MEDS: NON-FORMULARY ITEM 1 DROP BOTH EYES (20:48)
[2024-09-16] MEDS: OCEAN, SALINE MIST 50 SPRAYS NASAL (20:49)
[2024-09-16 21:58] LABS: Glucose - Point of Care 297 mg/dl (70-99)
[2024-09-16] MEDS: LANTUS 0.1 UNITS SC (22:04)
[2024-09-16 22:22] LABS: IgA 156 mg/dL (68-408); IgG 1311 mg/dL (768-1632); IgM 236 mg/dL (35-263)
[2024-09-16 22:47] LABS: Albumin 3.08 g/dL (3.75-5.01); Alpha 1 Globulin 0.37 g/dL (0.19-0.46); Alpha 2 Globulin 0.65 g/dL (0.48-1.05); Monoclonal Protein 0.81 g/dL (<=0.00); SPEP IFE Reflex IFE Done
[2024-09-16] MEDS: TESSALON PERLES 200 MG PO (22:49)
[2024-09-17] VITALS (16 sets, daily range): BP systolic 88–138; BP diastolic 43–66; PULSE 66; O2SAT 91; BMI 30.4
--- NOTE | 2024-09-17 01:18 | PTCARENOTE ---
Assumed care of Pt from elias RN. Pt is AAOx3. 100X AV paced. HR 67. satting 96% on 4L. took hs pillls whole with apple sauce. G bath provided. assessment as documented. Call light in reach.
--- NOTE | 2024-09-17 01:25 | PTCARENOTE ---
Pt removed bipap by himself. entered room to the bipap laying in the bed. Pt educated on necessity of bipap while sleeping. Pt stated 'i dont care who the hell says it im not wearing it'. Pt placed back on 4L 02. satting 98%. denies SOB. RR 17. call
light in reach. RT notified.
[2024-09-17 05:46] LABS: Hematocrit 36.7 % (39.0-52.0); Hemoglobin 12.6 g/dL (13.0-18.0); Mean Corp Hgb Conc. 34.3 g/dL (33.0-37.0); Mean Corpuscular Hgb 30.7 pg (27.0-31.0); Mean Corpuscular Volume 89.3 fL (80.0-94.0); Mean Platelet Volume 10.7 fL (7.4-10.4); Platelet Count 439 10^3/uL (130-400); Red Blood Cell Count 4.11 10^6/uL (4.70-6.10); Red Cell Dist. Width 13.6 % (11.5-14.5); White Blood Cell Count 30.4 10^3/uL (4.8-10.8)
[2024-09-17 05:52] LABS: Blood Urea Nitrogen 48 mg/dl (9-20); Calcium 8.5 mg/dl (8.4-10.2); Carbon Dioxide 37 mmol/L (22-30); Chloride 91 mmol/L (98-107); Estimated Creatinine Clearance 38 ml/min; Glucose 224 mg/dl (70-99); Magnesium 2.2 mg/dl (1.6-2.3); Phosphorus 4.4 mg/dl (2.5-4.5); Potassium 3.7 mmol/L (3.5-5.1); Sodium 129 mmol/L (135-145); eGFR 40.25
[2024-09-17] MEDS: SYNTHROID 100 MCG PO (05:53)
[2024-09-17] MEDS: DUONEB 3 ML INH ×3 (07:44→20:05)
[2024-09-17] MEDS: PULMICORT 0.5 MG INH ×2 (07:45→20:05)
[2024-09-17] MEDS: PRED FORTE 1% EYE DROPS 1 DROP OPHTH ×2 (08:05→20:24)
[2024-09-17] MEDS: ENTRESTO 24 MG/26 MG 1 TAB PO (08:06)
[2024-09-17] MEDS: SIMBRINZA 1%-0.2% OPHTH SUSP 1 DROP BOTH EYES ×3 (08:06→20:24)
[2024-09-17] MEDS: COLACE 100 MG PO ×2 (08:06→20:23)
[2024-09-17] MEDS: DIAMOX 250 MG PO (08:07)
[2024-09-17] MEDS: COREG 12.5 MG PO (08:07)
[2024-09-17] MEDS: DELTASONE 40 MG PO (08:07)
[2024-09-17] MEDS: ELIQUIS 2.5 MG PO ×2 (08:07→20:23)
[2024-09-17] MEDS: CLARITIN 10 MG PO (08:07)
[2024-09-17] MEDS: BUMEX 2 MG PO ×2 (08:07→16:17)
[2024-09-17] MEDS: AUGMENTIN 875 MG/125 MG 1 TABLET PO ×2 (08:07→20:23)
[2024-09-17] MEDS: MUCINEX 600 MG PO (08:07)
[2024-09-17] MEDS: PROTONIX 40 MG PO ×2 (08:07→20:23)
--- NOTE | 2024-09-17 08:11 | W.PN.HOSP.TC ---
Today's Communication/Plan
-
steroid taper
glycemic control
wean O2 supplementation as tolerated
PT/OT
discharge planning SNF rehab
Entresto placed on hold, possibly contributing to chronic cough
Assessment / Plan
Assessment / Plan
Physical Exam
General: no acute distress, appears comfortable
HEENT: NormoCephalic, Moist mucous membranes, on high flow nasal cannula
Respiratory: Coarse breath sounds b/l
Cardiac: S1/S2 and Regular Rhythm; No Tachycardia
GI: Soft, Non Tender, bowel sounds present
Musculoskeletal: No Clubbing, No Cyanosis, edema bilateral upper extremities Left > Right
Neuro: AOx3 conversant coherent
Psych: Calm and cooperative
79M CAD CHF afib DM MGUS COPD here for CHF exacerbation, high white count, suspected pneumonia, bacteremia d/t UTI.
Acute Hypoxic Respiratory Insufficiency multifactorial 2/2 to Heart Failure PNA and possibly COPD
Obstructive Sleep Apnea
Hypercapnia
- IV Decadron tapered to Prednisone as per Pulm
- Weaned off High Flow, weaning down on oxygen supplementation
- Chest x-ray 09/09 showed worsening left mid to lower lung field pneumonia, persistent but improved pulmonary edema
- Status post right thoracentesis 09/10 with 1.2 L out
- evaluated by CASE FOLDER with no overt findings of aspiration, diet advanced per pt request, will cont to monitor
- ID eval appreciated cont Augmentin thru 09/18/24 Doxycycline thru 09/16/24 PO Vanco 125m mg BID Cdiff ppx thru 09/23/24
- Pulm eval appreciated ABG notes chronic CO2 obstruction PAP therapy recommended HS/PRN
Upper Ext Edema L>R
-elevate and ice LUE
-repeat Venous US and check arterial upper ext's appreciated no clots or significant stenosis
-MARY GRACE wrap compression therapy
Acute on Chronic HFrEF
- ECHO appreciated 30%
- Entresto placed on hold 09/17/24 possibly inducing chronic cough.
- cont PO bumex as per nephro Cardio
- Cardio eval appreciated RHC performed 09/14/24 noted severe hypoxia out of proportion to filling pressures, respiratory failure suspected primarily respiratory driven
-maintain fluid and salt restriction
SIMEON
Metabolic Alkalosis
- Baseline 0.9 since increased to peak 1.8
- appears stable at 1.6 so far
- Nephro eval appreciated cont bumex diuresis, started on Diamox
Enterococcus bacteremia:
- Secondary to urinary tract infection
- Repeat cultures negative
- Continue treatment with Augmentin and doxycycline
- P.o. vancomycin for C. difficile prophylaxis while treating for bacteremia
- ID eval appreciated cont Augmentin thru 09/18/24 Doxycycline thru 09/16/24 PO Vanco 125m mg BID Cdiff ppx thru 09/23/24
Nasal Congestion
Persistent Coughing
- Continues to have intermittent coughing, some improvement in congestion
- mucinex, prn robitussin, incentive spirometer, acapella
- claritin, normal saline nasal spray QID
- steroids as above
- Protonix
- Entresto placed on hold 09/17/24 possibly contributing to cough
Hyponatremia, suspect hypervolemic in nature in setting of heart failure
-Continue fluid restriction
-Monitor serial sodium levels
Significant Leukocytosis
- steroids likely contributing at this time
- Acute on chronic in the setting of Enterococcus faecalis bacteremia
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
- Heme-onc eval appreciated, flow cytometry negative, recommend outpatient follow-up
Possible Asthma / COPD exacerbation contributing
-Transitioned to Pulmicort and DuoNeb QID / PRN
-cont steroids as per Pulm
-Pulm eval appreciated
Coronary Artery Disease
-Continue aspirin
Paroxysmal Atrial Fibrillation
-Continue Eliquis
-Continue carvedilol for rate control
Diabetes Mellitus, Type II
-Continue Apruvia
-Hold Nateglinide
-Monitor sugars, increased to moderate resistance sliding scale now that he is on steroids
- Novolog 3U AC Lantus 10U HS added d/t steroid induced hyperglycemia titrated up to 7U and 20U respectively
Essential Hypertension
-Continue carvedilol with hold parameters
-Bumex as above
Hypothyroidism
-Continue levothyroxine
MGUS
Hx Complete Heart Block s/p Pacemaker
Hx Pacer Lead Infection with Associated SWATCH FOLDER Abscess / Liver Abscess and Spleen Infection
Hx C Diff Colitis
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
PT/OT appreciated SNF rehab
DVT proph: Eliquis
Code Status: DNR
Discussed with Patient and Patient's Maria D
I spent a total of 40 minutes with the patient or on the floor. More than 50% of this time involved counseling and coordination of care.
Anticipated Discharge: 24 - 48 hours
Subjective/Interval History
-
Date of Service: September 17, 2024
Cough persists. Oxygen requirment overall weaning down. Upper ext swelling improved on MARY GRACE wraps compression wrapping.
Objective Data
-
Labs:
Laboratory Results
09/17/24
05:21
WBC 30.4 H
Hgb 12.6 L
Hct 36.7 L
Plt Count 439 H
Sodium 129 L
Potassium 3.7
Chloride 91 L
Carbon Dioxide 37 H
BUN 48 H
Creatinine 1.7 H
Glucose 224 H
Calcium 8.5
Vital Signs:
Vital Signs
Temp Pulse Resp BP Pulse Ox
98.0 F 82 18 138/66 98
09/17/24 03:13 09/17/24 07:52 09/17/24 07:52 09/17/24 06:00 09/17/24 07:52
I&O
09/16/24 09/17/24 09/18/24
06:59 06:59 06:59
Intake Total 480 / 480 1260 / 1260
Output Total 1450 / 1450 1425 / 1425
Balance -970 / -970 -165 / -165
[2024-09-17 08:36] LABS: Glucose - Point of Care 204 mg/dl (70-99)
--- NOTE | 2024-09-17 08:56 | W.PN.PUL3 ---
Today's Communication / Plan
-
Doing well, weaned down to 3L NC
Home O2 eval eventually, or assess through rehab
Prednisone taper
Diuresis per team
Can likely transfer out of IMU
Discharge planning likely to SNF
We discussed OP FU upon discharge
No further recs at this time, we will sign off, please call with questions
Assessment
-
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 diff who presents with weakness. Patient's had a cough for few weeks. Medrol Dosepak given to him without much improvement.
Patient is on inhalers as an outpatient for his asthma/COPD and was changed from Breo to Trelegy without improvement so now he is back to Breo. His cough is productive and he endorsed shortness of breath. Initially in the ER he was afebrile with
pulse rate 76, respiratory rate 24, BP 114/54 and saturating 73% on room air which improved to 91% with 6 L/min. Initial labs showed significant leukocytosis to 55.4, sodium 123, glucose 191, proBNP 3990, TSH 1.03, procalcitonin 0.36, and COVID-19
antigen negative. Urine culture collected and flu swab was negative. CXR showed interstitial pulmonary edema with small bilateral pleural effusions however unable to rule out pneumonia. He was given 60 mg IV Lasix in the ER and admitted to the
hospitalist service. Patient's hypoxia has persisted and he has required between 4-6 L/min since admission. Pulmonary service now consulted for additional management/recommendations.
Impression:
#Acute respiratory failure with hypoxia likely due to sepsis with acute organ dysfunction and acute decompensated heart failure in setting of asthma/COPD; unable to r/o component of pneumonia
#Sepsis due to UTI +/- pneumonia
#Enterococcus bacteremia
#Acute on chronic HFrEF exacerbation
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
CAD
Chronic heart failure (LVEF: 30% with global diffuse hypokinesis on TTE from 09/04/2024)
DM type II
Hypothyroidism
MGUS
History of asthma/COPD
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
History of asthma on Breo and prn albuterol
Paroxysmal A-fib on Eliquis
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
History of C. difficile infection
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
Glaucoma
Plan:
Acute hypoxic respiratory failure, transitioned to midflow 3L NC
He does not use O2 at home but could be needing it
Hypoxia may be due to atelectasis, deconditioning
Encouraged IS, OOB, aggressive PT
Eventual home O2 eval
Appearance on representation most consistent wtih CHF exacerbation
s/p thora on L, 600mL removed
Cards re-eval requested, s/p RHC with wedge 18, PA mean 27--likely improved post thora/diuresis
Has history of EF 30%
proBNP 3990 -> 6470
Weight has been rising/falling as well, continue daily checks
Diuresis per team
Bilateral pleural effusion s/p R thoracentesis: 09/10/20244262-2077 cc of yellow pleural fluid.
Chest x-ray post 09/10/2024: Show improvement on right sided parenchymal abnormality. Some degree of heart failure pattern. No pneumothorax. Persistent left lower lobe opacity pneumonia/pleural effusion.
Send pleural fluid for culture, cytology, protein and LDH
pH 7.46 - wbc 600 - glu 188 - tp 4.2 - LDH 87 - amylase 33--no serum studies for comparison
Suspect pseudo exudate as the patient has been on diuretics
Culture negative, cyto remains pending
s/p L thora 09/14 for 600mL
Possible COPD exacerbation but less likely the predominant issue
Continue scheduled DuoNeb, IV Decadron and budesonide twice daily
Patient has been on anticoagulation-doubt thromboembolic event.
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
Continue nebulizers
Acapella device to aid with secretion clearance
Vest therapy
Takes Breo as an outpatient - -> continue budesonide and Duonebs for now with prn DuoNebs for any breakthrough symptoms (not currently bronchospastic)
Incentive spirometer encouraged q1hr while awake
Mucolytics
IV steroids since 09/10/2024 for bronchospasm-now resolved. Taper down today
Transitioned to PO prednisone --continue taper
ABG obtained with chronic Co2 retention, met alk--7.//41
Has a history of LON but had not been using PAP
Continue nightly BIPAP as well
Bacteremia: Enterococcus faecalis in his blood and urine cultures; ID adjusting antibiotics. Transition to orals.
Persistent leukocytosis postsplenectomy. Afebrile.
Based on CAT scan patient also has likely pneumonia as well
Surveillance blood cultures on 09/05 show NGTD
Check sputum culture if patient can produce a decent sample-has not been able to produce
ID following
Continue aspiration precautions
Barium swallow without overt aspiration-but suspect intermittent microaspiration.
DVT ppx: Eliquis
Discussed with patient's at bedside. Reviewed advanced directives. DNR/DNI CODE STATUS confirmed
Updated care team/plan of care
Pulmonary service will continue to follow along.
Updated patient's at bedside
Upon discharge he will follow-up with Dr. Mcdaniel and Dr. Azul primary refrigeration person.
Data:
TTE 09/04/2024: TDS Definity used. Dilated LV with moderate to severely reduced systolic function. LVEF is approximately 30% by visual estimation. Global diffuse hypokinesis. Normal right ventricular size and function.
Mild tricuspid regurgitation. Estimated pulmonary artery pressure of 45 mmHg, right heart pressures were mildly elevated. No prior study available for comparison.
CXR 09/03/2024: Interstitial pulmonary edema with small bilateral pleural effusions. Bibasilar opacities may represent alveolar edema versus pneumonia.
CT Chest 09/07/24- Moderate right-sided pleural effusion with atelectasis within the right lower lobe. There is a small left-sided pleural effusion with complete atelectasis of the left lower lobe. There is a proximal occlusion of the bronchus
supplying the superior segment of the left lower lobe. There is a band of airspace consolidation/scarring within the right apex extending to the hilum. There also appears to be some scarring within the left apex. No nodules or masses appreciated.
There are several calcified densities within the atelectatic lower lobes.
Duplex 09/11/24- No sonographic evidence for LEFT upper extremity venous thrombosis.
Total time spent today was 41 minutes for this encounter. Time includes reviewing laboratory test/imaging results, reviewing pertinent medical records, obtaining and reviewing medical history, performing an appropriate exam, ordering medications,
tests and procedures. Time also includes documentation of this encounter, coordinating patient care and communicating with other healthcare professionals. Total time does not include separately billed tests performed on this date of service.
Subjective Data
-
Date of Service:
Date of Service: September 17, 2024
Chief Complaint: Pulmonary Follow Up
Subjective:
No new complaints, remains on 3L NC
at bedside
Objective Data
Data Reviewed
Vital Signs / I&O / Oxygen:
Vital Signs
Temp Pulse Resp BP Pulse Ox
98.0 F 82 18 138/66 94
09/17/24 03:13 09/17/24 07:52 09/17/24 07:52 09/17/24 06:00 09/17/24 08:20
Intake and Output
09/16/24 09/17/24 09/18/24
06:59 06:59 06:59
Intake Total 480 / 480 1260 / 1260
Output Total 1450 / 1450 1425 / 1425
Balance -970 / -970 -165 / -165
SaO2 94
Nasal Cannula flow liters per 3
minute
Physical Exam
General: Respiratory Distress (negative), Comfortable, Chills (negative), Sweats (negative) and Poor Appetite
HEENT: Normocephalic, Anicteric and Moist Mucous Membranes
Cardiovascular: S1-S2, Regular Rhythm and Peripheral Edema (Bilateral 2+ UEs)
Respiratory: Crackles (Bilateral), Non-Labored Respirations, Accessory Resp Muscle Use (negative) and Stridor (negative)
GI: Soft, Non Distended, Non Tender and Normal Bowel Sounds
Neurology: Awake, Alert, Oriented, No Motor Deficits, Tremors (negative) and Other (Drowsy)
Skin: Warm, Dry and Jaundice (negative)
Labs/Micro/Reports
Lab Data
09/17/24 05:21
09/17/24 05:21
Microbiology
09/14/24 13:13 Pleural Fluid Body Fluid Culture - Preliminary
No Growth After 48 Hours
09/14/24 13:13 Pleural Fluid Gram Stain - Preliminary
09/10/24 15:18 Pleural Fluid Fungal Smear - Final
No yeast or fungal elements seen.
09/10/24 15:18 Pleural Fluid Fungal Culture - Preliminary
Culture in progress.
Positive cultures are reported as soon as detected.
Final report to follow in four to five weeks.
[2024-09-17] MEDS: OCEAN, SALINE MIST 2 SPRAYS NASAL ×2 (08:58→17:53)
[2024-09-17] MEDS: FIRVANQ 125 MG PO ×2 (08:58→20:23)
[2024-09-17] MEDS: NOVOLOG FLEXPEN 5 UNITS SC ×2 (08:59→11:46)
[2024-09-17] MEDS: NOVOLOG FLEXPEN-MODERATE RESISTANCE 3 UNITS SC (09:00)
--- NOTE | 2024-09-17 11:15 | W.PN.NEPH.PH ---
Today's Communication / Plan
-
bumex IV
Assessment/Plan
-
Impression:
SIMEON
Hyponatremia
CHF exacerbation with hypoxic respiratory failure
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
Enterococcus faecalis bacteremia secondary to UTI
COPD
AFIB
DM
Hypothyroidism
History of MGUS
Splenectomy
History of C. difficile
CAD
PACER
Plan:
follow BMP
continue IV bumex today for UE edema
If Cr rises will need to hold diuresis and possibly hold entresto
-
-
Date of Service: September 17, 2024
CC / HPI / ROS
-
Chief Complaint:
SIMEON
History of Present Illness:
SIMEON/Cr stable 1.7
Hemodynamically stable
alkalosis stable 37
diuresing with IV Bumex. net negative I/O though weights not reflective
BP remains low stable
WBC climbing 30
Review of Systems:
Remains on high O2 requirements
Nonoliguric
no CP
hand edema
Labs
-
Labs:
WBC 30.4 10^3/uL (4.8-10.8) H 09/17/24 05:21
RBC 4.11 10^6/uL (4.70-6.10) L 09/17/24 05:21
Hgb 12.6 g/dL (13.0-18.0) L 09/17/24 05:21
Hct 36.7 % (39.0-52.0) L 09/17/24 05:21
Plt Count 439 10^3/uL (130-400) H 09/17/24 05:21
Sodium 129 mmol/L (135-145) L 09/17/24 05:21
Potassium 3.7 mmol/L (3.5-5.1) 09/17/24 05:21
Chloride 91 mmol/L (98-107) L 09/17/24 05:21
Carbon Dioxide 37 mmol/L (22-30) H 09/17/24 05:21
BUN 48 mg/dl (9-20) H 09/17/24 05:21
Creatinine 1.7 mg/dL (0.7-1.3) H 09/17/24 05:21
eGFR 40.25 09/17/24 05:21
Glucose 224 mg/dl (70-99) H 09/17/24 05:21
Calcium 8.5 mg/dl (8.4-10.2) 09/17/24 05:21
Phosphorus 4.4 mg/dl (2.5-4.5) 09/17/24 05:21
Rxi-K-Xxwnabfhwig Pept 6470 pg/ml 09/14/24 10:30
Albumin 3.6 g/dl (3.5-5.0) 09/03/24 17:31
Physical Exam
-
Vital Signs:
Vital Signs
Temp Pulse Resp BP Pulse Ox
97.7 F 82 18 138/66 94
09/17/24 07:05 09/17/24 07:52 09/17/24 07:52 09/17/24 06:00 09/17/24 08:20
Cardiovascular:: Regular rate and rhythm
Respiratory:: Bilateral: Coarse
Lung Excursion:: Normal
Abdomen:: Nontender and Soft
Bowel Sounds:: Normal
Extremity Edema:: +2: Bilateral: (UE)
[2024-09-17] MEDS: NOVOLOG FLEXPEN-MODERATE RESISTANCE 5 UNITS SC ×2 (11:47→16:28)
[2024-09-17 11:56] LABS: Glucose - Point of Care 264 mg/dl (70-99)
--- NOTE | 2024-09-17 12:43 | CM ---
Patient seen at bedside IMU on O2 and sleeping. Patient for possible [facility] rehab pending medical treatment plan. Patient accepted at [facility] pending bed availability. CM will continue to follow for discharge planning needs.
Plan; SNF; [facility] home pending bed availability
[2024-09-17] MEDS: OCEAN, SALINE MIST NASAL (13:39)
--- NOTE | 2024-09-17 14:04 | PTCARENOTE ---
Pt's assessment as documented. Aox3. AV paced on tele monitor. Sating mid 90's on 4L. OOB to chair with PT. at bedside, updated on plan of care. Safe environment maintained.
[2024-09-17] MEDS: DUONEB INH (15:53)
[2024-09-17 16:01] LABS: Glucose - Point of Care 270 mg/dl (70-99)
[2024-09-17] MEDS: FLEXBUMIN 100 IV (16:13)
[2024-09-17 16:27] LABS: ALT (SGPT) 44 U/L (0-50); AST (SGOT) 20 U/L (17-59); Albumin 2.8 g/dl (3.5-5.0); Alkaline Phosphatase 73 U/L (38-126); Direct Bilirubin 0.4 mg/dl (0.0-0.4); Total Bilirubin 0.6 mg/dl (0.2-1.3); Total Protein 5.3 g/dl (6.3-8.2)
[2024-09-17] MEDS: NOVOLOG FLEXPEN 7 UNITS SC (16:28)
[2024-09-17] MEDS: ASPIR LOW (ENTERIC COATED) 81 MG PO (17:52)
[2024-09-17] MEDS: JANUVIA 100 MG PO (17:52)
[2024-09-17] MEDS: COREG PO (20:23)
[2024-09-17] MEDS: MUCINEX 1200 MG PO (20:23)
[2024-09-17] MEDS: XALATAN OPHTHALMIC SOLUTION 1 DROP BOTH EYES (20:24)
[2024-09-17] MEDS: NON-FORMULARY ITEM 1 DROP BOTH EYES (20:25)
[2024-09-17] MEDS: OCEAN, SALINE MIST 50 SPRAYS NASAL (20:25)
[2024-09-17 21:36] LABS: Glucose - Point of Care 246 mg/dl (70-99)
[2024-09-17] MEDS: LANTUS 0.2 UNITS SC (22:03)
[2024-09-18] VITALS (18 sets, daily range): BP systolic 89–130; BP diastolic 47–80; PULSE 73–82; BMI 29.2
--- NOTE | 2024-09-18 00:12 | RESPNOTE ---
PT is adamantly refusing to wear the BIPAP for HS use for tonight. He has worn the BIPAP the past few nights, but has only been on for about an hour tops, both nights. PT was told that wearing the BIPAP is in his best interest, but he declined
anyway. Machine remains on STBY at the BS.
[2024-09-18 04:44] LABS: Hematocrit 35.5 % (39.0-52.0); Hemoglobin 11.9 g/dL (13.0-18.0); Mean Corp Hgb Conc. 33.5 g/dL (33.0-37.0); Mean Corpuscular Hgb 30.2 pg (27.0-31.0); Mean Corpuscular Volume 90.1 fL (80.0-94.0); Mean Platelet Volume 11.1 fL (7.4-10.4); Platelet Count 426 10^3/uL (130-400); Red Blood Cell Count 3.94 10^6/uL (4.70-6.10); Red Cell Dist. Width 13.9 % (11.5-14.5); White Blood Cell Count 27.3 10^3/uL (4.8-10.8)
--- NOTE | 2024-09-18 04:59 | PTCARENOTE ---
pt remains on 4LNC, SaO2 96%. VSS. HS coreg held d/t soft bps. No c/o pain at this time. Pt appears much improved from previous shifts. Plan to continue to wean o2 as tolerated. Call shannon and belongings within reach. Care ongoing.
[2024-09-18 05:09] LABS: Blood Urea Nitrogen 42 mg/dl (9-20); Calcium 7.9 mg/dl (8.4-10.2); Carbon Dioxide 34 mmol/L (22-30); Chloride 97 mmol/L (98-107); Estimated Creatinine Clearance 38 ml/min; Glucose 124 mg/dl (70-99); Magnesium 2.1 mg/dl (1.6-2.3); Phosphorus 3.5 mg/dl (2.5-4.5); Potassium 3.5 mmol/L (3.5-5.1); Sodium 136 mmol/L (135-145); eGFR 46.77
[2024-09-18] MEDS: SYNTHROID 100 MCG PO (05:23)
--- NOTE | 2024-09-18 07:06 | W.PN.HOSP.TC ---
Today's Communication/Plan
-
downgrade to Tele
cont diuresis
resume Entresto
PT/OT
steroid taper
glycemic control
discharge planning SNF rehab
Assessment / Plan
Assessment / Plan
Physical Exam
General: no acute distress, appears comfortable
HEENT: NormoCephalic, Moist mucous membranes, on high flow nasal cannula
Respiratory: Coarse breath sounds b/l
Cardiac: S1/S2 and Regular Rhythm; No Tachycardia
GI: Soft, Non Tender, bowel sounds present
Musculoskeletal: No Clubbing, No Cyanosis, bilateral upper ext's edema improved
Neuro: AOx3 conversant coherent
Psych: Calm and cooperative
79M CAD CHF afib DM MGUS COPD here for CHF exacerbation, high white count, suspected pneumonia, bacteremia d/t UTI.
Acute Hypoxic Respiratory Insufficiency multifactorial 2/2 to Heart Failure PNA and possibly COPD
Obstructive Sleep Apnea
Hypercapnia
Bilateral pleural effusion
- IV Decadron tapered to Prednisone, cont taper reduce dose 10 mg after every 3rd dose
- Weaned off High Flow, eventually weaned off oxygen supplementation, stable respiratory status on room air.
- Chest x-ray 09/09 showed worsening left mid to lower lung field pneumonia, persistent but improved pulmonary edema
- Status post right thoracentesis 09/10 with 1.2 L out
- Status post left thoracentesis 09/14 with 600 cc out
- Pleural fluid cultures neg for growth, path study neg for malignancy
- evaluated by TECHNICIAN TRAINEE with no overt findings of aspiration, diet advanced tolerating
- ID eval appreciated cont Augmentin thru 09/18/24 Doxycycline thru 09/16/24 PO Vanco 125m mg BID Cdiff ppx thru 09/23/24
- Pulm eval appreciated ABG notes chronic CO2 obstruction PAP therapy recommended HS/PRN
Upper Ext Edema L>R
-elevate and ice LUE
-repeat Venous US and check arterial upper ext's appreciated no clots or significant stenosis
-MARY GRACE wrap compression therapy
-swelling since improved
Acute on Chronic HFrEF
- ECHO appreciated 30%
- Entresto placed on hold 09/17/24 possibly inducing chronic cough.
- cont PO bumex as per nephro Cardio
- Cardio eval appreciated RHC performed 09/14/24 noted severe hypoxia out of proportion to filling pressures, respiratory failure suspected primarily respiratory driven
- maintain fluid and salt restriction
SIMEON
Metabolic Alkalosis
- Baseline 0.9 since increased to peak 1.8
- trended down to 1.5
- Nephro eval appreciated cont bumex diuresis, completed a course of Diamox
Enterococcus bacteremia:
- Secondary to urinary tract infection
- Repeat cultures negative
- Continue treatment with Augmentin and doxycycline
- PO vancomycin for C. difficile prophylaxis while treating for bacteremia
- ID eval appreciated cont Augmentin thru 09/18/24 Doxycycline thru 09/16/24 PO Vanco 125m mg BID Cdiff ppx thru 09/23/24
Nasal Congestion
Persistent Coughing
- Continues to have intermittent coughing, some improvement in congestion
- mucinex, prn robitussin, incentive spirometer, acapella
- claritin, normal saline nasal spray QID
- steroids as above
- Protonix
- Entresto placed on hold 09/17/24 possibly contributing to cough, no improvement noted however, since resumed
Hyponatremia, suspect hypervolemic in nature in setting of heart failure
-Continue fluid restriction
-Monitor serial sodium levels
Significant Leukocytosis
- steroids likely contributing at this time
- Acute on chronic in the setting of Enterococcus faecalis bacteremia
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
- Heme-onc eval appreciated, flow cytometry negative, recommend outpatient follow-up
Possible Asthma / COPD exacerbation contributing
-Transitioned to Pulmicort and DuoNeb QID / PRN
-cont steroids as per Pulm
-Pulm eval appreciated
Coronary Artery Disease
-Continue aspirin
Paroxysmal Atrial Fibrillation
-Continue Eliquis
-Continue carvedilol for rate control
Diabetes Mellitus, Type II
-Continue Januvia
-Hold Nateglinide
-Monitor sugars, increased to moderate resistance sliding scale now that he is on steroids
- Novolog 3U AC Lantus 10U HS added d/t steroid induced hyperglycemia titrated up to 7U and 20U respectively
Essential Hypertension
-Continue carvedilol with hold parameters
-Bumex as above
Hypothyroidism
-Continue levothyroxine
MGUS
Hx Complete Heart Block s/p Pacemaker
Hx Pacer Lead Infection with Associated HUMAN RESOURCES OPERATIONS SPECIALIST Abscess / Liver Abscess and Spleen Infection
Hx C Diff Colitis
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
PT/OT appreciated SNF rehab
DVT proph: Eliquis
Code Status: DNR
Medically stable for downgrade to Tele
Discussed with Patient and Patient's Maria D
I spent a total of 40 minutes with the patient or on the floor. More than 50% of this time involved counseling and coordination of care.
Anticipated Discharge: 24 - 48 hours
Subjective/Interval History
-
Date of Service: September 18, 2024
Significantly improved, weaned off oxygen supplementation, stable respiratory status on room air. Reports cough persistent, no worse or better, otherwise appears comfortable.
Objective Data
-
Labs:
Laboratory Results
09/18/24
03:56
WBC 27.3 H
Hgb 11.9 L
Hct 35.5 L
Plt Count 426 H
Sodium 136
Potassium 3.5
Chloride 97 L
Carbon Dioxide 34 H
BUN 42 H
Creatinine 1.5 H
Glucose 124 H
Calcium 7.9 L
Vital Signs:
Vital Signs
Temp Pulse Resp BP Pulse Ox
97.4 F 69 18 130/65 97
09/18/24 03:54 09/18/24 04:00 09/18/24 04:00 09/18/24 04:00 09/18/24 04:00
I&O
09/17/24 09/18/24 09/19/24
06:59 06:59 06:59
Intake Total 1260 / 1260 240 / 240
Output Total 1425 / 1425 2200 / 2200
Balance -165 / -165 -1960 / -1960
[2024-09-18] MEDS: DUONEB 3 ML INH ×4 (07:15→19:33)
[2024-09-18] MEDS: PULMICORT 0.5 MG INH ×2 (07:15→19:33)
--- NOTE | 2024-09-18 08:22 | W.PN.NEPH.PH ---
Today's Communication / Plan
-
Maintain oral MARY GRACE
Assessment/Plan
-
Impression:
SIMEON
Hyponatremia
CHF exacerbation with hypoxic respiratory failure
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
Enterococcus faecalis bacteremia secondary to UTI
COPD
AFIB
DM
Hypothyroidism
History of MGUS
Splenectomy
History of C. difficile
CAD
PACER
Plan:
Creatinine down to 1.5
follow BMP
On p.o. Bumex 2 mg twice a day
-
-
Date of Service: September 18, 2024
CC / HPI / ROS
-
Chief Complaint:
SIMEON
History of Present Illness:
SIMEON/Cr stable 1.5
Hemodynamically stable
alkalosis stable 34
BP remains low stable
Review of Systems:
Remains on high O2 requirements
Nonoliguric and weights down
no CP
hand edema
Labs
-
Labs:
WBC 27.3 10^3/uL (4.8-10.8) H 09/18/24 03:56
RBC 3.94 10^6/uL (4.70-6.10) L 09/18/24 03:56
Hgb 11.9 g/dL (13.0-18.0) L 09/18/24 03:56
Hct 35.5 % (39.0-52.0) L 09/18/24 03:56
Plt Count 426 10^3/uL (130-400) H 09/18/24 03:56
Sodium 136 mmol/L (135-145) 09/18/24 03:56
Potassium 3.5 mmol/L (3.5-5.1) 09/18/24 03:56
Chloride 97 mmol/L (98-107) L 09/18/24 03:56
Carbon Dioxide 34 mmol/L (22-30) H 09/18/24 03:56
BUN 42 mg/dl (9-20) H 09/18/24 03:56
Creatinine 1.5 mg/dL (0.7-1.3) H 09/18/24 03:56
eGFR 46.77 09/18/24 03:56
Glucose 124 mg/dl (70-99) H 09/18/24 03:56
Calcium 7.9 mg/dl (8.4-10.2) L 09/18/24 03:56
Phosphorus 3.5 mg/dl (2.5-4.5) 09/18/24 03:56
Uuw-L-Vdltmmzznmj Pept 6470 pg/ml 09/14/24 10:30
Albumin 2.8 g/dl (3.5-5.0) L 09/17/24 05:21
Physical Exam
-
Vital Signs:
Vital Signs
Temp Pulse Resp BP Pulse Ox
97.4 F 67 16 112/51 92
09/18/24 03:54 09/18/24 07:48 09/18/24 07:48 09/18/24 06:00 09/18/24 07:48
Cardiovascular:: Regular rate and rhythm
Respiratory:: Bilateral: Coarse
Lung Excursion:: Normal
Abdomen:: Nontender and Soft
Bowel Sounds:: Normal
Extremity Edema:: +2: Bilateral: (UE)
Ty Catheter: No
[2024-09-18 08:46] LABS: Glucose - Point of Care 100 mg/dl (70-99)
[2024-09-18] MEDS: NOVOLOG FLEXPEN-MODERATE RESISTANCE SC ×2 (09:00→12:15)
[2024-09-18] MEDS: NOVOLOG FLEXPEN 7 UNITS SC ×3 (09:37→16:35)
[2024-09-18] MEDS: AUGMENTIN 875 MG/125 MG 1 TABLET PO ×2 (09:37→19:17)
[2024-09-18] MEDS: CLARITIN 10 MG PO (09:37)
[2024-09-18] MEDS: FIRVANQ 125 MG PO ×2 (09:37→19:17)
[2024-09-18] MEDS: PROTONIX 40 MG PO ×2 (09:38→19:15)
[2024-09-18] MEDS: DELTASONE 40 MG PO (09:38)
[2024-09-18] MEDS: ELIQUIS 2.5 MG PO ×2 (09:38→19:17)
[2024-09-18] MEDS: COLACE 100 MG PO ×2 (09:38→19:17)
[2024-09-18] MEDS: MUCINEX 1200 MG PO ×2 (09:38→19:15)
[2024-09-18] MEDS: OCEAN, SALINE MIST 2 SPRAYS NASAL ×4 (09:41→21:40)
[2024-09-18] MEDS: COREG PO (09:42)
[2024-09-18] MEDS: BUMEX 2 MG PO ×2 (09:42→16:35)
[2024-09-18] MEDS: PRED FORTE 1% EYE DROPS 1 DROP OPHTH ×2 (09:42→19:18)
[2024-09-18] MEDS: SIMBRINZA 1%-0.2% OPHTH SUSP 1 DROP BOTH EYES ×3 (09:43→21:39)
[2024-09-18 12:26] LABS: Glucose - Point of Care 140 mg/dl (70-99)
--- NOTE | 2024-09-18 13:37 | CM ---
Addendum entered by Ana Paula Crawford 09/18/24 15:47:
Patient has been accepted at [facility] and there is a bed available for patient on 09/20/24, patient is refusing BIPAP at hospital and uses a CPAP in home, plan is for patient to bring his own CPAP machine to [facility]. Patient will need
COVID testing.
[facility] skilled
Report [phone]

Original Note:
Chart reviewed and per updated physician notes patient could be cleared for discharge over the weekend plan is for skilled placement and patient and family have selected [facility], message left for admissions at [facility] to check on a bed for
patient. Patient will need exit COVID test.
Plan; Waiting on a determination from admissions at [facility].
--- NOTE | 2024-09-18 13:57 | PTCARENOTE ---
Patient sent for CXR.
--- NOTE | 2024-09-18 14:23 | W.PN.ID1 ---
Date of Service
Date of Service: September 18, 2024
Today's Communication
- Last day of Augmentin.
-Continue po Vanco 125mg BID for C. diff prophylaxis through 09/23
- ID will sign off
Assessment / Plan
# Enterococcus faecalis bacteremia x 2 sets drawn at the same time
# Symptomatic UTI, source of bacteremia
. Ucx (+) Enterococcus.
- hx of E. faecalis bacteruria 02/2024.
-TTE no gross vege
- 09/05 blood cx's neg. Bacteremia is not sustained.
- Last day of Augmentin 875mg po bid through today 09/18/24.
# History of recurrent C. difficile
-Continue po Vanco 125mg BID for C. diff prophylaxis through 09/23
# Acute hypoxemic resp failure
# Pleural effusions/interstitial edema, not cardiac source by RHC
- 09/09 Repeat CXR Patchy parenchymal opacity within the left mid to lower lung is also increased, suggesting increasing pneumonia.
- 09/13 Repeat CXR: interstitial edema, L>R pleural effsuion
- 09/14 RHC: not cardiac source of hypoxic respiratory failure
- 09/14 Left thoracentesis 600cc sero-sanguineous fluid
Left pleural fluid: transudative, cx neg
- Decreasing oxygen requirement; Pulm managing.
- s/p empiric doxycycline 100 mg po bid x 7d
#Leukocytosis
- trending down with tapering of steroid
ID will sign off.
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
Diabetes mellitus
COPD
Hypertension
Hypothyroidism
Recurrent C. difficile
MGUS
CAD
HFrEF
PPM/AICD
Atrial fibrillation
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 Per bcx's neg.
Splenectomy (2020)
Brain abscess drainage (2020)
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
Chief Complaint
-: UTI and Bacteremia
Vital Signs / Physical Exam
Vital Signs
Vital Signs
Temp Pulse Resp BP Pulse Ox
97.9 F 75 19 101/60 92
09/18/24 10:55 09/18/24 12:05 09/18/24 12:05 09/18/24 12:05 09/18/24 12:05
Physical Exam
Constitutional: No Acute Distress and Comfortable
Pulmonary: Other (Decreased BS at bases)
Gastrointestinal: Soft, Non Tender, Non Distended and Normal Bowel Sounds
Neurological: AO x 3
Objective Data
Lab Data
Lab Results
09/18/24 03:56
09/18/24 03:56
PT 14.5 Sec (11.4-14.6) 09/08/24 15:08
INR 1.10 09/08/24 15:08
APTT 32.4 Sec (23.4-35.0) 09/08/24 15:08
Estimated Creat Clear 38 ml/min 09/18/24 03:56
Total Bilirubin 0.6 mg/dl (0.2-1.3) 09/17/24 05:21
AST 20 U/L (17-59) 09/17/24 05:21
ALT 44 U/L (0-50) 09/17/24 05:21
Alkaline Phosphatase 73 U/L (38-126) 09/17/24 05:21
Most recent labs reviewed.
Micro Results:
09/14/24 13:13 Body Fluid Culture - Final
Pleural Fluid No Growth After 72 Hours
Gram Stain - Final
09/10/24 15:18 Fungal Smear - Final
Pleural Fluid No yeast or fungal elements seen.
Fungal Culture - Preliminary
Culture in progress.
Positive cultures are reported as soon as detected.
Final report to follow in four to five weeks.
09/10/24 15:18 Body Fluid Culture - Final
Pleural Fluid No Growth After 72 Hours
Gram Stain - Final
09/04/24 00:59 Blood Culture - Final
Blood/Venous Enterococcus faecalis
Gram Stain - Final
09/05/24 16:22 Blood Culture - Final
Blood/Venous No Growth - Final Report
09/05/24 15:15 Blood Culture - Final
Blood/Venous No Growth - Final Report
09/03/24 19:19 Urine Culture - Final
Urine Enterococcus faecalis
09/04/24 00:59 Blood Culture - Final
Blood/Venous Enterococcus faecalis
Gram Stain - Final
09/03/24 21:47 Influenza Types A & B (MARINA) - Final
Nasal Swab Negative for Influenza A & B, NAAT
Negative results must be combined with clinical observations
and patient history.
Nucleic Acid Amplification test (NAAT)performed on the
[employer] platform.
Imaging:
09/13/24 CXR: Interstitial pulmonary edema. Moderate left and small right pleural effusions.
09/09/24 CXR: Confluent parenchymal opacity in the left lower lung has slightly increased from most recent radiograph, suggesting increase in atelectasis and/or pneumonia. Patchy parenchymal opacity within the left mid to lower lung is also increased,
suggesting increasing pneumonia. Small right pleural effusion. Stable mild parenchymal opacity within the right lower lung.
09/07/[address]: Moderate-sized RIGHT pleural effusion with adjacent right lower lobe atelectasis. Small left-sided pleural effusion with complete atelectasis of the left lower lobe. Proximal occlusion of the bronchus supplying the superior segment
of the left lower lobe.
09/03/24 CXR: Interstitial pulmonary edema with small bilateral pleural effusions. Bibasilar opacities may represent alveolar edema versus pneumonia.
[2024-09-18 15:39] LABS: Glucose - Point of Care 166 mg/dl (70-99)
[2024-09-18] MEDS: NOVOLOG FLEXPEN-MODERATE RESISTANCE 1 UNITS SC (16:35)
[2024-09-18] MEDS: ASPIR LOW (ENTERIC COATED) 81 MG PO (17:42)
[2024-09-18] MEDS: JANUVIA 100 MG PO (17:42)
[2024-09-18] MEDS: ROBITUSSIN 200 MG PO (19:14)
[2024-09-18] MEDS: ENTRESTO 24 MG/26 MG 1 TAB PO (19:15)
[2024-09-18] MEDS: COREG 12.5 MG PO (19:17)
[2024-09-18] MEDS: LANTUS 0.2 UNITS SC (21:37)
[2024-09-18] MEDS: NON-FORMULARY ITEM 1 DROP BOTH EYES (21:38)
[2024-09-18] MEDS: XALATAN OPHTHALMIC SOLUTION 1 DROP BOTH EYES (21:40)
[2024-09-19] VITALS (10 sets, daily range): BP systolic 84–124; BP diastolic 43–90; BMI 29.3
[2024-09-19] MEDS: TESSALON PERLES 200 MG PO ×2 (00:18→07:58)
--- NOTE | 2024-09-19 00:37 | PTCARENOTE ---
BP 84/52. HR 76. Pt received Coreg at HS and is on Bumex BID. Pt asymptomatic. Juanita VILLEDA TT'd and made aware. For now will continue to monitor.
[2024-09-19] MEDS: ROBITUSSIN 200 MG PO ×2 (03:24→11:50)
[2024-09-19] MEDS: SYNTHROID 100 MCG PO (05:26)
--- NOTE | 2024-09-19 07:08 | W.PN.HOSP.TC ---
Today's Communication/Plan
-
glycemic control
prednisone taper
Benadryl bedtime
PT/OT
discharge planning SNF rehab
Assessment / Plan
Assessment / Plan
Physical Exam
General: no acute distress, appears comfortable
HEENT: NormoCephalic, Moist mucous membranes, on high flow nasal cannula
Respiratory: Coarse breath sounds b/l
Cardiac: S1/S2 and Regular Rhythm; No Tachycardia
GI: Soft, Non Tender, bowel sounds present
Musculoskeletal: No Clubbing, No Cyanosis, bilateral upper ext's edema improved
Neuro: AOx3 conversant coherent
Psych: Calm and cooperative
79M CAD CHF afib DM MGUS COPD here for CHF exacerbation, high white count, suspected pneumonia, bacteremia d/t UTI.
Acute Hypoxic Respiratory Insufficiency multifactorial 2/2 to Heart Failure PNA and possibly COPD
Obstructive Sleep Apnea
Hypercapnia
Bilateral pleural effusion
- IV Decadron tapered to Prednisone, cont taper reduce dose 10 mg after every 3rd dose
- Weaned off High Flow, eventually weaned off oxygen supplementation, stable respiratory status on room air.
- Chest x-ray 09/09 showed worsening left mid to lower lung field pneumonia, persistent but improved pulmonary edema
- Status post right thoracentesis 09/10 with 1.2 L out
- Status post left thoracentesis 09/14 with 600 cc out
- Pleural fluid cultures neg for growth, path study neg for malignancy
- evaluated by CAFETERIA TEAM LEADER with no overt findings of aspiration, diet advanced tolerating
- abx as per ID
- Pulm eval appreciated ABG notes chronic CO2 obstruction PAP therapy recommended HS/PRN
Upper Ext Edema L>R
-elevate and ice LUE
-repeat Venous US and check arterial upper ext's appreciated no clots or significant stenosis
-MARY GRACE wrap compression therapy
-swelling since improved
Acute on Chronic HFrEF
- ECHO appreciated 30%
- Entresto placed on hold 09/17/24 possibly inducing chronic cough.
- cont PO bumex as per nephro Cardio
- Cardio eval appreciated RHC performed 09/14/24 noted severe hypoxia out of proportion to filling pressures, respiratory failure suspected primarily respiratory driven
- maintain fluid and salt restriction
SIMEON
Metabolic Alkalosis
- Baseline 0.9 since increased to peak 1.8
- trended down to 1.5
- Nephro eval appreciated cont bumex diuresis, completed a course of Diamox
Enterococcus bacteremia:
- Secondary to urinary tract infection
- Repeat cultures negative
- Continue treatment with Augmentin and doxycycline
- PO vancomycin for C. difficile prophylaxis while treating for bacteremia
- ID eval appreciated completed Augmentin thru 09/18/24 Doxycycline thru 09/16/24, PO Vanco 125m mg BID Cdiff ppx to cont thru 09/23/24
Nasal Congestion
Persistent Coughing
- Continues to have intermittent coughing, some improvement in congestion
- mucinex, prn robitussin, incentive spirometer, acapella
- normal saline nasal spray QID
- steroids as above
- Protonix
- Claritin switched to benadryl bedtime
Hyponatremia, suspect hypervolemic in nature in setting of heart failure
-Continue fluid restriction
-Monitor serial sodium levels
Significant Leukocytosis
- steroids likely contributing at this time
- Acute on chronic in the setting of Enterococcus faecalis bacteremia
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
- Heme-onc eval appreciated, flow cytometry negative, recommend outpatient follow-up
Possible Asthma / COPD exacerbation contributing
-Transitioned to Pulmicort and DuoNeb QID / PRN
-cont steroids as per Pulm
-Pulm eval appreciated
Coronary Artery Disease
-Continue aspirin
Paroxysmal Atrial Fibrillation
-Continue Eliquis
-Continue carvedilol for rate control
Diabetes Mellitus, Type II
-Continue Januvia
-Hold Nateglinide
-Monitor sugars, increased to moderate resistance sliding scale now that he is on steroids
- Novolog 3U AC Lantus 10U HS added d/t steroid induced hyperglycemia titrated up to 7U and 20U respectively
Essential Hypertension
-Continue carvedilol and Entresto with hold parameters, coreg dose reduced with episodic low pressures/borderline hypotensive
-Bumex as above
Hypothyroidism
-Continue levothyroxine
MGUS
Hx Complete Heart Block s/p Pacemaker
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
Hx C Diff Colitis
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
PT/OT appreciated SNF rehab
DVT proph: Eliquis
Code Status: DNR
Discussed with Patient and Patient's Maria D
I spent a total of 40 minutes with the patient or on the floor. More than 50% of this time involved counseling and coordination of care.
Anticipated Discharge: 24 - 48 hours
Subjective/Interval History
-
Date of Service: September 19, 2024
Reports persistent cough, poor sleep d/t persistent cough. Otherwise appears comfortable at rest sitting up in bed. Stable respiratory status on room air.
Objective Data
-
Labs:
Laboratory Results
09/19/24
06:00
WBC Pending
Hgb Pending
Hct Pending
Plt Count Pending
Sodium Pending
Potassium Pending
Chloride Pending
Carbon Dioxide Pending
BUN Pending
Creatinine Pending
Glucose Pending
Calcium Pending
Vital Signs:
Vital Signs
Temp Pulse Resp BP Pulse Ox
98.1 F 65 22 101/66 90
09/18/24 23:42 09/19/24 06:00 09/18/24 22:00 09/19/24 04:00 09/19/24 06:00
I&O
09/18/24 09/19/24 09/20/24
06:59 06:59 06:59
Intake Total 240 / 240 1340 / 1340
Output Total 2200 / 2200 1750 / 1750
Balance -1960 / -1960 -410 / -410
[2024-09-19] MEDS: PULMICORT 0.5 MG INH ×2 (07:37→19:13)
[2024-09-19] MEDS: DUONEB 3 ML INH ×4 (07:37→19:13)
[2024-09-19] MEDS: NOVOLOG FLEXPEN-MODERATE RESISTANCE SC ×2 (07:43→11:46)
[2024-09-19] MEDS: NOVOLOG FLEXPEN 7 UNITS SC ×3 (07:44→16:36)
[2024-09-19] MEDS: PROTONIX 40 MG PO ×2 (07:45→19:37)
[2024-09-19] MEDS: FIRVANQ 125 MG PO ×2 (07:45→20:54)
[2024-09-19] MEDS: ENTRESTO 24 MG/26 MG 1 TAB PO (07:46)
[2024-09-19] MEDS: MUCINEX 1200 MG PO ×2 (07:46→19:37)
[2024-09-19] MEDS: CLARITIN 10 MG PO (07:46)
[2024-09-19] MEDS: COLACE 100 MG PO ×2 (07:46→19:37)
[2024-09-19 07:48] LABS: Glucose - Point of Care 121 mg/dl (70-99)
[2024-09-19] MEDS: DELTASONE 30 MG PO (07:48)
[2024-09-19] MEDS: COREG 12.5 MG PO (07:48)
[2024-09-19] MEDS: ELIQUIS 2.5 MG PO ×2 (07:48→19:37)
[2024-09-19] MEDS: BUMEX 2 MG PO ×2 (07:48→16:29)
[2024-09-19 08:09] LABS: Hematocrit 34.4 % (39.0-52.0); Hemoglobin 11.8 g/dL (13.0-18.0); Mean Corp Hgb Conc. 34.3 g/dL (33.0-37.0); Mean Corpuscular Hgb 30.7 pg (27.0-31.0); Mean Corpuscular Volume 89.6 fL (80.0-94.0); Mean Platelet Volume 10.8 fL (7.4-10.4); Platelet Count 433 10^3/uL (130-400); Red Blood Cell Count 3.84 10^6/uL (4.70-6.10); Red Cell Dist. Width 13.8 % (11.5-14.5); White Blood Cell Count 30.7 10^3/uL (4.8-10.8)
[2024-09-19] MEDS: PRED FORTE 1% EYE DROPS 1 DROP OPHTH ×2 (08:09→19:48)
[2024-09-19] MEDS: SIMBRINZA 1%-0.2% OPHTH SUSP 1 DROP BOTH EYES ×3 (08:10→20:56)
[2024-09-19] MEDS: OCEAN, SALINE MIST 50 SPRAYS NASAL (08:10)
[2024-09-19 08:13] LABS: Blood Urea Nitrogen 48 mg/dl (9-20); Calcium 8.9 mg/dl (8.4-10.2); Carbon Dioxide 36 mmol/L (22-30); Chloride 95 mmol/L (98-107); Estimated Creatinine Clearance 34 ml/min; Glucose 106 mg/dl (70-99); Magnesium 2.3 mg/dl (1.6-2.3); Phosphorus 3.5 mg/dl (2.5-4.5); Potassium 3.9 mmol/L (3.5-5.1); Sodium 135 mmol/L (135-145); eGFR 40.25
--- NOTE | 2024-09-19 09:47 | PTCARENOTE ---
Report given to Melinda LAI on ; Pt placed on Tele pack; Slid Pt over into new bed, transferred to room 401-1
--- NOTE | 2024-09-19 10:53 | W.PN.NEPH.PH ---
Today's Communication / Plan
-
Follow BMP
Maintain current Bumex
Assessment/Plan
-
Impression:
SIMEON
Hyponatremia
CHF exacerbation with hypoxic respiratory failure
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
Enterococcus faecalis bacteremia secondary to UTI
COPD
AFIB
DM
Hypothyroidism
History of MGUS
Splenectomy
History of C. difficile
CAD
PACER
Plan:
Creatinine up to 1.7
Patient hemodynamically labile, if creatinine continues to rise we will have to titrate back or off Entresto
follow BMP
On p.o. Bumex 2 mg twice a day, although weights rising
-
-
Date of Service: September 19, 2024
CC / HPI / ROS
-
Chief Complaint:
SIMOEN
History of Present Illness:
SIMEON/Cr up to 1.7
Hemodynamically labile
alkalosis stable 36
Review of Systems:
Remains on high O2 requirements
Nonoliguric but weights up
no CP
hand edema
Labs
-
Labs:
WBC 30.7 10^3/uL (4.8-10.8) H 09/19/24 07:39
RBC 3.84 10^6/uL (4.70-6.10) L 09/19/24 07:39
Hgb 11.8 g/dL (13.0-18.0) L 09/19/24 07:39
Hct 34.4 % (39.0-52.0) L 09/19/24 07:39
Plt Count 433 10^3/uL (130-400) H 09/19/24 07:39
Sodium 135 mmol/L (135-145) 09/19/24 07:39
Potassium 3.9 mmol/L (3.5-5.1) 09/19/24 07:39
Chloride 95 mmol/L (98-107) L 09/19/24 07:39
Carbon Dioxide 36 mmol/L (22-30) H 09/19/24 07:39
BUN 48 mg/dl (9-20) H 09/19/24 07:39
Creatinine 1.7 mg/dL (0.7-1.3) H 09/19/24 07:39
eGFR 40.25 09/19/24 07:39
Glucose 106 mg/dl (70-99) H 09/19/24 07:39
Calcium 8.9 mg/dl (8.4-10.2) 09/19/24 07:39
Phosphorus 3.5 mg/dl (2.5-4.5) 09/19/24 07:39
Qsu-J-Efwuvhwaryp Pept 6470 pg/ml 09/14/24 10:30
Albumin 2.8 g/dl (3.5-5.0) L 09/17/24 05:21
Physical Exam
-
Vital Signs:
Vital Signs
Temp Pulse Resp BP Pulse Ox
97.5 F 60 16 94/48 93
09/19/24 10:30 09/19/24 10:30 09/19/24 10:30 09/19/24 10:30 09/19/24 10:30
Cardiovascular:: Regular rate and rhythm
Respiratory:: Bilateral: Coarse
Lung Excursion:: Normal
Abdomen:: Nontender and Soft
Bowel Sounds:: Normal
Extremity Edema:: +2: Bilateral: (UE)
Ty Catheter: No
[2024-09-19 11:45] LABS: Glucose - Point of Care 140 mg/dl (70-99)
[2024-09-19 13:07] LABS: ALT (SGPT) 25 U/L (0-50); AST (SGOT) 19 U/L (17-59); Alkaline Phosphatase 55 U/L (38-126); Direct Bilirubin 0.6 mg/dl (0.0-0.4); Total Protein 5.2 g/dl (6.3-8.2)
[2024-09-19] MEDS: FLEXBUMIN 100 IV (13:35)
[2024-09-19] MEDS: OCEAN, SALINE MIST 2 SPRAYS NASAL ×3 (13:39→21:24)
[2024-09-19 16:13] LABS: Glucose - Point of Care 183 mg/dl (70-99)
[2024-09-19] MEDS: NOVOLOG FLEXPEN-MODERATE RESISTANCE 1 UNITS SC (16:36)
[2024-09-19] MEDS: ASPIR LOW (ENTERIC COATED) 81 MG PO (17:42)
[2024-09-19] MEDS: JANUVIA 100 MG PO (17:42)
--- NOTE | 2024-09-19 18:18 | PTCARENOTE ---
Received patient from IMU at 10:30. Pt is AAOx 3. Pt is forgetful and [place]. Pt oriented to room. Pt tolerated diet well. Pt medicated with Albumin as ordered. Offered no complaints. Made patient comfortable. Cont to assess patient status.
[2024-09-19] MEDS: ENTRESTO 24 MG/26 MG PO (19:30)
[2024-09-19] MEDS: COREG PO (19:31)
[2024-09-19 21:16] LABS: Glucose - Point of Care 212 mg/dl (70-99)
[2024-09-19] MEDS: XALATAN OPHTHALMIC SOLUTION 1 DROP BOTH EYES (21:18)
[2024-09-19] MEDS: LANTUS 0.2 UNITS SC (21:19)
[2024-09-19] MEDS: BENADRYL 25 MG PO (21:20)
[2024-09-19] MEDS: NON-FORMULARY ITEM 1 DROP BOTH EYES (21:22)
[2024-09-20 03:24] VITALS: BP 121/49
[2024-09-20 04:57] LABS: Blood Urea Nitrogen 48 mg/dl (9-20); Carbon Dioxide 34 mmol/L (22-30); Chloride 95 mmol/L (98-107); Estimated Creatinine Clearance 38 ml/min; Glucose 109 mg/dl (70-99); Magnesium 2.3 mg/dl (1.6-2.3); Phosphorus 3.6 mg/dl (2.5-4.5); Sodium 134 mmol/L (135-145); eGFR 46.77
[2024-09-20] MEDS: SYNTHROID 100 MCG PO (05:23)
[2024-09-20] MEDS: ROBITUSSIN 200 MG PO (05:35)
[2024-09-20 05:43] LABS: COVID-19 Antigen Negative (Negative)
[2024-09-20 06:00] VITALS: BMI 28.3
[2024-09-20 07:00] VITALS: BP 136/65
[2024-09-20] MEDS: PULMICORT 0.5 MG INH (07:12)
[2024-09-20] MEDS: DUONEB 3 ML INH (07:13)
[2024-09-20 08:22] LABS: Glucose - Point of Care 69 mg/dl (70-99)
--- NOTE | 2024-09-20 08:24 | W.PN.HOSP.TC ---
Today's Communication/Plan
-
discharge
Assessment / Plan
Assessment / Plan
Physical Exam
General: no acute distress, appears comfortable
HEENT: NormoCephalic, Moist mucous membranes
Respiratory: Coarse breath sounds b/l, stable respiratory status on room air
Cardiac: S1/S2 and Regular Rhythm; No Tachycardia
GI: Soft, Non Tender, bowel sounds present
Musculoskeletal: No Clubbing, No Cyanosis, bilateral upper ext's edema improved
Neuro: AOx3 conversant coherent
Psych: Calm and cooperative
79M CAD CHF afib DM MGUS COPD here for CHF exacerbation, high white count, suspected pneumonia, bacteremia d/t UTI.
Acute Hypoxic Respiratory Insufficiency multifactorial 2/2 to Heart Failure PNA and possibly COPD
Obstructive Sleep Apnea
Hypercapnia
Bilateral pleural effusion
- IV Decadron tapered to Prednisone, cont taper reduce dose 10 mg after every 3rd dose
- Weaned off High Flow, eventually weaned off oxygen supplementation, stable respiratory status on room air.
- Chest x-ray 09/09 showed worsening left mid to lower lung field pneumonia, persistent but improved pulmonary edema
- Status post right thoracentesis 09/10 with 1.2 L out
- Status post left thoracentesis 09/14 with 600 cc out
- Pleural fluid cultures neg for growth, path study neg for malignancy
- evaluated by MANAGER FORMS with no overt findings of aspiration, diet advanced tolerating
- abx as per ID
- Pulm eval appreciated ABG notes chronic CO2 obstruction PAP therapy recommended HS/PRN
Upper Ext Edema L>R
-elevate and ice LUE
-repeat Venous US and check arterial upper ext's appreciated no clots or significant stenosis
-MARY GRACE wrap compression therapy
-swelling since improved
Acute on Chronic HFrEF
- ECHO appreciated 30%
- Entresto placed on hold 09/17/24 possibly inducing chronic cough. Since resumed with no improvement in cough noted.
- cont PO bumex as per nephro Cardio
- Cardio eval appreciated RHC performed 09/14/24 noted severe hypoxia out of proportion to filling pressures, respiratory failure suspected primarily respiratory driven
- maintain fluid and salt restriction
SIMEON
Metabolic Alkalosis
- Baseline 0.9 since increased to peak 1.8
- trended down to 1.5
- Nephro eval appreciated cont bumex diuresis, completed a course of Diamox
Enterococcus bacteremia:
- Secondary to urinary tract infection
- Repeat cultures negative
- Continue treatment with Augmentin and doxycycline
- PO vancomycin for C. difficile prophylaxis while treating for bacteremia
- ID eval appreciated completed Augmentin thru 09/18/24 Doxycycline thru 09/16/24, PO Vanco 125m mg BID Cdiff ppx to cont thru 09/23/24
Nasal Congestion
Persistent Coughing
- Continues to have intermittent coughing, some improvement in congestion
- mucinex, prn robitussin, incentive spirometer, acapella
- normal saline nasal spray QID
- steroids as above
- Protonix
- Claritin switched to Benadryl bedtime, subsequent improvement in night time symptoms and sleep noted
Hyponatremia, suspect hypervolemic in nature in setting of heart failure
-Continue fluid restriction
-since significantly improved/resolved
Significant Leukocytosis
- steroids likely contributing at this time
- Acute on chronic in the setting of Enterococcus faecalis bacteremia
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
- Heme-onc eval appreciated, flow cytometry negative, recommended outpatient follow-up
Possible Asthma / COPD exacerbation contributing
-Transitioned to Pulmicort and DuoNeb QID / PRN while inpt
-steroids taper
-Pulm eval appreciated
Coronary Artery Disease
-Continue aspirin
Paroxysmal Atrial Fibrillation
-Continue Eliquis
-Continue carvedilol for rate control
Diabetes Mellitus, Type II
-Continue Januvia
-Hold Nateglinide
-Monitor sugars, sliding scale
-Novolog 3U AC Lantus 10U HS added d/t steroid induced hyperglycemia titrated up to 7U and 20U respectively
-hyperglycemia improving with tapering steroid, Novolog Lantus reduced to 3U 10U respectively.
Essential Hypertension
-Continue carvedilol and Entresto with hold parameters, coreg dose reduced with episodic low pressures/borderline hypotensive
-Bumex as above
Hypothyroidism
-Continue levothyroxine
MGUS
Hx Complete Heart Block s/p Pacemaker
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
Hx C Diff Colitis
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
PT/OT appreciated SNF rehab
DVT proph: Eliquis
Code Status: DNR
Medically Stable for discharge SNF rehab with outpatient follow up recommendations.
Discussed with Patient and Patient's Maria D
Total Time Preparing Discharge __40 minutes including examination of the patient, summary of the hospital stay, instructions for continuing care to all relevant caregivers; and preparation of discharge records, prescriptions, and referral
forms if necessary.
Anticipated Discharge: Today
Subjective/Interval History
-
Date of Service: September 20, 2024
Seen and examined at bedside in no acute distress sitting up comfortably in bed. Reports improvement in sleep and coughing overnight with bedtime Benadryl. Denies new acute issue. Looking forward to rehab
Objective Data
-
Labs:
Laboratory Results
09/20/24
04:13
Sodium 134 L
Potassium 4.0
Chloride 95 L
Carbon Dioxide 34 H
BUN 48 H
Creatinine 1.5 H
Glucose 109 H
Calcium 9.0
Vital Signs:
Vital Signs
Temp Pulse Resp BP Pulse Ox
97.5 F 79 14 136/65 98
09/20/24 07:00 06/15/25 07:00 09/20/24 07:00 09/20/24 07:00 09/20/24 07:00
I&O
09/19/24 09/20/24 09/21/24
06:59 06:59 06:59
Intake Total 1340 / 1340 1300 / 1300
Output Total 1750 / 1750 2775 / 2775
Balance -410 / -410 -1475 / -1475
[2024-09-20 08:51] LABS: Glucose - Point of Care 80 mg/dl (70-99)
[2024-09-20] MEDS: NOVOLOG FLEXPEN-MODERATE RESISTANCE SC ×2 (09:51→11:56)
[2024-09-20] MEDS: NOVOLOG FLEXPEN SC (09:52)
[2024-09-20] MEDS: COLACE 100 MG PO (09:53)
[2024-09-20] MEDS: BUMEX 2 MG PO ×2 (09:53→17:10)
[2024-09-20] MEDS: ELIQUIS 2.5 MG PO (09:53)
[2024-09-20] MEDS: MUCINEX 1200 MG PO (09:53)
[2024-09-20] MEDS: COREG 6.25 MG PO (09:54)
[2024-09-20] MEDS: DELTASONE 30 MG PO (09:54)
[2024-09-20] MEDS: ENTRESTO 24 MG/26 MG 1 TAB PO (09:54)
[2024-09-20] MEDS: PROTONIX 40 MG PO (09:55)
[2024-09-20] MEDS: OCEAN, SALINE MIST 2 SPRAYS NASAL ×3 (09:55→17:12)
[2024-09-20] MEDS: SIMBRINZA 1%-0.2% OPHTH SUSP 1 DROP BOTH EYES ×2 (09:56→17:12)
[2024-09-20] MEDS: PRED FORTE 1% EYE DROPS 1 DROP OPHTH (09:56)
[2024-09-20] MEDS: TESSALON PERLES 200 MG PO (09:59)
[2024-09-20 11:30] VITALS: BP 106/50
[2024-09-20 11:43] LABS: Glucose - Point of Care 121 mg/dl (70-99)
--- NOTE | 2024-09-20 12:07 | CM ---
MD indicated pt ready for dc to SNF today.
Spoke with Marce at [facility] bed ready .
Covid test done negative ,
Spoke with pt and Camila yesterday . Both agree with dc to SNF today.
Ambulance requested . Medical nec form completed .
[facility]
report [phone]
fax [phone]
PLAN To [facility] SNF
[2024-09-20] MEDS: FIRVANQ 125 MG PO (12:37)
[2024-09-20] MEDS: NOVOLOG FLEXPEN 3 UNITS SC ×2 (12:42→17:12)
--- NOTE | 2024-09-20 14:48 | W.DCSUMMARY ---
Discharge Summary
Discharge Data
Date of Admission: 09/03/24
Date of Discharge: 09/20/24
-
Pending Results: No
Discharge Plan
-
Patient Disposition: Skilled Nursing/SNF
Discharge Diagnosis/Procedures: Acute Hypoxic Respiratory Insufficiency multifactorial due to Heart Failure, Pneumonia and COPD Exacerbation
Obstructive Sleep Apnea
Hypercapnia
Bilateral pleural effusion suspect due to Heart Failure
Status post right thoracentesis 09/10/24 with 1.2 L removed
Status post left thoracentesis 09/14/24 with 600 cc removed
Acute on Chronic Heart Failure with Reduced Ejection Fraction
Right Heart Catherization performed 09/14/24 noted severe hypoxia out of proportion to filling pressures, respiratory failure suspected primarily respiratory driven at the time
Acute Kidney Injury
Metabolic Alkalosis
Enterococcus bacteremia Secondary to urinary tract infection
Nasal Congestion
Chronic Cough
Hyponatremia
Chronic Leukocytosis
Asthma/COPD exacerbation
Coronary Artery Disease
Paroxysmal Atrial Fibrillation
Diabetes Mellitus, Type II
Hypertension
Hypothyroidism
MGUS (monoclonal gammopathy undetermined significance)
History Complete Heart Block s/p Pacemaker
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
History C Diff Colitis
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
Condition: Fair
Diet: 2 Gram Sodium, Diabetic, Carb Controlled and Restrict fluids to 48 oz
Activity: With assistance, As tolerated and With Walker
Driving Restrictions: Not until seen by your Dr
Bathing Restrictions: None
Blood Work: repeat CBC and BMP with primary care provider in 1 week of discharge.
Others Tests: repeat Chest X-ray with primary care provider in 1 month of discharge.
Other Services: PT and OT
Specialty Instructions: Weigh Daily- Call MD for wt gain/loss 3 lbs overnight/5 lbs in 1 week
Activity Restrictions/Additional Instructions:
Follow up with primary care provider in 1 week of discharge. In 2-3 weeks of discharge, follow up with Pulmonology, Nephrology, your [employer], and your Art Objects Repairer.
nateglinide for diabetes on hold for now. Follow up with primary care provider and/or other healthcare provider involved in your care to determine when safe to resume.
Home Eliquis has been reduced to renal dosing 2.5 mg twice a day because of age 79 and Creatine (measure of kidney function) equal to or greater than 1.5. Repeat BMP with primary care provider in 1 week of discharge. It is recommended to return to
5 mg twice a day dosing if Creatine levels improve to less than 1.5
Mucinex and as needed Robitussin and benzonatate have been prescribed for cough.
Home Coreg (Carvedilol) has been reduced from 12.5 mg to 6.25 mg twice a day. Coreg is for heart failure, atrial fibrillation heart rate control, and hypertension. Dose was reduced due to hypotension.
Bedtime Benadryl prescribed to help with sleep and night time symptoms cough.
Novolog 3U before meals and Lantus 10U bedtime prescribed for diabetes and steroid induced hyperglycemia
Albuterol Inhaler has been changed to as needed nebulizer treatments for shortness of breath or wheezing.
Prednisone taper has been prescribed for COPD/asthma exacerbation:
30 mg daily x 1 day, then 20 mg daily x 3 days, then 10 mg daily x 3 days, then stop
Protonix has been prescribed for GI prophylaxis while on steroids. Ok to stop when off steroids
Home Januvia dose reduced to 50 mg daily due to renal insufficiency
Oral vancomycin prescribed for CDiff prophylaxis following a completed course of broad spectrum antibiotics for bacteremia. Last day for oral vancomycin prophylaxis is 09/23/24.
Please take medications as prescribed/recommended and follow up with primary care provider and/or other healthcare provider involved in your care for refills and/or further adjustments to your medication regimen as necessary.
Instructions: *PCP/Other [employer] Heart Failure Instructions
Stand Alone Forms: DC Instructions- Cath/EP Lab
Referrals:
Miracle Ness DO [Active, Pulmonary Medicine] - in two to three weeks
Referral Note: PFT, sleep study
Leshner,Oliverio T., DO [Non-Admitting Privileges, Internal Medicine] - in one week
UNKNOWN - PT DOES,NOT KNOW [Family Provider]
Patrice Knight MD [Active, Nephrology] - in two to three weeks
Prescriptions:
New
diphenhydramine HCl 25 mg Capsule
25 mg PO HS Qty: 14 0RF
carvedilol 6.25 mg Tablet
6.25 mg PO BID Qty: 60 0RF
ipratropium-albuterol 0.5 mg-3 mg(2.5 mg base)/3 mL Solution For Nebulization
3 ml inhalation R Q4HPRN PRN (Reason: shortness of breath/wheeze) Qty: 180 0RF
prednisone 10 mg Tablet
10 mg PO DIRECTED Qty: 12 0RF
Rx Instructions:
30 mg daily x1 day, 20 mg daily x3 days, 10 mg daily x3 days, then stop
vancomycin 50 mg/mL Recon Soln
125 mg PO Q12 Qty: 80 0RF
Rx Instructions:
09/23/24 last day for oral vancomycin, Cdiff prophylaxis
Eliquis 2.5 mg Tablet
2.5 mg PO BID Qty: 60 0RF
Januvia 50 mg Tablet
50 mg PO QPM Qty: 30 0RF
guaifenesin 600 mg Tablet Extended Release 12hr
1,200 mg PO Q12 7 Days Qty: 28 0RF
insulin aspart U-100 100 unit/mL (3 mL) Insulin Pen
3 unit SC AC Qty: 15 0RF
pantoprazole 40 mg Tablet,Delayed Release (Dr/Ec)
40 mg PO DAILY 7 Days Qty: 7 0RF
Rx Instructions:
ok to discontinue when off steroids.
guaifenesin 100 mg/5 mL Liquid
200 mg PO Q8HPRN PRN (Reason: cough) Qty: 1000 0RF
benzonatate 100 mg Capsule
200 mg PO TIDPRN PRN (Reason: cough) Qty: 60 0RF
insulin glargine [Lantus Solostar U-100 Insulin] 100 unit/mL (3 mL) insulin pen
10 unit SC HS Qty: 15 0RF
Continued
bumetanide 2 MG tablet
2 mg PO BID
aspirin 81 MG tablet,delayed release (DR/EC)
81 mg PO QPM
levothyroxine 100 MCG tablet
100 mcg PO DAILY AT 0700
azelastine 1 SPRAY aerosol,spray
1 spray intranasal BID
cholecalciferol (vitamin D3) 1,000 UNITS tablet
1,000 units PO DAILY
Simbrinza 1 DROP drops,suspension
1 drp BOTH EYES TID
Lumigan 0.01 % Drops
1 drp BOTH EYES HS
Entresto 24-26 mg Tablet
1 tab PO BID
Rhopressa 0.02 % Drops
1 drp BOTH EYES HS
docusate sodium [Colace] 100 mg Capsule
100 mg PO BID
fluticasone furoate-vilanterol [Breo Ellipta] 200-25 mcg/dose blister with device
1 inh INHALATION DAILY
prednisolone acetate (PF) 1 % Drops,Suspension
1 drp OPHTHALMIC (EYE) BID
Held
nateglinide 120 MG tablet
120 mg PO TID
Hold Instructions: Follow up with primary care provider and/or other healthcare provider involved in your care to determine when safe to resume.
Discontinued
carvedilol 12.5 MG tablet
12.5 mg PO BID
albuterol sulfate 1 PUFF HFA aerosol inhaler
1 puff inhalation R Q4HPRN PRN (Reason: SOB)
Januvia 100 MG tablet
100 mg PO QPM
Eliquis 5 mg Tablet
5 mg PO BID
azithromycin 250 mg Tablet
0 mg PO .COMPLEX
Rx Instructions:
For 250 mg dose pack: take 500 mg today (day 1), then 250 mg for 4 days (days 2-5)
Discharge Orders:
Discharge Patient (As Directed); Ordered 09/20/24
Ordered By: Sravani Hernandez
Discharge Date and Time
Print Language: [place]
[2024-09-20 15:00] VITALS: BP 129/88
--- NOTE | 2024-09-20 15:11 | W.PN.NEPH.PH ---
Today's Communication / Plan
-
sign off
Assessment/Plan
-
Impression:
SIMEON
Hyponatremia
CHF exacerbation with hypoxic respiratory failure
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
Enterococcus faecalis bacteremia secondary to UTI
COPD
AFIB
DM
Hypothyroidism
History of MGUS
Splenectomy
History of C. difficile
CAD
PACER
Plan:
Creatinine down 1.5
Patient hemodynamically labile, if creatinine continues to rise we will have to titrate back or off Entresto
follow BMP
On p.o. Bumex 2 mg twice a day, although weights rising
numbers stable we will sign off
-
-
Date of Service: September 20, 2024
CC / HPI / ROS
-
Chief Complaint:
SIMEON
History of Present Illness:
SIMEON/Cr up to 1.5
Hemodynamically labile
alkalosis stable 36
Review of Systems:
Remains on high O2 requirements
Nonoliguric but weights down
no CP
hand edema
Labs
-
Labs:
WBC 30.7 10^3/uL (4.8-10.8) H 09/19/24 07:39
RBC 3.84 10^6/uL (4.70-6.10) L 09/19/24 07:39
Hgb 11.8 g/dL (13.0-18.0) L 09/19/24 07:39
Hct 34.4 % (39.0-52.0) L 09/19/24 07:39
Plt Count 433 10^3/uL (130-400) H 09/19/24 07:39
Sodium 134 mmol/L (135-145) L 09/20/24 04:13
Potassium 4.0 mmol/L (3.5-5.1) 09/20/24 04:13
Chloride 95 mmol/L (98-107) L 09/20/24 04:13
Carbon Dioxide 34 mmol/L (22-30) H 09/20/24 04:13
BUN 48 mg/dl (9-20) H 09/20/24 04:13
Creatinine 1.5 mg/dL (0.7-1.3) H 09/20/24 04:13
eGFR 46.77 09/20/24 04:13
Glucose 109 mg/dl (70-99) H 09/20/24 04:13
Calcium 9.0 mg/dl (8.4-10.2) 09/20/24 04:13
Phosphorus 3.6 mg/dl (2.5-4.5) 09/20/24 04:13
Ola-Z-Fracfzoxuxr Pept 6470 pg/ml 09/14/24 10:30
Albumin 3.0 g/dl (3.5-5.0) L 09/19/24 07:39
Physical Exam
-
Vital Signs:
Vital Signs
Temp Pulse Resp BP Pulse Ox
97.7 F 69 20 106/50 91
09/20/24 11:30 09/20/24 11:30 09/20/24 11:30 09/20/24 11:30 09/20/24 11:30
Cardiovascular:: Regular rate and rhythm
Respiratory:: Bilateral: Coarse
Lung Excursion:: Normal
Abdomen:: Nontender and Soft
Bowel Sounds:: Normal
Extremity Edema:: +2: Bilateral: (UE)
Ty Catheter: No
[2024-09-20 15:49] LABS: Glucose - Point of Care 217 mg/dl (70-99)
[2024-09-20] MEDS: JANUVIA 50 MG PO (17:10)
[2024-09-20] MEDS: ASPIR LOW (ENTERIC COATED) 81 MG PO (17:11)
[2024-09-20] MEDS: NOVOLOG FLEXPEN-MODERATE RESISTANCE 3 UNITS SC (17:11)
[2024-09-21 08:08] LABS: Glucose - Point of Care 279 mg/dl (70-99)
== END 2024-09-20 19:13 | DRG 286 ==
LOC: 4 EAST ACU 20:29
PROVIDERS: Internal Medicine; Internal Medicine Cardiovascular Disease; Internal Medicine Critical Care Medicine; Internal Medicine Hematology & Oncology; Physician Assistant Medical; Radiology Vascular & Interventional Radiology; Registered Nurse; ADMITTING PHYSICIAN Hospitalist; ATTENDING PHYSICIAN Internal Medicine; CONSULT PHYSICIAN Internal Medicine Critical Care Medicine; CONSULT PHYSICIAN Internal Medicine Infectious Disease; CONSULT PHYSICIAN Specialist; EMERGENCY PHYSICIAN Emergency Medicine; OTHER PHYSICIAN Internal Medicine Cardiovascular Disease; OTHER PHYSICIAN Internal Medicine Hematology & Oncology
PROC: 0W993ZZ Drainage of Right Pleural Cavity, Percutaneous Approach (ICD-10-PCS; 2024-09-10)
PROC: 4A023N6 Measurement of Cardiac Sampling and Pressure, Right Heart, Percutaneous Approach (ICD-10-PCS; 2024-09-14)
PROC: 0W9B3ZZ Drainage of Left Pleural Cavity, Percutaneous Approach (ICD-10-PCS; 2024-09-14)
PROC: 5A09357 Assistance with Respiratory Ventilation, Less than 24 Consecutive Hours, Continuous Positive Airway Pressure (ICD-10-PCS; 2024-09-15)
DX: I11.0 Hypertensive heart disease with heart failure (principal); A41.81 Sepsis due to Enterococcus; I50.23 Acute on chronic systolic (congestive) heart failure; J96.01 Acute respiratory failure with hypoxia; J18.9 Pneumonia, unspecified organism; E87.1 Hypo-osmolality and hyponatremia; N17.9 Acute kidney failure, unspecified; E87.3 Alkalosis; J44.1 Chronic obstructive pulmonary disease with (acute) exacerbation; J45.901 Unspecified asthma with (acute) exacerbation; J44.0 Chronic obstructive pulmonary disease with (acute) lower respiratory infection; N39.0 Urinary tract infection, site not specified; J91.8 Pleural effusion in other conditions classified elsewhere; Z66 Do not resuscitate; I25.10 Atherosclerotic heart disease of native coronary artery without angina pectoris; I48.0 Paroxysmal atrial fibrillation; E11.9 Type 2 diabetes mellitus without complications; D47.2 Monoclonal gammopathy; E03.9 Hypothyroidism, unspecified; H40.9 Unspecified glaucoma; G47.33 Obstructive sleep apnea (adult) (pediatric); I42.9 Cardiomyopathy, unspecified; I27.29 Other secondary pulmonary hypertension; E78.5 Hyperlipidemia, unspecified; Z11.52 Encounter for screening for COVID-19; Z79.01 Long term (current) use of anticoagulants; Z79.82 Long term (current) use of aspirin; Z79.84 Long term (current) use of oral hypoglycemic drugs; Z79.899 Other long term (current) drug therapy; Z86.73 Personal history of transient ischemic attack (TIA), and cerebral infarction without residual deficits; Z90.81 Acquired absence of spleen; Z95.810 Presence of automatic (implantable) cardiac defibrillator
CPT/HCPCS: 88305; 32555; 36600; 71045; 71046; 71250; 74230; 80048; 80053; 80061; 81003; 81015; 82150; 82248; 82784; 82805; 82945; 82962; 83036; 83521; 83615; 83735; 83880; 83930; 83935; 83986; 84100; 84145; 84155; 84157; 84165; 84300; 84443; 84478; 85014; 85018; 85025; 85027; 85610; 85730; 86334; 86803; 87015; 87040; 87070; 87077; 87086; 87102; 87154; 87186; 87205; 87206; 87502; 87811; 88112; 89051; 92526; 92610; 92611; 93005; 93306; 93451; 93930; 93971; 94640; 94660; 94669; 96374; 97110; 97163; 97167; 97530; 97535; 99285; P9047